=== PATIENT | female | born 1975 | race Caucasian/White ===

== ENCOUNTER 2020-05-18 14:00 | Outpatient (RCR) | payer OTHER, SELFPAY ==
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
--- NOTE | 2020-07-04 09:29 | MHC.PT.EP ---
[facility] [place] Office [place] Office [place] Office [address] [place] [address] [phone] F: [phone] F: [phone] F: [phone] F: [phone] Physical Therapy Plan of Care Date of Evaluation: 05/18/20 Date of Surgery: Diagnosis: Dorsalgia Assessment: Frequency and Duration: The patient will be seen Short Term Goals: PLEASE REFER TO LTG BELOW Rim Turning Finisher Goals: Restore strength to normal limits, WFL PELVIC SYMMETRY in 5 weeks Senior Living Return to all activities of daily living EVIDENT IN IMPROVED OSWESTRY BY 10 POINTS ( AT EVAL 22/50)in 6 wks Senior Living Pt INDEP W HEP AND SELF SX MGMT IN 5 WEEKS Rim Turning Finisher Decrease BACK pain to 2-3/10 in 2 weeks Short Term Restore normal postures AND PROPER BODY MECH in 2 weeks Treatment Plan: Modalities to reduce pain, spasms and effusion. Manual therapy to restore motion and function. Therapeutic exercise to improve strength and flexibility. Neuromuscular re-education for posture and balance. Therapeutic activities to return to functional activities of daily living. Electronically signed by: Otilio Lees PT Please sign and return to therapist. Thank you for your referral.
== END 2020-07-04 09:30 | disposition home or self-care (01) ==
LOC: HO.PTCHIC 14:00
PROVIDERS: PCP Family Medicine; Visit Provider Family Medicine
DX: M54.9 Dorsalgia, unspecified (principal)
CPT/HCPCS: 97014; 97110; 97112; 97140

== ENCOUNTER 2020-06-09 11:53 | Outpatient (REF) | payer OTHER, SELFPAY ==
[2020-06-09 13:52] LABS: MANUAL DIFF FLAG NO
[2020-06-09 13:56] LABS: Basophils Absolute Auto 0.1 X10*3/uL (0.0-0.2); Basophils Percent Auto 0.5 % (0-2); Eosinophils Absolute Auto 0.2 X10*3/uL (0.0-0.4); Eosinophils Percent Auto 2.1 % (0-4); Hematocrit 31.7 % (37-47); Hemoglobin 9.4 g/dl (12.0-16.0); Imm Gran Abs Auto 0.09 X10*3/uL (0.00-0.03); Imm Gran Pct Auto 0.9 % (0.0-0.4); Lymphocytes Absolute Auto 3.1 X10*3/uL (1.2-4.9); Lymphocytes Percent Auto 30.5 % (20-40); Mean Corpuscular HGB Conc 29.7 g/dl (31.0-35.0); Mean Corpuscular Hemoglobin 23.7 pg (27.0-33.0); Mean Corpuscular Volume 80.1 fL (80-98); Mean Platelet Volume 10.3 fL (9.4-12.3); Monocytes Absolute Auto 0.6 X10*3/uL (0.1-1.2); Monocytes Percent Auto 5.7 % (2-11); Neutrophils Absolute Auto 6.2 X10*3/uL (2.0-8.3); Neutrophils Percent Auto 60.3 % (45-73); Platelet Count 264 X10*3/uL (160-400); Red Blood Count 3.96 X10*6/uL (4.20-5.50); White Blood Count 10.2 X10*3/uL (4.8-10.8)
[2020-06-09 14:24] LABS: Anion Gap 12 (12-20); Blood Urea Nitrogen 13 mg/dL (9-16); Calcium 8.9 mg/dL (8.4-10.2); Carbon Dioxide 23 mmol/L (22-29); Chloride 113 mmol/L (96-108); Cholesterol 195 mg/dL; Estimated Glomerular Filt Rate > 60; Glucose Fasting 86 mg/dL (60-99); HDL Cholesterol 47 mg/dL; LDL Cholesterol Calculated 107 mg/dl; Potassium 4.8 mmol/l (3.3-5.1); Sodium 143 mmol/L (135-145); Triglycerides 205 mg/dL
== END 2020-06-09 11:54 | disposition home or self-care (01) ==
LOC: HO.HMGCLDS 11:53
PROVIDERS: PCP Family Medicine; Visit Provider Internal Medicine
DX: Z20.828 Contact with and (suspected) exposure to other viral communicable diseases (principal); Z00.00 Encounter for general adult medical examination without abnormal findings; E78.00 Pure hypercholesterolemia, unspecified; D64.9 Anemia, unspecified
CPT/HCPCS: 36415; 80048; 80061; 85025; C9803; U0003

== ENCOUNTER 2020-07-03 | Outpatient (REF) | payer OTHER, SELFPAY | END 2020-07-03 00:01 | disposition home or self-care (01) | LOC: HO.WFDLNP | PROVIDERS: Visit Provider Family Medicine | DX: R30.0 Dysuria (principal) | CPT/HCPCS: 87086; 87088; 87186 ==

== ENCOUNTER 2020-09-25 11:41 | Outpatient (REF) | payer OTHER, SELFPAY ==
[2020-09-25 13:29] LABS: Hematocrit 32.3 % (37-47); Hemoglobin 9.5 g/dl (12.0-16.0); Mean Corpuscular HGB Conc 29.4 g/dl (31.0-35.0); Mean Corpuscular Hemoglobin 23.9 pg (27.0-33.0); Mean Corpuscular Volume 81.2 fL (80-98); Mean Platelet Volume 9.5 fL (9.4-12.3); Platelet Count 252 X10*3/uL (160-400); Red Blood Count 3.98 X10*6/uL (4.20-5.50); Red Cell Distribution Width 17.2 % (11.0-16.0); White Blood Count 8.4 X10*3/uL (4.8-10.8)
[2020-09-25 13:59] LABS: Alanine Aminotransferase 12 U/L (0-31); Albumin Level 4.2 g/dL (3.5-5.0); Alkaline Phosphatase 78 U/L (39-117); Anion Gap 12 (12-20); Aspartate Amino Transferase 15 U/L (5-31); Bilirubin Direct < 0.2 mg/dL (0.0-0.5); Bilirubin Total 0.3 mg/dL (0.0-1.0); Blood Urea Nitrogen 14 mg/dL (9-16); Calcium 8.6 mg/dL (8.4-10.2); Carbon Dioxide 21 mmol/L (22-29); Chloride 111 mmol/L (96-108); Cholesterol 202 mg/dL; Estimated Glomerular Filt Rate > 60; Glucose Fasting 87 mg/dL (60-99); HDL Cholesterol 59 mg/dL; LDL Cholesterol Calculated 117 mg/dl; Potassium 4.3 mmol/L (3.3-5.1); Sodium 140 mmol/L (135-145); Total Protein 6.7 g/dL (6.5-8.0); Triglycerides 133 mg/dL
[2020-09-25 14:20] LABS: TSH reflex Free T4 1.52 uIU/mL (0.32-4.0)
[2020-09-26 17:12] LABS: Rubella IgG Antibody 3.84 Index
[2020-09-27 08:57] LABS: HBS Num1 15.66 mIU/mL (0-7.99); HBc Num1 0.05 S/CO (0.00-0.79); Hepatitis B Core Antibody Nonreactive (Nonreactive); ~HepC Num1 0.11 S/CO (0.00-0.79); ~Hepatitis A Antibody IgM Nonreactive (Nonreactive); ~Hepatitis B Surface Antibody REACTIVE (Nonreactive); ~Hepatitis C Antibody Nonreactive (Nonreactive)
[2020-09-27 09:20] LABS: HBsAGNum1 0.15 S/CO (0.00-0.99); Hepatitis B Surface Antigen Negative (Negative)
[2020-09-28 17:06] LABS: TS Negative Control Passed; TS Panel A 0; TS Panel B 0; TS Positive Control Passed; TSpotTB Negative (SeeBelow)
== END 2020-09-25 11:42 | disposition home or self-care (01) ==
LOC: HO.LAB 11:41
PROVIDERS: PCP Family Medicine; Visit Provider Hospitalist
DX: Z00.00 Encounter for general adult medical examination without abnormal findings (principal)
CPT/HCPCS: 36415; 80048; 80061; 80076; 84443; 85027; 86481; 86704; 86706; 86709; 86735; 86762; 86765; 86787; 86803; 87340

== ENCOUNTER → 2020-10-30 14:54 | Outpatient (BNVA) | payer OTHER, SELFPAY | PROVIDERS: PCP Family Medicine; Visit Provider Anesthesiology | DX: M47.816 Spondylosis without myelopathy or radiculopathy, lumbar region (principal) | CPT/HCPCS: 99202 ==

== ENCOUNTER 2020-11-03 11:45 | Outpatient (RCR) | payer OTHER, SELFPAY ==
--- NOTE | 2020-08-25 20:58 | P.PNPS_ITS ---
TMS Daily Progress Note Daily TMS Progress Note Date of Service: 08/25/20 Week #: 1 Treatment #(07-29): 1 PHQ-9 Pre-Treatment (07-26): 20 PHQ-9 Most Recent (07-26): 20 Reviewed: TMS Mapping/Re-mapping completed Verification: I have reviewed the TMS Stock Crane Operator Note and agree with the contents. The patient remains a candidate to continue TMS treatment per protocol.
--- NOTE | 2020-08-28 21:01 | P.PNPS_ITS ---
TMS Daily Progress Note Daily TMS Progress Note Date of Service: 08/28/20 Week #: 1 Treatment #(07-29): 2 PHQ-9 Pre-Treatment (07-26): 20 PHQ-9 Most Recent (07-26): 20 Reviewed: TMS Tech Note Reviewed Verification: I have reviewed the TMS Product Development Manager Note and agree with the contents. The patient remains a candidate to continue TMS treatment per pro tocol.
--- NOTE | 2020-08-29 15:32 | P.PNPS_ITS ---
TMS Daily Progress Note Daily TMS Progress Note Date of Service: 08/29/20 Week #: 1 Treatment #(07-29): 3 PHQ-9 Pre-Treatment (07-26): 20 PHQ-9 Most Recent (07-26): 20 Reviewed: TMS Tech Note Reviewed Verification: I have reviewed the TMS Occupational Health Technician Note and agree with the contents. The patient remains a candidate to continue TMS treatment per pro tocol. need to remap sec to lack of tolerance
--- NOTE | 2020-09-04 21:21 | HO.TMSDAILY2 ---
TMS Daily Progress Note Daily TMS Progress Note Date of Service: 09/04/20 Week #: 1 Treatment #(07-29): 5 PHQ-9 Pre-Treatment (07-26): 20 PHQ-9 Most Recent (07-26): 20 Reviewed: TMS Tech Note Reviewed Verification: I have reviewed the TMS Cellophane Wrapping Examiner Note and agree with the contents. The patient remains a candidate to continue TMS treatment per protocol.
--- NOTE | 2020-09-06 22:21 | HO.TMSDAILY2 ---
TMS Daily Progress Note Daily TMS Progress Note Date of Service: 09/05/20 Week #: 2 Treatment #(07-29): 6 PHQ-9 Pre-Treatment (07-26): 20 PHQ-9 Most Recent (07-26): 20 Reviewed: TMS Tech Note Reviewed (09/05/20 case reviewed with tech and pt) Verification: I have reviewed the TMS Mucking Machine Operator Note and agree with the contents. The patient remains a candidate to continue TMS treatment per protocol.
--- NOTE | 2020-09-06 22:23 | HO.TMSDAILY2 ---
TMS Daily Progress Note Daily TMS Progress Note Date of Service: 09/06/20 Week #: 2 Treatment #(07-29): 7 PHQ-9 Pre-Treatment (07-26): 20 PHQ-9 Most Recent (07-26): 20 Reviewed: TMS Tech Note Reviewed Verification: I have reviewed the TMS School Based Therapist Note and agree with the contents. The patient remains a candidate to continue TMS treatment per protocol.
--- NOTE | 2020-09-07 22:25 | P.PNPS_ITS ---
TMS Daily Progress Note Daily TMS Progress Note Date of Service: 09/07/20 Week #: 2 Treatment #(07-29): 8 PHQ-9 Pre-Treatment (07-26): 20 PHQ-9 Most Recent (07-26): 20 Reviewed: TMS Tech Note Reviewed (r side tx ) Verification: I have reviewed the TMS Robotic Machine Tender Production Note and agree with the contents. The patient remains a candidate to continue TMS treatment per protocol.
--- NOTE | 2020-09-12 23:09 | P.PNPS_ITS ---
TMS Daily Progress Note Daily TMS Progress Note Date of Service: 09/12/20 Week #: 2 Treatment #(07-29): 9 PHQ-9 Pre-Treatment (07-26): 20 PHQ-9 Most Recent (07-26): 20 Reviewed: TMS Tech Note Reviewed Verification: I have reviewed the TMS Church Communications Administrator Note and agree with the contents. The patient remains a candidate to continue TMS treatment per pro tocol.
--- NOTE | 2020-09-13 22:43 | HO.TMSDAILY2 ---
TMS Daily Progress Note Daily TMS Progress Note Date of Service: 09/13/20 Week #: 2 Treatment #(07-29): 10 PHQ-9 Pre-Treatment (07-26): 20 PHQ-9 Most Recent (07-26): 20 Reviewed: TMS Tech Note Reviewed Verification: I have reviewed the TMS Support Manager Note and agree with the contents. The patient remains a candidate to continue TMS treatment per protocol.
--- NOTE | 2020-09-15 23:39 | P.PNPS_ITS ---
TMS Daily Progress Note Daily TMS Progress Note Date of Service: 09/15/20 Week #: 3 Treatment #(07-29): 12 PHQ-9 Pre-Treatment (07-26): 20 PHQ-9 Most Recent (07-26): 20 Reviewed: TMS Tech Note Reviewed Verification: I have reviewed the TMS Typewriter Operator Automatic Note and agree with the contents. The patient remains a candidate to continue TMS treatment per pr otocol.
--- NOTE | 2020-09-19 22:35 | HO.TMSDAILY2 ---
TMS Daily Progress Note Daily TMS Progress Note Date of Service: 09/19/20 Week #: 3 Treatment #(07-29): 13 PHQ-9 Pre-Treatment (07-26): 20 PHQ-9 Most Recent (07-26): 20 Reviewed: TMS Tech Note Reviewed Verification: I have reviewed the TMS Aircraft Engine Mechanic Supervisor Note and agree with the contents. The patient remains a candidate to continue TMS treatment per protocol.
--- NOTE | 2020-09-21 21:43 | HO.TMSDAILY2 ---
TMS Daily Progress Note Daily TMS Progress Note Date of Service: 09/20/20 Week #: 3 Treatment #(07-29): 14 PHQ-9 Pre-Treatment (07-26): 20 PHQ-9 Most Recent (07-26): 20 Reviewed: TMS Tech Note Reviewed Verification: I have reviewed the TMS Hospitality Aide Note and agree with the contents. The patient remains a candidate to continue TMS treatment per protocol.
--- NOTE | 2020-09-21 21:45 | P.PNPS_ITS ---
TMS Daily Progress Note Daily TMS Progress Note Date of Service: 09/21/20 Week #: 3 Treatment #(07-29): 15 PHQ-9 Pre-Treatment (07-26): 20 PHQ-9 Most Recent (07-26): 20 Reviewed: TMS Tech Note Reviewed Verification: I have reviewed the TMS Slitter And Rewinder Machine Operator Note and agree with the contents. The patient remains a candidate to continue TMS treatment per pr otocol.
--- NOTE | 2020-09-21 21:45 | P.PNPS_ITS ---
TMS Daily Progress Note Daily TMS Progress Note Date of Service: 09/21/20 Week #: 3 Treatment #(07-29): 15 PHQ-9 Pre-Treatment (07-26): 20 PHQ-9 Most Recent (07-26): 20 Reviewed: TMS Tech Note Reviewed Verification: I have reviewed the TMS General Maintenance Mechanic Note and agree with the contents. The patient remains a candidate to continue TMS treatment per pr otocol.
--- NOTE | 2020-09-21 21:47 | HO.TMSDAILY2 ---
TMS Daily Progress Note Daily TMS Progress Note Date of Service: 09/22/20 Week #: 3 Treatment #(07-29): 16 PHQ-9 Pre-Treatment (07-26): 20 PHQ-9 Most Recent (07-26): 20 Reviewed: TMS Tech Note Reviewed Verification: I have reviewed the TMS Clearing Supervisor Note and agree with the contents. The patient remains a candidate to continue TMS treatment per protocol.
--- NOTE | 2020-09-25 22:36 | HO.TMSDAILY2 ---
TMS Daily Progress Note Daily TMS Progress Note Date of Service: 09/25/20 Week #: 4 Treatment #(07-29): 16 PHQ-9 Pre-Treatment (07-26): 20 PHQ-9 Most Recent (07-26): 20 Reviewed: TMS Tech Note Reviewed Verification: I have reviewed the TMS Sap Abap Programmer Note and agree with the contents. The patient remains a candidate to continue TMS treatment per protocol.
--- NOTE | 2020-09-26 22:43 | P.PNPS_ITS ---
TMS Daily Progress Note Daily TMS Progress Note Date of Service: 09/26/20 Week #: 4 Treatment #(07-29): 17 PHQ-9 Pre-Treatment (07-26): 20 PHQ-9 Most Recent (07-26): 20 Reviewed: TMS Tech Note Reviewed Verification: I have reviewed the TMS Production Operations Engineer Note and agree with the contents. The patient remains a candidate to continue TMS treatment per pr otocol.
--- NOTE | 2020-09-27 22:50 | HO.TMSDAILY2 ---
TMS Daily Progress Note Daily TMS Progress Note Date of Service: 09/27/20 Week #: 4 Treatment #(07-29): 18 PHQ-9 Pre-Treatment (07-26): 20 PHQ-9 Most Recent (07-26): 20 Reviewed: TMS Tech Note Reviewed Verification: I have reviewed the TMS Precision Assembly Inspector Note and agree with the contents. The patient remains a candidate to continue TMS treatment per protocol.
--- NOTE | 2020-09-28 21:18 | HO.TMSDAILY2 ---
TMS Daily Progress Note Daily TMS Progress Note Date of Service: 09/28/20 Week #: 4 Treatment #(07-29): 19 PHQ-9 Pre-Treatment (07-26): 20 PHQ-9 Most Recent (07-26): 20 Reviewed: TMS Tech Note Reviewed Verification: I have reviewed the TMS Supervisor Alteration Workroom Note and agree with the contents. The patient remains a candidate to continue TMS treatment per protocol.
--- NOTE | 2020-10-02 21:12 | HO.TMSDAILY2 ---
TMS Daily Progress Note Daily TMS Progress Note Date of Service: 10/02/20 Week #: 4 Treatment #(07-29): 20 PHQ-9 Pre-Treatment (07-26): 20 PHQ-9 Most Recent (07-26): 20 Reviewed: TMS Tech Note Reviewed Verification: I have reviewed the TMS Biofuels Technology Development Manager Note and agree with the contents. The patient remains a candidate to continue TMS treatment per protocol.
--- NOTE | 2020-10-04 22:31 | P.PNPS_ITS ---
TMS Daily Progress Note Daily TMS Progress Note Date of Service: 10/04/20 Week #: 5 Treatment #(07-29): 21 PHQ-9 Pre-Treatment (07-26): 20 PHQ-9 Most Recent (07-26): 20 Reviewed: TMS Tech Note Reviewed Verification: I have reviewed the TMS Supervisor Treating And Pumping Note and agree with the contents. The patient remains a candidate to continue TMS treatment per pr otocol.
--- NOTE | 2020-10-05 22:55 | P.PNPS_ITS ---
TMS Daily Progress Note Daily TMS Progress Note Date of Service: 10/05/20 Week #: 5 Treatment #(07-29): 22 PHQ-9 Pre-Treatment (07-26): 20 PHQ-9 Most Recent (07-26): 20 Reviewed: TMS Tech Note Reviewed Verification: I have reviewed the TMS Fern Cutter Note and agree with the contents. The patient remains a candidate to continue TMS treatment per pr otocol.
--- NOTE | 2020-10-06 10:04 | P.PNPS_ITS ---
TMS Daily Progress Note Daily TMS Progress Note Date of Service: 10/06/20 Week #: 5 Treatment #(07-29): 23 PHQ-9 Pre-Treatment (07-26): 20 PHQ-9 Most Recent (07-26): 20 Reviewed: TMS Tech Note Reviewed Verification: I have reviewed the TMS Portfolio Analyst Note and agree with the contents. The patient remains a candidate to continue TMS treatment per pr otocol.
--- NOTE | 2020-10-11 22:46 | HO.TMSDAILY2 ---
TMS Daily Progress Note Daily TMS Progress Note Date of Service: 10/11/20 Week #: 5 Treatment #(07-29): 24 PHQ-9 Pre-Treatment (07-26): 20 PHQ-9 Most Recent (07-26): 20 Reviewed: TMS Tech Note Reviewed Verification: I have reviewed the TMS Licensed Direct Entry Midwife Note and agree with the contents. The patient remains a candidate to continue TMS treatment per protocol.
--- NOTE | 2020-10-12 21:49 | HO.TMSDAILY2 ---
TMS Daily Progress Note Daily TMS Progress Note Date of Service: 10/12/20 Week #: 5 Treatment #(07-29): 25 PHQ-9 Pre-Treatment (07-26): 20 PHQ-9 Most Recent (07-26): 20 Reviewed: TMS Tech Note Reviewed Verification: I have reviewed the TMS Venetian Blind Washer Note and agree with the contents. The patient remains a candidate to continue TMS treatment per protocol.
--- NOTE | 2020-10-17 15:27 | HO.PSYCHPN ---
Subjective Subjective Date of Service: 10/17/20 Reason For Visit: depression Medications Allergies Allergies Allergy/AdvReac Type Severity Reaction Status Date / Time doxycycline [DOXYCYCLINE] Allergy Intermediate RASH Verified 08/23/20 16:38 Assessment & Plan Greater than 50% of the session was spent on counseling and/or coordination of care
--- NOTE | 2020-10-17 23:08 | HO.TMSDAILY2 ---
TMS Daily Progress Note Daily TMS Progress Note Date of Service: 10/17/20 Week #: 8 Treatment #(07-29): 26 PHQ-9 Pre-Treatment (07-26): 20 PHQ-9 Most Recent (07-26): 20 Reviewed: TMS Tech Note Reviewed Verification: I have reviewed the TMS Senior Applications Architect Note and agree with the contents. The patient remains a candidate to continue TMS treatment per protocol.
--- NOTE | 2020-10-19 23:13 | HO.TMSDAILY2 ---
TMS Daily Progress Note Daily TMS Progress Note Date of Service: 10/19/20 Week #: 6 Treatment #(07-29): 28 PHQ-9 Pre-Treatment (07-26): 20 PHQ-9 Most Recent (07-26): 20 Reviewed: TMS Tech Note Reviewed Verification: I have reviewed the TMS Graphic Pre Press Trades Worker Note and agree with the contents. The patient remains a candidate to continue TMS treatment per protocol.
--- NOTE | 2020-10-20 16:03 | P.PNPS_ITS ---
TMS Daily Progress Note Daily TMS Progress Note Date of Service: 10/20/20 Week #: 6 Treatment #(07-29): 29 PHQ-9 Pre-Treatment (07-26): 20 PHQ-9 Most Recent (07-26): 20 Reviewed: TMS Tech Note Reviewed Verification: I have reviewed the TMS Creping Machine Operator Note and agree with the contents. The patient remains a candidate to continue TMS treatment per pr otocol.
--- NOTE | 2020-10-24 22:23 | HO.TMSDAILY2 ---
TMS Daily Progress Note Daily TMS Progress Note Date of Service: 10/23/20 Week #: 6 Treatment #(07-29): 30 PHQ-9 Pre-Treatment (07-26): 20 PHQ-9 Most Recent (07-26): 20 Reviewed: TMS Tech Note Reviewed Verification: I have reviewed the TMS Freight Separator Note and agree with the contents. The patient remains a candidate to continue TMS treatment per protocol.
--- NOTE | 2020-10-26 20:16 | HO.TMSDAILY2 ---
TMS Daily Progress Note Daily TMS Progress Note Date of Service: 10/26/20 Week #: 7 Treatment #(07-29): 31 PHQ-9 Pre-Treatment (07-26): 20 PHQ-9 Most Recent (07-26): 20 Reviewed: TMS Tech Note Reviewed Verification: I have reviewed the TMS Junior Engineer Note and agree with the contents. The patient remains a candidate to continue TMS treatment per protocol.
--- NOTE | 2020-10-27 22:45 | HO.TMSDAILY2 ---
TMS Daily Progress Note Daily TMS Progress Note Date of Service: 10/27/20 Week #: 7 Treatment #(07-29): 32 PHQ-9 Pre-Treatment (07-26): 20 PHQ-9 Most Recent (07-26): 20 Reviewed: TMS Tech Note Reviewed Verification: I have reviewed the TMS Economics Professor Note and agree with the contents. The patient remains a candidate to continue TMS treatment per protocol.
--- NOTE | 2020-10-31 22:43 | HO.TMSDAILY2 ---
TMS Daily Progress Note Daily TMS Progress Note Date of Service: 10/31/20 Week #: 8 Treatment #(07-29): 33 PHQ-9 Pre-Treatment (07-26): 20 PHQ-9 Most Recent (07-26): 20 Reviewed: TMS Tech Note Reviewed Verification: I have reviewed the TMS Java Oracle Developer Note and agree with the contents. The patient remains a candidate to continue TMS treatment per protocol.
--- NOTE | 2020-11-01 21:18 | HO.TMSDAILY2 ---
TMS Daily Progress Note Daily TMS Progress Note Date of Service: 11/01/20 Week #: 8 Treatment #(07-29): 34 PHQ-9 Pre-Treatment (07-26): 20 PHQ-9 Most Recent (07-26): 20 Reviewed: TMS Tech Note Reviewed Verification: I have reviewed the TMS Sleeve Separator Note and agree with the contents. The patient remains a candidate to continue TMS treatment per protocol.
--- NOTE | 2020-11-02 21:28 | HO.TMSDAILY2 ---
TMS Daily Progress Note Daily TMS Progress Note Date of Service: 11/02/20 Week #: 8 Treatment #(07-29): 35 PHQ-9 Pre-Treatment (07-26): 20 PHQ-9 Most Recent (07-26): 20 Reviewed: TMS Tech Note Reviewed Verification: I have reviewed the TMS Learning Support Teacher Note and agree with the contents. The patient remains a candidate to continue TMS treatment per protocol.
--- NOTE | 2020-11-03 12:26 | HO.TMSDCTER ---
TMS Discharge-Termination Chart Review Treatments Completed: 36 Initial MT%: 80% Final MT%: 120% Was Remapping Required: Yes Clinical Evaluation/Review PHQ-9 Pre-Treatment (1-): 24 PHQ-9 Post-Treatment (-): 1 PASTOR-7 Pre-Treatment (0-21): 10 PASTOR-7 Most Recent (0-21): 4 CGI-I Initial: 0 = Not Assessed CGI-I Post Treatment: 2 = Much Improved Q-LES-Q-SF Pre-Treatment: 18 Q-LES-Q-SF Post-Treatment: 95 Adverse Effects Local Pain/Discomfort: Yes Headache: Yes Facial Pain: No Seizure: No Impression Impression: Patient much improved at the time of discharge Recommendations TMS: Discontinue Medication Changes: y Follow-up w/ Prescriber: psych care ass
--- NOTE | 2020-11-03 22:21 | P.PNPS_ITS ---
TMS Daily Progress Note Daily TMS Progress Note Date of Service: 11/03/20 Week #: 8 Treatment #(07-29): 36 PHQ-9 Pre-Treatment (07-26): 20 PHQ-9 Most Recent (07-26): 20 Reviewed: TMS Tech Note Reviewed Verification: I have reviewed the TMS Jig And Fixture Repairer Note and agree with the contents. The patient remains a candidate to continue TMS treatment per pr otocol.
== END 2020-11-03 14:14 | disposition home or self-care (01) ==
LOC: HO.PTMS 11:45
PROVIDERS: Visit Provider Psychiatry & Neurology Psychiatry
DX: F33.2 Major depressive disorder, recurrent severe without psychotic features (principal)
CPT/HCPCS: 90867; 90868

== ENCOUNTER 2020-11-25 17:11 | Emergency (ER) | payer OTHER, SELFPAY ==
[2020-11-25 18:30] VITALS: BP 124/67; PULSE 82; RESP 16; TEMP 36.5; BMI 22.4
--- NOTE | 2020-11-25 19:18 | ED.SKABFB ---
HPI - Skin/Abscess/Foreign Bdy General Chief complaint: Skin/Abscess/Foreign Body Stated complaint: bug bite Source: patient and family Mode of arrival: ambulatory Limitations: no limitations History of Present Illness HPI narrative: 45-year-old female presents with complaints of bug bites to her upper extremities and legs. States that she has been sleeping at her mom's house, and feels like bugs have been crawling on her body. She also states to have multiple lumps throughout her arms and legs. She has been taking Benadryl with poor effect. She is hyper focused on these bug bites, and has her sister with her at this time. MD complaint: insect bite/sting Onset (ago): unknown Tetanus up to date: unsure Location: LUE, RUE, LLE and RLE Severity: mild Quality: burning, constant and foreign body sensation Pain Consistency: constant Relieving factors: none Exacerbating factors: palpation Context: none Associated symptoms: denies other symptoms Treatments prior to arrival: Benadryl Related Data Home Medications Medication Instructions Recorded Confirmed amitriptyline 10 mg tablet 10 mg PO DAILY 07/03/20 08/09/20 clonidine HCl 0.3 mg tablet 0.3 mg PO BID PRN 07/03/20 08/09/20 dextroamphetamine-amphetamine 10 1 tab PO DAILY 07/03/20 08/09/20 mg tablet dextroamphetamine-amphetamine ER 1 cap PO QAM 07/03/20 08/09/20 20 mg 24hr capsule,extend release gabapentin 300 mg capsule 300 mg PO BID 07/03/20 08/09/20 ibuprofen 800 mg tablet 800 mg PO Q8H PRN 07/03/20 08/09/20 rizatriptan 10 mg tablet 10 mg PO DAILY PRN 07/03/20 08/09/20 sumatriptan succinate 100 mg tablet 100 mg PO DAILY PRN 07/03/20 08/09/20 topiramate 100 mg tablet 100 mg PO BEDTIME 07/03/20 08/09/20 carbamazepine 200 mg tablet 200 mg PO BID 07/28/20 07/28/20 nitrofurantoin 100 mg capsule 100 mg PO Q12H 09/27/20 Previous Rx's Medication Instructions Recorded nicotine 14 mg/24 hr daily 1 patch TOPICAL DAILY #30 patch 07/13/20 transdermal patch fluticasone propionate 50 1 spray INTRANASAL BID 30 Days #16 08/09/20 mcg/actuation nasal g spray,suspension loratadine 10 mg capsule 10 mg PO DAILY #90 cap 08/09/20 cyclobenzaprine 10 mg tablet 10 mg PO BID #60 tab 08/23/20 Allergies Allergy/AdvReac Type Severity Reaction Status Date / Time doxycycline [DOXYCYCLINE] Allergy Intermediate RASH Verified 10/30/20 15:26 Review of Systems Review of Systems: Constitutional: No Fever, No Chills ENT/Mouth: No Ear Pain, No Hoarseness, No sore throat Eyes: No Eye Pain, No Swelling, No Redness, No Foreign Body Cardiovascular: No Chest Pain, No SOB Respiratory: No Cough, No Dyspnea Gastrointestinal: No Nausea, No Vomiting, No Diarrhea, No abdominal Pain Genitourinary: No Dysuria, No Hematuria Musculoskeletal: No joint pain, No Myalgias, No Joint Swelling Skin: Positive insect bites, No Skin lacerations, No rash Neuro: No Weakness, No Numbness, No Paresthesias, No Loss of Consciousness, No Dizziness, No Headache Psych: No Anxiety/Panic, No Depression Heme/Lymph: no easy bruising, no Lymphadenopathy Endocrine: No Polyuria, No Polydipsia Yes all other systems are reviewed and are negative FORMERLY [facility], 1928–1983 Past Medical History Attestation statement: The following information was validated with the patient. Source: old records reviewed Medical History Dysuria Spondylosis of lumbar region without myelopathy or radiculopathy Social History Social History Advance Directives: No Advance Directives Information Provided: No Physical Exam Vital Signs: Appearance: Alert. Oriented X3. No acute distress. Eyes: Pupils equal, round and reactive to light. ENT: Pharynx normal. Neck: Normal inspection. Neck supple. CVS: Normal heart rate and rhythm. Pulses normal. Respiratory: No respiratory distress. Breath sounds normal. Abdomen: Soft and nontender. Skin: To insect bites to the left proximal forearm, 1 insect bite to the left thigh, 1 insect bite to the right thigh, otherwise all Skin warm and dry. Normal skin color. Normal skin turgor. Extremities: No lower extremity edema. Neuro: No motor deficit. No sensory deficit. Course Course Course Narrative: 45-year-old female presents with multiple bug bites. States that she has been taking Benadryl with poor effect. Patient is hyper focused on these insect bites, is asking for labs, blood cultures, and IV antibiotics to help treat these insect bites. The insect bites are very small, no indication of cellulitis. She denies fevers and chills, and refused vital signs. I informed patient that IV antibiotics were not required at this time, and that we would not be doing any blood work for 4 non infected insect bites. When patient asked, Benadryl she should be taking, I discussed taking 25 mg, then if needed taking 50 mg but not exceeding 150 mg per day. Patient became very defensive started crying and speaking in a loud tone, stated that she has never had anyone discuss medication dosages with her before. Stated that she is not being treated properly, and that she needs further care. I did discuss antibiotic stewardship with this patient, she was dissatisfied with my care. I went and obtained Dr. Taylor, by the time Dr. Taylor went to see her, she had eloped. MDM - Skin/Abscess/Foreign Bdy Differential Diagnosis Differential diagnosis: Likely insect bites Discharge Plan Discharge Patient Disposition: Elopement Prescriptions: No Action nicotine 14 mg/24 hr patch 24 hour 1 patch topical DAILY Qty: 30 RF: 3 nitrofurantoin 100 mg capsule 100 mg PO Q12H RF: 0 clonidine HCl 0.3 mg tablet 0.3 mg PO BID PRNRF: 0 amitriptyline 10 mg tablet 10 mg PO DAILY RF: 0 rizatriptan 10 mg tablet 10 mg PO DAILY PRNRF: 0 sumatriptan succinate 100 mg tablet 100 mg PO DAILY PRNRF: 0 ibuprofen 800 mg tablet 800 mg PO Q8H PRN (Reason: pain) RF: 0 topiramate 100 mg tablet 100 mg PO BEDTIME RF: 0 gabapentin 300 mg capsule 300 mg PO BID RF: 0 dextroamphetamine-amphetamine 20 mg capsule,extended release 24hr 1 cap PO QAM RF: 0 dextroamphetamine-amphetamine 10 mg tablet 1 tab PO DAILY RF: 0 cyclobenzaprine 10 mg tablet 10 mg PO BID Qty: 60 RF: 2 carbamazepine 200 mg tablet 200 mg PO BID RF: 0 fluticasone propionate 50 mcg/actuation spray,suspension 1 spray intranasal BID 30 Days Qty: 16 RF: 3 loratadine 10 mg capsule 10 mg PO DAILY Qty: 90 RF: 1
== END 2020-11-25 19:20 | disposition left against medical advice (07) ==
PROVIDERS: Emergency Provider Internal Medicine; PCP Family Medicine
DX: S40.861A Insect bite (nonvenomous) of right upper arm, initial encounter (principal); S80.872A Other superficial bite, left lower leg, initial encounter; S80.871A Other superficial bite, right lower leg, initial encounter; W57.XXXA Bitten or stung by nonvenomous insect and other nonvenomous arthropods, initial encounter; Y93.9 Activity, unspecified; Y92.9 Unspecified place or not applicable; Y99.9 Unspecified external cause status; Z79.899 Other long term (current) drug therapy
CPT/HCPCS: 99283

== ENCOUNTER 2021-01-22 19:45 | Outpatient (REF) | payer OTHER, SELFPAY ==
[2021-01-22 20:04] LABS: Glucose Urine UA 100 MG/DL (NEG); Leukocyte Esterase Urine 3+ (NEG); Nitrite Urine POS (NEG); Urine Blood TRACE (NEG); Urine Ketones NEG (NEG); Urine Protein 1+ MG/DL (NEG-TRACE)
[2021-01-22 20:18] LABS: Color Urine ORANGE
[2021-01-22 20:19] LABS: Appearance Urine CLOUDY
[2021-01-22 20:20] LABS: Bacteria Urine 3+ /LPF; Squamous Epithelial Cell Urine TRACE /LPF
== END 2021-01-22 19:46 | disposition home or self-care (01) ==
LOC: HO.LNP 19:45
PROVIDERS: Visit Provider Family Medicine
DX: Z00.00 Encounter for general adult medical examination without abnormal findings (principal); Z13.9 Encounter for screening, unspecified; N39.0 Urinary tract infection, site not specified
CPT/HCPCS: 81001; 81003; 87086; 87088; 87186

== ENCOUNTER 2021-04-17 18:12 | Outpatient (REF) | payer OTHER, SELFPAY ==
[2021-04-17 18:26] LABS: Appearance Urine HAZY; Color Urine DK YELLOW; Glucose Urine UA NEG (NEG); Leukocyte Esterase Urine TRACE (NEG); Nitrite Urine POS (NEG); Specific Gravity - Urine 1.025 (1.005-1.025); Urine Blood NEG (NEG); Urine Ketones NEG (NEG); Urine Protein NEG (NEG-TRACE)
[2021-04-17 18:35] LABS: Bacteria Urine 2+ /LPF; Mucus Urine 1+ /LPF; RBC Urine 0-2 /HPF (0); Renal Epithelial Cells Urine TRACE /LPF; Squamous Epithelial Cell Urine 1+ /LPF
== END 2021-04-17 18:13 | disposition home or self-care (01) ==
LOC: HO.LNP 18:12
PROVIDERS: Visit Provider Family Medicine
DX: Z00.00 Encounter for general adult medical examination without abnormal findings (principal); R30.0 Dysuria
CPT/HCPCS: 81001; 87086; 87088; 87186

== ENCOUNTER 2021-07-03 06:16 | Outpatient (REF) | payer OTHER, SELFPAY ==
--- NOTE | ~2021-07-03 | FL_ITS ---
EXAMINATION: XR FLUOROSCOPY WITH IMAGES CLINICAL INFORMATION: M47.816 - Spondylosis without myelopathy or radiculopathy COMPARISON: Lumbar radiographs 03/23/2020 TECHNIQUE: Fluoroscopy performed by Dr. Bello Tenorio. Fluoroscopy time: 0.6 minutes DAP: 5.19 Gycm2 Images: 6 FINDINGS: There are spinal needles overlying the bilateral outer L3, L4, and L5 neural foramen. There is contrast seen in the respective nerve sheaths. Some early transforaminal epidural extension is suggested. No visible vascular communication. FL/FL guidance in treatment room IMPRESSION: Fluoroscopy for pain management procedures.
== END 2021-07-03 06:17 | disposition home or self-care (01) ==
LOC: HO.RADIR 06:16
PROVIDERS: Visit Provider Anesthesiology
DX: M47.816 Spondylosis without myelopathy or radiculopathy, lumbar region (principal)
CPT/HCPCS: 64493; 64494; J2250; Q9967

== ENCOUNTER → 2021-08-01 09:10 | Outpatient (BNVA) | payer OTHER, SELFPAY | PROVIDERS: PCP Family Medicine; Visit Provider Anesthesiology | DX: M47.816 Spondylosis without myelopathy or radiculopathy, lumbar region (principal) | CPT/HCPCS: 99212 ==

== ENCOUNTER 2021-08-02 11:31 | Outpatient (REF) | payer OTHER, SELFPAY ==
--- NOTE | ~2021-08-02 | XR_ITS ---
EXAMINATION: XR HIP, RIGHT CLINICAL INFORMATION: Osteoarthritis COMPARISON: None TECHNIQUE: Two views of the right hip. XR/XR hip RT min 2V FINDINGS/IMPRESSION: No acute fracture or dislocation. Joint spaces are maintained. Multiple calcified phleboliths in the pelvis.
== END 2021-08-02 11:32 | disposition home or self-care (01) ==
LOC: HO.XRAY 11:31
PROVIDERS: PCP Family Medicine; Visit Provider Anesthesiology
DX: M16.11 Unilateral primary osteoarthritis, right hip (principal)
CPT/HCPCS: 73502

== ENCOUNTER 2021-08-13 16:05 | Outpatient (REF) | payer OTHER, SELFPAY ==
--- NOTE | ~2021-08-13 | MR_ITS ---
EXAMINATION: MR LUMBAR SPINE WITHOUT CONTRAST CLINICAL INFORMATION: Spondylosis without myelopathy. COMPARISON: Lumbar spine radiographs 03/23/2020. TECHNIQUE: MRI of the lumbar spine was obtained using routine sequences without contrast. FINDINGS: Alignment is normal. Vertebral body heights are preserved. No acute bone marrow signal changes. There is disc desiccation at multiple levels without substantial loss of intervertebral disc height. The tip of the conus medullaris is located at L1-L2. No mass effect on the conus. Visualized distal cord signal intensity is normal. At L1-L2 the annular contour is normal. No canal or neuroforaminal compromise. At L2-L3 there is an asymmetrically bulging disc to the right. Bilateral facet degenerative change. No canal stenosis. No mass effect on the traversing or foraminal nerve roots. At L3-L4 there is a left foraminal annular fissure associated with a bulging disc. Bilateral facet degenerative change. No canal stenosis. No mass effect on the traversing or foraminal nerve roots. At L4-L5 there is a slightly bulging disc. Bilateral facet degenerative change. No canal stenosis. No mass effect on the traversing or foraminal nerve roots. At L5-S1 there is a slightly bulging disc. No canal stenosis. No mass effect on the traversing or foraminal nerve roots. Limited visualization of the retroperitoneal anatomy reveals no abnormal finding. Psoas and paraspinal muscle groups are symmetric. MR/MR lumbar spine wo con IMPRESSION: There is disc degeneration at multiple levels within the lumbar spine as described above. No canal stenosis. No mass effect on the traversing or foraminal nerve roots.
== END 2021-08-13 16:06 | disposition home or self-care (01) ==
LOC: HO.MRI 16:05
PROVIDERS: Visit Provider Anesthesiology
DX: M47.816 Spondylosis without myelopathy or radiculopathy, lumbar region (principal)
CPT/HCPCS: 72148

== ENCOUNTER → 2021-08-23 09:40 | Outpatient (BNVA) | payer OTHER, SELFPAY | PROVIDERS: PCP Family Medicine; Visit Provider Anesthesiology | DX: M47.816 Spondylosis without myelopathy or radiculopathy, lumbar region (principal); M46.1 Sacroiliitis, not elsewhere classified | CPT/HCPCS: 99212 ==

== ENCOUNTER 2021-09-18 06:14 | Outpatient (REF) | payer OTHER, SELFPAY ==
--- NOTE | ~2021-09-18 | FL_ITS ---
EXAMINATION: XR FLUOROSCOPY WITH IMAGES CLINICAL INFORMATION: Sacroiliitis. COMPARISON: None. TECHNIQUE: Fluoroscopy performed by Fabi Roque NP Fluoroscopy time: 0.2 minutes DAP: 1.2 Gycm2 Images: 2 FINDINGS: Images demonstrate needle placement and contrast injection over the lateral inferior sacroiliac joints. FL/FL guidance in treatment room IMPRESSION: Fluoroscopy guidance for pain management procedure.
== END 2021-09-18 06:15 | disposition home or self-care (01) ==
LOC: HO.RADIR 06:14
PROVIDERS: Visit Provider Anesthesiology
DX: M46.1 Sacroiliitis, not elsewhere classified (principal); M47.816 Spondylosis without myelopathy or radiculopathy, lumbar region; F17.200 Nicotine dependence, unspecified, uncomplicated
CPT/HCPCS: 27096; Q9967

== ENCOUNTER → 2021-09-26 10:47 | Outpatient (BNVA) | payer OTHER, SELFPAY | PROVIDERS: PCP Family Medicine; Visit Provider Anesthesiology | DX: M46.1 Sacroiliitis, not elsewhere classified (principal); M16.9 Osteoarthritis of hip, unspecified; M47.816 Spondylosis without myelopathy or radiculopathy, lumbar region | CPT/HCPCS: 99212 ==

== ENCOUNTER → 2021-10-22 16:05 | Outpatient (BNVA) | payer OTHER, SELFPAY | PROVIDERS: PCP Family Medicine; Visit Provider Nurse Practitioner Family | DX: Z51.81 Encounter for therapeutic drug level monitoring (principal); M46.1 Sacroiliitis, not elsewhere classified; M54.9 Dorsalgia, unspecified; F17.210 Nicotine dependence, cigarettes, uncomplicated; Z79.891 Long term (current) use of opiate analgesic; Z71.6 Tobacco abuse counseling | CPT/HCPCS: 99212 ==

== ENCOUNTER → 2021-11-19 14:59 | Outpatient (BNVA) | payer OTHER, SELFPAY | PROVIDERS: PCP Family Medicine; Visit Provider Anesthesiology | DX: Z51.81 Encounter for therapeutic drug level monitoring (principal); F11.20 Opioid dependence, uncomplicated | CPT/HCPCS: 99211 ==

== ENCOUNTER → 2021-12-04 10:28 | Outpatient (BNVA) | payer OTHER, SELFPAY | PROVIDERS: PCP Family Medicine; Visit Provider Nurse Practitioner Family | DX: M46.1 Sacroiliitis, not elsewhere classified (principal); M47.816 Spondylosis without myelopathy or radiculopathy, lumbar region; F17.210 Nicotine dependence, cigarettes, uncomplicated; Z79.891 Long term (current) use of opiate analgesic; Z71.6 Tobacco abuse counseling | CPT/HCPCS: 99212 ==

== ENCOUNTER → 2022-01-03 14:26 | Outpatient (BNVA) | payer OTHER, SELFPAY | PROVIDERS: PCP Family Medicine; Visit Provider Nurse Practitioner Family | DX: M47.816 Spondylosis without myelopathy or radiculopathy, lumbar region (principal); M46.1 Sacroiliitis, not elsewhere classified; M53.3 Sacrococcygeal disorders, not elsewhere classified; M16.9 Osteoarthritis of hip, unspecified; Z79.891 Long term (current) use of opiate analgesic | CPT/HCPCS: 99212 ==

== ENCOUNTER 2022-01-08 06:05 | Outpatient (REF) | payer OTHER, SELFPAY ==
--- NOTE | ~2022-01-08 | FL_ITS ---
EXAMINATION: XR FLUOROSCOPY WITH IMAGES CLINICAL INFORMATION: M47.816 - Spondylosis without myelopathy or radiculopathy, lumbar region COMPARISON: MR lumbar spine 08/13/2021 TECHNIQUE: Fluoroscopy performed by Dr. Bello Tenorio. Fluoroscopy time: 0.5 minutes. Cumulative Dose: 22.9 mGy. DAP: 6.25 Gycm2. Images: 6. FINDINGS: There are spinal needles overlying the bilateral outer L3, L4, and L5 neural foramen. There is contrast seen in the respective nerve sheaths. Some early transforaminal epidural extension is suggested. No visible vascular communication. FL/FL guidance in treatment room IMPRESSION: Fluoroscopy for pain management procedures.
== END 2022-01-08 06:06 | disposition home or self-care (01) ==
LOC: HO.RADIR 06:05
PROVIDERS: Visit Provider Anesthesiology
DX: M46.1 Sacroiliitis, not elsewhere classified (principal); M47.816 Spondylosis without myelopathy or radiculopathy, lumbar region; M53.3 Sacrococcygeal disorders, not elsewhere classified; Z79.891 Long term (current) use of opiate analgesic
CPT/HCPCS: 64493; 64494

== ENCOUNTER → 2022-01-31 15:43 | Outpatient (BNVA) | payer OTHER, SELFPAY | PROVIDERS: PCP Family Medicine; Visit Provider Nurse Practitioner Family | DX: M46.1 Sacroiliitis, not elsewhere classified (principal); M47.816 Spondylosis without myelopathy or radiculopathy, lumbar region; M53.3 Sacrococcygeal disorders, not elsewhere classified; M16.9 Osteoarthritis of hip, unspecified; Z51.81 Encounter for therapeutic drug level monitoring; Z79.891 Long term (current) use of opiate analgesic | CPT/HCPCS: 99212 ==

== ENCOUNTER → 2022-02-27 14:00 | Outpatient (BNVA) | payer OTHER, SELFPAY | PROVIDERS: PCP Family Medicine; Visit Provider Nurse Practitioner Family | DX: M54.9 Dorsalgia, unspecified (principal); Z79.899 Other long term (current) drug therapy; Z79.891 Long term (current) use of opiate analgesic | CPT/HCPCS: 99211 ==

== ENCOUNTER 2022-02-28 10:56 | Day surgery (SDC) | payer OTHER, SELFPAY ==
[2022-02-22 10:16] VITALS: BMI 27.4
--- NOTE | 2022-02-27 08:51 | HO.ANESPROP2 ---
HPI - Anesthesia Eval Consult details Narrative: 46yo F for Right L3-L4-L5 Medial Branch Radiofrequency AB, Therapeutic Sacroiliac Joint Steroid Injection Chronic opioids PMFSH Active Problems Active Problems: All Active Problems (Updated 02/22/22 @ 10:18 by Mary Causey RN) Major depressive disorder, recurrent severe without psychotic features (Acute) Hypertriglyceridemia (Acute) Dorsalgia (Acute) UTI (urinary tract infection) (Acute) Interstitial cystitis (Acute) Depression (Acute) Mild anemia (Acute) Allergic rhinitis (Acute) Dry eye (Acute) Well adult exam (Acute) Dysuria (Acute) Tobacco dependence due to cigarettes (Acute) ADHD (attention deficit hyperactivity disorder), combined type (Acute) Headache, chronic migraine without aura (Acute) Recurrent UTI (Acute) Opioid contract exists (Acute) Encounter for tobacco use cessation counseling (Acute) Sacroiliac joint dysfunction (Acute) Sacroiliitis (Acute) Hip osteoarthritis (Acute) Spondylosis of lumbar region without myelopathy or radiculopathy (Acute) Past Medical History Medical History (Updated 02/22/22 @ 10:18 by Mary Causey RN) ADHD Depression Dysuria Elevated cholesterol Hip osteoarthritis Sacroiliitis Spondylosis of lumbar region without myelopathy or radiculopathy Family History Family History Mother No problems noted. Father No problems noted. Surgical History Surgical History (Updated 02/22/22 @ 10:14 by Mary Causey RN) History of dilation and curettage Social History Social History Housing: House Alcohol intake: never Patient Tobacco Use Status: Former Tobacco user service: No Current occupational status: employed Meds Allergies Allergy/AdvReac Type Severity Reaction Status Date / Time doxycycline [DOXYCYCLINE] Allergy Intermediate RASH Verified 02/27/22 14:24 Home Medications Medication Instructions Recorded Confirmed Last Taken Type ibuprofen 800 mg tablet 800 mg PO Q8H PRN pain 07/03/20 02/28/22 02/21/22 History rizatriptan 10 mg tablet 10 mg PO DAILY PRN Headache 07/03/20 02/28/22 02/21/22 History topiramate 100 mg tablet 100 mg PO BEDTIME 07/03/20 02/28/2202/25/22 History bupropion HCl 100 mg tablet,12 hr 100 mg PO BID 12/04/21 02/28/22 02/28/22 History sustained-release dextroamphetamine-amphetamine ER 15 cap PO DAILY 01/31/22 02/28/22 02/27/22 History 10 mg 24hr capsule,extend release (Adderall XR) norethindrone acetate 5 mg tablet 1 mg PO DAILY 01/31/22 02/28/22 02/27/22 History Exam Exam Date and Time: February 27, 2022 0851 Height,Weight and Vital Signs: Height 5 ft 5 in Weight 74.843 kg Assessment and Plan Assessment Anesthesia Assessment: Chart Reviewed
--- NOTE | ~2022-02-28 | FL_ITS ---
EXAMINATION: XR FLUOROSCOPY WITH IMAGES CLINICAL INFORMATION: Pain right lower extremity. COMPARISON: None. TECHNIQUE: Fluoroscopy performed by Dr. Bello Tenorio. Fluoroscopy time: 0.5 minutes. Cumulative Dose: 7.65 mGy. DAP: 2.088 Gy-cm2. Images: 4. FINDINGS: There is a single image obtained of fluoroscopy revealing needle positioned over the right SI joint with contrast opacifying the adjacent soft tissues. There are 3 images obtained through the lower lumbar spine with radiofrequency needles placed adjacent to the L4, L5 and S1 pedicles for pain management. No bony abnormality seen. FL/FL guidance in OR IMPRESSION: Fluoroscopy guidance was provided to referring physician for pain management.
--- NOTE | ~2022-02-28 | FL_ITS ---
EXAMINATION: XR FLUOROSCOPY WITH IMAGES CLINICAL INFORMATION: Pain right lower extremity. COMPARISON: None. TECHNIQUE: Fluoroscopy performed by Dr. Bello Tenorio. Fluoroscopy time: 0.5 minutes. Cumulative Dose: 7.65 mGy. DAP: 2.088 Gy-cm2. Images: 4. FINDINGS: There is a single image obtained of fluoroscopy revealing needle positioned over the right SI joint with contrast opacifying the adjacent soft tissues. There are 3 images obtained through the lower lumbar spine with radiofrequency needles placed adjacent to the L4, L5 and S1 pedicles for pain management. No bony abnormality seen. FL/FL guidance in OR IMPRESSION: Fluoroscopy guidance was provided to referring physician for pain management.
[2022-02-28 11:12] VITALS: BP 121/62; PULSE 90; RESP 18; TEMP 36.6; O2SAT 97
[2022-02-28 11:27] LABS: UPreg QC Valid YES; Urine Pregnancy NEGATIVE (NEGATIVE)
--- NOTE | 2022-02-28 11:35 | MHC.SHP ---
Pre-Procedural Eval Section A Date of Service: 02/28/22 The patient is an INPATIENT: No Changes since office visit: Yes Patient answered all questions The History & Physical has been completed within 30 days and I have reviewed it.: No Section B Chief Complaint: Spondylosis without myelopathy or radiculopathy, Details of Present Illness: as above and sacroiliitis Relevant Family History (Specify if Yes): No Relevant Social History: None Present Medications: see Short Stay Collaborative assessment Medical History: No relevant PMH History of Previous Operations: Relevant previous surgery/procedure and date(s) Allergies: Allergies Allergy/AdvReac Type Severity Reaction Status Date / Time doxycycline [DOXYCYCLINE] Allergy Intermediate RASH Verified 02/27/22 14:24 Review of Systems Sugical H&P ROS: Negative: Constitution, Cardiovascular, Respiratory, Neurological, Psychiatric, Hem-Onc, Allergic/Immunologic, Gastrointestinal, Genitourinary, Musculoskeletal, Integumentary, Endocrine and Eyes/Ears/Nose/Throat Exam Surgical H&P Exam: Normal: HEENT, Normal: Heart, Normal: Lungs, Normal: Extremities, Normal: Abdomen, Normal: Skin and Normal: Neurological Plan Diagnosis/Plan: Unchanged I have reviewed the history and physical and performed a pertinent physical examination on my patient. No changes have occurred unless specified.
[2022-02-28] MEDS: Lactated Ringers 1,000 ML 100 ML IVCONT (11:37)
--- NOTE | 2022-02-28 11:55 | HO.ANESPROP2 ---
[facility] Active Problems Active Problems: All Active Problems (Updated 02/22/22 @ 10:18 by Mary Causey RN) Major depressive disorder, recurrent severe without psychotic features (Acute) Hypertriglyceridemia (Acute) Dorsalgia (Acute) UTI (urinary tract infection) (Acute) Interstitial cystitis (Acute) Depression (Acute) Mild anemia (Acute) Allergic rhinitis (Acute) Dry eye (Acute) Well adult exam (Acute) Dysuria (Acute) Tobacco dependence due to cigarettes (Acute) ADHD (attention deficit hyperactivity disorder), combined type (Acute) Headache, chronic migraine without aura (Acute) Recurrent UTI (Acute) Opioid contract exists (Acute) Encounter for tobacco use cessation counseling (Acute) Sacroiliac joint dysfunction (Acute) Sacroiliitis (Acute) Hip osteoarthritis (Acute) Spondylosis of lumbar region without myelopathy or radiculopathy (Acute) Past Medical History Medical History (Updated 02/22/22 @ 10:18 by Mary Causey RN) ADHD Depression Dysuria Elevated cholesterol Hip osteoarthritis Sacroiliitis Spondylosis of lumbar region without myelopathy or radiculopathy Family History Family History Mother No problems noted. Father No problems noted. Family history of problems with anesthesia: No Surgical History Surgical History (Updated 02/22/22 @ 10:14 by Mary Causey RN) History of dilation and curettage History of Problems with Anesthesia: No Social History Social History Housing: House Alcohol intake: never Patient Tobacco Use Status: Former Tobacco user Are you DNR?: No Advance Directives: No Advance Directives Information Provided: Yes Recently lost weight without trying: No service: No Current occupational status: employed Meds Allergies Allergy/AdvReac Type Severity Reaction Status Date / Time doxycycline [DOXYCYCLINE] Allergy Intermediate RASH Verified 02/27/22 14:24 Active Medications: Current Medications Lactated Ringer's (Lr) 1,000 mls @ 100 mls/hr IVCONT .Q10H LANA Last Admin: 02/28/22 11:37 Dose: 100 mls/hr Home Medications Medication Instructions Recorded Confirmed Last Taken Type ibuprofen 800 mg tablet 800 mg PO Q8H PRN pain 07/03/20 02/28/22 02/21/22 History rizatriptan 10 mg tablet 10 mg PO DAILY PRN Headache 07/03/20 02/28/22 02/21/22 History topiramate 100 mg tablet 100 mg PO BEDTIME 07/03/20 02/28/22 02/25/22 History bupropion HCl 100 mg tablet,12 hr 100 mg PO BID 12/04/21 02/28/22 02/28/22 History sustained-release dextroamphetamine-amphetamine ER 15 cap PO DAILY 01/31/22 02/28/22 02/27/22 History 10 mg 24hr capsule,extend release (Adderall XR) norethindrone acetate 5 mg tablet 1 mg PO DAILY 01/31/22 02/28/22 02/27/22 History Exam Exam Date and Time: February 28, 2022 1155 Height,Weight and Vital Signs: Height 5 ft 5 in Weight 74.843 kg Last Vital Signs Temp 98 F 02/28/22 11:12 Pulse 90 02/28/22 11:12 Resp 18 02/28/22 11:12 BP 121/62 02/28/22 11:12 Pulse Ox 97 02/28/22 11:12 O2 Del Method 02/28/22 11:12 Pertinent Lab Results Pertinent Lab Results: Laboratory Tests 02/28/22 11:09 Urine Test NEGATIVE Airway Mallampati Class: II TM Dist: >3cm Neck ROM: Full Assessment and Plan Assessment Anesthesia Assessment: Anesthesia Plan Discussed and Chart Reviewed Final Anesthetic Review Family History of Problems with Anesthesia: No History of Problems with Anesthesia: No NPO: Yes ASA Class: II Final Preanesthetic Review: No Changes in Pt Med Stat, Meds/Allgs Chart Reviewed, Consent Obtained/Reviewed and Anes Risks/Benef Reviewed Patient Risk: Low Procedure Risk: Low Anesthetic Plan Anesthetic Plan: MAC: Disposition: Standard PACU
--- NOTE | 2022-02-28 13:17 | PM.OP ---
Brief Operative Note Date of Service: 02/28/22 Pre-op diagnosis: spondylosis lumbar spine without myelopathy or radiculopathy Post-op diagnosis: same Procedure: RFA right side MB L3- L4- DRL5 , right SI joint therapeutic injection. Surgeon: Bello Tenorio MD Was an Full Decator Operator used for this Procedure?: No Estimated blood loss (mL): 0 Pathology: none sent Condition: stable Disposition: PACU
[2022-02-28 13:18] VITALS: BP 101/54; PULSE 86; RESP 16; TEMP 36.7; O2SAT 100
--- NOTE | 2022-02-28 13:19 | W.PM.OPN ---
Operative Note Operative Note Date of Service: 02/28/22 Narrative: Right sacroiliac joint therapeutic injection, radiofrequency ablation of L3-L4 dorsal ramus L5 medial branches on the right Informed consent was thoroughly explained to the patient risks and benefits were explained. The patient was taking to the operating was positioned prone On the operating table. [place] [employer] monitors were applied and patient was deeply sedated. Time-out was performed delineating correct site and side of the procedure name and date of of the patient allergies risk of findings for antibiotic prophylaxis. The lower back of the patient as well as right buttock were prepped with ChloraPrep and draped with sterile Utility towels. After that C-arm was brought of the operating field and picture of patient's lumbar spine rise is demonstrated on the screen. Point of interests 1st were delineated as connection of superior articular process of L4 on the right with right [id number] process, superior articular process of L5 on the right with right L5 transverse process, as well as connection of sacral ala with the superior articular process of S1 on the right. The projection of the point of interested to the skin was injected with small amount of mixture of lidocaine 2% and the ropivacaine 0.5% 1-1 to the 3 cc per each side. After that 18 gauge radiofrequency cannulas 100 mm long were inserted into the skin and there were advanced to the point of interest on anterior posterior and oblique views. When cannulas gently contacted the bones the stylets were removed and nitinol testing electrodes were inserted into each cannula. The motor stimulation was performed at 1 and 2 milliamps at each side. No somatic nerve stimulation was noted. After that the nitinol electrodes were removed, the cannulas were injected with small amount of lidocaine 2% ropivacaine 0.5% mixture with trace amount of Kenalog about 1 cc of the mixture into each cannula. After that the nitinol electrodes were reinserted and the inner G application was performed for 89 degrees centigrade for 90 seconds. after that cannulas were rotated 180 degrees and the same energy application was repeated. After that attention was concentrated on the right sacroiliac joint. The sq image of sacroiliac joint was obtained on the screen 1st. tilting C-arm contralateral 15 degrees the anterior and posterior silhouettes of the SI joint were Superimposed. 2 cm medial to the projection of the most medial side of the sacroiliac joint Projection to the skin injection of the local anesthetic was performed lidocaine 2%. after that 22 gauge 3-1/2 inch needle 20 point was inserted through the skin wheal and it was advanced to were the sacroiliac joint. When tip of the needle was felt to enter the capsule of the joint injection of the contrast was performed demonstrating intra-articular spread of the contrast. After that injection of treatment solution ropivacaine 0.5% mixed with Kenalog 40 mg was performed into the joint. After that the needle was removed. All the site of the needle insertions were covered with small Band-Aids. After that the patient was awaken transferred to the stretcher and was taken to the recovery room , she recovered uneventfully.
[2022-02-28 13:32] VITALS: BP 90/46; PULSE 79; RESP 16; O2SAT 100
[2022-02-28 13:47] VITALS: BP 122/56; PULSE 93; RESP 16; O2SAT 100
[2022-02-28 14:02] VITALS: BP 102/65; PULSE 85; RESP 16; TEMP 36.7; O2SAT 100
== END 2022-02-28 14:43 | disposition home or self-care (01) ==
PROVIDERS: Nurse Practitioner; Visit Provider Anesthesiology
PROC: (CPT 64635; principal; 2022-02-28 12:30)
PROC: 3E0U33Z Introduction of Anti-inflammatory into Joints, Percutaneous Approach (ICD-10-PCS; CPT 27096; 2022-02-28 12:30)
DX: M47.816 Spondylosis without myelopathy or radiculopathy, lumbar region (principal); M46.1 Sacroiliitis, not elsewhere classified; M53.3 Sacrococcygeal disorders, not elsewhere classified; Z79.891 Long term (current) use of opiate analgesic; R30.0 Dysuria; M16.9 Osteoarthritis of hip, unspecified; M16.10 Unilateral primary osteoarthritis, unspecified hip; Z88.1 Allergy status to other antibiotic agents; F17.210 Nicotine dependence, cigarettes, uncomplicated
CPT/HCPCS: 64635; 64636; 27096; 81025; J2250; J2795; J3300

== ENCOUNTER → 2022-03-26 11:46 | Outpatient (BNVA) | payer OTHER, SELFPAY | PROVIDERS: Visit Provider Nurse Practitioner Family | DX: M47.816 Spondylosis without myelopathy or radiculopathy, lumbar region (principal); M46.1 Sacroiliitis, not elsewhere classified; M53.3 Sacrococcygeal disorders, not elsewhere classified; M16.9 Osteoarthritis of hip, unspecified; Z79.891 Long term (current) use of opiate analgesic | CPT/HCPCS: 99212 ==

== ENCOUNTER 2022-04-19 12:17 | Day surgery (SDC) | payer OTHER, SELFPAY ==
[2022-04-15 15:40] VITALS: BMI 23.8
--- NOTE | ~2022-04-19 | FL_ITS ---
EXAMINATION: XR FLUOROSCOPY WITH IMAGES CLINICAL INFORMATION: Pain. SI joint steroid injection. COMPARISON: MR lumbar spine 08/13/2021 TECHNIQUE: Fluoroscopy performed by Dr. Bello Tenorio. Fluoroscopy time: 0.1 minutes. Cumulative Dose: 1.78 mGy. DAP: 0.485 Gycm2. Images: 1. FINDINGS: Spinal needle overlies mid to lower left SI joint. There is contrast in the periarticular soft tissues with probable early intra-articular contrast. FL/FL guidance in OR IMPRESSION: Fluoroscopy for pain management procedure.
--- NOTE | ~2022-04-19 | FL_ITS ---
EXAMINATION: XR FLUOROSCOPY WITH IMAGES CLINICAL INFORMATION: Medial branch lumbar radiofrequency ablation COMPARISON: MR lumbar spine 08/13/2021. TECHNIQUE: Fluoroscopy performed by Dr. Bello Tenorio. Fluoroscopy time: 0.4 minutes. Cumulative Dose: 12.5 mGy. DAP: 3.41 Gycm2. Images: 2. FINDINGS: There are 3 electrodes overlying the outer aspect left L3, L4, and L5 neural foramen. No visible acute bony abnormality. Hardware intact. FL/FL guidance in OR IMPRESSION: Fluoroscopy for pain management procedures.
[2022-04-19 12:33] VITALS: BMI 28.5
[2022-04-19 12:40] VITALS: BP 131/70; PULSE 101; RESP 16; TEMP 36.8; O2SAT 100
[2022-04-19 12:45] LABS: UPreg QC Valid YES; Urine Pregnancy NEGATIVE (NEGATIVE)
[2022-04-19] MEDS: Lactated Ringers 1,000 ML 100 ML IVCONT (12:55)
--- NOTE | 2022-04-19 13:40 | P.HPSUR_ITS ---
Pre-Procedural Eval Section A Date of Service: 04/19/22 The patient is an INPATIENT: No Changes since office visit: Yes Patient answered all questions The History & Physical has been completed within 30 days and I have reviewed it.: No Section B Chief Complaint: Sacroiliitis, Spondylosis without myelopathy or ra Details of Present Illness: As above Relevant Family History (Specify if Yes): No Relevant Social History: None Present Medications: see Short Stay Collaborative assessment Medical History: No relevant PMH History of Previous Operations: No relevant previous surgery Allergies: Allergies Allergy/AdvReac Type Severity Reaction Status Date / Time doxycycline [DOXYCYCLINE] Allergy Intermediate RASH Verified 03/26/22 11:46 Review of Systems Sugical H&P ROS: Negative: Constitution, Cardiovascular, Respiratory, Neurological, Psychiatric, Hem-Onc, Allergic/Immunologic, Gastrointestinal, Genitourinary, Musculoskeletal, Integumentary, Endocrine and Eyes /Ears/Nose/Throat Exam Surgical H&P Exam: Normal: HEENT, Normal: Heart, Normal: Lungs, Normal: Extremities, Normal: Abdomen, Normal: Skin and Normal: Neurological Plan Diagnosis/Plan: Unchanged I have reviewed the history and physical and performed a pertinent physical examination on my patient. No changes have occurred unless specified.
--- NOTE | 2022-04-19 13:53 | W.PM.OPN ---
Operative Note Operative Note Date of Service: 02/28/22 Narrative: Left sacroiliac joint therapeutic injection, radiofrequency ablation of L3-L4 dorsal ramus L5 medial branches on the Left. Informed consent was thoroughly explained to the patient risks and benefits were explained. The patient was taken to the operating was positioned prone On the operating table. [place] [employer] monitors were applied and patient was deeply sedated. Time-out was performed delineating correct site and side of the procedure name and date of of the patient allergies risk of findings for antibiotic prophylaxis. The lower back of the patient as well as right buttock were prepped with ChloraPrep and draped with sterile utility towels. After that C-arm was brought of the operating field and picture of patient's lumbar spine vertebrae was demonstrated on the screen. Point of interests 1st were delineated as connection of superior articular process of L4 on the left with left L4 transverse process, superior articular process of L5 on the left with left L5 transverse process, as well as connection of sacral ala on the left with the superior articular process of S1 on the left. The projection of the point of interested to the skin was injected with small amount of mixture of lidocaine 2% and the ropivacaine 0.5% 1-1 to the 3 cc per each side. After that 18 gauge radiofrequency cannulas 100 mm long were inserted into the skin and they were advanced to the point of interest on anterior posterior and oblique views. When cannulas gently contacted the bones the stylets were removed and nitinol testing electrodes were inserted into each cannula. The motor stimulation was performed at 1 and 2 milliamps at each site. No somatic nerve stimulation was noted. After that the nitinol electrodes were removed, the cannulas were injected with small amount of lidocaine 2% ropivacaine 0.5% mixture with trace amount of Kenalog about 1 cc of the mixture into each cannula. After that the nitinol electrodes were reinserted and the enery application was performed for 89 degrees centigrade for 90 seconds. after that cannulas were rotated 180 degrees and the same energy application was repeated. After that attention was concentrated on the left sacroiliac joint. The sq image of sacroiliac joint was obtained on the screen 1st. tilting C-arm contralateral 17 degrees the anterior and posterior silhouettes of the SI joint were Superimposed. 2 cm medial to the projection of the most medial side of the sacroiliac joint Projection to the skin injection of the local anesthetic was performed lidocaine 2%. after that 22 gauge 3-1/2 inch needle 20 point was inserted through the skin wheal and it was advanced to were the sacroiliac joint. When tip of the needle was felt to enter the capsule of the joint injection of the contrast was performed demonstrating intra-articular spread of the contrast. After that injection of treatment solution ropivacaine 0.5% mixed with Kenalog 40 mg was performed into the joint. After that the needle was removed. All the site of the needle insertions were covered with small Band-Aids. After that the patient was awaken transferred to the stretcher and was taken to the recovery room , she recovered uneventfully.
--- NOTE | 2022-04-19 13:53 | HO.ANESPROP2 ---
[facility] Active Problems Active Problems: All Active Problems (Updated 02/22/22 @ 10:18 by Mary Causey RN) Major depressive disorder, recurrent severe without psychotic features (Acute) Hypertriglyceridemia (Acute) Dorsalgia (Acute) UTI (urinary tract infection) (Acute) Interstitial cystitis (Acute) Depression (Acute) Mild anemia (Acute) Allergic rhinitis (Acute) Dry eye (Acute) Well adult exam (Acute) Dysuria (Acute) Tobacco dependence due to cigarettes (Acute) ADHD (attention deficit hyperactivity disorder), combined type (Acute) Headache, chronic migraine without aura (Acute) Recurrent UTI (Acute) Opioid contract exists (Acute) Encounter for tobacco use cessation counseling (Acute) Sacroiliac joint dysfunction (Acute) Sacroiliitis (Acute) Hip osteoarthritis (Acute) Spondylosis of lumbar region without myelopathy or radiculopathy (Acute) Past Medical History Medical History ADHD Depression Dysuria Elevated cholesterol Hip osteoarthritis Sacroiliitis Spondylosis of lumbar region without myelopathy or radiculopathy Functional capacity: independent ambulation Patient : No Family History Family History Mother No problems noted. Father No problems noted. Family history of problems with anesthesia: No Surgical History Surgical History History of dilation and curettage History of Problems with Anesthesia: No Social History Social History Housing: House Alcohol intake: never Patient Tobacco Use Status: Current everyday Tobacco user Tobacco use type: Cigarette Cigarettes Per Day: 6 Use of substances other than those prescribed or required for medical reasons: No Are you DNR?: No Advance Directives: No Advance Directives Information Provided: Yes service: No Current occupational status: employed Meds Allergies Allergy/AdvReac Type Severity Reaction Status Date / Time doxycycline [DOXYCYCLINE] Allergy Intermediate RASH Verified 03/26/22 11:46 Active Medications: Current Medications Lactated Ringer's (Lr) 1,000 mls @ 100 mls/hr IVCONT .Q10H LANA Last Admin: 04/19/22 12:55 Dose: 100 mls/hr Home Medications Medication Instructions Recorded Confirmed Last Taken Type ibuprofen 800 mg tablet 800 mg PO Q8H PRN pain 07/03/20 02/28/22 02/21/22 History rizatriptan 10 mg tablet 10 mg PO DAILY PRN Headache 07/03/20 02/28/22 02/21/22 History topiramate 100 mg tablet 100 mg PO BEDTIME 07/03/20 02/28/22 02/25/22 History bupropion HCl 100 mg tablet,12 hr 100 mg PO BID 12/04/21 02/28/22 02/28/22 History sustained-release norethindrone acetate 5 mg tablet 1 mg PO DAILY 01/31/22 02/28/22 02/27/22 History dextroamphetamine-amphetamine ER 1 cap PO DAILY 03/26/22 Unknown History 15 mg 24hr capsule,extend release (Adderall XR) Exam Exam Date and Time: April 19, 2022 1353 Height,Weight and Vital Signs: Height 5 ft Weight 66.224 kg Last Vital Signs Temp 98.3 F 04/19/22 12:40 Pulse 101 H 04/19/22 12:40 Resp 16 04/19/22 12:40 BP 131/70 04/19/22 12:40 Pulse Ox 100 04/19/22 12:40 O2 Del Method 04/19/22 12:40 Pertinent Lab Results Pertinent Lab Results: Laboratory Tests 04/19/22 12:23 Urine Test NEGATIVE Airway Mallampati Class: II TM Dist: >3cm Neck ROM: Full Heart: RRR Lungs: CTA Assessment and Plan Final Anesthetic Review Family History of Problems with Anesthesia: No History of Problems with Anesthesia: No NPO: Yes ASA Class: II Final Preanesthetic Review: No Changes in Pt Med Stat, Meds/Allgs Chart Reviewed, Consent Obtained/Reviewed and Anes Risks/Benef Reviewed Patient Risk: Low Procedure Risk: Low Anesthetic Plan Anesthetic Plan: MAC: Disposition: Standard PACU
--- NOTE | 2022-04-19 13:55 | P.BOP_ITS ---
Brief Operative Note Date of Service: 04/19/22 Pre-op diagnosis: spondylosis lumbar spine without myelopathy or radiculopathy, sacroiliitis. Post-op diagnosis: same Procedure: left L3-L4 dorsal ramus L5 radiofrequency ablation, left sacroiliac joint therapeutic injection with steroids Surgeon: Bello Tenorio MD Anesthesia: MAC Was an Private Client Advisor used for this Procedure?: No Estimated blood loss (mL): 3 Pathology: none sent Condition: stable Disposition: PACU
[2022-04-19 14:45] VITALS: BP 99/55; PULSE 91; RESP 16; TEMP 37.1; O2SAT 98
--- NOTE | 2022-04-19 14:47 | HO.POSTANES ---
Post Anesthesia Evaluation Post Anesthesia Evaluation Vital Signs: Vital Signs Temp Pulse Resp BP Pulse Ox O2 Del Method 04/19/22 12:40 98.3 F 101 H 16 131/70 100 Room Air Anesthesia: Monitored Mental Status: Awake Pain Control: Satisfactory Nausea/Vomiting: None Hydration: Adequate Anesthesia-Related Issues: No Anes. Related Issues
[2022-04-19 15:00] VITALS: BP 136/78; PULSE 99; RESP 18; TEMP 37.1; O2SAT 100
== END 2022-04-19 15:28 | disposition home or self-care (01) ==
PROVIDERS: Anesthesiology; Visit Provider Anesthesiology
PROC: 3E0U33Z Introduction of Anti-inflammatory into Joints, Percutaneous Approach (ICD-10-PCS; CPT 27096; principal; 2022-04-19 13:30)
PROC: (CPT 64635; 2022-04-19 13:30)
DX: M47.816 Spondylosis without myelopathy or radiculopathy, lumbar region (principal); M46.1 Sacroiliitis, not elsewhere classified; M53.3 Sacrococcygeal disorders, not elsewhere classified; M16.10 Unilateral primary osteoarthritis, unspecified hip; E78.00 Pure hypercholesterolemia, unspecified; F32.A Depression, unspecified; F90.9 Attention-deficit hyperactivity disorder, unspecified type; Z79.891 Long term (current) use of opiate analgesic; Z88.8 Allergy status to other drugs, medicaments and biological substances; Z87.891 Personal history of nicotine dependence
CPT/HCPCS: 64635; 64636; 27096; 81025; J2250; J2795; J3010; J3300

== ENCOUNTER → 2022-04-25 09:45 | Outpatient (BNVA) | payer OTHER, SELFPAY | PROVIDERS: Visit Provider Nurse Practitioner Family | DX: Z51.81 Encounter for therapeutic drug level monitoring (principal); F11.20 Opioid dependence, uncomplicated | CPT/HCPCS: 99211 ==

== ENCOUNTER → 2022-05-27 12:55 | Outpatient (BNVA) | payer OTHER, SELFPAY | PROVIDERS: Visit Provider Nurse Practitioner Family | DX: Z51.81 Encounter for therapeutic drug level monitoring (principal); F11.20 Opioid dependence, uncomplicated; M47.816 Spondylosis without myelopathy or radiculopathy, lumbar region; M53.3 Sacrococcygeal disorders, not elsewhere classified; M16.9 Osteoarthritis of hip, unspecified; G89.4 Chronic pain syndrome | CPT/HCPCS: 99212 ==

== ENCOUNTER → 2022-06-25 13:02 | Outpatient (BNVA) | payer OTHER, SELFPAY | PROVIDERS: Visit Provider Nurse Practitioner Family | DX: Z13.89 Encounter for screening for other disorder (principal) ==

== ENCOUNTER → 2022-07-26 14:00 | Outpatient (BNVA) | payer OTHER, SELFPAY | PROVIDERS: Visit Provider Nurse Practitioner Family | DX: Z51.81 Encounter for therapeutic drug level monitoring (principal); M46.1 Sacroiliitis, not elsewhere classified; M47.816 Spondylosis without myelopathy or radiculopathy, lumbar region; M53.3 Sacrococcygeal disorders, not elsewhere classified; Z79.891 Long term (current) use of opiate analgesic | CPT/HCPCS: 99212 ==

== ENCOUNTER → 2022-08-23 13:00 | Outpatient (BNVA) | payer OTHER, SELFPAY | PROVIDERS: PCP Hospitalist; Visit Provider Nurse Practitioner Family | DX: Z13.89 Encounter for screening for other disorder (principal) ==

== ENCOUNTER 2022-08-29 10:13 | Outpatient (REF) | payer OTHER, SELFPAY ==
[2022-08-29 11:38] LABS: Hematocrit 38.3 % (37.0-47.0); Hemoglobin 11.6 g/dl (12.0-16.0); Mean Corpuscular HGB Conc 30.3 g/dl (31.0-35.0); Mean Corpuscular Hemoglobin 24.1 pg (27.0-33.0); Mean Corpuscular Volume 79.5 fL (80.0-98.0); Mean Platelet Volume 9.6 fL (9.4-12.3); Platelet Count 265 X10*3/uL (160-400); Red Blood Count 4.82 X10*6/uL (4.20-5.50); Red Cell Distribution Width 19.1 % (11.0-16.0); White Blood Count 9.5 X10*3/uL (4.8-10.8)
[2022-08-29 12:15] LABS: Alanine Aminotransferase 20 U/L (0-31); Albumin Level 4.3 g/dL (3.5-5.0); Alkaline Phosphatase 73 U/L (39-117); Anion Gap 11 (12-20); Aspartate Amino Transferase 15 U/L (5-31); Bilirubin Total 0.3 mg/dL (0.0-1.0); Blood Urea Nitrogen 11 mg/dL (9-16); Calcium 8.9 mg/dL (8.4-10.2); Carbon Dioxide 23 mmol/L (22-29); Chloride 111 mmol/L (96-108); Cholesterol 193 mg/dL; Estimated Glomerular Filt Rate > 60; Glucose Fasting 92 mg/dL (60-99); HDL Cholesterol 37 mg/dL; LDL Cholesterol Calculated 133 mg/dl; Potassium 4.3 mmol/L (3.3-5.1); Sodium 141 mmol/L (135-145); TSH reflex Free T4 1.13 uIU/mL (0.32-4.0); Total Protein 6.6 g/dL (6.5-8.0); Triglycerides 115 mg/dL; Vitamin D 25-OH Total 28.7 ng/mL (>30)
== END 2022-08-29 10:14 | disposition home or self-care (01) ==
LOC: HO.HMGCLDS 10:13
PROVIDERS: PCP Hospitalist; Visit Provider Nurse Practitioner Family
DX: Z00.00 Encounter for general adult medical examination without abnormal findings (principal)
CPT/HCPCS: 36415; 80053; 80061; 82306; 84443; 85027

== ENCOUNTER 2022-09-10 06:09 | Outpatient (REF) | payer OTHER, SELFPAY | END 2022-09-10 06:10 | disposition home or self-care (01) | LOC: CF 06:09 | PROVIDERS: Visit Provider Anesthesiology | DX: Z13.89 Encounter for screening for other disorder (principal) ==

== ENCOUNTER → 2022-09-27 12:59 | Outpatient (BNVA) | payer OTHER, SELFPAY | PROVIDERS: PCP Hospitalist; Visit Provider Nurse Practitioner Family | DX: Z51.81 Encounter for therapeutic drug level monitoring (principal); M46.1 Sacroiliitis, not elsewhere classified; M47.816 Spondylosis without myelopathy or radiculopathy, lumbar region; M53.3 Sacrococcygeal disorders, not elsewhere classified; Z79.891 Long term (current) use of opiate analgesic | CPT/HCPCS: 99212 ==

== ENCOUNTER 2022-10-15 06:09 | Outpatient (REF) | payer OTHER, SELFPAY ==
--- NOTE | ~2022-10-15 | FL_ITS ---
EXAMINATION: XR FLUOROSCOPY WITH IMAGES CLINICAL INFORMATION: Sacroiliitis COMPARISON: 04/19/2022 TECHNIQUE: Fluoroscopy Supervised By: Dr. Bello Tenorio. Fluoroscopy Time: 0.3 minutes. Cumulative Dose: 4.77 mGy. DAP: 1.30 Gycm2. Images: 2. FINDINGS: 2 images demonstrate needles and contrast overlying the sacroiliac joints bilaterally. FL/FL guidance in treatment room IMPRESSION: Intraoperative fluoroscopy for pain management procedure.
== END 2022-10-15 06:10 | disposition home or self-care (01) ==
LOC: CF 06:09
PROVIDERS: Visit Provider Anesthesiology
DX: M46.1 Sacroiliitis, not elsewhere classified (principal); M47.816 Spondylosis without myelopathy or radiculopathy, lumbar region; M53.3 Sacrococcygeal disorders, not elsewhere classified; Z79.891 Long term (current) use of opiate analgesic
CPT/HCPCS: 27096; J3301

== ENCOUNTER → 2022-11-12 09:41 | Outpatient (BNVA) | payer OTHER, SELFPAY | PROVIDERS: PCP Hospitalist; Visit Provider Nurse Practitioner Family | DX: M53.3 Sacrococcygeal disorders, not elsewhere classified (principal); M47.816 Spondylosis without myelopathy or radiculopathy, lumbar region; M62.830 Muscle spasm of back; G89.4 Chronic pain syndrome; Z79.891 Long term (current) use of opiate analgesic | CPT/HCPCS: 99212 ==

== ENCOUNTER 2022-11-29 11:36 | Day surgery (SDC) | payer OTHER, SELFPAY ==
[2022-11-27 08:26] VITALS: BMI 29.4
--- NOTE | ~2022-11-29 | FL_ITS ---
EXAMINATION: FL FLUOROSCOPIC-GUIDANCE, WITH IMAGES CLINICAL INFORMATION: Right RFA COMPARISON: None available. TECHNIQUE: Fluoroscopy Supervised By: Coby. Fluoroscopy Time: 0.6 min. Cumulative Dose: 7.5 mGy-cm DAP: 2 Gy-cm2 Images: 2. FINDINGS: images demonstrate probes adjacent to the right lateral L3, L4 and L5 vertebrae. FL/FL guidance in OR IMPRESSION: Fluoroscopy for pain management procedure.
[2022-11-29 11:57] VITALS: BMI 28.5
[2022-11-29 12:00] VITALS: BP 156/83; PULSE 97; RESP 16; TEMP 36.9; O2SAT 98
--- NOTE | 2022-11-29 12:09 | PC.NURSE ---
PATIENT ARRIVED TO [facility] WITH A BOTTLE OF OXYCODONE. MEDICATIONS COUNTED BY THIS NURSE AND STEPHIE ORTIZ. PATIENT PRESENT. MEDICATIONS SEALED AND BROUGHT TO PHARMACY BY JORGE CATES.
[2022-11-29 12:12] LABS: UPreg QC Valid YES; Urine Pregnancy NEGATIVE (NEGATIVE)
--- NOTE | 2022-11-29 13:32 | P.OP_ITS ---
Operative Note Operative Note Date of Service: 02/28/22 Narrative: Radiofrequency ablation of right medial branch blocks L3-L4 dorsal ramus L5. Informed consent was thoroughly explained to the patient risks and benefits were explained. The patient was taken to the operating was positioned prone On the operating table. [place] [employer] monitors were applied and patient was Moderately sedated. Time-out was performed delineating correct site and side of the procedure name and date of of the patient allergies risk of findings for antibiotic prophylaxis. The lower back of the patient as well as right buttock were prepped with ChloraPrep and draped with sterile utility towels. After that C-arm was brought of the operating field and picture of patient's lumbar spine vertebrae was demonstrated on the screen. Point of interests 1st were delineated as connection of superior articular process of L4 on the right with rightL4 transverse process, superior articular process of L5 on the right with right L5 transverse process, as well as connection of sacral ala on the right with the superior articular process of S1 on the right. The projection of the point of interested to the skin was injected with small amount of mixture of lidocaine 2% and the ropivacaine 0.5% 1-1 . After that 18 gauge radiofrequency cannulas 100 mm long were inserted into the skin and they were advanced to the point of interest on anterior posterior and oblique views. When cannulas gently contacted the bones the stylets were removed and nitinol testing electrodes were inserted into each cannula. The motor stimulation was performed at 1 and 2 milliamps at each site. No somatic nerve stimulation was noted. After that the nitinol electrodes were removed, the cannulas were injected with small amount of lidocaine 2% ropivacaine 0.5% mixture with trace amount of Kenalog about 1 cc of the mixture into each cannula. After that the nitinol electrodes were reinserted and the energy application was performed for 89 degrees centigrade for 90 seconds. after that cannulas were rotated 180 degrees and the same energy application was repeated. After that the needle was removed. All the site of the needle insertions were covered with small Band-Aids. After that the patient was awaken transferred to the stretcher and was taken to the recovery room , she recovered uneventfully.
--- NOTE | 2022-11-29 14:13 | HO.ANESPROP2 ---
HPI - Anesthesia Eval Consult details Narrative: L3-L5 radiofrequency ablation PMFSH Active Problems Active Problems: All Active Problems (Updated 11/12/22 @ 10:10 by EDSON Garcia) Major depressive disorder, recurrent severe without psychotic features (Acute) Hypertriglyceridemia (Acute) Dorsalgia (Acute) UTI (urinary tract infection) (Acute) Interstitial cystitis (Acute) Depression (Acute) Mild anemia (Acute) Allergic rhinitis (Acute) Dry eye (Acute) Well adult exam (Acute) Dysuria (Acute) Tobacco dependence due to cigarettes (Acute) ADHD (attention deficit hyperactivity disorder), combined type (Acute) Headache, chronic migraine without aura (Acute) Recurrent UTI (Acute) Opioid contract exists (Acute) Encounter for tobacco use cessation counseling (Acute) Sacroiliac joint dysfunction (Acute) Chronic pain syndrome (Acute) Laboratory tests ordered as part of a complete physical exam (CPE) (Acute) Physical exam, annual (Acute) Ready to quit smoking (Acute) Seasonal and perennial allergic rhinoconjunctivitis of both eyes (Acute) Muscle spasm of back (Acute) ADHD (Acute) Sacroiliitis (Acute) Hip osteoarthritis (Acute) Spondylosis of lumbar region without myelopathy or radiculopathy (Acute) Past Medical History Medical History ADHD Depression Dysuria Elevated cholesterol Hip osteoarthritis Sacroiliitis Spondylosis of lumbar region without myelopathy or radiculopathy Family History Family History Mother No problems noted. Father No problems noted. Family history of problems with anesthesia: No Surgical History Surgical History History of dilation and curettage Hx of tonsillectomy History of Problems with Anesthesia: No Social History Social History Housing: House Alcohol intake: never Patient Tobacco Use Status: Former Tobacco user Tobacco use type: Cigarette Cigarettes Per Day: 6 Years Smoked: 30 Smoked in Last 30 Days: Yes e-Cigarette/Vaping Use: Never Used Use of substances other than those prescribed or required for medical reasons: No Are you DNR?: No Advance Directives: No Advance Directives Information Provided: Yes service: No Current occupational status: employed Meds Allergies Allergy/AdvReac Type Severity Reaction Status Date / Time doxycycline [DOXYCYCLINE] Allergy Intermediate RASH Verified 11/29/22 11:50 Home Medications Medication Instructions Recorded Confirmed Last Taken Type ibuprofen 800 mg tablet 800 mg PO Q8H PRN pain 07/03/20 11/29/22 11/22/22 History topiramate 100 mg tablet 100 mg PO BEDTIME 07/03/20 11/29/22 02/25/22 History bupropion HCl 100 mg tablet,12 hr 100 mg PO BID 12/04/21 11/29/22 11/29/22 07:00 History sustained-release norethindrone acetate 5 mg tablet 1 mg PO DAILY 01/31/22 11/29/22 02/27/22 History amitriptyline 10 mg tablet 10 mg PO DAILY 07/26/22 11/29/22 Unknown History dextroamphetamine-amphetamine ER 1 cap PO DAILY 07/26/22 11/29/22 11/29/22 07:00 History 25 mg 24hr capsule,extend release (Adderall XR) Tylenol 11/29/22 11/29/22 07:00 History 500 MG Exam Exam Date and Time: November 29, 2022 1413 Height,Weight and Vital Signs: Height 5 ft Weight 66.224 kg Last Vital Signs Temp 98.4 F 11/29/22 12:00 Pulse 97 11/29/22 12:00 Resp 16 11/29/22 12:00 BP 156/83 H 11/29/22 12:00 Pulse Ox 98 11/29/22 12:00 O2 Del Method Room Air 11/29/22 12:00 Pertinent Lab Results Pertinent Lab Results: Laboratory Tests 11/29/22 11:44 Urine Test NEGATIVE Airway Mallampati Class: II TM Dist: >3cm Neck ROM: Full Loose/Missing/Broken Teeth: No Heart: rrr+[id number] Lungs: cta b/l Assessment and Plan Assessment Anesthesia Assessment: Anesthesia Plan Discussed and Chart Reviewed Final Anesthetic Review Family History of Problems with Anesthesia: No History of Problems with Anesthesia: No NPO: Yes ASA Class: III Final Preanesthetic Review: No Changes in Pt Med Stat, Meds/Allgs Chart Reviewed, Consent Obtained/Reviewed and Anes Risks/Benef Reviewed Patient Risk: Intermediate Procedure Risk: Low Assessment/Block/Sedation in SS: Assess/Block/Sedation-SS Anesthetic Plan Anesthetic Plan: MAC: and Agree w/ Assess. and Plan Disposition: Standard PACU
[2022-11-29 15:02] VITALS: BP 156/74; PULSE 100; RESP 18; TEMP 36.3; O2SAT 97
--- NOTE | 2022-11-29 15:02 | P.BOP_ITS ---
Brief Operative Note Date of Service: 11/29/22 Pre-op diagnosis: spondylosis Lumbar without myelopathy or radiculopathy Post-op diagnosis: same Procedure: RFA lumbar L3-L4 dorsal ramus L5. Surgeon: Bello Tenorio MD Anesthesia: MAC Was an Supervisor Dry Cell Assembly used for this Procedure?: No Estimated blood loss (mL): 1 Condition: stable Disposition: PACU
[2022-11-29 15:17] VITALS: BP 148/78; PULSE 99; RESP 16; O2SAT 99
[2022-11-29] MEDS: oxyCODONE HCl Immed Release 5 MG TABLET PO (15:17)
[2022-11-29] MEDS: Acetaminophen 325 MG TABLET 650 MG PO (15:17)
[2022-11-29 15:32] VITALS: BP 149/80; PULSE 87; RESP 14; TEMP 36.3; O2SAT 98
== END 2022-11-29 16:01 | disposition home or self-care (01) ==
PROVIDERS: Anesthesiology; PCP Family Medicine; Visit Provider Anesthesiology
PROC: (CPT 64635; principal; 2022-11-29 13:00)
DX: M47.816 Spondylosis without myelopathy or radiculopathy, lumbar region (principal); M46.1 Sacroiliitis, not elsewhere classified; G89.4 Chronic pain syndrome; M62.830 Muscle spasm of back; M53.3 Sacrococcygeal disorders, not elsewhere classified; M16.10 Unilateral primary osteoarthritis, unspecified hip; F90.9 Attention-deficit hyperactivity disorder, unspecified type; E78.00 Pure hypercholesterolemia, unspecified; R30.0 Dysuria; F32.A Depression, unspecified; Z79.891 Long term (current) use of opiate analgesic; Z88.1 Allergy status to other antibiotic agents; F17.210 Nicotine dependence, cigarettes, uncomplicated
CPT/HCPCS: 64635; 64636; 81025; J2250; J3010; J3301

== ENCOUNTER → 2022-12-10 13:18 | Outpatient (BNVA) | payer OTHER, SELFPAY | PROVIDERS: PCP Family Medicine; Visit Provider Nurse Practitioner Family | DX: Z51.81 Encounter for therapeutic drug level monitoring (principal); M47.816 Spondylosis without myelopathy or radiculopathy, lumbar region; M62.830 Muscle spasm of back; M53.3 Sacrococcygeal disorders, not elsewhere classified; G89.4 Chronic pain syndrome; Z79.891 Long term (current) use of opiate analgesic | CPT/HCPCS: 99212 ==

== ENCOUNTER 2023-01-15 08:39 | Outpatient (AMB) | payer OTHER, SELFPAY ==
[2023-01-15 08:52] VITALS: BP 122/82; PULSE 95; O2SAT 99; BMI 28.4
--- NOTE | 2023-01-15 08:52 | A.OFFVIS_ITS ---
Intake Vital Signs 01/15/23 08:52 Height 5 ft Weight 145 lb 4 oz BMI 28.4 BP 122/82 Blood Pressure Location Rt brachial Position Sitting Pulse 95 Pulse Source Pulse Oximeter Pulse Oximetry (%) 99 Oxygen Delivery Method Room Air Intake Visit Reasons: Pill count, counted and correct Intake Note: Pt here for pill count today. She presents Oxy 5mg tabs # 11/should have #2, last taken last night. Pain level 3/10 on pain scale Allergies doxycycline [DOXYCYCLINE] Allergy (Intermediate, Verified 01/15/23 08:55) RASH Medication List - Last Reconciled 01/15/23 by Nida Man, MEGAN amitriptyline 10 mg PO DAILY bupropion HCl 100 mg PO BID cholecalciferol (vitamin D3) 25 mcg PO DAILY 90 days dextroamphetamine-amphetamine 25 mg ER (Adderall XR) 1 cap PO DAILY fluticasone propionate 50 mcg/actuation 1 spray intranasal BID ibuprofen 800 mg PO Q8H PRN lidocaine 5% 1 patch topical DAILY 30 days loratadine 10 mg PO DAILY naloxone 4 mg/actuation (Narcan) 4 mg intranasal Q2M PRN nicotine (polacrilex) 2 mg buccal Q2H 1 month nitrofurantoin monohyd/m-cryst 100 mg 1 cap PO BID norethindrone acetate 1 mg PO DAILY olopatadine 0.2% (Pataday Once Daily Relief) 1 drp ophthalmic (eye) DAILY PRN oxycodone 5 mg PO BID PRN 30 days rizatriptan 10 mg PO DAILY PRN sumatriptan succinate 100 mg PO DAILY PRN tizanidine 4 mg PO Q8H PRN 30 days topiramate 100 mg PO BEDTIME [Tylenol ] HPI HPI Comments History of Present Illness Details Zenaida is a pleasant 47 year old female who presents to the office today for follow up chronic pain and chronic opioid therapy management. Patient is prescribed oxycodone 5mg take 1 tablet twice a day as needed. Patient arrived today with the expectation of having 2 pills, she presented 11 pills which were counted in the presence of 2 staff and return to the patient in the original prescription bottle. This demonstrates responsible attitude toward patient's opioid medications. Pain is adequately managed on current opioid regimen. She reports taking her opioid medication only as needed, does not take when she gets a migraine as it exacerbates migraine pain. She is currently taking imitrex and amitriptyline for migraines. Patient denies any recent ch anges or exacerbations of chronic pain and states she is able to engage in activities of daily living with minimal interruption due to chronic pain. Patient denies side effects including somnolence, constipation, itching, dyspnea, rash, dizziness or weakness. Prior: Patient presents today for a pill count. Patient is supposed to have oxycodone #2 pills, in her possession has #9 pill. This demonstrates a responsible attitude in regards to the medication regimen. Patient continues to reports adequate analgesia with no noted side effects. Denies any fever, chills, dizziness, shortness of breaths, constipation, nausea, sedation, dizziness, or urinary retention. Patient reports feeling good today after recent right sided lumbar medial branch RFA and denies any pain today. Patient reports she takes pain medication only as needed for pain related to sacroiliac joint. Denies any recent medical changes, ER or Urgent care visits. Past Procedures: 11/29/22: Right medial branch blocks L3-L4 DR L5 RFA -100% pain relief 10/15/22: Bilateral SIJ injections-70% ongoing pain relief 04/19/22: Left SIJ injection with steroids-100% ongoing pain relief 04/19/22: Left L3-L4-DR L5 MB RFA-100% first 2 weeks, then 75-80% ongoing pain relief 02/28/22: Right SIJ injection with steroids-100% ongoing pain relief 02/28/22: Right L3-L4-DR L5 MB RFA-100% ongoing pain relief 01/08/22: Diagnostic Bilateral L3-L4-DR L5 MBBs- 80% pain relief x36 hours 09/18/21: Diagnostic Bilateral SIJ injections-100% pain relief x72 hours [facility] Medical History ADHD Depression Dysuria Elevated cholesterol Hip osteoarthritis Sacroiliitis Spondylosis of lumbar region without myelopathy or radiculopathy Surgical History History of dilation and curettage Hx of tonsillectomy Family History Mother No problems noted. Father No problems noted. Social History Housing: House Alcohol intake: never Patient Tobacco Use Status: Former Tobacco user Tobacco use type: Cigarette Cigarettes Per Day: 6 Years Smoked: 30 e-Cigarette/Vaping Use: Never Used service: No Current occupational status: employed Review of Systems Const All systems reviewed & are unremarkable except as noted in HPI and below Physical Exam Vital Signs: Last Vital Signs Pulse 95 01/15/23 08:52 BP 122/82 01/15/23 08:52 Pulse Ox 99 01/15/23 08:52 Oxygen Delivery Method Room Air 01/15/23 08:52 BMI result Body Mass Index 28.4 General: awake, alert, oriented. Answers questions appropriately. Fully engaged in examination. Skin: warm, dry, intact without visible rashes or lesions. HEENT: Normocephalic. Conjuntivae clear without exudate. Sclera non-icteric. Hearing intact. Cardiac: External chest normal in appearance. Respiratory: No signs of trauma. No signs of respiratory distress. No cough, audible wheezing or stridor. Abdomen: without gross distension. MS: No obvious swelling or deformities. Able to transition from sit to stand unassisted. Ambulates with bilaterally normal heel strike and toe off Neurological: Oriented to person, place, time and situation. Thought process intact. No gait abnormalities appreciated. Psychiatric: Appropriate mood and affect. Good judgment and insight. Assessment & Plan Assessment & Plan (1) Chronic pain syndrome: Code(s): G89.4 - Chronic pain syndrome (2) Spondylosis of lumbar region without myelopathy or radiculopathy: Code(s): M47.816 - Spondylosis without myelopathy or radiculopathy, lumbar region (3) Muscle spasm of back: Code(s): M62.830 - Muscle spasm of back (4) Opioid contract exists: Code(s): Z79.891 - custodial (current) use of opiate analgesic (5) Sacroiliac joint dysfunction: Code(s): M53.3 - Sacrococcygeal disorders, not elsewhere classified Plan [place] was reviewed and without concerns. No obvious signs of diversion, abuse or misuse of the opioid medications. Will send in prescription for oxycodone 5 mg BID prn with an advanced date of 01/16/2023. Patient to follow-up in the office in 1 month, sooner if needed. All questions and concerns have been answered and patient agrees with the plan. Medications: Refilled oxycodone Partial Fill upon patient request. 5 mg PO BID 30 days PRN 60 tabs 0RF pain, severe M16.9 - Osteoarthritis of hip, unspecified, M46.1 - Sacroiliitis, not elsewhere classified, M47.816 - Spondylosis without myelopathy or radiculopathy, lumbar region, Z79.891 - terminal block assembler (current) use of opiate analgesic Coding Level of Care Code Est Pt Level 3 (73332) Diagnoses Chronic pain syndrome G89.4 Spondylosis of lumbar region without myelopathy or radiculopathy M47.816 Muscle spasm of back M62.830 Opioid contract exists Z79.891 Sacroiliac joint dysfunction M53.3
== END 2023-01-15 08:57 | disposition home or self-care (01) ==
PROVIDERS: PCP Family Medicine; Visit Provider Registered Nurse Emergency
DX: G89.4 Chronic pain syndrome (principal); M47.816 Spondylosis without myelopathy or radiculopathy, lumbar region; M62.830 Muscle spasm of back; Z79.891 Long term (current) use of opiate analgesic; M53.3 Sacrococcygeal disorders, not elsewhere classified
CPT/HCPCS: 99213

== ENCOUNTER → 2023-01-15 08:39 | Outpatient (BNVA) | payer OTHER, SELFPAY | PROVIDERS: PCP Family Medicine; Visit Provider Registered Nurse Emergency | DX: Z51.81 Encounter for therapeutic drug level monitoring (principal); M47.816 Spondylosis without myelopathy or radiculopathy, lumbar region; M62.830 Muscle spasm of back; M53.3 Sacrococcygeal disorders, not elsewhere classified; G89.4 Chronic pain syndrome; Z79.891 Long term (current) use of opiate analgesic | CPT/HCPCS: 99212 ==

== ENCOUNTER 2023-01-27 15:49 | Outpatient (AMB) | payer OTHER, SELFPAY ==
--- NOTE | 2023-01-27 15:56 | MHC.OFFVIS ---
Intake Intake Visit Reasons: s/p R. L3-L4-DRL5 MB RFA 11/29/22 Allergies doxycycline [DOXYCYCLINE] Allergy (Intermediate, Verified 01/15/23 08:55) RASH HPI HPI Comments History of Present Illness Details Patient presents today via telehealth encounter to assess response to a repeat Right L3-L4-L5 MB RFA on 11/29/[address] Tenorio. She is currently at work during her break and is not able to attend in office visit today. Patient reports 100% pain relief during the first 2 weeks after procedure and ongoing 60-70% pain relief on right side. She also had left sided RFA last March, and reports mild pain on left side. Reports better functioning, better sleep and improved social interactions. She states decrease in taking her pain medication and only takes as needed for pain related to sacroiliac joint. Denies any recent medical changes, ER or Urgent care visits. Past Procedures: 11/29/22: Right medial branch blocks L3-L4 DR L5 RFA -60-70% ongoing pain relief 10/15/22: Bilateral SIJ injections-70% ongoing pain relief 04/19/22: Left SIJ injection with steroids-100% ongoing pain relief 04/19/22: Left L3-L4-DR L5 MB RFA-100% first 2 weeks, then 75-80% ongoing pain relief 02/28/22: Right SIJ injection with steroids-100% ongoing pain relief 02/28/22: Right L3-L4-DR L5 MB RFA-100% ongoing pain relief 01/08/22: Diagnostic Bilateral L3-L4-DR L5 MBBs- 80% pain relief x36 hours 09/18/21: Diagnostic Bilateral SIJ injections-100% pain relief x72 hours [facility] Medical History ADHD Depression Dysuria Elevated cholesterol Hip osteoarthritis Sacroiliitis Spondylosis of lumbar region without myelopathy or radiculopathy Surgical History History of dilation and curettage Hx of tonsillectomy Family History Mother No problems noted. Father No problems noted. Social History Housing: House Alcohol intake: never Patient Tobacco Use Status: Former Tobacco user Tobacco use type: Cigarette Cigarettes Per Day: 6 Years Smoked: 30 e-Cigarette/Vaping Use: Never Used service: No Current occupational status: employed Review of Systems Const All systems reviewed & are unremarkable except as noted in HPI and below ENT Reports Normal hearing present Neuro Reports Normal hearing present and Denies confusion Psych Denies confusion Physical Exam Const General: cooperative, alert and awake; No confusion Orientation/consciousness: patient oriented x3 and No confusion Resp Effort & Inspection: able to speak in complete sentences, no audible wheezes and no cough Neuro General: patient oriented x3 and No confusion Cranial nerves: Yes Normal hearing present Cognition (Neuro): normal cognition Psych Mental Status: mental status grossly normal Speech and movement: Clear speech present Affect: normal affect Attitude: cooperative Thought process: Normal thought process present Thought content: Normal thought content present and No Depressive thoughts present Insight: Good insight present (Psych) Judgement: Good judgement present (Psych) Assessment & Plan Assessment & Plan (1) Sacroiliac joint dysfunction: Code(s): M53.3 - Sacrococcygeal disorders, not elsewhere classified (2) Chronic pain syndrome: Code(s): G89.4 - Chronic pain syndrome (3) Spondylosis of lumbar region without myelopathy or radiculopathy: Code(s): M47.816 - Spondylosis without myelopathy or radiculopathy, lumbar region Plan Patient is status post epeat Right L3-L4-L5 MB RFA on 11/29/[address] Tenorio with ongoing 60-70% right sided back pain relief and minimal left sided back pain. Reports improvements in daily activities and functioning, sleep and social interactions. Her left side was done last March 2022 and she hopes she continues to have ongoing pain relief until this March. Patient reports in decrease opioid use since RFA procedure and only takes it as needed for SIJ pain. All questions and concerns have been answered and patient agreed with the plan. Follow up for pill count as scheduled and sooner if needed. I hereby testify that I spent 6 minutes in conversation with this patient as well as with planning and coordinating care for this patient and organizing this note. Telehealth Telehealth Location of provider rendering services: practice address Location of patient: address on file Patient Identification confirmed using: Name, : Yes Telehealth method: voice only Patient verbally consented to treatment: Yes Patient verbally consented to billing insurance company: Yes Patient informed of any privacy concerns related to visit: Yes Minutes spent on Phone/Video with Pt.: 6 Coding Level of Care Code Tele Est Pt Level 3 (38222) Diagnoses Sacroiliac joint dysfunction M53.3 Chronic pain syndrome G89.4 Spondylosis of lumbar region without myelopathy or radiculopathy M47.816
== END 2023-01-27 16:08 | disposition home or self-care (01) ==
PROVIDERS: PCP Family Medicine; Visit Provider Nurse Practitioner Family
DX: M53.3 Sacrococcygeal disorders, not elsewhere classified (principal); G89.4 Chronic pain syndrome; M47.816 Spondylosis without myelopathy or radiculopathy, lumbar region
CPT/HCPCS: 99213

== ENCOUNTER → 2023-01-27 15:49 | Outpatient (BNVA) | payer OTHER, SELFPAY | PROVIDERS: PCP Family Medicine; Visit Provider Nurse Practitioner Family ==

== ENCOUNTER → 2023-02-18 14:30 | Outpatient (BNVA) | payer SELFPAY | PROVIDERS: PCP Family Medicine; Visit Provider Nurse Practitioner Family | DX: Z51.81 Encounter for therapeutic drug level monitoring (principal); F11.20 Opioid dependence, uncomplicated | CPT/HCPCS: 99211 ==

== ENCOUNTER → 2023-03-18 13:40 | Outpatient (BNVA) | payer SELFPAY | PROVIDERS: PCP Family Medicine; Visit Provider Nurse Practitioner Family ==

== ENCOUNTER 2023-04-15 13:31 | Outpatient (AMB) | payer OTHER, SELFPAY ==
--- NOTE | 2023-04-15 13:34 | A.OFFVIS_ITS ---
Intake Vital Signs 04/15/23 13:41 Height 5 ft Weight 153 lb 2 oz BMI 29.9 BP 148/72 H Blood Pressure Location Lt brachial Position Sitting Pulse 95 Pulse Source Pulse Oximeter Pulse Oximetry (%) 97 Oxygen Delivery Method Room Air Intake Visit Reasons: Medication Count Intake Note: Zenaida comes in today for a pill count to oxycodone, patient should have 14 tablets and presents with 58 tablets which she last took about a week or so ago. Pain today 09/06. Allergies doxycycline [DOXYCYCLINE] Allergy (Intermediate, Verified 04/15/23 13:42) RASH HPI HPI Comments History of Present Illness Details Patient presents today for a pill count. Patient is supposed to have oxycodone #14 pills, in her possession has #58 pills. This demonstrates a responsible attitude in regards to the medication regimen. Patient reports she has stopped taking opioid medication due to increasing, almost daily migraine headaches. She also associates increase in her migraine headaches due to issue with her Adderall refills for over 2 months. Patient has been tracking her headaches and concerned for increase in frequency. She did notice mild decrease in her headaches since stopping oxycodone but notices increases in her lower back pain. She is willing to trial another opioid. Denies any fever, chills, dizziness, shortness of breaths, constipation, nausea, sedation, dizziness, or urinary retention. Past Procedures: 11/29/22: Right medial branch blocks L3- L4 DR L5 RFA -60-70% ongoing pain relief 10/15/22: Bilateral SIJ injections-70% o ngoing pain relief 04/19/22: Left SIJ injection with steroi ds-100% ongoing pain relief 04/19/22: Left L3-L4-DR L5 MB RFA-100% f irst 2 weeks, then 75-80% ongoing pain relief 02/28/22: Right SIJ injection with stero ids-100% ongoing pain relief 02/28/22: Right L3-L4-DR L5 MB RFA-100% ongoing pain relief 01/08/22: Diagnostic Bilateral L3-L4-DR L5 MBBs- 80% pain relief x36 hours 09/18/21: Diagnostic Bilateral SIJ injec tions-100% pain relief x72 hours [facility] Medical History Elevated cholesterol ADHD Depression Sacroiliitis Hip osteoarthritis Spondylosis of lumbar region without myelopathy or radiculopathy Dysuria Surgical History Hx of tonsillectomy History of dilation and curettage Family History Mother No problems noted. Father No problems noted. Social History Housing: House Alcohol intake: never Patient Tobacco Use Status: Former Tobacco user Tobacco use type: Cigarette Cigarettes Per Day: 6 Years Smoked: 30 e-Cigarette/Vaping Use: Never Used service: No Current occupational status: employed Review of Systems Const All systems reviewed & are unremarkable except as noted in HPI and below Physical Exam Vital Signs: Last Vital Signs Pulse 95 04/15/23 13:41 BP 148/72 H 04/15/23 13:41 Pulse Ox 97 04/15/23 13:41 Oxygen Delivery Method Room Air 04/15/23 13:41 BMI result Body Mass Index 29.9 General: Appears afebrile. Alert and oriented. Mood and affect appropriate. Follows and participates in conversation appropriately. Respiratory effort is unlabored. No cough. Able to transition from sit to stand unassisted. Ambulates with bilaterally normal heel strike and toe off. 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 There is no evidence of misuse, abuse or diversion at this time. [employer] reviewed. We will change oxycodone to morphine IR 15 mg QD, with same 15 MME/Day. She is aware of monitoring for side effects. Oxycodone 5 mg #58 tabs were discarded per office policy in the presence of 2 staff members. Continue migraine headache diary. All questions and concerns have been answered and patient agreed with the plan. Follow up in 1 week for pill count and sooner if needed. Medications: New morphine Partial Fill upon patient request. 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
[2023-04-15 13:41] VITALS: BP 148/72; PULSE 95; O2SAT 97; BMI 29.9
== END 2023-04-15 14:01 | disposition home or self-care (01) ==
PROVIDERS: PCP Family Medicine; Visit Provider Nurse Practitioner Family
DX: G89.4 Chronic pain syndrome (principal); Z79.891 Long term (current) use of opiate analgesic; M47.816 Spondylosis without myelopathy or radiculopathy, lumbar region; M53.3 Sacrococcygeal disorders, not elsewhere classified; G43.709 Chronic migraine without aura, not intractable, without status migrainosus
CPT/HCPCS: 99214

== ENCOUNTER → 2023-04-15 13:31 | Outpatient (BNVA) | payer OTHER, SELFPAY | PROVIDERS: PCP Family Medicine; Visit Provider Nurse Practitioner Family | DX: Z51.81 Encounter for therapeutic drug level monitoring (principal); F11.20 Opioid dependence, uncomplicated; M47.816 Spondylosis without myelopathy or radiculopathy, lumbar region; M53.3 Sacrococcygeal disorders, not elsewhere classified; G43.709 Chronic migraine without aura, not intractable, without status migrainosus; G89.4 Chronic pain syndrome; Z79.891 Long term (current) use of opiate analgesic | CPT/HCPCS: 99212 ==

== ENCOUNTER 2023-04-25 09:06 | Outpatient (AMB) | payer OTHER, SELFPAY ==
--- NOTE | 2023-04-25 09:06 | A.OFFVIS_ITS ---
Intake Vital Signs 04/25/23 09:13 Height 5 ft Weight 155 lb 2 oz BMI 30.3 BP 193/84 H Blood Pressure Location Lt brachial Position Sitting Pulse 101 H Pulse Source Pulse Oximeter Pulse Oximetry (%) 97 Oxygen Delivery Method Room Air Intake Visit Reasons: Medication Follow Up/Unable to Lvm Intake Note: Zenaida comes in today for a pill count to morphine, patient should have 0 tablets and presents with 0 tablets which she last took 04/23/23. Pain today 11/06. Patient will also have random UDS done today, aware she will need to go to the lab on the first floor of this building before 12pm today 04/25/23. Building Services Coordinator Required: No Accompanied by: Self / Same As Patient Allergies doxycycline [DOXYCYCLINE] Allergy (Intermediate, Verified 04/25/23 09:14) RASH HPI HPI Comments History of Present Illness Details Patient presents today for a pill count. Patient is supposed to have morphine IR 15 mg #0 pills, in her possession has #0 pills. This demonstrates a responsible attitude in regards to the medication regimen. Patient reports partial pain improvement with morphine without significant headaches since stopping oxycodone, but notes she has to split her morphine pills in half and take in divided doses. She reports right sided axial back pain status post right lumbar medial branch RFA on 11/29/22. Patient also presents with sacroiliac tenderness bilaterally, worse on the right side. She reports transient dizziness upon arrival for her today's appointment and noted to have elevated BP reading today. Patient was advised to go to ER for evaluation and follow up with her PCP. Patient reports her usual BP at home runs 120/80's, however noted to have BP readings 140-150s/70-80s per previous several visits. Denies any fever, chills, chest pain or tightness, headache, visual disturbances, shortness of breaths, constipation, nausea, sedation, urinary retention, weakness, numbness, tingling, bladder or bowel dysfunction or saddle anesthesia. Past Procedures: 11/29/22: Right medial branch L3-L4-L5 R FA -60-70% ongoing pain relief 10/15/22: Bilateral SIJ injections-70% o ngoing pain relief 04/19/22: Left SIJ injection with steroi ds-100% ongoing pain relief 04/19/22: Left L3-L4-L5 MB RFA-100% firs t 2 weeks, then 75-80% ongoing pain relief 02/28/22: Right SIJ injection with stero ids-100% ongoing pain relief 02/28/22: Right L3-L4-L5 MB RFA-100% stacie oing pain relief 01/08/22: Diagnostic Bilateral L3-L4-DR L5 MBBs- 80% pain relief x36 hours 09/18/21: Diagnostic Bilateral SIJ injec tions-100% pain relief x72 hours [facility] Medical History Elevated cholesterol ADHD Depression Sacroiliitis Hip osteoarthritis Spondylosis of lumbar region without myelopathy or radiculopathy Dysuria Surgical History Hx of tonsillectomy History of dilation and curettage Family History Mother No problems noted. Father No problems noted. Social History Housing: House Alcohol intake: never Patient Tobacco Use Status: Former Tobacco user Tobacco use type: Cigarette Cigarettes Per Day: 6 Years Smoked: 30 e-Cigarette/Vaping Use: Never Used service: No Current occupational status: employed Review of Systems Const All systems reviewed & are unremarkable except as noted in HPI and below Physical Exam Vital Signs: Last Vital Signs Pulse 101 H 04/25/23 09:13 BP 193/84 H 04/25/23 09:13 Pulse Ox 97 04/25/23 09:13 Oxygen Delivery Method Room Air 04/25/23 09:13 BMI result Body Mass Index 30.3 General: Appears afebrile. Alert and oriented. Mood and affect appropriate. Follows and participates in conversation appropriately. Respiratory effort is unlabored. No cough. Able to transition from sit to stand unassisted. Ambulates with bilaterally normal heel strike and toe off. Back/Spine/Pelvis Other: Lumbar extension reproduces moderate pain. Flexion reproduces mild pain. Cervical Spine: cervical ROM normal and No Cervical spine tenderness Thoracic/Lumbar Spine: thoracic and lumbar spine normal to inspection, Lasegue's sign negative, straight leg raise negative bilaterally, pain with thoraco- lumbar ROM, paraspinal muscle tenderness, No thoracic spinal tenderness and No lumbar spinal tenderness Sacroiliac joints: bilaterally tender to palpation Psych Appearance: grossly normal and well kempt Mental Status: mental status grossly normal Speech and movement: Normal speech and movement present Affect: normal affect Attitude: cooperative Thought process: Normal thought process present Thought content: Normal thought content present, suicidality (none), Hallucination(s) present and No Depressive thoughts present Insight: Good insight present (Psych) Judgement: Good judgement present (Psych) Results Reviewed Results Reviewed: MRI of the lumbar spine was obtained using routine sequences without contrast. FINDINGS: Alignment is normal. Vertebral body heights are preserved. No acute bone marrow signal changes. There is disc desiccation at multiple levels without substantial loss of intervertebral disc height. The tip of the conus medullaris is located at L1-L2. No mass effect on the conus. Visualized distal cord signal intensity is normal. At L1-L2 the annular contour is normal. No canal or neuroforaminal compromise. At L2-L3 there is an asymmetrically bulging disc to the right. Bilateral facet degenerative change. No canal stenosis. No mass effect on the traversing or foraminal nerve roots. At L3-L4 there is a left foraminal annular fissure associated with a bulging disc. Bilateral facet degenerative change. No canal stenosis. No mass effect on the traversing or foraminal nerve roots. At L4-L5 there is a slightly bulging disc. Bilateral facet degenerative change. No canal stenosis. No mass effect on the traversing or foraminal nerve roots. At L5-S1 there is a slightly bulging disc. No canal stenosis. No mass effect on the traversing or foraminal nerve roots. Limited visualization of the retroperitoneal anatomy reveals no abnormal finding. Psoas and paraspinal muscle groups are symmetric. IMPRESSION: There is disc degeneration at multiple levels within the lumbar spine as described above. No canal stenosis. No mass effect on the traversing or foraminal nerve roots. 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.891 - custodial (current) use of opiate analgesic (2) Chronic pain syndrome: Code(s): G89.4 - Chronic pain syndrome (3) Spondylosis of lumbar region without myelopathy or radiculopathy: Code(s): M47.816 - Spondylosis without myelopathy or radiculopathy, lumbar region (4) Sacroiliac joint dysfunction: Code(s): M53.3 - Sacrococcygeal disorders, not elsewhere classified (5) Hypertension: Code(s): I10 - Essential (primary) hypertension (6) Sacroiliitis: Code(s): M46.1 - Sacroiliitis, not elsewhere classified Plan Patient has shown accountability for her medication regimen and the pill count was accurate with surplus. There is no evidence of misuse, abuse or diversion at this time. [employer] reviewed. Script sent for morphine IR 15 mg QD for 30 days. She is aware of monitoring for side effects. Will obtain random UDS today. Patient was urged to go to ER for elevated BP and transient dizziness today. She has been having an increase in her regular chronic headaches and has been doing headache diary. No significant headache today. BP readings has been 140-150s/70-80's per previous several visists. Encouraged daily exercise, low salt and low fat diet, weight optimization and follow up with her PCP for potential start of antihypertensive medication. Patient also has return of low back right sided and SIJ pain. Right side RFA has been done in November. All ques tions and concerns have been answered and patient agreed with the plan. Follow up in 4 weeks for pill count and sooner if needed. Medications: Changed From morphine Partial Fill upon patient request. 15 mg PO DAILY 1 week PRN 7 tabs 0RF pain G89.4 - Chronic pain syndrome, M46.1 - Sacroiliitis, not elsewhere classified, M47.816 - Spondylosis without myelopathy or radiculopathy, lumbar region, Z79.891 - custodial (current) use of opiate analgesic To morphine Partial Fill upon patient request. 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
[2023-04-25 09:13] VITALS: BP 193/84; PULSE 101; O2SAT 97; BMI 30.3
== END 2023-04-25 09:13 | disposition home or self-care (01) ==
PROVIDERS: PCP Family Medicine; Visit Provider Nurse Practitioner Family
DX: Z79.891 Long term (current) use of opiate analgesic (principal); G89.4 Chronic pain syndrome; M47.816 Spondylosis without myelopathy or radiculopathy, lumbar region; M53.3 Sacrococcygeal disorders, not elsewhere classified; I10 Essential (primary) hypertension; M46.1 Sacroiliitis, not elsewhere classified
CPT/HCPCS: 99214

== ENCOUNTER → 2023-04-25 09:06 | Outpatient (BNVA) | payer OTHER, SELFPAY | PROVIDERS: PCP Family Medicine; Visit Provider Nurse Practitioner Family | DX: Z51.81 Encounter for therapeutic drug level monitoring (principal); F11.20 Opioid dependence, uncomplicated; M47.816 Spondylosis without myelopathy or radiculopathy, lumbar region; M53.3 Sacrococcygeal disorders, not elsewhere classified; M46.1 Sacroiliitis, not elsewhere classified; I10 Essential (primary) hypertension; G89.4 Chronic pain syndrome; Z79.891 Long term (current) use of opiate analgesic | CPT/HCPCS: 99212 ==

== ENCOUNTER 2023-06-04 13:44 | Outpatient (AMB) | payer OTHER, SELFPAY ==
[2023-06-04 13:52] VITALS: BP 180/84; PULSE 95; RESP 16; O2SAT 98; BMI 27.8
--- NOTE | 2023-06-04 13:52 | A.OFFVIS_ITS ---
Intake Vital Signs 06/04/23 13:52 Height 5 ft Weight 142 lb 8 oz BMI 27.8 BP 180/84 H Blood Pressure Location Lt brachial Position Sitting Respiration 16 Pulse 95 Pulse Source Pulse Oximeter Pulse Oximetry (%) 98 Oxygen Delivery Method Room Air Intake Visit Reasons: Medication Count/Confirmed Allergies doxycycline [DOXYCYCLINE] Allergy (Intermediate, Verified 06/04/23 13:53) RASH HPI HPI Comments History of Present Illness Details Zenaida is a very pleasant 47 year old female who presents to the office for follow up chronic pain and chronic opioid therapy management. Patient is prescribed Morphine 15mg IR take one tab daily as needed. Patient arrived today with the expectation of having 0 pills, she presented 11 pills which were counted in the presence of two staff members and returned to the patient in the original prescription bottle. This demonstrates responsible attitude toward patient's opioid medications. Pain is reported today as 0/10 and last dose of pain medication was taken about 1 week ago. Pain is well managed on current opioid regimen. Patient denies any recent changes or exacerbations of chronic back pain and states she is able to engage in activities of daily living with minimal interruption due to chronic pain. Patient denies side effects including somnolence, constipation, itching, dyspnea, rash, dizziness or weakness. She reports since last visit she has been using elliptical machine and walking daily. Has lost 8lbs, intentionally. Back is feeling much better since she started exercising and plans on joining the gym. Patient does not think she needs to schedule any injections at this time. She has been trying to wean down on her pain medications and hopes to be off of them in the near future. Prior visit with Odalis Laura NP: Patient presents today for a pill count. Patient is supposed to have morphine IR 15 mg #0 pills, in her possession has #0 pills. This demonstrates a responsible attitude in regards to the medication regimen. Patient reports partial pain improvement with morphine without significant headaches since stopping oxycodone, but notes she has to split her morphine pills in half and take in divided doses. She reports right sided axial back pain status post right lumbar medial branch RFA on 11/29/22. Patient also presents with sacroiliac tenderness bilaterally, worse on the right side. She reports transient dizziness upon arrival for her today's appointment and noted to have elevated BP reading today. Patient was advised to go to ER for evaluation and follow up with her PCP. Patient reports her usual BP at home runs 120/80's, however noted to have BP readings 140-150s/70-80s per previous several visits. Denies any fever, chills, chest pain or tightness, headache, visual disturbances, shortness of breaths, constipation, nausea, sedation, urinary retention, weakness, numbness, tingling, bladder or bowel dysfunction or saddle anesthesia. Past Procedures: 11/29/22: Right medial branch L3-L4-L5 R FA -60-70% ongoing pain relief 10/15/22: Bilateral SIJ injections-70% o ngoing pain relief 04/19/22: Left SIJ injection with steroi ds-100% ongoing pain relief 04/19/22: Left L3-L4-L5 MB RFA-100% firs t 2 weeks, then 75-80% ongoing pain relief 02/28/22: Right SIJ injection with stero ids-100% ongoing pain relief 02/28/22: Right L3-L4-L5 MB RFA-100% stacie oing pain relief 01/08/22: Diagnostic Bilateral L3-L4-DR L5 MBBs- 80% pain relief x36 hours 09/18/21: Diagnostic Bilateral SIJ injec tions-100% pain relief x72 hours PFSH Medical History Elevated cholesterol ADHD Depression Sacroiliitis Hip osteoarthritis Spondylosis of lumbar region without myelopathy or radiculopathy Dysuria Surgical History Hx of tonsillectomy History of dilation and curettage Family History Mother No problems noted. Father No problems noted. Social History Housing: House Alcohol intake: never Patient Tobacco Use Status: Former Tobacco user Tobacco use type: Cigarette Cigarettes Per Day: 6 Years Smoked: 30 e-Cigarette/Vaping Use: Never Used service: No Current occupational status: employed Review of Systems Const All systems reviewed & are unremarkable except as noted in HPI and below Physical Exam Vital Signs: Last Vital Signs Pulse 95 06/04/23 13:52 Resp 16 06/04/23 13:52 BP 180/84 H 06/04/23 13:52 Pulse Ox 98 06/04/23 13:52 Oxygen Delivery Method Room Air 06/04/23 13:52 BMI result Body Mass Index 27.8 General: awake, alert, oriented. Answers questions appropriately. Fully engaged in examination. Skin: warm, dry, intact HEENT: Normocephalic. Hearing intact. Cardiac: External chest normal in appearance. Respiratory: No cough, audible wheezing or stridor. Abdomen: without gross distension. MS: No obvious swelling or deformities. Able to transition from sit to stand unassisted. Ambulates with bilaterally normal heel strike and toe off Neurological: Oriented to person, place, time and situation. Thought process intact. No gait abnormalities appreciated. Psychiatric: Appropriate mood and affect. Good judgment and insight. 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.891 - senior living (current) use of opiate analgesic (2) Chronic pain syndrome: Code(s): G89.4 - Chronic pain syndrome (3) Spondylosis of lumbar region without myelopathy or radiculopathy: Code(s): M47.816 - Spondylosis without myelopathy or radiculopathy, lumbar region (4) Sacroiliac joint dysfunction: Code(s): M53.3 - Sacrococcygeal disorders, not elsewhere classified (5) Hypertension: Code(s): I10 - Essential (primary) hypertension (6) Sacroiliitis: Code(s): M46.1 - Sacroiliitis, not elsewhere classified Plan Masspat was reviewed and without concerns. No obvious signs of diversion, abuse or misuse of the opioid medications. Will send in prescription for Morphine 15mg IR take one tab daily as needed with an advanced date of 06/15/23. Patient encouraged to continue with exercise program and plan to join the gym. Patient to follow-up in the office in 1 month, sooner if needed. All questions and concerns have been answered and patient agrees with the plan. Medications: Refilled morphine Partial Fill upon patient request. 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
== END 2023-06-04 14:15 | disposition home or self-care (01) ==
PROVIDERS: PCP Nurse Practitioner Family; Visit Provider Registered Nurse Emergency
DX: G89.4 Chronic pain syndrome (principal); M47.816 Spondylosis without myelopathy or radiculopathy, lumbar region; M53.3 Sacrococcygeal disorders, not elsewhere classified; Z79.891 Long term (current) use of opiate analgesic; I10 Essential (primary) hypertension; M46.1 Sacroiliitis, not elsewhere classified
CPT/HCPCS: 99214

== ENCOUNTER → 2023-06-04 13:44 | Outpatient (BNVA) | payer OTHER, SELFPAY | PROVIDERS: PCP Nurse Practitioner Family; Visit Provider Registered Nurse Emergency | DX: Z51.81 Encounter for therapeutic drug level monitoring (principal); M47.816 Spondylosis without myelopathy or radiculopathy, lumbar region; M53.3 Sacrococcygeal disorders, not elsewhere classified; M46.1 Sacroiliitis, not elsewhere classified; I10 Essential (primary) hypertension; G89.4 Chronic pain syndrome; Z79.891 Long term (current) use of opiate analgesic | CPT/HCPCS: 99212 ==

== ENCOUNTER 2023-07-17 08:09 | Outpatient (AMB) | payer OTHER, SELFPAY ==
--- NOTE | 2023-07-17 08:23 | MHC.OFFVIS ---
Intake Vital Signs 07/17/23 08:33 Height 5 ft Weight 146 lb 2 oz BMI 28.5 BP 128/80 Blood Pressure Location Lt brachial Position Sitting Respiration 16 Pulse 87 Pulse Source Pulse Oximeter Pulse Oximetry (%) 96 Oxygen Delivery Method Room Air Intake Visit Reasons: Medication Count/confirmed Allergies doxycycline [DOXYCYCLINE] Allergy (Intermediate, Verified 07/17/23 08:33) RASH HPI HPI Comments History of Present Illness Details Zenaida is a very pleasant 47 year old female who presents to the office for follow up chronic pain and chronic opioid therapy management. Patient is prescribed Morphine 15mg IR take one tab daily as needed. Patient arrived today with the expectation of having 0 pills, she presented 15 pills which were counted in the presence of two staff members and returned to the patient in the original prescription bottle. This demonstrates responsible attitude toward patient's opioid medications. Pain is reported today as 0/10 and last dose of pain medication was taken about 1 week ago. Pain is well managed on current opioid regimen. Patient denies any recent changes or exacerbations of chronic back pain and states she is able to engage in activities of daily living with minimal interruption due to chronic pain. Patient denies side effects including somnolence, constipation, itching, dyspnea, rash, dizziness or weakness. Patient reports she continues to workout but has been suffering with URI for last several days so hasn't been working out as much. Still working on tapering down with hopes of tapering off the opioids in the near future. Prior visit with Odalis Laura NP: Patient presents today for a pill count. Patient is supposed to have morphine IR 15 mg #0 pills, in her possession has #0 pills. This demonstrates a responsible attitude in regards to the medication regimen. Patient reports partial pain improvement with morphine without significant headaches since stopping oxycodone, but notes she has to split her morphine pills in half and take in divided doses. She reports right sided axial back pain status post right lumbar medial branch RFA on 11/29/22. Patient also presents with sacroiliac tenderness bilaterally, worse on the right side. She reports transient dizziness upon arrival for her today's appointment and noted to have elevated BP reading today. Patient was advised to go to ER for evaluation and follow up with her PCP. Patient reports her usual BP at home runs 120/80's, however noted to have BP readings 140-150s/70-80s per previous several visits. Denies any fever, chills, chest pain or tightness, headache, visual disturbances, shortness of breaths, constipation, nausea, sedation, urinary retention, weakness, numbness, tingling, bladder or bowel dysfunction or saddle anesthesia. Past Procedures: 11/29/22: Right medial branch L3-L4-L5 RFA -60-70% ongoing pain relief 10/15/22: Bilateral SIJ injections-70% ongoing pain relief 04/19/22: Left SIJ injection with steroids-100% ongoing pain relief 04/19/22: Left L3-L4-L5 MB RFA-100% first 2 weeks, then 75-80% ongoing pain relief 02/28/22: Right SIJ injection with steroids-100% ongoing pain relief 02/28/22: Right L3-L4-L5 MB RFA-100% ongoing pain relief 01/08/22: Diagnostic Bilateral L3-L4-DR L5 MBBs- 80% pain relief x36 hours 09/18/21: Diagnostic Bilateral SIJ injections-100% pain relief x72 hours COUNTS INCLUDE 234 BEDS AT THE [facility] Medical History Elevated cholesterol ADHD Depression Sacroiliitis Hip osteoarthritis Spondylosis of lumbar region without myelopathy or radiculopathy Dysuria Surgical History Hx of tonsillectomy History of dilation and curettage Family History Mother No problems noted. Father No problems noted. Social History Housing: House Alcohol intake: never Patient Tobacco Use Status: Former Tobacco user Tobacco use type: Cigarette Cigarettes Per Day: 6 Years Smoked: 30 e-Cigarette/Vaping Use: Never Used service: No Current occupational status: employed Review of Systems Const All systems reviewed & are unremarkable except as noted in HPI and below Physical Exam Vital Signs: Last Vital Signs Pulse 87 07/17/23 08:33 Resp 16 07/17/23 08:33 BP 128/80 07/17/23 08:33 Pulse Ox 96 07/17/23 08:33 Oxygen Delivery Method Room Air 01/18/24 08:33 BMI result Body Mass Index 28.5 General: awake, alert, oriented. Answers questions appropriately. Fully engaged in examination. Skin: warm, dry, intact HEENT: Normocephalic. Hearing intact. Cardiac: External chest normal in appearance. Respiratory: No cough, audible wheezing or stridor. Abdomen: without gross distension. MS: No obvious swelling or deformities. Able to transition from sit to stand unassisted. Ambulates with bilaterally normal heel strike and toe off Neurological: Oriented to person, place, time and situation. Thought process intact. No gait abnormalities appreciated. Psychiatric: Appropriate mood and affect. Good judgment and insight. Results Reviewed Results Reviewed: MRI of the lumbar spine was obtained using routine sequences without contrast. FINDINGS: Alignment is normal. Vertebral body heights are preserved. No acute bone marrow signal changes. There is disc desiccation at multiple levels without substantial loss of intervertebral disc height. The tip of the conus medullaris is located at L1-L2. No mass effect on the conus. Visualized distal cord signal intensity is normal. At L1-L2 the annular contour is normal. No canal or neuroforaminal compromise. At L2-L3 there is an asymmetrically bulging disc to the right. Bilateral facet degenerative change. No canal stenosis. No mass effect on the traversing or foraminal nerve roots. At L3-L4 there is a left foraminal annular fissure associated with a bulging disc. Bilateral facet degenerative change. No canal stenosis. No mass effect on the traversing or foraminal nerve roots. At L4-L5 there is a slightly bulging disc. Bilateral facet degenerative change. No canal stenosis. No mass effect on the traversing or foraminal nerve roots. At L5-S1 there is a slightly bulging disc. No canal stenosis. No mass effect on the traversing or foraminal nerve roots. Limited visualization of the retroperitoneal anatomy reveals no abnormal finding. Psoas and paraspinal muscle groups are symmetric. IMPRESSION: There is disc degeneration at multiple levels within the lumbar spine as described above. No canal stenosis. No mass effect on the traversing or foraminal nerve roots. 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 No obvious signs of diversion, abuse or misuse of the opioid medications. Will send in prescription for Morphine 15mg IR take one tab daily as needed with an advanced date of 07/31/23. Patient encouraged to continue with home exercise. Patient to follow-up in the office in 1 month, sooner if needed. All questions and concerns have been answered and patient agrees with the plan. Medications: Refilled morphine Partial Fill upon patient request. 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
[2023-07-17 08:33] VITALS: BP 128/80; PULSE 87; RESP 16; O2SAT 96; BMI 28.5
== END 2023-07-17 08:43 | disposition home or self-care (01) ==
PROVIDERS: PCP Nurse Practitioner Family; Visit Provider Registered Nurse Emergency
DX: G89.4 Chronic pain syndrome (principal); M47.816 Spondylosis without myelopathy or radiculopathy, lumbar region; M53.3 Sacrococcygeal disorders, not elsewhere classified; Z79.891 Long term (current) use of opiate analgesic; I10 Essential (primary) hypertension; M46.1 Sacroiliitis, not elsewhere classified
CPT/HCPCS: 99214

== ENCOUNTER → 2023-07-17 08:09 | Outpatient (BNVA) | payer OTHER, SELFPAY | PROVIDERS: PCP Nurse Practitioner Family; Visit Provider Registered Nurse Emergency | DX: Z51.81 Encounter for therapeutic drug level monitoring (principal); M47.816 Spondylosis without myelopathy or radiculopathy, lumbar region; M53.3 Sacrococcygeal disorders, not elsewhere classified; M46.1 Sacroiliitis, not elsewhere classified; I10 Essential (primary) hypertension; G89.4 Chronic pain syndrome; Z79.891 Long term (current) use of opiate analgesic | CPT/HCPCS: 99212 ==

== ENCOUNTER 2023-09-01 14:15 | Outpatient (AMB) | payer OTHER, SELFPAY ==
--- NOTE | 2023-09-01 14:16 | A.OFFVIS_ITS ---
Intake Vital Signs 09/01/23 14:21 Height 5 ft Weight 145 lb BMI 28.3 BP 145/67 H Blood Pressure Location Lt brachial Position Sitting Pulse 72 Pulse Source Pulse Oximeter Pulse Oximetry (%) 99 Oxygen Delivery Method Room Air Intake Visit Reasons: Pill Count Intake Note: Zenaida comes in today for a pill count to morphine, patient should have 0 tablets and presents with 0 tablets which she last took 2 days ago. Pain today 5/10. 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 Patient is prescribed Morphine 15mg IR take one tab daily as needed. Patient is supposed to have morphine IR 15 mg #0 pills, in her possession has #0 pills. This demonstrates a responsible attitude in regards to the medication regimen. Patient reports adequate analgesia with morphine. She reports right sided axial back pain status post right lumbar medial branch RFA on 11/29/22. Patient also presents with sacroiliac tenderness bilaterally, worse on the right side. Her last SIJ injections were 11 months ago. She requests to repeat these. Denies any fever, chills, chest pain or tightness, headache, visual disturbances, shortness of breaths, constipation, nausea, sedation, urinary retention, weakness, numbness, tingling, bladder or bowel dysfunction or saddle anesthesia. Past Procedures: 11/29/22: Right medial branch L3-L4-L5 R FA -60-70% ongoing pain relief 10/15/22: Bilateral SIJ injections-70% o ngoing pain relief 04/19/22: Left SIJ injection with steroi ds-100% ongoing pain relief 04/19/22: Left L3-L4-L5 MB RFA-100% firs t 2 weeks, then 75-80% ongoing pain relief 02/28/22: Right SIJ injection with stero ids-100% ongoing pain relief 02/28/22: Right L3-L4-L5 MB RFA-100% stacie oing pain relief 01/08/22: Diagnostic Bilateral L3-L4-DR L5 MBBs- 80% pain relief x36 hours 09/18/21: Diagnostic Bilateral SIJ injec tions-100% pain relief x72 hours [facility] Medical History Elevated cholesterol ADHD Depression Sacroiliitis Hip osteoarthritis Spondylosis of lumbar region without myelopathy or radiculopathy Dysuria Surgical History Hx of tonsillectomy History of dilation and curettage Family History Mother No problems noted. Father No problems noted. Social History Housing: House Alcohol intake: never Patient Tobacco Use Status: Former Tobacco user Tobacco use type: Cigarette Cigarettes Per Day: 6 Years Smoked: 30 e-Cigarette/Vaping Use: Never Used service: No Current occupational status: employed Review of Systems Const All systems reviewed & are unremarkable except as noted in HPI and below Physical Exam Vital Signs: Last Vital Signs Pulse 72 09/01/23 14:21 BP 145/67 H 09/01/23 14:21 Pulse Ox 99 09/01/23 14:21 Oxygen Delivery Method Room Air 09/01/23 14:21 BMI result Body Mass Index 28.3 General: Appears afebrile. Alert and oriented. Mood and affect appropriate. Follows and participates in conversation appropriately. Respiratory effort is unlabored. No cough. Able to transition from sit to stand unassisted. Ambulates with bilaterally normal heel strike and toe off. Back/Spine/Pelvis Other: Lumbar extension reproduces mild-moderate pain. Flexion reproduces mild pain. Cervical Spine: cervical ROM normal and No Cervical spine tenderness Thoracic/Lumbar Spine: thoracic and lumbar spine normal to inspection, Lasegue's sign negative, straight leg raise negative bilaterally, pain with thoraco- lumbar ROM, paraspinal muscle tenderness, No thoracic spinal tenderness and lumbar spinal tenderness at L4 and at L5 Sacroiliac joints: bilaterally (+Epifanio's, Gaenslen, Stinchfield, Pelvic compression positive bilat) tender to palpation Psych Appearance: grossly normal and well kempt Mental Status: mental status grossly normal Speech and movement: Normal speech and movement present Affect: normal affect Attitude: cooperative Thought process: Normal thought process present Thought content: Normal thought content present, suicidality (none), Hallucination(s) present and No Depressive thoughts present Insight: Good insight present (Psych) Judgement: Good judgement present (Psych) Results Reviewed Results Reviewed: MRI of the lumbar spine was obtained using routine sequences without contrast. FINDINGS: Alignment is normal. Vertebral body heights are preserved. No acute bone marrow signal changes. There is disc desiccation at multiple levels without substantial loss of intervertebral disc height. The tip of the conus medullaris is located at L1-L2. No mass effect on the conus. Visualized distal cord signal intensity is normal. At L1-L2 the annular contour is normal. No canal or neuroforaminal compromise. At L2-L3 there is an asymmetrically bulging disc to the right. Bilateral facet degenerative change. No canal stenosis. No mass effect on the traversing or foraminal nerve roots. At L3-L4 there is a left foraminal annular fissure associated with a bulging disc. Bilateral facet degenerative change. No canal stenosis. No mass effect on the traversing or foraminal nerve roots. At L4-L5 there is a slightly bulging disc. Bilateral facet degenerative change. No canal stenosis. No mass effect on the traversing or foraminal nerve roots. At L5-S1 there is a slightly bulging disc. No canal stenosis. No mass effect on the traversing or foraminal nerve roots. Limited visualization of the retroperitoneal anatomy reveals no abnormal finding. Psoas and paraspinal muscle groups are symmetric. IMPRESSION: There is disc degeneration at multiple levels within the lumbar spine as described above. No canal stenosis. No mass effect on the traversing or foraminal nerve roots. Assessment & Plan Assessment & Plan (1) Sacroiliitis: Code(s): M46.1 - Sacroiliitis, not elsewhere classified (2) Opioid contract exists: Code(s): Z79.891 - [facility] (current) use of opiate analgesic (3) Spondylosis of lumbar region without myelopathy or radiculopathy: Code(s): M47.816 - Spondylosis without myelopathy or radiculopathy, lumbar region (4) Sacroiliac joint dysfunction: Code(s): M53.3 - Sacrococcygeal disorders, not elsewhere classified (5) Chronic pain syndrome: Code(s): G89.4 - Chronic pain syndrome Plan 1. Zenaida has shown accountability for her medication regimen and the pill count was accurate. There is no evidence of misuse, abuse or diversion at this time. MassPat reviewed. She is aware of monitoring for side effects. I will send her script for morphine 15 mg daily prn today. 2. Schedule Bilateral Therapeutic SIJ injections with local and fluoroscopy for her chronic bilateral SIJ pain. Expectations, risks and benefits were reviewed. Patient is aware she will be contacted to schedule this procedure. All questions and concerns have been answered and patient agreed with the plan. Follow up as scheduled for pill counts and after injections as well as sooner if needed. Medications: Refilled morphine Partial Fill upon patient request. 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
[2023-09-01 14:21] VITALS: BP 145/67; PULSE 72; O2SAT 99; BMI 28.3
== END 2023-09-01 14:30 | disposition home or self-care (01) ==
PROVIDERS: PCP Nurse Practitioner Family; Visit Provider Nurse Practitioner Family
DX: G89.4 Chronic pain syndrome (principal); M46.1 Sacroiliitis, not elsewhere classified; M47.816 Spondylosis without myelopathy or radiculopathy, lumbar region; Z79.891 Long term (current) use of opiate analgesic; M53.3 Sacrococcygeal disorders, not elsewhere classified
CPT/HCPCS: 99214

== ENCOUNTER → 2023-09-01 14:15 | Outpatient (BNVA) | payer OTHER, SELFPAY | PROVIDERS: PCP Nurse Practitioner Family; Visit Provider Nurse Practitioner Family | DX: Z51.81 Encounter for therapeutic drug level monitoring (principal); M46.1 Sacroiliitis, not elsewhere classified; M47.816 Spondylosis without myelopathy or radiculopathy, lumbar region; M53.3 Sacrococcygeal disorders, not elsewhere classified; G89.4 Chronic pain syndrome; Z79.891 Long term (current) use of opiate analgesic | CPT/HCPCS: 99212 ==

== ENCOUNTER 2023-10-03 12:58 | Outpatient (AMB) | payer OTHER, SELFPAY ==
[2023-10-03 13:13] VITALS: BP 154/74; PULSE 70; RESP 16; O2SAT 98; BMI 29.2
--- NOTE | 2023-10-03 13:13 | A.OFFVIS_ITS ---
Intake Vital Signs 10/03/23 13:13 Height 5 ft Weight 149 lb 8 oz BMI 29.2 BP 154/74 H Blood Pressure Location Lt brachial Position Sitting Respiration 16 Pulse 70 Pulse Source Pulse Oximeter Pulse Oximetry (%) 98 Oxygen Delivery Method Room Air Intake Visit Reasons: PILL COUNT Allergies doxycycline [DOXYCYCLINE] Allergy (Intermediate, Verified 10/03/23 13:13) RASH HPI HPI Comments History of Present Illness Details Zenaida is a very pleasant 48 year old female who presents to the office for follow up chronic pain and chronic opioid therapy management. Patient is prescribed Morphine 15mg IR take one tab daily as needed. Patient arrived today with the expectation of having 0 pills, she presented 0 pills. This demonstrates responsible attitude toward patient's opioid medications. Pain is reported today as 3/10 and last dose of pain medication was taken last night. Pain is adequately managed on current opioid regimen. Patient denies any recent changes or exacerbations of chronic back pain and states she is able to engage in activities of daily living with minimal interruption due to chronic pain. Patient denies side effects including somnolence, constipation, itching, dyspnea , rash, dizziness or weakness. She has been working more and Gym is on hold. Back pain has worsened after stopping the gym and gaining back 9lbs. At last visit plan was for repeat SIJ injections with sedation, she would like an update on where we are in the process of getting this approved for her. Prior visit with Odalis Laura NP: Zenaida is a very pleasant 47 year old female who presents to the office for follow up chronic pain and chronic opioid therapy management. Patient is prescribed Morphine 15mg IR take one tab daily as needed. Patient is supposed to have morphine IR 15 mg #0 pills, in her possession has #0 pills. This demonstrates a responsible attitude in regards to the medication regimen. Patient reports adequate analgesia with morphine. She reports right sided axial back pain status post right lumbar medial branch RFA on 11/29/22. Patient also presents with sacroiliac tenderness bilaterally, worse on the right side. Her last SIJ injections were 11 months ago. She requests to repeat these. Denies any fever, chills, chest pain or tightness, headache, visual disturbances, shortness of breaths, constipation, nausea, sedation, urinary retention, weakness, numbness, tingling, bladder or bowel dysfunction or saddle anesthesia. Past Procedures: 11/29/22: Right medial branch L3-L4-L5 R FA -60-70% ongoing pain relief 10/15/22: Bilateral SIJ injections-70% o ngoing pain relief 04/19/22: Left SIJ injection with steroi ds-100% ongoing pain relief 04/19/22: Left L3-L4-L5 MB RFA-100% firs t 2 weeks, then 75-80% ongoing pain relief 02/28/22: Right SIJ injection with stero ids-100% ongoing pain relief 02/28/22: Right L3-L4-L5 MB RFA-100% stacie oing pain relief 01/08/22: Diagnostic Bilateral L3-L4-DR L5 MBBs- 80% pain relief x36 hours 09/18/21: Diagnostic Bilateral SIJ injec tions-100% pain relief x72 hours PFSH Medical History Elevated cholesterol ADHD Depression Sacroiliitis Hip osteoarthritis Spondylosis of lumbar region without myelopathy or radiculopathy Dysuria Surgical History Hx of tonsillectomy History of dilation and curettage Family History Mother No problems noted. Father No problems noted. Social History Housing: House Alcohol intake: never Patient Tobacco Use Status: Former Tobacco user Tobacco use type: Cigarette Cigarettes Per Day: 6 Years Smoked: 30 e-Cigarette/Vaping Use: Never Used service: No Current occupational status: employed Review of Systems Const All systems reviewed & are unremarkable except as noted in HPI and below Physical Exam Vital Signs: Last Vital Signs Pulse 70 10/03/23 13:13 Resp 16 10/03/23 13:13 BP 154/74 H 10/03/23 13:13 Pulse Ox 98 10/03/23 13:13 Oxygen Delivery Method Room Air 10/03/23 13:13 BMI result Body Mass Index 29.2 General: awake, alert, oriented. Answers questions appropriately. Fully engaged in examination. Skin: warm, dry, intact HEENT: Normocephalic. Hearing intact. Cardiac: External chest normal in appearance. Respiratory: No cough, audible wheezing or stridor. Abdomen: without gross distension. MS: No obvious swelling or deformities. Able to transition from sit to stand unassisted. Ambulates with bilaterally normal heel strike and toe off Neurological: Oriented to person, place, time and situation. Thought process intact. No gait abnormalities appreciated. Psychiatric: Appropriate mood and affect. Good judgment and insight. Results Reviewed Results Reviewed: MRI of the lumbar spine was obtained using routine sequences without contrast. FINDINGS: Alignment is normal. Vertebral body heights are preserved. No acute bone marrow signal changes. There is disc desiccation at multiple levels without substantial loss of intervertebral disc height. The tip of the conus medullaris is located at L1-L2. No mass effect on the conus. Visualized distal cord signal intensity is normal. At L1-L2 the annular contour is normal. No canal or neuroforaminal compromise. At L2-L3 there is an asymmetrically bulging disc to the right. Bilateral facet degenerative change. No canal stenosis. No mass effect on the traversing or foraminal nerve roots. At L3-L4 there is a left foraminal annular fissure associated with a bulging disc. Bilateral facet degenerative change. No canal stenosis. No mass effect on the traversing or foraminal nerve roots. At L4-L5 there is a slightly bulging disc. Bilateral facet degenerative change. No canal stenosis. No mass effect on the traversing or foraminal nerve roots. At L5-S1 there is a slightly bulging disc. No canal stenosis. No mass effect on the traversing or foraminal nerve roots. Limited visualization of the retroperitoneal anatomy reveals no abnormal finding. Psoas and paraspinal muscle groups are symmetric. IMPRESSION: There is disc degeneration at multiple levels within the lumbar spine as described above. No canal stenosis. No mass effect on the traversing or foraminal nerve roots. 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 No obvious signs of diversion, abuse or misuse of the opioid medications. Will send in prescription for Morphine 15mg IR take one tab daily as needed. Patient encouraged to continue with home exercise. Continue with plan for bilateral SIJ injections with sedation, will have scheduling call patient with update. Patient to follow-up in the office in 1 month, sooner if needed. All questions and concerns have been answered and patient agrees with the plan. Medications: Changed From morphine Partial Fill upon patient request. 15 mg PO DAILY 23 days PRN 23 tabs 0RF pain G89.4 - Chronic pain syndrome, M46.1 - Sacroiliitis, not elsewhere classified, M47.816 - Spondylosis without myelopathy or radiculopathy, lumbar region, Z79.891 - custodial (current) use of opiate analgesic To morphine Partial Fill upon patient request. 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
== END 2023-10-03 13:24 | disposition home or self-care (01) ==
PROVIDERS: PCP Nurse Practitioner Family; Visit Provider Registered Nurse Emergency
DX: G89.4 Chronic pain syndrome (principal); M47.816 Spondylosis without myelopathy or radiculopathy, lumbar region; M53.3 Sacrococcygeal disorders, not elsewhere classified; Z79.891 Long term (current) use of opiate analgesic; I10 Essential (primary) hypertension; M46.1 Sacroiliitis, not elsewhere classified
CPT/HCPCS: 99214

== ENCOUNTER → 2023-10-03 12:58 | Outpatient (BNVA) | payer OTHER, SELFPAY | PROVIDERS: PCP Nurse Practitioner Family; Visit Provider Registered Nurse Emergency | DX: Z51.81 Encounter for therapeutic drug level monitoring (principal); M47.816 Spondylosis without myelopathy or radiculopathy, lumbar region; M46.1 Sacroiliitis, not elsewhere classified; M53.3 Sacrococcygeal disorders, not elsewhere classified; I10 Essential (primary) hypertension; G89.4 Chronic pain syndrome; Z79.891 Long term (current) use of opiate analgesic | CPT/HCPCS: 99212 ==

== ENCOUNTER 2023-10-29 14:08 | Outpatient (AMB) | payer OTHER, SELFPAY ==
[2023-10-29 14:16] VITALS: BP 177/76; PULSE 74; RESP 16; O2SAT 98; BMI 29.5
--- NOTE | 2023-10-29 14:16 | A.OFFVIS_ITS ---
Vital Signs 10/29/23 14:16 Height 5 ft Weight 151 lb BMI 29.5 BP 177/76 H Blood Pressure Location Lt brachial Position Sitting Respiration 16 Pulse 74 Pulse Source Pulse Oximeter Pulse Oximetry (%) 98 Oxygen Delivery Method Room Air Intake Visit Reasons: PILL COUNT Allergies doxycycline [DOXYCYCLINE] Allergy (Intermediate, Verified 10/29/23 14:15) RASH HPI Comments Details: Zenaida is a very pleasant 48 year old female who presents to the office for follow up chronic pain and chronic opioid therapy management. Patient is prescribed Morphine 15mg IR take one tab daily as needed. Patient arrived today with the expectation of having 3 pills, she presented 0 pills. Pain is reported today as 10/10 and last dose of pain medication was taken at 2:30am. She currently does not feel like her pain is being adequately controlled with the medication Patient denies any recent changes or exacerbations of chronic back pain and states she is able to engage in activities of daily living with minimal interruption due to chronic pain. Patient denies side effects including somnolence, constipation, itching, dyspnea, rash, dizziness or weakness. She has been waiting for repeat sacroiliac joint injections, she did receive the approval but has not been call to schedule. This has been in the process for 2 months and she reports that pain has progressively getting worse. Now averaging 10/10. Due to this increase pain to the lower back, particularly over right PSIS, she has been taking her medication daily and even took extra a couple days over the last month. With this increase the use she is short 3 pills today. This would be more than the allowable discrepancy per our contract. Lengthy discussion was had with the patient today about the contract and her pill deficit. She verbalized understanding, but expressed the significant pain she has been having. The office was aware of this increased pain and has been working to facilitate getting her repeat injections scheduled. Prior visit with Odalis Laura NP: Zenaida is a very pleasant 47 year old female who presents to the office for follow up chronic pain and chronic opioid therapy management. Patient is prescribed Morphine 15mg IR take one tab daily as needed. Patient is supposed to have morphine IR 15 mg #0 pills, in her possession has #0 pills. This demonstrates a responsible attitude in regards to the medication regimen. Patient reports adequate analgesia with morphine. She reports right sided axial back pain status post right lumbar medial branch RFA on 11/29/22. Patient also presents with sacroiliac tenderness bilaterally, worse on the right side. Her last SIJ injections were 11 months ago. She requests to repeat these. Denies any fever, chills, chest pain or tightness, headache, visual disturbances, shortness of breaths, constipation, nausea, sedation, urinary retention, weakness, numbness, tingling, bladder or bowel dysfunction or saddle anesthesia. Past Procedures: 11/29/22: Right medial branch L3-L4-L5 RFA -60-70% ongoing pain relief 10/15/22: Bilateral SIJ injections-70% ongoing pain relief 04/19/22: Left SIJ injection with steroids-100% ongoing pain relief 04/19/22: Left L3-L4-L5 MB RFA-100% first 2 weeks, then 75-80% ongoing pain relief 02/28/22: Right SIJ injection with steroids-100% ongoing pain relief 02/28/22: Right L3-L4-L5 MB RFA-100% ongoing pain relief 01/08/22: Diagnostic Bilateral L3-L4-DR L5 MBBs- 80% pain relief x36 hours 09/18/21: Diagnostic Bilateral SIJ injections-100% pain relief x72 hours PFSH Medical History Elevated cholesterol ADHD Depression Sacroiliitis Hip osteoarthritis Spondylosis of lumbar region without myelopathy or radiculopathy Dysuria Surgical History Hx of tonsillectomy History of dilation and curettage Family History Mother No problems noted. Father No problems noted. Social History Housing: House Alcohol intake: never Patient Tobacco Use Status: Former Tobacco user Tobacco use type: Cigarette Cigarettes Per Day: 6 Years Smoked: 30 e-Cigarette/Vaping Use: Never Used service: No Current occupational status: employed Review of Systems Const All systems reviewed & are unremarkable except as noted in HPI and below Physical Exam Vital Signs: Last Vital Signs Pulse 74 10/29/23 14:16 Resp 16 10/29/23 14:16 BP 177/76 H 10/29/23 14:16 Pulse Ox 98 10/29/23 14:16 Oxygen Delivery Method Room Air 10/29/23 14:16 BMI result Body Mass Index 29.5 General: awake, alert, oriented. Answers questions appropriately. Fully engaged in examination. Skin: warm, dry, intact HEENT: Normocephalic. Hearing intact. Cardiac: External chest normal in appearance. Respiratory: No cough, audible wheezing or stridor. Abdomen: without gross distension. MS: No obvious swelling or deformities. Able to transition from sit to stand unassisted. Ambulates with bilaterally normal heel strike and toe off Neurological: Oriented to person, place, time and situation. Thought process intact. No gait abnormalities appreciated. Psychiatric: Appropriate mood and affect. Good judgment and insight. Results Reviewed Results Reviewed: MRI of the lumbar spine was obtained using routine sequences without contrast. FINDINGS: Alignment is normal. Vertebral body heights are preserved. No acute bone marrow signal changes. There is disc desiccation at multiple levels without substantial loss of intervertebral disc height. The tip of the conus medullaris is located at L1-L2. No mass effect on the conus. Visualized distal cord signal intensity is normal. At L1-L2 the annular contour is normal. No canal or neuroforaminal compromise. At L2-L3 there is an asymmetrically bulging disc to the right. Bilateral facet degenerative change. No canal stenosis. No mass effect on the traversing or foraminal nerve roots. At L3-L4 there is a left foraminal annular fissure associated with a bulging disc. Bilateral facet degenerative change. No canal stenosis. No mass effect on the traversing or foraminal nerve roots. At L4-L5 there is a slightly bulging disc. Bilateral facet degenerative change. No canal stenosis. No mass effect on the traversing or foraminal nerve roots. At L5-S1 there is a slightly bulging disc. No canal stenosis. No mass effect on the traversing or foraminal nerve roots. Limited visualization of the retroperitoneal anatomy reveals no abnormal finding. Psoas and paraspinal muscle groups are symmetric. IMPRESSION: There is disc degeneration at multiple levels within the lumbar spine as described above. No canal stenosis. No mass effect on the traversing or foraminal nerve roots. 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 Category: Medical (2) Chronic pain syndrome: Code(s): G89.4 - Chronic pain syndrome Category: Medical (3) Spondylosis of lumbar region without myelopathy or radiculopathy: Code(s): M47.816 - Spondylosis without myelopathy or radiculopathy, lumbar region Category: Medical (4) Sacroiliac joint dysfunction: Code(s): M53.3 - Sacrococcygeal disorders, not elsewhere classified Category: Medical (5) Hypertension: Code(s): I10 - Essential (primary) hypertension Category: Medical (6) Sacroiliitis: Code(s): M46.1 - Sacroiliitis, not elsewhere classified Category: Medical Plan [employer] was reviewed and without concerns. No obvious signs of diversion, abuse or misuse of the opioid medications. Will send in prescription for Morphine 15mg IR take one tab twice daily as needed, dispense #45. Plan to increase from 30 tablets per month to 45 tablets per month to assist with the severe pain until she can undergo therapeutic injections. After the injections will return to #30 tabs monthly. Lengthy discussion with patient regarding opioid contract, today's discrepancy could have resulted in suspension. Given that patient has been in contact with the office over the last 1-2 months to discuss her increased pain in his awaiting injections will not suspend. Patient was given a verbal warning and she is aware that in the future violations of the contract may result in suspension. She was instructed to keep in close communication with the office for worsening or uncontrolled pain. Only take medications as prescribed and do not overuse. Patient verbalized understanding. Patient encouraged to continue with home exercise. SI belt ordered and sent to [facility] [employer]. Continue with plan for bilateral SIJ injections, scheduling to discuss with patient today. Patient to follow-up in the office in 1 month, sooner if needed. All questions and concerns have been answered and patient agrees with the plan. Medications: New ibuprofen Take with food. Do not take with any other nonsteroidal anti-inflammatory medications 600 mg PO Q6H PRN 90 tabs 0RF pain sacroiliac belt As directed 1 ea 0RF Changed From morphine Partial Fill upon patient request. 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 15 mg PO BID PRN 45 tabs 0RF pain 30 days G89.4 - Chronic pain syndrome, M46.1 - Sacroiliitis, not elsewhere classified, M47.816 - Spondylosis without myelopathy or radiculopathy, lumbar region, Z79.891 - long-term (current) use of opiate analgesic Coding Level of Care Code Est Pt Level 4 (30505) Diagnoses Opioid contract exists Z79.891 Chronic pain syndrome G89.4 Spondylosis of lumbar region without myelopathy or radiculopathy M47.816 Sacroiliac joint dysfunction M53.3 Hypertension I10 Sacroiliitis M46.1
== END 2023-10-29 14:45 | disposition home or self-care (01) ==
PROVIDERS: PCP Nurse Practitioner Family; Visit Provider Registered Nurse Emergency
DX: G89.4 Chronic pain syndrome (principal); M47.816 Spondylosis without myelopathy or radiculopathy, lumbar region; M53.3 Sacrococcygeal disorders, not elsewhere classified; Z79.891 Long term (current) use of opiate analgesic; I10 Essential (primary) hypertension; M46.1 Sacroiliitis, not elsewhere classified
CPT/HCPCS: 99214

== ENCOUNTER → 2023-10-29 14:08 | Outpatient (BNVA) | payer OTHER, SELFPAY | PROVIDERS: PCP Nurse Practitioner Family; Visit Provider Registered Nurse Emergency | DX: Z51.81 Encounter for therapeutic drug level monitoring (principal); M47.816 Spondylosis without myelopathy or radiculopathy, lumbar region; M53.3 Sacrococcygeal disorders, not elsewhere classified; M46.1 Sacroiliitis, not elsewhere classified; I10 Essential (primary) hypertension; G89.4 Chronic pain syndrome; Z79.891 Long term (current) use of opiate analgesic | CPT/HCPCS: 99212 ==

== ENCOUNTER 2023-11-04 14:05 | Outpatient (AMB) | payer OTHER, SELFPAY ==
--- NOTE | 2023-11-04 13:23 | A.OFFPC_ITS ---
Vital Signs 11/04/23 14:24 Height 5 ft Weight 154 lb 6 oz BMI 30.1 BP 122/68 Blood Pressure Location Lt brachial Position Sitting Respiration 16 Pulse 74 Pulse Source Pulse Oximeter Temp 98.3 F Temp Source Oral Pulse Oximetry (%) 98 Oxygen Delivery Method Room Air Oxygen Flow Rate 98 Intake Visit Reasons: XIOMARA chronic diseases and med management Intake Note: New patient visit. Blue anselmo under upper left arm. Refill on burpropion 100 mg, rizatriptan 10, and topiramate [employer] Required: No Post menopausal: Yes Allergies doxycycline [DOXYCYCLINE] Allergy (Intermediate, Verified 11/04/23 14:19) RASH Medication List - Last Reconciled 11/08/23 by Namita Kaufman MD bupropion HCl SR 100 mg PO BID 90 days estradiol 1 patch transdermal 2XW fluticasone propionate 50 mcg/actuation 1 spray intranasal BID ibuprofen 600 mg PO Q6H PRN loratadine 10 mg PO DAILY morphine 15 mg PO BID PRN 30 days naloxone 4 mg/actuation (Narcan) 4 mg intranasal Q2M PRN nicotine (polacrilex) 2 mg buccal Q2H 1 month ondansetron 4 mg PO Q8H PRN 30 days progesterone micronized 100 mg PO BEDTIME rizatriptan 10 mg PO DAILY PRN sacroiliac belt As directed sumatriptan succinate 100 mg PO DAILY PRN tirzepatide (Mounjaro) 5 mg (0.5 mL) subcut QWEEK 12 weeks topiramate 100 mg PO BEDTIME 90 days tretinoin 0.1% 1 appl topical BEDTIME [Tylenol ] Tobacco use date assessed: 11/04/23 Dental Screening Dental Screen Date: 11/04/23 Did you have a dental visit in the last 12 months?: No Did you have a dental problem in the last 6 months where you did not have access to dental care?: No Was dental information given to patient?: Yes HPI HPI Comments History of Present Illness Details The patient is a 48 year old female with a past medical history of chronic back pain, OA, sacroiliitis, depression, ADD, presenting [facility] care MSK: Follows with pain management-on morphine. She has been waiting for approval on repeat sacroiliac joint injections. Multiple past injections. She is interested in pursing pharmacologic weight loss if covered BH: She was on wellbutrin 100mg bid, elavil 10mg daily but stopped when her medication ran out Neuro: Migraines: on topamax 100mg oral at bedtime. On imitrex 100mg prn PFSH Medical History (Updated 11/08/23 @ 16:24 by Namita Kaufman MD) Anxiety Migraines Degenerative disc disease, lumbar Elevated cholesterol ADHD Depression Sacroiliitis Hip osteoarthritis Spondylosis of lumbar region without myelopathy or radiculopathy Dysuria Surgical History (Updated 11/04/23 @ 16:10 by Fallon Cox CMA) H/O section Hx of tonsillectomy History of dilation and curettage Family History (Updated 11/04/23 @ 16:11 by Fallon Cox CMA) Mother No problems noted. Father No problems noted. 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 1. Little interest or pleasure in doing things: not at all 2. Feeling down, depressed, or hopeless: not at all 3. Trouble falling or staying asleep, or sleeping too much: several days 4. Feeling tired or having little energy: not at all 5. Poor appetite or overeating: nearly every day 6. Feeling bad about yourself - or that you are a failure or have let yourself or your family down: not at all 7. Trouble concentrating on things, such as reading the newspaper or watching television: not at all 8. Moving or speaking so slowly that other people could have noticed. Or the opposite - being so fidgety or restless that you have been moving around a lot more than usual: not at all 9. Thoughts that you would be better off or of hurting yourself in some way: not at all Total score: 4 Depression Screening Interpretation: Positive Depression Screening Done: Yes 36924 - PHQ-9 Billing: Yes Source: Developed by Drs. Wood Cruz, Babs Patten, Maurilio Cerrato and colleagues, with an educational deondre from [employer]. Thrive Questionnaire Date Thrive assessed: 11/04/23 I am a: Patient What is your living situation today?: I have a steady place to live Within the past 12 months, did the food you bought not last and you didn't have the money to get more?: Often true Within the past 12 months, did you worry whether your food would run out before you got money to buy more?: Sometimes True Do you have trouble paying for medicines?: Yes Do you have trouble getting transportation to medical appointments?: No Do you have trouble paying your heating and electricity bill?: No Do you have trouble taking care of your child, family member or friend?: No Do you have trouble with day-to-day activities such as bathing, preparing meals, shopping, managing finances, etc.?: No Are you currently unemployed and looking for a job?: No Are you interested in more education?: No Please select the resources that you would like help with: None Currently or been in a relationship where the following occur: no concerns reported THRIVE Score: 2 AUDIT C Alcohol Use Questionnaire (AUDIT-C) 1. How often do you have a drink containing alcohol?: Monthly or less 2. How many drinks containing alcohol do you have on a typical day when you are drinking?: 1 or 2 3. How often do you have six or more drinks on one occasion?: Never Total Score: 1 PATSOR-7 AMB Questionnaire PASTOR-7 Date PASTOR - 7 assessed: 11/04/23 Feeling nervous, anxious, or on edge: 0 = Not at all Not being able to stop or control worryin = Several days Worrying too much about different things: 0 = Not at all Trouble relaxin = Not at all Being so restless that it is hard to sit still: 0 = Not at all Becoming easily annoyed or irritable: 0 = Not at all Feeling afraid as if something awful might happen: 0 = Not at all Total PASTOR-7 score (0-4 normal; 5-9 mild; 10-14 moderate; 15-21 severe): 1 Source: Developed by Drs. Wood Cruz, Babs Patten, Maurilio Cerrato and colleagues, with an educational deondre from [employer]. PASTOR-7 Assessment Billing PASTOR-7 Assessment Tool: PASTOR-7 Assessment 76136 Review of Systems Const Details: ROS CONSTITUTIONAL: Denies weight loss, fever and chills. HEENT: Denies changes in vision and hearing. RESPIRATORY: Denies SOB and cough. CV: Denies palpitations and CP GI: Denies abdominal pain, nausea, vomiting and diarrhea. : Denies dysuria and urinary frequency. MSK: Denies new myalgia and joint pain. SKIN: Denies rash and pruritus. NEUROLOGICAL: Denies headache PSYCHIATRIC: Denies recent changes in mood. Physical exam (Primary Care) Vital Signs: Last Vital Signs Temp 98.3 F 11/04/23 14:24 Pulse 74 11/04/23 14:24 Resp 16 11/04/23 14:24 BP 122/68 11/04/23 14:24 Pulse Ox 98 11/04/23 14:24 Oxygen Delivery Method Room Air 11/04/23 14:24 Oxygen Flow Rate 98 11/04/23 14:24 PHYSICAL EXAM: GENERAL: Alert and oriented x 3. NAD EYES: EOMI. Anicteric. HENT: Moist mucous membranes. No scleral icterus. No cervical lymphadenopathy. LUNGS: Clear to auscultation bilaterally. CARDIOVASCULAR: Regular rate and rhythm. No murmur. No JVD. ABDOMEN: Soft, non-tender +bs EXTREMITIES: No edema. Non-tender. SKIN: No rashes or lesions. Warm. NEUROLOGIC: No focal neurological deficits. CN II-XII grossly intact PSYCHIATRIC: Cooperative. Appropriate mood and affect BMI result Body Mass Index 30.1 Tobacco/Smoking Status: Tobacco use Status Tobacco use date assessed 11/04/23 11/04/23 14:27 Patient Tobacco Use Status Former Tobacco user 11/04/23 13:27 Tobacco use type Cigarette 11/04/23 13:27 e-Cigarette/Vaping Use Never Used 11/04/23 13:27 PHQ-9: PHQ-9 Score PHQ-9: Total score 4 11/04/23 16:15 Depression Screening Interpretation: Positive Thrive Assessment: Date of Thrive Assessment Date Thrive assessed 11/04/23 11/04/23 16:15 Currently or been in a relationship where the following occur: no concerns reported Assessment and Plan Assessment & Plan (1) Hypertension: Comment: continue to monitor. will trial GLP for weight loss. Code(s): I10 - Essential (primary) hypertension Qualifiers: Hypertension type: primary hypertension Qualified Code(s): I10 - Essential (primary) hypertension (2) Major depressive disorder, recurrent severe without psychotic features: Comment: Restart wellbutrin Code(s): F33.2 - Major depressive disorder, recurrent severe without psychotic features (3) Sacroiliac joint dysfunction: Comment: Awaiting injection. Stable on current medications Code(s): M53.3 - Sacrococcygeal disorders, not elsewhere classified (4) Chronic pain syndrome: Code(s): G89.4 - Chronic pain syndrome (5) ADHD (attention deficit hyperactivity disorder), combined type: Code(s): F90.2 - Attention-deficit hyperactivity disorder, combined type (6) Spondylosis of lumbar region without myelopathy or radiculopathy: Code(s): M47.816 - Spondylosis without myelopathy or radiculopathy, lumbar region (7) ADHD: Code(s): F90.9 - Attention-deficit hyperactivity disorder, unspecified type Qualifiers: Attention deficit-hyperactivity disorder type: unspecified Qualified Code(s): F90.9 - Attention-deficit hyperactivity disorder, unspecified type Medications: New tirzepatide (Mounjaro) 5 mg (0.5 mL) subcut QWEEK 12 weeks 6 mL 3RF ondansetron 4 mg PO Q8H 30 days PRN 60 tabs 3RF nausea and vomiting tretinoin 0.1% 1 appl topical BEDTIME 45 grams 3RF Changed From bupropion HCl SR 100 mg PO BID To bupropion HCl SR 100 mg PO BID 90 days 180 tabs 3RF From topiramate 100 mg PO BEDTIME To topiramate 100 mg PO BEDTIME 90 days 90 tabs 3RF Refilled rizatriptan takes alernately with sumatriptan takes at least 5-6 hours apart 10 mg PO DAILY PRN 14 tabs 0RF Headache sumatriptan succinate 100 mg PO DAILY PRN 10 tabs 3RF for migraine G43.709 - Chronic migraine without aura, not intractable, without status migrainosus Coding Level of Care Code New Pt Level 4 (11791) Complex EM visit Add On G2211 Diagnoses Primary hypertension I10 Hypertension type: primary hypertension Major depressive disorder, recurrent severe without psychotic features F33.2 Sacroiliac joint dysfunction M53.3 Chronic pain syndrome G89.4 ADHD (attention deficit hyperactivity disorder), combined type F90.2 Spondylosis of lumbar region without myelopathy or radiculopathy M47.816 Attention deficit hyperactivity disorder (ADHD), unspecified ADHD type F90.9 Attention deficit-hyperactivity disorder type: unspecified Additional Codes PASTOR-7 Assessment Billing - PASTOR-7 Assessment Tool: PASTOR-7 Assessment 21032 ([id number])
[2023-11-04 14:24] VITALS: BP 122/68; PULSE 74; RESP 16; TEMP 36.8; O2SAT 98; BMI 30.1
== END 2023-11-04 15:00 | disposition home or self-care (01) ==
PROVIDERS: PCP Nurse Practitioner Family; Visit Provider Internal Medicine
DX: I10 Essential (primary) hypertension (principal); F33.2 Major depressive disorder, recurrent severe without psychotic features; M53.3 Sacrococcygeal disorders, not elsewhere classified; G89.4 Chronic pain syndrome; F90.2 Attention-deficit hyperactivity disorder, combined type; M47.816 Spondylosis without myelopathy or radiculopathy, lumbar region; F90.9 Attention-deficit hyperactivity disorder, unspecified type
CPT/HCPCS: 96127; 99204; G2211

== ENCOUNTER 2023-11-21 09:16 | Day surgery (SDC) | payer OTHER, SELFPAY ==
--- NOTE | 2023-11-19 15:28 | P.CONAN_ITS ---
Documented by User: Rayne Kent NP 11/19/23 15:29 HPI - Anesthesia Eval Consult details Narrative: 48yo F for Bilateral Therapeutic Sacroiliac Joint Steroid Injection Chronic opiate Anesthesia Pre-Procedure Meds Is the patient on any of the following meds?: GLP1/DPP4 PMFSH Active Problems Active Problems: All Active Problems Hypertension (Acute) Major depressive disorder, recurrent severe without psychotic features (Acute) Hypertriglyceridemia (Acute) Dorsalgia (Acute) UTI (urinary tract infection) (Acute) Interstitial cystitis (Acute) Depression (Acute) Mild anemia (Acute) Allergic rhinitis (Acute) Dry eye (Acute) Well adult exam (Acute) Dysuria (Acute) Tobacco dependence due to cigarettes (Acute) ADHD (attention deficit hyperactivity disorder), combined type (Acute) Headache, chronic migraine without aura (Acute) Recurrent UTI (Acute) Opioid contract exists (Acute) Encounter for tobacco use cessation counseling (Acute) Sacroiliac joint dysfunction (Acute) Chronic pain syndrome (Acute) Laboratory tests ordered as part of a complete physical exam (CPE) (Acute) Physical exam, annual (Acute) Ready to quit smoking (Acute) Seasonal and perennial allergic rhinoconjunctivitis of both eyes (Acute) Muscle spasm of back (Acute) ADHD (Acute) Sacroiliitis (Acute) Hip osteoarthritis (Acute) Spondylosis of lumbar region without myelopathy or radiculopathy (Acute) Past Medical History Medical History (Updated 11/08/23 @ 16:24 by Namita Kaufman MD) Anxiety Migraines Degenerative disc disease, lumbar Elevated cholesterol ADHD Depression Sacroiliitis Hip osteoarthritis Spondylosis of lumbar region without myelopathy or radiculopathy Dysuria Family History Family History (Updated 11/04/23 @ 16:11 by Fallon Cox CMA) Mother No problems noted. Father No problems noted. Brother HTN (hypertension) Son HTN (hypertension) Family history of problems with anesthesia: No Surgical History Surgical History H/O section Hx of tonsillectomy History of dilation and curettage History of Problems with Anesthesia: No Social History Social History (Updated 11/04/23 @ 14:23 by Fallon Cox CMA) Housing: House Alcohol intake: never Patient Tobacco Use Status: Former Tobacco user Tobacco use type: Cigarette Cigarettes Per Day: 6 Years Smoked: 20 Smoked in Last 30 Days: No e-Cigarette/Vaping Use: Never Used Use of substances other than those prescribed or required for medical reasons: Yes Substance Use Type: Marijuana Substance Use Frequency: Occasionally Are you DNR?: No Advance Directives: No Advance Directives Information Provided: Yes service: No Current occupational status: employed 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 Current occupational exposures/hazards: No Cognitive needs: No Hearing needs: No Vision needs: No Meds Allergies Allergy/AdvReac Type Severity Reaction Status Date / Time doxycycline [DOXYCYCLINE] Allergy Intermediate RASH Verified 11/21/23 10:11 Home Medications ?Medication ?Instructions ?Recorded ?Confirmed ?Last Taken ?Type Tylenol 1,000 mg PO DAILY PRN Pain 11/29/22 11/21/23 11/29/22 07:00 History 500 MG estradiol 0.05 mg/24 hr semiweekly 1 patch transdermal 2XW 11/04/23 11/21/23 Unknown History transdermal patch progesterone micronized 100 mg 100 mg PO BEDTIME 11/04/23 11/21/23 Unknown History capsule Assessment and Plan Assessment Anesthesia Assessment: Chart Reviewed Final Anesthetic Review Family History of Problems with Anesthesia: No History of Problems with Anesthesia: No Documented by User: Ned Lares MD 11/21/23 11:41 [facility] Past Medical History Medical History (Updated 11/08/23 @ 16:24 by Namita Kaufman MD) Anxiety Migraines Degenerative disc disease, lumbar Elevated cholesterol ADHD Depression Sacroiliitis Hip osteoarthritis Spondylosis of lumbar region without myelopathy or radiculopathy Dysuria Family History Family History (Updated 11/04/23 @ 16:11 by Fallon Cox CMA) Mother No problems noted. Father No problems noted. Brother HTN (hypertension) Son HTN (hypertension) Surgical History Surgical History H/O section Hx of tonsillectomy History of dilation and curettage Social History Social History (Updated 11/04/23 @ 14:23 by ISABELLA Ayala Housing: House Alcohol intake: never Patient Tobacco Use Status: Former Tobacco user Tobacco use type: Cigarette Cigarettes Per Day: 6 Years Smoked: 20 Smoked in Last 30 Days: No e-Cigarette/Vaping Use: Never Used Use of substances other than those prescribed or required for medical reasons: Yes Substance Use Type: Marijuana Substance Use Frequency: Occasionally Are you DNR?: No Advance Directives: No Advance Directives Information Provided: Yes service: No Current occupational status: employed 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 Current occupational exposures/hazards: No Cognitive needs: No Hearing needs: No Vision needs: No Meds Allergies Allergy/AdvReac Type Severity Reaction Status Date / Time doxycycline [DOXYCYCLINE] Allergy Intermediate RASH Verified 11/21/23 10:11 Home Medications ?Medication ?Instructions ?Recorded ?Confirmed ?Last Taken ?Type Tylenol 1,000 mg PO DAILY PRN Pain 11/29/22 11/21/23 11/29/22 07:00 History 500 MG estradiol 0.05 mg/24 hr semiweekly 1 patch transdermal 2XW 11/04/23 11/21/23 Unknown History transdermal patch progesterone micronized 100 mg 100 mg PO BEDTIME 11/04/23 11/21/23 Unknown History capsule Exam Airway Mallampati Class: II TM Dist: >3cm Neck ROM: Full Loose/Missing/Broken Teeth: No Heart: ok Lungs: ok Assessment and Plan Assessment Anesthesia Assessment: Anesthesia Plan Discussed Final Anesthetic Review NPO: Yes ASA Class: II Final Preanesthetic Review: No Changes in Pt Med Stat, Meds/Allgs Chart Reviewed, Consent Obtained/Reviewed and Anes Risks/Benef Reviewed Patient Risk: Intermediate Procedure Risk: Intermediate Anesthetic Plan Anesthetic Plan: Agree w/ Assess. and Plan and TIVA Disposition: Standard PACU
--- NOTE | ~2023-11-21 | FL_ITS ---
EXAMINATION: XR FLUOROSCOPY WITH IMAGES CLINICAL INFORMATION: SI joint injection. COMPARISON: None available. TECHNIQUE: Fluoroscopy Supervised By: Dr. Bello Tenorio. Fluoroscopy Time: 0.2 minutes. Cumulative Dose: 2.90 mGy. DAP: 0.792 Gy-cm2. Images: 4. FINDINGS: Intraoperative fluoroscopy and spot films were performed during a procedure in the OR. [place] are seen overlying each SI joint. Contrast is injected and seen around the joint. Please see Dr. Bello Tenorio's report for complete details. FL/FL guidance in OR IMPRESSION: Intraoperative fluoroscopy and spot films were obtained. Please see Dr. Bello Tenorio's report for complete details.
[2023-11-21 10:01] LABS: UPreg QC Valid YES; Urine Pregnancy NEGATIVE (NEGATIVE)
[2023-11-21 10:17] VITALS: BMI 22.6
[2023-11-21 10:21] VITALS: BP 155/81; PULSE 89; RESP 16; TEMP 36.5; O2SAT 98
--- NOTE | 2023-11-21 10:30 | MHC.SHP ---
Pre-Procedural Eval Section A - 24 Hr Update-Section A only Date of Service: 11/21/23 The patient is an INPATIENT: No Changes since office visit: Yes Patient answered all questions The patient has been examined within 24 hours of the surgical procedure. The History & Physical has been completed within 30 days and I have reviewed it.: No Section B - Complete if H&P > 30 days Chief Complaint: Sacrococcygeal disorders,Sacroiliitis, Details of Present Illness: As above Relevant Family History (Specify if Yes): No Relevant Social History: None Present Medications: None Medical History: No relevant PMH History of Previous Operations: No relevant previous surgery Allergies: Allergies Allergy/AdvReac Type Severity Reaction Status Date / Time doxycycline [DOXYCYCLINE] Allergy Intermediate RASH Verified 11/21/23 10:11 Review of Systems Sugical H&P ROS: Negative: Constitution, Cardiovascular, Respiratory, Neurological, Psychiatric, Hem-Onc, Allergic/Immunologic, Gastrointestinal, Genitourinary, Musculoskeletal, Integumentary, Endocrine and Eyes/Ears/Nose/Throat Exam Surgical H&P Exam: Normal: HEENT, Normal: Heart, Normal: Lungs, Normal: Extremities, Normal: Abdomen, Normal: Skin and Normal: Neurological Plan Diagnosis/Plan: Unchanged I have reviewed the history and physical and performed a pertinent physical examination on my patient. No changes have occurred unless specified. Time Spent With Patient Time: Total time managing care of this patient today ____ minutes.
[2023-11-21] MEDS: Lactated Ringers 1,000 ML 100 ML IVCONT (10:47)
--- NOTE | 2023-11-21 11:06 | W.PM.OPN ---
Operative Note Operative Note Date of Service: 11/21/23 Narrative: Bilateral therapeutic sacroiliac joint injection. Informed consent was explained thoroughly to the patient. All questions about benefits and risks for the procedure were answered. Patient came to the operating room and was positioned prone on the operating table with the pillow under the pelvis. ASA monitors were applied and the patient was moderately sedated. Time out was performed delineating name and of the patient, allergies and the nature of the procedure. The lower back and buttocks of the patient were prepped with ChloraPrep prepped and draped with sterile utility towels. C-arm was brought over the operating field and sq picture of patient's pelvis was demonstrated on the screen. For the right joint tilting C-arm contralateral to the site of the joint the most posterior portion of the joints was superimposed with anterior silhouette of the joint. Skin was injected in the projection of the joint slightly medial to the location of the joint with 25 gauge 1/2 inch needle using local lidocaine 2% .After that 22 gauge 3 and 1/2 inch needle was driven to the right joint in tunnel vision fashion. When needle entered the joint capsule injection of the contrast was performed demonstrating intra-articular and minimally periarticular spread of the contrast. After that 4 cc. of ropivacaine 0.5% mixed with Kenalog 40 mg was injected into the joint. After that attention was concentrated on the left side where the injections was performed on the left sacroiliac joint in mirroring fashion. Upon completion of the injections the needle was removed Sterile dressing was applied. Upon completion of the injection patient was taken outside of the operating room to the recovery room where she recovered uneventfully.
--- NOTE | 2023-11-21 11:51 | PM.OP ---
Brief Operative Note Date of Service: 11/21/23 Pre-op diagnosis: Sacroiliitis, bilateral sacroiliac joint pain. Post-op diagnosis: same Procedure: Bilateral therapeutic sacroiliac joint injection. Surgeon: Bello Tenorio MD Anesthesia: MAC Was an Javascript Ui Developer used for this Procedure?: No Estimated blood loss (mL): 0 Condition: stable Disposition: PACU
[2023-11-21 11:54] VITALS: BP 129/81; PULSE 89; RESP 16; TEMP 36.4; O2SAT 95
[2023-11-21 12:09] VITALS: BP 124/77; PULSE 77; RESP 16; O2SAT 97
[2023-11-21 12:20] VITALS: BP 131/79; PULSE 74; RESP 14; O2SAT 98
[2023-11-21 12:50] VITALS: BP 160/89; PULSE 85; RESP 17; TEMP 36.4; O2SAT 99
== END 2023-11-21 13:20 | disposition home or self-care (01) ==
PROVIDERS: Nurse Practitioner; PCP Internal Medicine; Visit Provider Anesthesiology
PROC: 3E0U33Z Introduction of Anti-inflammatory into Joints, Percutaneous Approach (ICD-10-PCS; CPT 27096; principal; 2023-11-21 11:30)
DX: M47.816 Spondylosis without myelopathy or radiculopathy, lumbar region (principal); M53.3 Sacrococcygeal disorders, not elsewhere classified; M46.1 Sacroiliitis, not elsewhere classified; G89.4 Chronic pain syndrome; Z79.891 Long term (current) use of opiate analgesic; E78.00 Pure hypercholesterolemia, unspecified; F90.9 Attention-deficit hyperactivity disorder, unspecified type; Z87.891 Personal history of nicotine dependence
CPT/HCPCS: 27096; 81025; J2250; J2704; J2795; J3010; J3301; Q9967

== ENCOUNTER → 2023-11-21 09:16 | Outpatient (BNV) | payer OTHER, SELFPAY | PROVIDERS: PCP Internal Medicine; Visit Provider Anesthesiology | DX: M46.1 Sacroiliitis, not elsewhere classified (principal); M53.3 Sacrococcygeal disorders, not elsewhere classified | CPT/HCPCS: 27096 ==

== ENCOUNTER 2023-11-26 13:44 | Outpatient (AMB) | payer OTHER, SELFPAY ==
[2023-11-26 13:53] VITALS: BP 176/81; PULSE 75; RESP 16; O2SAT 98; BMI 28.4
--- NOTE | 2023-11-26 13:53 | MHC.OFFVIS ---
Vital Signs 11/26/23 13:53 Height 5 ft Weight 145 lb 6 oz BMI 28.4 BP 176/81 H Blood Pressure Location Lt brachial Position Sitting Respiration 16 Pulse 75 Pulse Source Pulse Oximeter Pulse Oximetry (%) 98 Oxygen Delivery Method Room Air Intake Visit Reasons: Medication Count Allergies doxycycline [DOXYCYCLINE] Allergy (Intermediate, Verified 11/26/23 13:54) RASH HPI Comments Details: Zenaida is a very pleasant 48 year old female who presents to the office for follow up chronic pain and chronic opioid therapy management. Patient is prescribed Morphine 15mg IR take one tab daily as needed. Patient arrived today with the expectation of having 0 pills, she presented 5 pills. Pain is reported today as 6/10 and last dose of pain medication was taken at 5:30am. She currently does not feel like her pain is being adequately controlled with the medication Denies any recent changes or exacerbations of chronic back pain and states she is able to engage in activities of daily living with minimal interruption due to chronic pain. Denies side effects including somnolence, constipation, itching, dyspnea, rash, dizziness or weakness. She underwent SIJ injections last week, reports 60% improvement in pain, function and mobility since the injection. Denies untoward effects of the procedure. Struggling with her weight, recently spoke to her [employer] and was started on Wellbutrin, Topamax and Phentermine. States started them all at the same time, then noticed she was very emotional and anxious so she stopped them all. Is waiting to discuss next steps with the prescriber. Prior visit with Odalis Laura NP: Zenaida is a very pleasant 47 year old female who presents to the office for follow up chronic pain and chronic opioid therapy management. Patient is prescribed Morphine 15mg IR take one tab daily as needed. Patient is supposed to have morphine IR 15 mg #0 pills, in her possession has #0 pills. This demonstrates a responsible attitude in regards to the medication regimen. Patient reports adequate analgesia with morphine. She reports right sided axial back pain status post right lumbar medial branch RFA on 11/29/22. Patient also presents with sacroiliac tenderness bilaterally, worse on the right side. Her last SIJ injections were 11 months ago. She requests to repeat these. Denies any fever, chills, chest pain or tightness, headache, visual disturbances, shortness of breaths, constipation, nausea, sedation, urinary retention, weakness, numbness, tingling, bladder or bowel dysfunction or saddle anesthesia. Past Procedures: 11/21/23: Bilateral SIJ injections-60% ongoing pain relief 11/29/22: Right medial branch L3-L4-L5 RFA -60-70% ongoing pain relief 10/15/22: Bilateral SIJ injections-70% ongoing pain relief 04/19/22: Left SIJ injection with steroids-100% ongoing pain relief 04/19/22: Left L3-L4-L5 MB RFA-100% first 2 weeks, then 75-80% ongoing pain relief 02/28/22: Right SIJ injection with steroids-100% ongoing pain relief 02/28/22: Right L3-L4-L5 MB RFA-100% ongoing pain relief 01/08/22: Diagnostic Bilateral L3-L4-DR L5 MBBs- 80% pain relief x36 hours 09/18/21: Diagnostic Bilateral SIJ injections-100% pain relief x72 hours [facility] Medical History (Updated 11/08/23 @ 16:24 by Namita Kaufman MD) Anxiety Migraines Degenerative disc disease, lumbar Elevated cholesterol ADHD Depression Sacroiliitis Hip osteoarthritis Spondylosis of lumbar region without myelopathy or radiculopathy Dysuria Surgical History H/O section Hx of tonsillectomy History of dilation and curettage Family History (Updated 11/04/23 @ 16:11 by Fallon Cox CMA) Mother No problems noted. Father No problems noted. 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 Answers questions appropriately. Fully engaged in examination. Skin: warm, dry, intact HEENT: Normocephalic. Hearing intact. Cardiac: External chest normal in appearance. Respiratory: No cough, audible wheezing or stridor. Abdomen: without gross distension. MS: No obvious swelling or deformities. Able to transition from sit to stand unassisted. Ambulates with bilaterally normal heel strike and toe off Neurological: Oriented to person, place, time and situation. Thought process intact. No gait abnormalities appreciated. Psychiatric: Appropriate mood and affect. Good judgment and insight. Results Reviewed Results Reviewed: MRI of the lumbar spine was obtained using routine sequences without contrast. FINDINGS: Alignment is normal. Vertebral body heights are preserved. No acute bone marrow signal changes. There is disc desiccation at multiple levels without substantial loss of intervertebral disc height. The tip of the conus medullaris is located at L1-L2. No mass effect on the conus. Visualized distal cord signal intensity is normal. At L1-L2 the annular contour is normal. No canal or neuroforaminal compromise. At L2-L3 there is an asymmetrically bulging disc to the right. Bilateral facet degenerative change. No canal stenosis. No mass effect on the traversing or foraminal nerve roots. At L3-L4 there is a left foraminal annular fissure associated with a bulging disc. Bilateral facet degenerative change. No canal stenosis. No mass effect on the traversing or foraminal nerve roots. At L4-L5 there is a slightly bulging disc. Bilateral facet degenerative change. No canal stenosis. No mass effect on the traversing or foraminal nerve roots. At L5-S1 there is a slightly bulging disc. No canal stenosis. No mass effect on the traversing or foraminal nerve roots. Limited visualization of the retroperitoneal anatomy reveals no abnormal finding. Psoas and paraspinal muscle groups are symmetric. IMPRESSION: There is disc degeneration at multiple levels within the lumbar spine as described above. No canal stenosis. No mass effect on the traversing or foraminal nerve roots. 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.891 - skilled nursing (current) use of opiate analgesic Category: Medical (2) Chronic pain syndrome: Code(s): G89.4 - Chronic pain syndrome Category: Medical (3) Spondylosis of lumbar region without myelopathy or radiculopathy: Code(s): M47.816 - Spondylosis without myelopathy or radiculopathy, lumbar region Category: Medical (4) Sacroiliac joint dysfunction: Comment: Awaiting injection. Stable on current medications Code(s): M53.3 - Sacrococcygeal disorders, not elsewhere classified Category: Medical (5) Hypertension: Comment: continue to monitor. will trial GLP for weight loss. Code(s): I10 - Essential (primary) hypertension Category: Medical Qualifiers: Hypertension type: primary hypertension Qualified Code(s): I10 - Essential (primary) hypertension (6) Sacroiliitis: Code(s): M46.1 - Sacroiliitis, not elsewhere classified Category: Medical Plan [place]pat was reviewed and without concerns. No obvious signs of diversion, abuse or misuse of the opioid medications. Will send in prescription for Morphine 15mg IR take one tab twice daily as needed, dispense #45. Patient encouraged to continue with home exercise. Discuss weight loss with current provider, recommend continued discontinued use of Phentermine at this time d/t reported side effects of insomnia, anxiety, racing thoughts Patient to follow-up in the office in 1 month, sooner if needed. All questions and concerns have been answered and patient agrees with the plan. Medications: Refilled morphine Partial Fill upon patient request. 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
== END 2023-11-26 14:18 | disposition home or self-care (01) ==
PROVIDERS: PCP Internal Medicine; Visit Provider Registered Nurse Emergency
DX: G89.4 Chronic pain syndrome (principal); M47.816 Spondylosis without myelopathy or radiculopathy, lumbar region; M53.3 Sacrococcygeal disorders, not elsewhere classified; Z79.891 Long term (current) use of opiate analgesic; I10 Essential (primary) hypertension; M46.1 Sacroiliitis, not elsewhere classified
CPT/HCPCS: 99214

== ENCOUNTER → 2023-11-26 13:44 | Outpatient (BNVA) | payer OTHER, SELFPAY | PROVIDERS: PCP Internal Medicine; Visit Provider Registered Nurse Emergency ==

== ENCOUNTER 2023-12-24 13:52 | Outpatient (AMB) | payer OTHER, SELFPAY ==
--- NOTE | 2023-12-24 13:52 | MHC.OFFVIS ---
Vital Signs 12/24/23 14:05 Height 5 ft Weight 137 lb 8 oz BMI 26.9 BP 138/72 Blood Pressure Location Lt brachial Position Sitting Respiration 16 Pulse 92 Pulse Source Pulse Oximeter Pulse Oximetry (%) 98 Oxygen Delivery Method Room Air Intake Visit Reasons: PILL COUNT Allergies doxycycline [DOXYCYCLINE] Allergy (Intermediate, Verified 12/24/23 14:06) RASH HPI Comments Details: Zenaida is a very pleasant 48 year old female who presents to the office today for follow up chronic pain and chronic opioid therapy management. Patient is prescribed Morphine 15mg IR take one tab twice daily as needed. This was increased from 1 tab daily as needed at her last visit where she felt her pain was not being adequately controlled She arrived today with the expectation of having 0 pills, she presented 8 pills. Pain is reported today as 2/10 and last dose of pain medication was taken yesterday at 21:00. She feels her pain is much better controlled at this time Denies any recent changes or exacerbations of chronic back pain and states she is able to engage in activities of daily living with minimal interruption due to chronic pain. Denies side effects including somnolence, constipation, itching, dyspnea, rash, dizziness or weakness. Prior visit with Odalis Laura NP: Zenaida is a very pleasant 47 year old female who presents to the office for follow up chronic pain and chronic opioid therapy management. Patient is prescribed Morphine 15mg IR take one tab daily as needed. Patient is supposed to have morphine IR 15 mg #0 pills, in her possession has #0 pills. This demonstrates a responsible attitude in regards to the medication regimen. Patient reports adequate analgesia with morphine. She reports right sided axial back pain status post right lumbar medial branch RFA on 11/29/22. Patient also presents with sacroiliac tenderness bilaterally, worse on the right side. Her last SIJ injections were 11 months ago. She requests to repeat these. Denies any fever, chills, chest pain or tightness, headache, visual disturbances, shortness of breaths, constipation, nausea, sedation, urinary retention, weakness, numbness, tingling, bladder or bowel dysfunction or saddle anesthesia. Past Procedures: 11/21/23: Bilateral SIJ injections-60% ongoing pain relief 11/29/22: Right medial branch L3-L4-L5 RFA -60-70% ongoing pain relief 04/18/23: Bilateral SIJ injections-70% ongoing pain relief 04/19/22: Left SIJ injection with steroids-100% ongoing pain relief 04/19/22: Left L3-L4-L5 MB RFA-100% first 2 weeks, then 75-80% ongoing pain relief 02/28/22: Right SIJ injection with steroids-100% ongoing pain relief 02/28/22: Right L3-L4-L5 MB RFA-100% ongoing pain relief 01/08/22: Diagnostic Bilateral L3-L4-DR L5 MBBs- 80% pain relief x36 hours 09/18/21: Diagnostic Bilateral SIJ injections-100% pain relief x72 hours PFSH Medical History (Updated 11/08/23 @ 16:24 by Namita Kaufman MD) Anxiety Migraines Degenerative disc disease, lumbar Elevated cholesterol ADHD Depression Sacroiliitis Hip osteoarthritis Spondylosis of lumbar region without myelopathy or radiculopathy Dysuria Surgical History H/O section Hx of tonsillectomy History of dilation and curettage Family History (Updated 11/04/23 @ 16:11 by Fallon Cox CMA) Mother No problems noted. Father No problems noted. 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 Answers questions appropriately. Fully engaged in examination. Skin: warm, dry, intact HEENT: Normocephalic. Hearing intact. Cardiac: External chest normal in appearance. Respiratory: No cough, audible wheezing or stridor. Abdomen: without gross distension. MS: No obvious swelling or deformities. Able to transition from sit to stand unassisted. Ambulates with bilaterally normal heel strike and toe off Neurological: Oriented to person, place, time and situation. Thought process intact. No gait abnormalities appreciated. Psychiatric: Appropriate mood and affect. Good judgment and insight. Results Reviewed Results Reviewed: MRI of the lumbar spine was obtained using routine sequences without contrast. FINDINGS: Alignment is normal. Vertebral body heights are preserved. No acute bone marrow signal changes. There is disc desiccation at multiple levels without substantial loss of intervertebral disc height. The tip of the conus medullaris is located at L1-L2. No mass effect on the conus. Visualized distal cord signal intensity is normal. At L1-L2 the annular contour is normal. No canal or neuroforaminal compromise. At L2-L3 there is an asymmetrically bulging disc to the right. Bilateral facet degenerative change. No canal stenosis. No mass effect on the traversing or foraminal nerve roots. At L3-L4 there is a left foraminal annular fissure associated with a bulging disc. Bilateral facet degenerative change. No canal stenosis. No mass effect on the traversing or foraminal nerve roots. At L4-L5 there is a slightly bulging disc. Bilateral facet degenerative change. No canal stenosis. No mass effect on the traversing or foraminal nerve roots. At L5-S1 there is a slightly bulging disc. No canal stenosis. No mass effect on the traversing or foraminal nerve roots. Limited visualization of the retroperitoneal anatomy reveals no abnormal finding. Psoas and paraspinal muscle groups are symmetric. IMPRESSION: There is disc degeneration at multiple levels within the lumbar spine as described above. No canal stenosis. No mass effect on the traversing or foraminal nerve roots. 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.891 - longterm (current) use of opiate analgesic Category: Medical (2) Chronic pain syndrome: Code(s): G89.4 - Chronic pain syndrome Category: Medical (3) Spondylosis of lumbar region without myelopathy or radiculopathy: Code(s): M47.816 - Spondylosis without myelopathy or radiculopathy, lumbar region Category: Medical (4) Sacroiliac joint dysfunction: Comment: Awaiting injection. Stable on current medications Code(s): M53.3 - Sacrococcygeal disorders, not elsewhere classified Category: Medical (5) Hypertension: Comment: continue to monitor. will trial GLP for weight loss. Code(s): I10 - Essential (primary) hypertension Category: Medical Qualifiers: Hypertension type: primary hypertension Qualified Code(s): I10 - Essential (primary) hypertension (6) Sacroiliitis: Code(s): M46.1 - Sacroiliitis, not elsewhere classified Category: Medical Plan [place] was reviewed and without concerns. No obvious signs of diversion, abuse or misuse of the opioid medications. Will send in prescription for Morphine 15mg IR take one tab twice daily as needed, dispense #45. Patient encouraged to continue with home exercise. Patient to follow-up in the office in 1 month, sooner if needed. All questions and concerns have been answered and patient agrees with the plan. Medications: Refilled morphine Partial Fill upon patient request. 15 mg PO BID 30 days PRN 45 tabs 0RF pain G89.4 - Chronic pain syndrome, M46.1 - Sacroiliitis, not elsewhere classified, M47.816 - Spondylosis without myelopathy or radiculopathy, lumbar region, Z79.891 - observer electrical prospecting (current) use of opiate analgesic Coding Level of Care Code Est Pt Level 4 (30501) Diagnoses Opioid contract exists Z79.891 Chronic pain syndrome G89.4 Spondylosis of lumbar region without myelopathy or radiculopathy M47.816 Sacroiliac joint dysfunction M53.3 Primary hypertension I10 Hypertension type: primary hypertension Sacroiliitis M46.1
[2023-12-24 14:05] VITALS: BP 138/72; PULSE 92; RESP 16; O2SAT 98; BMI 26.9
== END 2023-12-24 14:44 | disposition home or self-care (01) ==
PROVIDERS: PCP Internal Medicine; Visit Provider Registered Nurse Emergency
DX: Z79.891 Long term (current) use of opiate analgesic (principal); G89.4 Chronic pain syndrome; M47.816 Spondylosis without myelopathy or radiculopathy, lumbar region; M53.3 Sacrococcygeal disorders, not elsewhere classified; I10 Essential (primary) hypertension; M46.1 Sacroiliitis, not elsewhere classified
CPT/HCPCS: 99214

== ENCOUNTER → 2023-12-24 13:52 | Outpatient (BNVA) | payer OTHER, SELFPAY | PROVIDERS: PCP Internal Medicine; Visit Provider Registered Nurse Emergency ==

== ENCOUNTER 2024-01-21 13:56 | Outpatient (AMB) | payer OTHER, SELFPAY ==
[2024-01-21 14:00] VITALS: BP 141/67; PULSE 77; O2SAT 100; BMI 27.1
--- NOTE | 2024-01-21 14:03 | MHC.OFFVIS ---
Vital Signs 01/21/24 14:00 Height 5 ft Weight 139 lb BMI 27.1 BP 141/67 H Blood Pressure Location Rt brachial Position Sitting Pulse 77 Pulse Source Pulse Oximeter Pulse Oximetry (%) 100 Oxygen Delivery Method Room Air Intake Visit Reasons: Pill Count Allergies doxycycline [DOXYCYCLINE] Allergy (Intermediate, Verified 12/24/23 14:06) RASH HPI Comments Details: Zenaida is a very pleasant 48 year old female who presents to the office today for follow up chronic pain and chronic opioid therapy management. Patient is prescribed Morphine 15mg IR take one tab twice daily as needed. She arrived today with the expectation of having 0 pills, she presented 2 pills. Pain is reported today as 5/10 and last dose of pain medication was taken yesterday at 9am. Denies any recent changes or exacerbations of chronic back pain and states she is able to engage in activities of daily living with minimal interruption due to chronic pain. Denies side effects including somnolence, constipation, itching, dyspnea, rash, dizziness or weakness. Has been suffering with increased mid back pain since last visit. Reports SIJ pain is greatly improved but axial back pain persists. Underwent RFA in the past with nearly one year of 70% pain relief. Prior visit with Odalis Laura NP: Zenaida is a very pleasant 47 year old female who presents to the office for follow up chronic pain and chronic opioid therapy management. Patient is prescribed Morphine 15mg IR take one tab daily as needed. Patient is supposed to have morphine IR 15 mg #0 pills, in her possession has #0 pills. This demonstrates a responsible attitude in regards to the medication regimen. Patient reports adequate analgesia with morphine. She reports right sided axial back pain status post right lumbar medial branch RFA on 11/29/22. Patient also presents with sacroiliac tenderness bilaterally, worse on the right side. Her last SIJ injections were 11 months ago. She requests to repeat these. Denies any fever, chills, chest pain or tightness, headache, visual disturbances, shortness of breaths, constipation, nausea, sedation, urinary retention, weakness, numbness, tingling, bladder or bowel dysfunction or saddle anesthesia. Past Procedures: 11/21/23: Bilateral SIJ injections-60% ongoing pain relief 11/29/22: Right medial branch L3-L4-L5 RFA -60-70% ongoing pain relief 10/15/22: Bilateral SIJ injections-70% ongoing pain relief 04/19/22: Left SIJ injection with steroids-100% ongoing pain relief 04/19/22: Left L3-L4-L5 MB RFA-100% first 2 weeks, then 75-80% ongoing pain relief 02/28/22: Right SIJ injection with steroids-100% ongoing pain relief 02/28/22: Right L3-L4-L5 MB RFA-100% ongoing pain relief 01/08/22: Diagnostic Bilateral L3-L4-DR L5 MBBs- 80% pain relief x36 hours 09/18/21: Diagnostic Bilateral SIJ injections-100% pain relief x72 hours PFSH Medical History (Updated 11/08/23 @ 16:24 by Namita Kaufman MD) Anxiety Migraines Degenerative disc disease, lumbar Elevated cholesterol ADHD Depression Sacroiliitis Hip osteoarthritis Spondylosis of lumbar region without myelopathy or radiculopathy Dysuria Surgical History H/O section Hx of tonsillectomy History of dilation and curettage Family History (Updated 11/04/23 @ 16:11 by Fallon Cox CMA) Mother No problems noted. Father No problems noted. 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 Answers questions appropriately. Fully engaged in examination. Skin: warm, dry, intact HEENT: Normocephalic. Hearing intact. Cardiac: External chest normal in appearance. Respiratory: No cough, audible wheezing or stridor. Abdomen: without gross distension. MS: No obvious swelling or deformities. Able to transition from sit to stand unassisted. Ambulates with bilaterally normal heel strike and toe off Tenderness to palpation midline lumbar vertebrae lumbar paraspinal muscles Facet loading positive Neurological: Oriented to person, place, time and situation. Thought process intact. No gait abnormalities appreciated. Psychiatric: Appropriate mood and affect. Good judgment and insight. Results Reviewed Results Reviewed: MRI of the lumbar spine was obtained using routine sequences without contrast. FINDINGS: Alignment is normal. Vertebral body heights are preserved. No acute bone marrow signal changes. There is disc desiccation at multiple levels without substantial loss of intervertebral disc height. The tip of the conus medullaris is located at L1-L2. No mass effect on the conus. Visualized distal cord signal intensity is normal. At L1-L2 the annular contour is normal. No canal or neuroforaminal compromise. At L2-L3 there is an asymmetrically bulging disc to the right. Bilateral facet degenerative change. No canal stenosis. No mass effect on the traversing or foraminal nerve roots. At L3-L4 there is a left foraminal annular fissure associated with a bulging disc. Bilateral facet degenerative change. No canal stenosis. No mass effect on the traversing or foraminal nerve roots. At L4-L5 there is a slightly bulging disc. Bilateral facet degenerative change. No canal stenosis. No mass effect on the traversing or foraminal nerve roots. At L5-S1 there is a slightly bulging disc. No canal stenosis. No mass effect on the traversing or foraminal nerve roots. Limited visualization of the retroperitoneal anatomy reveals no abnormal finding. Psoas and paraspinal muscle groups are symmetric. IMPRESSION: There is disc degeneration at multiple levels within the lumbar spine as described above. No canal stenosis. No mass effect on the traversing or foraminal nerve roots. 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.891 - [facility] (current) use of opiate analgesic Category: Medical (2) Chronic pain syndrome: Code(s): G89.4 - Chronic pain syndrome Category: Medical (3) Spondylosis of lumbar region without myelopathy or radiculopathy: Code(s): M47.816 - Spondylosis without myelopathy or radiculopathy, lumbar region Category: Medical (4) Sacroiliac joint dysfunction: Comment: Awaiting injection. Stable on current medications Code(s): M53.3 - Sacrococcygeal disorders, not elsewhere classified Category: Medical (5) Hypertension: Comment: continue to monitor. will trial GLP for weight loss. Code(s): I10 - Essential (primary) hypertension Category: Medical Qualifiers: Hypertension type: primary hypertension Qualified Code(s): I10 - Essential (primary) hypertension (6) Sacroiliitis: Code(s): M46.1 - Sacroiliitis, not elsewhere classified Category: Medical Plan Masspat was reviewed and without concerns. No obvious signs of diversion, abuse or misuse of the opioid medications. Will send in prescription for Morphine 15mg IR take one tab twice daily as needed, dispense #45. New Rx methocarbamol 500 mg p.o. t.i.d.. Patient advised on cautions for use. 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 No driving while taking this medication. Will schedule for repeat bilateral L3-L4 DR L5 radiofrequency ablation under sedation. Patient to follow-up in the office in 1 month, sooner if needed. All questions and concerns have been answered and patient agrees with the plan. Medications: New methocarbamol No driving while taking this medication. 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
== END 2024-01-21 14:31 | disposition home or self-care (01) ==
PROVIDERS: PCP Internal Medicine; Visit Provider Registered Nurse Emergency
DX: G89.4 Chronic pain syndrome (principal); M47.816 Spondylosis without myelopathy or radiculopathy, lumbar region; M53.3 Sacrococcygeal disorders, not elsewhere classified; Z79.891 Long term (current) use of opiate analgesic; I10 Essential (primary) hypertension; M46.1 Sacroiliitis, not elsewhere classified
CPT/HCPCS: 99214

== ENCOUNTER → 2024-01-21 13:56 | Outpatient (BNVA) | payer OTHER, SELFPAY | PROVIDERS: PCP Internal Medicine; Visit Provider Registered Nurse Emergency ==

== ENCOUNTER 2024-02-18 14:19 | Outpatient (AMB) | payer OTHER, SELFPAY ==
[2024-02-18 14:29] VITALS: BP 145/72; PULSE 102; O2SAT 96; BMI 26.9
--- NOTE | 2024-02-18 14:29 | A.OFFVIS_ITS ---
Vital Signs 02/18/24 14:29 Height 5 ft Weight 138 lb BMI 26.9 BP 145/72 H Blood Pressure Location Lt brachial Position Sitting Pulse 102 H Pulse Source Pulse Oximeter Pulse Oximetry (%) 96 Oxygen Delivery Method Room Air Intake Visit Reasons: Pill Count Allergies doxycycline [DOXYCYCLINE] Allergy (Intermediate, Verified 12/24/23 14:06) RASH HPI Comments Details: Zenaida is a very pleasant 48 year old female who presents to the office today for follow up chronic pain and chronic opioid therapy management. Patient is prescribed Morphine 15mg IR take one tab twice daily as needed. She arrived today with the expectation of having 1.5 pills, she presented 6 pills. Pain is reported today as 6/10 and last dose of pain medication was taken today at 8am. Denies any recent changes or exacerbations of chronic back pain and states she is able to engage in activities of daily living with minimal interruption due to chronic pain. Denies side effects including somnolence, constipation, itching, dyspnea, rash, dizziness or weakness. Has been taking the muscle relaxers, methocarbamol, with good effect. Only using as needed and taking sparingly. Prior visit with Odalis Laura NP: Zenaida is a very pleasant 47 year old female who presents to the office for follow up chronic pain and chronic opioid therapy management. Patient is prescribed Morphine 15mg IR take one tab daily as needed. Patient is supposed to have morphine IR 15 mg #0 pills, in her possession has #0 pills. This demonstrates a responsible attitude in regards to the medication regimen. Patient reports adequate analgesia with morphine. She reports right sided axial back pain status post right lumbar medial branch RFA on 11/29/22. Patient also presents with sacroiliac tenderness bilaterally, worse on the right side. Her last SIJ injections were 11 months ago. She requests to repeat these. Denies any fever, chills, chest pain or tightness, headache, visual disturbances, shortness of breaths, constipation, nausea, sedation, urinary retention, weakness, numbness, tingling, bladder or bowel dysfunction or saddle anesthesia. Past Procedures: 11/21/23: Bilateral SIJ injections-60% ongoing pain relief 11/29/22: Right medial branch L3-L4-L5 RFA -60-70% ongoing pain relief 10/15/22: Bilateral SIJ injections-70% ongoing pain relief 04/19/22: Left SIJ injection with steroids-100% ongoing pain relief 04/19/22: Left L3-L4-L5 MB RFA-100% first 2 weeks, then 75-80% ongoing pain relief 02/28/22: Right SIJ injection with steroids-100% ongoing pain relief 02/28/22: Right L3-L4-L5 MB RFA-100% ongoing pain relief 01/08/22: Diagnostic Bilateral L3-L4-DR L5 MBBs- 80% pain relief x36 hours 09/18/21: Diagnostic Bilateral SIJ injections-100% pain relief x72 hours PFSH Medical History (Updated 11/08/23 @ 16:24 by Namita Kaufman MD) Anxiety Migraines Degenerative disc disease, lumbar Elevated cholesterol ADHD Depression Sacroiliitis Hip osteoarthritis Spondylosis of lumbar region without myelopathy or radiculopathy Dysuria Surgical History H/O section Hx of tonsillectomy History of dilation and curettage Family History (Updated 11/04/23 @ 16:11 by Fallon Cox CMA) Mother No problems noted. Father No problems noted. 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 Answers questions appropriately. Fully engaged in examination. Skin: warm, dry, intact HEENT: Normocephalic. Hearing intact. Cardiac: External chest normal in appearance. Respiratory: No cough, audible wheezing or stridor. Abdomen: without gross distension. MS: No obvious swelling or deformities. Able to transition from sit to stand unassisted. Ambulates with bilaterally normal heel strike and toe off Neurological: Oriented to person, place, time and situation. Thought process intact. No gait abnormalities appreciated. Psychiatric: Appropriate mood and affect. Good judgment and insight. Results Reviewed Results Reviewed: MRI of the lumbar spine was obtained using routine sequences without contrast. FINDINGS: Alignment is normal. Vertebral body heights are preserved. No acute bone marrow signal changes. There is disc desiccation at multiple levels without substantial loss of intervertebral disc height. The tip of the conus medullaris is located at L1-L2. No mass effect on the conus. Visualized distal cord signal intensity is normal. At L1-L2 the annular contour is normal. No canal or neuroforaminal compromise. At L2-L3 there is an asymmetrically bulging disc to the right. Bilateral facet degenerative change. No canal stenosis. No mass effect on the traversing or foraminal nerve roots. At L3-L4 there is a left foraminal annular fissure associated with a bulging disc. Bilateral facet degenerative change. No canal stenosis. No mass effect on the traversing or foraminal nerve roots. At L4-L5 there is a slightly bulging disc. Bilateral facet degenerative change. No canal stenosis. No mass effect on the traversing or foraminal nerve roots. At L5-S1 there is a slightly bulging disc. No canal stenosis. No mass effect on the traversing or foraminal nerve roots. Limited visualization of the retroperitoneal anatomy reveals no abnormal finding. Psoas and paraspinal muscle groups are symmetric. IMPRESSION: There is disc degeneration at multiple levels within the lumbar spine as described above. No canal stenosis. No mass effect on the traversing or foraminal nerve roots. 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.891 - residential (current) use of opiate analgesic Category: Medical (2) Chronic pain syndrome: Code(s): G89.4 - Chronic pain syndrome Category: Medical (3) Spondylosis of lumbar region without myelopathy or radiculopathy: Code(s): M47.816 - Spondylosis without myelopathy or radiculopathy, lumbar region Category: Medical (4) Sacroiliac joint dysfunction: Comment: Awaiting injection. Stable on current medications Code(s): M53.3 - Sacrococcygeal disorders, not elsewhere classified Category: Medical (5) Hypertension: Comment: continue to monitor. will trial GLP for weight loss. Code(s): I10 - Essential (primary) hypertension Category: Medical Qualifiers: Hypertension type: primary hypertension Qualified Code(s): I10 - Essential (primary) hypertension (6) Sacroiliitis: Code(s): M46.1 - Sacroiliitis, not elsewhere classified Category: Medical Plan [facility] was reviewed and without concerns. No obvious signs of diversion, abuse or misuse of the opioid medications. Will send in prescription for Morphine 15mg IR take one tab twice daily as needed, dispense #45. Continue with methocarbamol 500 mg p.o. t.i.d.. Patient advised on cautions for use. 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 No driving while taking this medication. Continue with plan for repeat bilateral L3-L4 DR L5 radiofrequency ablation under sedation. Patient to follow-up in the office in 1 month, sooner if needed. All questions and concerns have been answered and patient agrees with the plan. Medications: Refilled morphine Partial Fill upon patient request. 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
== END 2024-02-18 14:55 | disposition home or self-care (01) ==
PROVIDERS: PCP Internal Medicine; Visit Provider Registered Nurse Emergency
DX: G89.4 Chronic pain syndrome (principal); M47.816 Spondylosis without myelopathy or radiculopathy, lumbar region; M53.3 Sacrococcygeal disorders, not elsewhere classified; Z79.891 Long term (current) use of opiate analgesic; I10 Essential (primary) hypertension; M46.1 Sacroiliitis, not elsewhere classified
CPT/HCPCS: 99214

== ENCOUNTER → 2024-02-18 14:19 | Outpatient (BNVA) | payer OTHER, SELFPAY | PROVIDERS: PCP Internal Medicine; Visit Provider Registered Nurse Emergency ==

== ENCOUNTER 2024-03-17 14:01 | Outpatient (AMB) | payer OTHER, SELFPAY ==
[2024-03-17 14:10] VITALS: BP 124/66; PULSE 71; O2SAT 98; BMI 26.6
--- NOTE | 2024-03-17 14:10 | MHC.OFFVIS ---
Vital Signs 03/17/24 14:10 Height 5 ft Weight 136 lb BMI 26.6 BP 124/66 Blood Pressure Location Lt brachial Position Sitting Pulse 71 Pulse Source Pulse Oximeter Pulse Oximetry (%) 98 Oxygen Delivery Method Room Air Intake Visit Reasons: Pill Count Allergies doxycycline [DOXYCYCLINE] Allergy (Intermediate, Verified 03/17/24 14:10) RASH Medication List - Last Reconciled 03/17/24 by Cynthia Escobedo bupropion HCl SR 100 mg PO BID 90 days estradiol 1 patch transdermal 2XW fluticasone propionate 50 mcg/actuation 1 spray intranasal BID ibuprofen 600 mg PO Q6H PRN loratadine 10 mg PO DAILY methocarbamol 500 mg PO TID PRN morphine 15 mg PO BID PRN 30 days naloxone 4 mg/actuation (Narcan) 4 mg intranasal Q2M PRN nicotine (polacrilex) 2 mg buccal Q2H 1 month ondansetron 4 mg PO Q8H PRN 30 days phentermine 37.5 mg PO DAILY progesterone micronized 100 mg PO BEDTIME rizatriptan 10 mg PO DAILY PRN sacroiliac belt As directed sumatriptan succinate 100 mg PO DAILY PRN topiramate 100 mg PO BEDTIME 90 days [Tylenol 1,000 mg PO DAILY PRN] HPI Comments Details: Zenaida is a very pleasant 48 year old female who presents to the office today for follow up chronic pain and chronic opioid therapy management. Patient is prescribed Morphine 15mg IR take one tab twice daily as needed. She arrived today with the expectation of having 12 pills, she presented 10 pills. Pain is reported today as 4/10 and last dose of pain medication was taken today at 10am. Denies any recent changes or exacerbations of chronic back pain and states she is able to engage in activities of daily living with minimal interruption due to chronic pain. Denies side effects including somnolence, constipation, itching, dyspnea, rash, dizziness or weakness. She is pending repeat injections for her lower back, she is concerned as her insurance will be changing at the beginning of next month. Would like to hold off on the injections until we are sure that they will be covered by her new insurance. Past Procedures: 11/21/23: Bilateral SIJ injections-60% ongoing pain relief 11/29/22: Right medial branch L3-L4-L5 RFA -60-70% ongoing pain relief 10/15/22: Bilateral SIJ injections-70% ongoing pain relief 04/19/22: Left SIJ injection with steroids-100% ongoing pain relief 04/19/22: Left L3-L4-L5 MB RFA-100% first 2 weeks, then 75-80% ongoing pain relief 02/28/22: Right SIJ injection with steroids-100% ongoing pain relief 02/28/22: Right L3-L4-L5 MB RFA-100% ongoing pain relief 01/08/22: Diagnostic Bilateral L3-L4-DR L5 MBBs- 80% pain relief x36 hours 09/18/21: Diagnostic Bilateral SIJ injections-100% pain relief x72 hours PFSH Medical History (Updated 11/08/23 @ 16:24 by Namita Kaufman MD) Anxiety Migraines Degenerative disc disease, lumbar Elevated cholesterol ADHD Depression Sacroiliitis Hip osteoarthritis Spondylosis of lumbar region without myelopathy or radiculopathy Dysuria Surgical History H/O section Hx of tonsillectomy History of dilation and curettage Family History (Updated 11/04/23 @ 16:11 by Fallon Cox CMA) Mother No problems noted. Father No problems noted. 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 Answers questions appropriately. Fully engaged in examination. Skin: warm, dry, intact HEENT: Normocephalic. Hearing intact. Cardiac: External chest normal in appearance. Respiratory: No cough, audible wheezing or stridor. Abdomen: without gross distension. MS: No obvious swelling or deformities. Able to transition from sit to stand unassisted. Ambulates with bilaterally normal heel strike and toe off Neurological: Oriented to person, place, time and situation. Thought process intact. No gait abnormalities appreciated. Psychiatric: Appropriate mood and affect. Good judgment and insight. Results Reviewed Results Reviewed: MRI of the lumbar spine was obtained using routine sequences without contrast. FINDINGS: Alignment is normal. Vertebral body heights are preserved. No acute bone marrow signal changes. There is disc desiccation at multiple levels without substantial loss of intervertebral disc height. The tip of the conus medullaris is located at L1-L2. No mass effect on the conus. Visualized distal cord signal intensity is normal. At L1-L2 the annular contour is normal. No canal or neuroforaminal compromise. At L2-L3 there is an asymmetrically bulging disc to the right. Bilateral facet degenerative change. No canal stenosis. No mass effect on the traversing or foraminal nerve roots. At L3-L4 there is a left foraminal annular fissure associated with a bulging disc. Bilateral facet degenerative change. No canal stenosis. No mass effect on the traversing or foraminal nerve roots. At L4-L5 there is a slightly bulging disc. Bilateral facet degenerative change. No canal stenosis. No mass effect on the traversing or foraminal nerve roots. At L5-S1 there is a slightly bulging disc. No canal stenosis. No mass effect on the traversing or foraminal nerve roots. Limited visualization of the retroperitoneal anatomy reveals no abnormal finding. Psoas and paraspinal muscle groups are symmetric. IMPRESSION: There is disc degeneration at multiple levels within the lumbar spine as described above. No canal stenosis. No mass effect on the traversing or foraminal nerve roots. 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.891 - penitentiary (current) use of opiate analgesic Category: Medical (2) Chronic pain syndrome: Code(s): G89.4 - Chronic pain syndrome Category: Medical (3) Spondylosis of lumbar region without myelopathy or radiculopathy: Code(s): M47.816 - Spondylosis without myelopathy or radiculopathy, lumbar region Category: Medical (4) Sacroiliac joint dysfunction: Comment: Awaiting injection. Stable on current medications Code(s): M53.3 - Sacrococcygeal disorders, not elsewhere classified Category: Medical (5) Hypertension: Comment: continue to monitor. will trial GLP for weight loss. Code(s): I10 - Essential (primary) hypertension Category: Medical Qualifiers: Hypertension type: primary hypertension Qualified Code(s): I10 - Essential (primary) hypertension (6) Sacroiliitis: Code(s): M46.1 - Sacroiliitis, not elsewhere classified Category: Medical Plan Masspat was reviewed and without concerns. No obvious signs of diversion, abuse or misuse of the opioid medications. Will send in prescription for Morphine 15mg IR take one tab twice daily as needed, dispense #45. Continue with plan for repeat bilateral L3-L4 DR L5 radiofrequency ablation under sedation once insurance issue has been resolved Patient to follow-up in the office in 1 month, sooner if needed. All questions and concerns have been answered and patient agrees with the plan. Medications: Refilled morphine Partial Fill upon patient request. 15 mg PO BID PRN 45 tabs 0RF pain 30 days G89.4 - Chronic pain syndrome, M46.1 - Sacroiliitis, not elsewhere classified, M47.816 - Spondylosis without myelopathy or radiculopathy, lumbar region, Z79.891 - penitentiary (current) use of opiate analgesic Coding Level of Care Code Est Pt Level 4 (81258) Complex EM visit Add On G2211 Diagnoses Opioid contract exists Z79.891 Chronic pain syndrome G89.4 Spondylosis of lumbar region without myelopathy or radiculopathy M47.816 Sacroiliac joint dysfunction M53.3 Primary hypertension I10 Hypertension type: primary hypertension Sacroiliitis M46.1
== END 2024-03-17 14:56 | disposition home or self-care (01) ==
PROVIDERS: PCP Internal Medicine; Visit Provider Registered Nurse Emergency
DX: Z79.891 Long term (current) use of opiate analgesic (principal); G89.4 Chronic pain syndrome; M47.816 Spondylosis without myelopathy or radiculopathy, lumbar region; M53.3 Sacrococcygeal disorders, not elsewhere classified; I10 Essential (primary) hypertension; M46.1 Sacroiliitis, not elsewhere classified
CPT/HCPCS: 99214

== ENCOUNTER → 2024-03-17 14:01 | Outpatient (BNVA) | payer OTHER, SELFPAY | PROVIDERS: PCP Internal Medicine; Visit Provider Registered Nurse Emergency ==

== ENCOUNTER 2024-04-14 13:40 | Outpatient (AMB) | payer OTHER, SELFPAY ==
[2024-04-14 13:50] VITALS: BP 130/62; PULSE 95; O2SAT 100
--- NOTE | 2024-04-14 13:50 | A.OFFVIS_ITS ---
Vital Signs 04/14/24 13:50 Weight 134 lb BP 130/62 Blood Pressure Location Lt brachial Position Sitting Pulse 95 Pulse Source Pulse Oximeter Pulse Oximetry (%) 100 Oxygen Delivery Method Room Air Intake Visit Reasons: PILL COUNT Allergies doxycycline [DOXYCYCLINE] Allergy (Intermediate, Verified 04/14/24 13:50) RASH Medication List - Last Reconciled 04/14/24 by Cynthia Escobedo bupropion HCl SR 100 mg PO BID 90 days estradiol 1 patch transdermal 2XW fluticasone propionate 50 mcg/actuation 1 spray intranasal BID ibuprofen 600 mg PO Q6H PRN loratadine 10 mg PO DAILY methocarbamol 500 mg PO TID PRN morphine 15 mg PO BID PRN 30 days naloxone 4 mg/actuation (Narcan) 4 mg intranasal Q2M PRN nicotine (polacrilex) 2 mg buccal Q2H 1 month ondansetron 4 mg PO Q8H PRN 30 days phentermine 37.5 mg PO DAILY progesterone micronized 100 mg PO BEDTIME rizatriptan 10 mg PO DAILY PRN sacroiliac belt As directed sumatriptan succinate 100 mg PO DAILY PRN topiramate 100 mg PO BEDTIME 90 days [Tylenol 1,000 mg PO DAILY PRN] HPI Comments Details: Zenaida is a very pleasant 48 year old female who presents to the office today for follow up chronic pain and chronic opioid therapy management. Patient is prescribed Morphine 15mg IR take one tab twice daily as needed. She arrived today with the expectation of having 5 pills, she presented 10 pills. Pain is reported today as 4/10 and last dose of pain medication was taken today at 8am. Denies any recent changes or exacerbations of chronic back pain and states she is able to engage in activities of daily living with minimal interruption due to chronic pain. Denies side effects including somnolence, constipation, itching, dyspnea, rash, dizziness or weakness. RFA scheduled for beginning of April. She is hoping that this will improve her pain. Has been taking her morphine tablets twice daily on a regular basis, states without this medication she would have very limited mobility Currently finishing up a study for migraines. Has been taking Nurtec with good relief. In the past she has tried rizatriptan, sumatriptan and amitriptyline without improvement. Past Procedures: 11/21/23: Bilateral SIJ injections-60% ongoing pain relief 11/29/22: Right medial branch L3-L4-L5 RFA -60-70% ongoing pain relief 10/15/22: Bilateral SIJ injections-70% ongoing pain relief 04/19/22: Left SIJ injection with steroids-100% ongoing pain relief 04/19/22: Left L3-L4-L5 MB RFA-100% first 2 weeks, then 75-80% ongoing pain relief 02/28/22: Right SIJ injection with steroids-100% ongoing pain relief 02/28/22: Right L3-L4-L5 MB RFA-100% ongoing pain relief 01/08/22: Diagnostic Bilateral L3-L4-DR L5 MBBs- 80% pain relief x36 hours 09/18/21: Diagnostic Bilateral SIJ injections-100% pain relief x72 hours [facility] Medical History (Updated 11/08/23 @ 16:24 by Namita Kaufman MD) Anxiety Migraines Degenerative disc disease, lumbar Elevated cholesterol ADHD Depression Sacroiliitis Hip osteoarthritis Spondylosis of lumbar region without myelopathy or radiculopathy Dysuria Surgical History H/O section Hx of tonsillectomy History of dilation and curettage Family History (Updated 11/04/23 @ 16:11 by Fallon Cox CMA) Mother No problems noted. Father No problems noted. 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 Answers questions appropriately. Fully engaged in examination. Skin: warm, dry, intact HEENT: Normocephalic. Hearing intact. Cardiac: External chest normal in appearance. Respiratory: No cough, audible wheezing or stridor. Abdomen: without gross distension. MS: No obvious swelling or deformities. Able to transition from sit to stand unassisted. Ambulates with bilaterally normal heel strike and toe off Neurological: Oriented to person, place, time and situation. Thought process intact. No gait abnormalities appreciated. Psychiatric: Appropriate mood and affect. Good judgment and insight. Results Reviewed Results Reviewed: MRI of the lumbar spine was obtained using routine sequences without contrast. FINDINGS: Alignment is normal. Vertebral body heights are preserved. No acute bone marrow signal changes. There is disc desiccation at multiple levels without substantial loss of intervertebral disc height. The tip of the conus medullaris is located at L1-L2. No mass effect on the conus. Visualized distal cord signal intensity is normal. At L1-L2 the annular contour is normal. No canal or neuroforaminal compromise. At L2-L3 there is an asymmetrically bulging disc to the right. Bilateral facet degenerative change. No canal stenosis. No mass effect on the traversing or foraminal nerve roots. At L3-L4 there is a left foraminal annular fissure associated with a bulging disc. Bilateral facet degenerative change. No canal stenosis. No mass effect on the traversing or foraminal nerve roots. At L4-L5 there is a slightly bulging disc. Bilateral facet degenerative change. No canal stenosis. No mass effect on the traversing or foraminal nerve roots. At L5-S1 there is a slightly bulging disc. No canal stenosis. No mass effect on the traversing or foraminal nerve roots. Limited visualization of the retroperitoneal anatomy reveals no abnormal finding. Psoas and paraspinal muscle groups are symmetric. IMPRESSION: There is disc degeneration at multiple levels within the lumbar spine as described above. No canal stenosis. No mass effect on the traversing or foraminal nerve roots. 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 Stable on current medications Code(s): M53.3 - Sacrococcygeal disorders, not elsewhere classified Category: Medical (5) Hypertension: Comment: continue to monitor. will trial GLP for weight loss. Code(s): I10 - Essential (primary) hypertension Category: Medical Qualifiers: Hypertension type: primary hypertension Qualified Code(s): I10 - Essential (primary) hypertension (6) Sacroiliitis: Code(s): M46.1 - Sacroiliitis, not elsewhere classified Category: Medical (7) Headache, chronic migraine without aura: Code(s): G43.709 - Chronic migraine without aura, not intractable, without status migrainosus Category: Medical (8) Dorsalgia: Code(s): M54.9 - Dorsalgia, unspecified Category: Medical Plan [employer] was reviewed and without concerns. No obvious signs of diversion, abuse or misuse of the opioid medications. Will send in prescription for Morphine 15mg IR take one tab twice daily as needed, dispense #60. Increase from #45 tablets monthly to #60 tablets monthly and re-evaluate her pain after pending RFA. PT eval and treat for worsening chronic lower back pain Continue with plan for repeat bilateral L3-L4 DR L5 radiofrequency ablation under sedation as planned for 04/2024 New prescription for Nurtec 75 mg p.o. q.o.d. Patient to follow-up in the office in 1 month, sooner if needed. All questions and concerns have been answered and patient agrees with the plan. Orders: Orders PT Evaluation and Treatment Today M54.9 - Dorsalgia, unspecified Medications: New rimegepant 75 mg PO Q OTHER DAY 15 tabs 0RF Refilled morphine Partial Fill upon patient request. 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
== END 2024-04-14 14:27 | disposition home or self-care (01) ==
PROVIDERS: PCP Internal Medicine; Visit Provider Registered Nurse Emergency
DX: Z79.891 Long term (current) use of opiate analgesic (principal); G89.4 Chronic pain syndrome; M47.816 Spondylosis without myelopathy or radiculopathy, lumbar region; M53.3 Sacrococcygeal disorders, not elsewhere classified; I10 Essential (primary) hypertension; M46.1 Sacroiliitis, not elsewhere classified; G43.709 Chronic migraine without aura, not intractable, without status migrainosus; M54.9 Dorsalgia, unspecified
CPT/HCPCS: 99214

== ENCOUNTER → 2024-04-14 13:40 | Outpatient (BNVA) | payer OTHER, SELFPAY | PROVIDERS: PCP Internal Medicine; Visit Provider Registered Nurse Emergency ==

== ENCOUNTER 2024-05-04 15:53 | Outpatient (AMB) | payer OTHER, SELFPAY ==
--- NOTE | 2024-05-04 16:01 | A.OFFPC_ITS ---
Vital Signs 05/04/24 16:05 Height 5 ft Weight 137 lb 4 oz BMI 26.8 BP 108/70 Blood Pressure Location Lt brachial Position Sitting Pulse 78 Pulse Source Pulse Oximeter Pulse Oximetry (%) 97 Oxygen Delivery Method Room Air Intake Visit Reasons: CPE Intake Note: Physical Allergies doxycycline [DOXYCYCLINE] Allergy (Intermediate, Verified 04/14/24 13:50) RASH Tobacco use date assessed: 11/04/23 Dental Screening Dental Screen Date: 11/04/23 HPI HPI Comments History of Present Illness Details The patient is a 48 year old female with a past medical history of chronic back pain, OA, sacroiliitis, depression, ADD, presenting for physical exam MSK: Follows with pain management-on morphine. She has repeated sacroiliac joint injections. Multiple past injections. Follows regularly with pain management at [facility]: She was on wellbutrin 100mg bid, elavil 10mg daily but stopped when her medication ran out Neuro: Migraines: on topamax 100mg oral at bedtime. On imitrex 100mg prn Mammogram: Due for mammo. She has had bad experience in the past. She is willing to pursue Colon cancer screening ROS CONSTITUTIONAL: Denies weight loss, fever and chills. HEENT: Denies changes in vision and hearing. RESPIRATORY: Denies SOB and cough. CV: Denies palpitations and CP GI: Denies abdominal pain, nausea, vomiting and diarrhea. : Denies dysuria and urinary frequency. MSK: Denies new myalgia and joint pain. SKIN: Denies rash and pruritus. NEUROLOGICAL: Denies headache PSYCHIATRIC: Denies recent changes in mood. PHYSICAL EXAM: GENERAL: Alert and oriented x 3. NAD EYES: EOMI. Anicteric. HENT: Moist mucous membranes. No scleral icterus. No cervical lymphadenopathy. LUNGS: Clear to auscultation bilaterally. CARDIOVASCULAR: Regular rate and rhythm. No murmur. No JVD. ABDOMEN: Soft, non-tender +bs EXTREMITIES: No edema. Non-tender. SKIN: No rashes or lesions. Warm. NEUROLOGIC: No focal neurological deficits. CN II-XII grossly intact PSYCHIATRIC: Cooperative. Appropriate mood and affect [facility] Medical History (Updated 05/04/24 @ 16:27 by Namita Kaufman MD) Anxiety Migraines Degenerative disc disease, lumbar Elevated cholesterol ADHD Depression Sacroiliitis Hip osteoarthritis Spondylosis of lumbar region without myelopathy or radiculopathy Dysuria Surgical History H/O section Hx of tonsillectomy History of dilation and curettage Family History (Updated 11/04/23 @ 16:11 by Fallon Cox CMA) Mother No problems noted. Father No problems noted. 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 1. Little interest or pleasure in doing things: not at all 2. Feeling down, depressed, or hopeless: not at all 3. Trouble falling or staying asleep, or sleeping too much: not at all 4. Feeling tired or having little energy: not at all 5. Poor appetite or overeating: not at all 6. Feeling bad about yourself - or that you are a failure or have let yourself or your family down: not at all 7. Trouble concentrating on things, such as reading the newspaper or watching television: not at all 8. Moving or speaking so slowly that other people could have noticed. Or the opposite - being so fidgety or restless that you have been moving around a lot more than usual: not at all 9. Thoughts that you would be better off or of hurting yourself in some way: not at all Total score: 0 Source: Developed by Drs. Wood Cruz, Babs Patten, Maurilio Cerrato and colleagues, with an educational deondre from [employer]. Thrive Questionnaire Date Thrive assessed: 11/04/23 I am a: Patient What is your living situation today?: I choose not to answer this question Within the past 12 months, did the food you bought not last and you didn't have the money to get more?: Sometimes True Within the past 12 months, did you worry whether your food would run out before you got money to buy more?: Sometimes True Do you have trouble paying for medicines?: I choose not to answer this question Do you have trouble getting transportation to medical appointments?: No Do you have trouble paying your heating and electricity bill?: No Do you have trouble taking care of your child, family member or friend?: No Do you have trouble with day-to-day activities such as bathing, preparing meals, shopping, managing finances, etc.?: No Are you currently unemployed and looking for a job?: Yes Are you interested in more education?: No Please select the resources that you would like help with: None Currently or been in a relationship where the following occur: I choose not to answer THRIVE Score: 2 AUDIT C Alcohol Use Questionnaire (AUDIT-C) 1. How often do you have a drink containing alcohol?: Never Total Score: 0 PASTOR-7 AMB Questionnaire PASTOR-7 Date PASTOR - 7 assessed: 11/04/23 Feeling nervous, anxious, or on edge: 1 = Several days Not being able to stop or control worryin = Several days Worrying too much about different things: 1 = Several days Trouble relaxin = Several days Being so restless that it is hard to sit still: 0 = Not at all Becoming easily annoyed or irritable: 0 = Not at all Feeling afraid as if something awful might happen: 0 = Not at all Total PASTOR-7 score (0-4 normal; 5-9 mild; 10-14 moderate; 15-21 severe): 4 Source: Developed by Drs. Wood Cruz, Babs Patten, Maurilio Cerrato and colleagues, with an educational deondre from [employer]. Physical exam (Primary Care) Vital Signs: Last Vital Signs Pulse 78 05/04/24 16:05 BP 108/70 05/04/24 16:05 Pulse Ox 97 05/04/24 16:05 Oxygen Delivery Method Room Air 05/04/24 16:05 BMI result Body Mass Index 26.8 Tobacco/Smoking Status: Tobacco use Status Tobacco use date assessed 11/04/23 05/04/24 16:07 Patient Tobacco Use Status Former Tobacco user 05/04/24 16:07 Tobacco use type Cigarette 05/04/24 16:07 e-Cigarette/Vaping Use Never Used 05/04/24 16:07 PHQ-9: PHQ-9 Score PHQ-9: Total score 0 05/04/24 16:09 Thrive Assessment: Date of Thrive Assessment Date Thrive assessed 11/04/23 05/04/24 16:07 Currently or been in a relationship where the following occur: I choose not to answer Coding Level of Care Code Est Pt Prev Care 40-64y(10467) Diagnoses Physical exam Z00.00 Assessment & Plan Assessment & Plan (1) Physical exam: Code(s): Z00.00 - Encounter for general adult medical examination without abnormal findings Category: Medical Plan: Preventive measures discussed Labs UTD Refills sent Orders: Orders MM screening mammo BI Today Z12.31 - Encounter for screening mammogram for malignant neoplasm of breast Referrals Cologuard Test Z12.11 - Encounter for screening for malignant neoplasm of colon, Z12.12 - Encounter for screening for malignant neoplasm of rectum Medications: New progesterone micronized 100 mg PO BEDTIME 90 caps 3RF estradiol 1 patch transdermal 2XW 8 ea 3RF azithromycin For 250 mg dose pack: take 500 mg today (day 1), then 250 mg for 4 days (days 2-5) PO 6 tabs 0RF Refilled topiramate 100 mg PO BEDTIME 90 days 90 tabs 3RF
[2024-05-04 16:05] VITALS: BP 108/70; PULSE 78; O2SAT 97; BMI 26.8
== END 2024-05-04 16:32 | disposition home or self-care (01) ==
LOC: HO.HMCFM 15:54
PROVIDERS: PCP Internal Medicine; Visit Provider Internal Medicine
DX: Z00.00 Encounter for general adult medical examination without abnormal findings (principal)

== ENCOUNTER 2024-05-07 05:40 | Day surgery (SDC) | payer OTHER, SELFPAY ==
--- NOTE | 2024-05-06 12:39 | P.CONAN_ITS ---
Documented by User: Rayne Kent NP 05/06/24 12:47 HPI - Anesthesia Eval Consult details Narrative: 48yo F for Bilateral L3,L4,Dr L5 Medial Branch Block s/p SI joint injection 10/2023 with TIVA Chronic opiate PMFSH Active Problems Active Problems: All Active Problems Physical exam (Acute) Hypertension (Acute) Major depressive disorder, recurrent severe without psychotic features (Acute) Hypertriglyceridemia (Acute) Dorsalgia (Acute) UTI (urinary tract infection) (Acute) Interstitial cystitis (Acute) Depression (Acute) Mild anemia (Acute) Allergic rhinitis (Acute) Dry eye (Acute) Well adult exam (Acute) Dysuria (Acute) Tobacco dependence due to cigarettes (Acute) ADHD (attention deficit hyperactivity disorder), combined type (Acute) Headache, chronic migraine without aura (Acute) Recurrent UTI (Acute) Opioid contract exists (Acute) Encounter for tobacco use cessation counseling (Acute) Sacroiliac joint dysfunction (Acute) Chronic pain syndrome (Acute) Laboratory tests ordered as part of a complete physical exam (CPE) (Acute) Physical exam, annual (Acute) Ready to quit smoking (Acute) Seasonal and perennial allergic rhinoconjunctivitis of both eyes (Acute) Muscle spasm of back (Acute) ADHD (Acute) Sacroiliitis (Acute) Hip osteoarthritis (Acute) Spondylosis of lumbar region without myelopathy or radiculopathy (Acute) Past Medical History Medical History (Updated 05/04/24 @ 16:27 by Namita Kaufman MD) Anxiety Migraines Degenerative disc disease, lumbar Elevated cholesterol ADHD Depression Sacroiliitis Hip osteoarthritis Spondylosis of lumbar region without myelopathy or radiculopathy Dysuria Family History Family History (Updated 11/04/23 @ 16:11 by Fallon Cox CMA) Mother No problems noted. Father No problems noted. Brother HTN (hypertension) Son HTN (hypertension) Family history of problems with anesthesia: No Surgical History Surgical History H/O section Hx of tonsillectomy History of dilation and curettage History of Problems with Anesthesia: No Social History Social History (Updated 11/04/23 @ 14:23 by Fallon Cox CMA) Housing: House Alcohol intake: never Patient Tobacco Use Status: Current someday Tobacco user Tobacco use type: Cigarette Cigarettes Per Day: 6 Years Smoked: 20 e-Cigarette/Vaping Use: Never Used Substance Use Type: Marijuana Have you been hit, kicked, punched, or otherwise hurt by someone within the past year? 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 Current occupational exposures/hazards: No Cognitive needs: No Hearing needs: No Vision needs: No Meds Allergies Allergy/AdvReac Type Severity Reaction Status Date / Time doxycycline [DOXYCYCLINE] Allergy Intermediate RASH Verified 04/14/24 13:50 Home Medications ?Medication ?Instructions ?Recorded ?Confirmed ?Last Taken ?Type Tylenol 1,000 mg PO DAILY PRN Pain 11/29/22 04/14/24 11/29/22 07:00 History 500 MG dextroamphetamine-amphetamine 5 mg 5 mg PO TID 05/04/24 Unknown History tablet (Adderall) Assessment and Plan Assessment Anesthesia Assessment: Chart Reviewed Final Anesthetic Review Family History of Problems with Anesthesia: No History of Problems with Anesthesia: No Documented by User: Sailaja Ordonez MD 05/07/24 07:06 [facility] Past Medical History Medical History (Updated 05/04/24 @ 16:27 by Namita Kaufman MD) Anxiety Migraines Degenerative disc disease, lumbar Elevated cholesterol ADHD Depression Sacroiliitis Hip osteoarthritis Spondylosis of lumbar region without myelopathy or radiculopathy Dysuria Family History Family History (Updated 11/04/23 @ 16:11 by Fallon Cox CMA) Mother No problems noted. Father No problems noted. Brother HTN (hypertension) Son HTN (hypertension) Surgical History Surgical History H/O section Hx of tonsillectomy History of dilation and curettage Social History Social History (Updated 11/04/23 @ 14:23 by ISABELLA Ayala Housing: House Alcohol intake: never Patient Tobacco Use Status: Current someday Tobacco user Tobacco use type: Cigarette Cigarettes Per Day: 6 Years Smoked: 20 e-Cigarette/Vaping Use: Never Used Substance Use Type: Marijuana Have you been hit, kicked, punched, or otherwise hurt by someone within the past year? 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 Current occupational exposures/hazards: No Cognitive needs: No Hearing needs: No Vision needs: No Meds Allergies Allergy/AdvReac Type Severity Reaction Status Date / Time doxycycline [DOXYCYCLINE] Allergy Intermediate RASH Verified 04/14/24 13:50 Home Medications ?Medication ?Instructions ?Recorded ?Confirmed ?Last Taken ?Type Tylenol 1,000 mg PO DAILY PRN Pain 11/29/22 04/14/24 11/29/22 07:00 History 500 MG dextroamphetamine-amphetamine 5 mg 5 mg PO TID 05/04/24 Unknown History tablet (Adderall) Exam Airway Mallampati Class: II TM Dist: >3cm Neck ROM: Full Heart: rrr Lungs: cta Assessment and Plan Assessment Anesthesia Assessment: Anesthesia Plan Discussed Final Anesthetic Review NPO: Yes ASA Class: II Final Preanesthetic Review: No Changes in Pt Med Stat, Meds/Allgs Chart Reviewed and Consent Obtained/Reviewed Patient Risk: Low Procedure Risk: Low Anesthetic Plan Anesthetic Plan: MAC: Disposition: Standard PACU
[2024-05-07 06:10] VITALS: BP 154/76; PULSE 82; RESP 20; TEMP 36.9; O2SAT 97; BMI 26.8
[2024-05-07] MEDS: Lactated Ringers 1,000 ML 100 ML IVCONT (06:34)
--- NOTE | 2024-05-07 07:05 | MHC.SHP ---
Pre-Procedural Eval Section A - 24 Hr Update-Section A only Date of Service: 05/07/24 The patient is an INPATIENT: No Changes since office visit: Yes Patient answered all questions The patient has been examined within 24 hours of the surgical procedure. The History & Physical has been completed within 30 days and I have reviewed it.: No Section B - Complete if H&P > 30 days Chief Complaint: Spondylosis w/omyelopathy or radiculopathy,pain Details of Present Illness: As above Relevant Family History (Specify if Yes): No Relevant Social History: None Present Medications: None Medical History: No relevant PMH History of Previous Operations: No relevant previous surgery Allergies: Allergies Allergy/AdvReac Type Severity Reaction Status Date / Time doxycycline [DOXYCYCLINE] Allergy Intermediate RASH Verified 04/14/24 13:50 Review of Systems Sugical H&P ROS: Negative: Constitution, Cardiovascular, Respiratory, Neurological, Psychiatric, Hem-Onc, Allergic/Immunologic, Gastrointestinal, Genitourinary, Musculoskeletal, Integumentary, Endocrine and Eyes/Ears/Nose/Throat Exam Surgical H&P Exam: Normal: HEENT, Normal: Heart, Normal: Lungs, Normal: Extremities, Normal: Abdomen, Normal: Skin and Normal: Neurological Plan Diagnosis/Plan: Unchanged I have reviewed the history and physical and performed a pertinent physical examination on my patient. No changes have occurred unless specified. Time Spent With Patient Time: Total time managing care of this patient today ____ minutes.
[2024-05-07 08:36] VITALS: BP 118/60; PULSE 63; RESP 16; TEMP 36.2; O2SAT 97
--- NOTE | 2024-05-07 08:46 | PM.OP ---
Brief Operative Note Date of Service: 05/07/24 Pre-op diagnosis: Spondylosis lumbar without myelopathy or radiculopathy Post-op diagnosis: same Procedure: Radiofrequency ablation of medial branches L3-, L4, dorsal ramus L5 bilateral Implants: None Surgeon: Bello Tenorio MD Was an Scarifier Operator used for this Procedure?: No Estimated blood loss (mL): 2 Condition: stable Disposition: PACU
--- NOTE | 2024-05-07 08:47 | W.PM.OPN ---
Operative Note Operative Note Date of Service: 05/07/24 Narrative: Radiofrequency ablation of bilateral medial branch blocks L3-L4 dorsal ramus L5. Informed consent was thoroughly explained to the patient risks and benefits were explained. During the discussion of the informed consent the patient and I were discussing radiofrequency ablation of the medial branches. In the H&P note there is also were plans to proceed with radiofrequency ablation of bilateral medial branches. However the consent inadvertently stated that the patient is going for medial branch block and not the RFA. This was missed preoperatively and patient was taken to the operating room with wrong statement on the consent. Before the procedure I ask the patient what procedure she expects me to do and she stated that she would like to proceed with radiofrequency ablation. The patient was positioned prone on the operating table. [employer] monitors were applied and patient was moderately sedated. Time-out was performed delineating correct site and side of the procedure name and date of of the patient allergies risk of findings for antibiotic prophylaxis. The lower back of the patient as well as upper buttocks were prepped with ChloraPrep and draped with sterile utility towels. After that C-arm was brought of the operating field and picture of patient's lumbar spine vertebrae was demonstrated on the screen. Point of interests 1st were delineated as connection of superior articular process of L4 on the right with right L4 transverse process, superior articular process of L5 on the right with right L5 transverse process, as well as connection of sacral ala on the right with the superior articular process of S1 on the right. The projection of the point of interested to the skin was injected with small amount of mixture of lidocaine 2% and the ropivacaine 0.5% 1-1 . After that 18 gauge radiofrequency cannulas 150 mm long were inserted into the skin and they were advanced to the point of interest on anterior posterior , lateral and oblique views. When cannulas gently contacted the bones the stylets were removed and nitinol testing electrodes were inserted into each cannula. The motor stimulation was performed at 2 milliamps at each site. No somatic nerve stimulation was noted. After that the nitinol electrodes were removed, the cannulas were injected with small amount of lidocaine 2% ropivacaine 0.5% mixture with trace amount of Kenalog about 1 cc of the mixture into each cannula. After that the nitinol electrodes were reinserted and the energy application was performed for 89 degrees centigrade for 90 seconds. after that cannulas were rotated 180 degrees and the same energy application was repeated. After that the procedure was repeated on the left side in mirroring fashion. Upon completion of the procedure the needles were removed, sterile Band-Aids were applied. After that the patient was awaken transferred to the stretcher and was taken to the recovery room , she recovered uneventfully.
[2024-05-07 08:51] VITALS: BP 123/71; PULSE 54; RESP 16; O2SAT 98
[2024-05-07 09:06] VITALS: BP 123/74; PULSE 55; RESP 16; TEMP 36.3; O2SAT 100
== END 2024-05-07 09:32 | disposition home or self-care (01) ==
PROVIDERS: PCP Internal Medicine; Visit Provider Anesthesiology
PROC: (CPT 64635; principal; 2024-05-07 07:30)
DX: M47.816 Spondylosis without myelopathy or radiculopathy, lumbar region (principal); G89.4 Chronic pain syndrome; M51.369 Other intervertebral disc degeneration, lumbar region without mention of lumbar back pain or lower extremity pain; M53.3 Sacrococcygeal disorders, not elsewhere classified; M46.1 Sacroiliitis, not elsewhere classified; M16.10 Unilateral primary osteoarthritis, unspecified hip; G43.709 Chronic migraine without aura, not intractable, without status migrainosus; I10 Essential (primary) hypertension; E78.00 Pure hypercholesterolemia, unspecified; Z79.891 Long term (current) use of opiate analgesic; Z79.52 Long term (current) use of systemic steroids; Z79.1 Long term (current) use of non-steroidal anti-inflammatories (NSAID); Z79.899 Other long term (current) drug therapy; Z88.1 Allergy status to other antibiotic agents; Z87.891 Personal history of nicotine dependence
CPT/HCPCS: 64635; 64636 ×2; J2003; J2250; J2405; J2704; J2795; J3010; J3301; Q9967

== ENCOUNTER → 2024-05-07 05:40 | Outpatient (BNV) | payer OTHER, SELFPAY | PROVIDERS: PCP Internal Medicine; Visit Provider Anesthesiology | DX: M47.816 Spondylosis without myelopathy or radiculopathy, lumbar region (principal) | CPT/HCPCS: 64635; 64636 ==

== ENCOUNTER 2024-05-12 13:41 | Outpatient (AMB) | payer OTHER, SELFPAY ==
[2024-05-12 13:57] VITALS: BP 144/66; PULSE 98; O2SAT 100; BMI 26.4
--- NOTE | 2024-05-12 13:57 | A.OFFVIS_ITS ---
Vital Signs 05/12/24 13:57 Height 5 ft Weight 135 lb BMI 26.4 BP 144/66 H Blood Pressure Location Lt brachial Position Sitting Pulse 98 Pulse Source Pulse Oximeter Pulse Oximetry (%) 100 Oxygen Delivery Method Room Air Intake Visit Reasons: PILL COUNT Allergies doxycycline [DOXYCYCLINE] Allergy (Intermediate, Verified 05/12/24 13:59) RASH Medication List - Last Reconciled 05/12/24 by Cynthia Escobedo azithromycin For 250 mg dose pack: take 500 mg today (day 1), then 250 mg for 4 days (days 2-5) PO dextroamphetamine-amphetamine 5 mg (Adderall) 5 mg PO TID estradiol 1 patch transdermal 2XW fluticasone propionate 50 mcg/actuation 1 spray intranasal BID ibuprofen 600 mg PO Q6H PRN loratadine 10 mg PO DAILY methocarbamol 500 mg PO TID PRN morphine 15 mg PO Q12H 30 days naloxone 4 mg/actuation (Narcan) 4 mg intranasal Q2M PRN nicotine (polacrilex) 2 mg buccal Q2H 1 month ondansetron 4 mg PO Q8H PRN 30 days phentermine 37.5 mg PO DAILY progesterone micronized 100 mg PO BEDTIME rimegepant 75 mg PO Q OTHER DAY sacroiliac belt As directed sumatriptan succinate 100 mg PO DAILY PRN topiramate 100 mg PO BEDTIME 90 days [Tylenol 1,000 mg PO DAILY PRN] HPI Comments Details: Zenaida presents back to the office today for follow up chronic pain and chronic opioid therapy management. Patient is prescribed Morphine 15mg IR take one tab twice daily as needed. She arrived today with the expectation of having 18 pills, she presented 18.5 pills. Pain is reported today as 2/10 and last dose of pain medication was taken today at 7:30 am. Denies side effects including somnolence, constipation, itching, dyspnea, rash, dizziness or weakness. RFA completed 5 days ago, tolerated well. Pain improved by approx 60% so far but still with some post procedure pain as to be expected. Denies any untoward effects of the procedure Has been attending PT and feels that there is benefit for her lower back, hips and pelvis Past Procedures: 05/07/24: Bilateral medial branch L3-L4-L5 RFA 11/21/23: Bilateral SIJ injections-60% ongoing pain relief 11/29/22: Right medial branch L3-L4-L5 RFA -60-70% ongoing pain relief 10/15/22: Bilateral SIJ injections-70% ongoing pain relief 04/19/22: Left SIJ injection with steroids-100% ongoing pain relief 04/19/22: Left L3-L4-L5 MB RFA-100% first 2 weeks, then 75-80% ongoing pain relief 02/28/22: Right SIJ injection with steroids-100% ongoing pain relief 02/28/22: Right L3-L4-L5 MB RFA-100% ongoing pain relief 01/08/22: Diagnostic Bilateral L3-L4-DR L5 MBBs- 80% pain relief x36 hours 09/18/21: Diagnostic Bilateral SIJ injections-100% pain relief x72 hours PFS Medical History (Updated 05/04/24 @ 16:27 by Namita Kaufman MD) Anxiety Migraines Degenerative disc disease, lumbar Elevated cholesterol ADHD Depression Sacroiliitis Hip osteoarthritis Spondylosis of lumbar region without myelopathy or radiculopathy Dysuria Surgical History H/O section Hx of tonsillectomy History of dilation and curettage Family History (Updated 11/04/23 @ 16:11 by Fallon Cox CMA) Mother No problems noted. Father No problems noted. 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 Answers questions appropriately. Fully engaged in examination. Skin: warm, dry, intact HEENT: Normocephalic. Hearing intact. Cardiac: External chest normal in appearance. Respiratory: No cough, audible wheezing or stridor. Abdomen: without gross distension. MS: No obvious swelling or deformities. Able to transition from sit to stand unassisted. Ambulates with bilaterally normal heel strike and toe off Neurological: Oriented to person, place, time and situation. Thought process intact. No gait abnormalities appreciated. Psychiatric: Appropriate mood and affect. Good judgment and insight. Results Reviewed Results Reviewed: MRI of the lumbar spine was obtained using routine sequences without contrast. FINDINGS: Alignment is normal. Vertebral body heights are preserved. No acute bone marrow signal changes. There is disc desiccation at multiple levels without substantial loss of intervertebral disc height. The tip of the conus medullaris is located at L1-L2. No mass effect on the conus. Visualized distal cord signal intensity is normal. At L1-L2 the annular contour is normal. No canal or neuroforaminal compromise. At L2-L3 there is an asymmetrically bulging disc to the right. Bilateral facet degenerative change. No canal stenosis. No mass effect on the traversing or foraminal nerve roots. At L3-L4 there is a left foraminal annular fissure associated with a bulging disc. Bilateral facet degenerative change. No canal stenosis. No mass effect on the traversing or foraminal nerve roots. At L4-L5 there is a slightly bulging disc. Bilateral facet degenerative change. No canal stenosis. No mass effect on the traversing or foraminal nerve roots. At L5-S1 there is a slightly bulging disc. No canal stenosis. No mass effect on the traversing or foraminal nerve roots. Limited visualization of the retroperitoneal anatomy reveals no abnormal finding. Psoas and paraspinal muscle groups are symmetric. IMPRESSION: There is disc degeneration at multiple levels within the lumbar spine as described above. No canal stenosis. No mass effect on the traversing or foraminal nerve roots. 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.891 - [facility] (current) use of opiate analgesic Category: Medical (2) Chronic pain syndrome: Code(s): G89.4 - Chronic pain syndrome Category: Medical (3) Spondylosis of lumbar region without myelopathy or radiculopathy: Code(s): M47.816 - Spondylosis without myelopathy or radiculopathy, lumbar region Category: Medical (4) Sacroiliac joint dysfunction: Comment: Awaiting injection. Stable on current medications Code(s): M53.3 - Sacrococcygeal disorders, not elsewhere classified Category: Medical (5) Hypertension: Comment: continue to monitor. will trial GLP for weight loss. Code(s): I10 - Essential (primary) hypertension Category: Medical Qualifiers: Hypertension type: primary hypertension Qualified Code(s): I10 - Essential (primary) hypertension (6) Sacroiliitis: Code(s): M46.1 - Sacroiliitis, not elsewhere classified Category: Medical (7) Headache, chronic migraine without aura: Code(s): G43.709 - Chronic migraine without aura, not intractable, without status migrainosus Category: Medical (8) Dorsalgia: Code(s): M54.9 - Dorsalgia, unspecified Category: Medical Plan Masspat was reviewed and without concerns. No obvious signs of diversion, abuse or misuse of the opioid medications. Will send in prescription for Morphine 15mg IR take one tab twice daily as needed, dispense #60. C/W PT as planned Patient to follow-up in the office in 1 month, sooner if needed. All questions and concerns have been answered and patient agrees with the plan. Medications: Changed From morphine Partial Fill upon patient request. Please allow patient to fill 04/21/2024. 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 Please allow patient to fill 05/22/2024. 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
== END 2024-05-12 14:08 | disposition home or self-care (01) ==
PROVIDERS: PCP Internal Medicine; Visit Provider Registered Nurse Emergency
DX: Z79.891 Long term (current) use of opiate analgesic (principal); G89.4 Chronic pain syndrome; M47.816 Spondylosis without myelopathy or radiculopathy, lumbar region; M53.3 Sacrococcygeal disorders, not elsewhere classified; I10 Essential (primary) hypertension; M46.1 Sacroiliitis, not elsewhere classified; G43.709 Chronic migraine without aura, not intractable, without status migrainosus; M54.9 Dorsalgia, unspecified
CPT/HCPCS: 99214

== ENCOUNTER → 2024-05-12 13:41 | Outpatient (BNVA) | payer OTHER, SELFPAY | PROVIDERS: PCP Internal Medicine; Visit Provider Registered Nurse Emergency | DX: J30.9 Allergic rhinitis, unspecified (principal); G89.4 Chronic pain syndrome; M47.816 Spondylosis without myelopathy or radiculopathy, lumbar region; M53.3 Sacrococcygeal disorders, not elsewhere classified; I10 Essential (primary) hypertension; M46.1 Sacroiliitis, not elsewhere classified; G43.709 Chronic migraine without aura, not intractable, without status migrainosus; M54.9 Dorsalgia, unspecified; Z79.891 Long term (current) use of opiate analgesic | CPT/HCPCS: 87880 ==

== ENCOUNTER 2024-05-12 14:34 | Outpatient (AMB) | payer OTHER, SELFPAY ==
[2024-05-12 14:43] VITALS: BP 140/80; PULSE 82; TEMP 36.8; O2SAT 100; BMI 26.0
--- NOTE | 2024-05-12 14:43 | AM.OFFWIN_ITS ---
Intake Vital Signs 05/12/24 14:43 Height 5 ft Weight 133 lb 6 oz BMI 26.0 BP 140/80 H Blood Pressure Location Rt brachial Position Sitting Pulse 82 Pulse Source Pulse Oximeter Temp 98.3 F Temp Source Oral Pulse Oximetry (%) 100 Oxygen Delivery Method Room Air Intake Visit Reasons: EP cold, tight chest, sore throat Intake Note: pt is here for cold, chest congestion, sore throat, daughter has bad case of strep Patient Tobacco Use Status: Current someday Tobacco user Allergies doxycycline [DOXYCYCLINE] Allergy (Intermediate, Verified 05/12/24 14:44) RASH Do you need a note to return to daycare/school/sports/work: No HPI EP cold, tight chest, sore throat HPI Details This note is constructed using voice recognition software. While every effort has been made to ensure accuracy, bobbin drier errors may have been included. The patient is a 48 year old female who presents to the clinic today with mildly tight chest, feeling slightly run down, mild sore throat for the past month. She notes that her daughter was recently positive for strep and she had been a round her. She does also report that she has been told in the past that she should take her allergy pills about this time each year she does follow up symptoms similar to this. She denies shortness of breath, body aches, fevers. She has not tested for COVID but symptoms have been for 1 month. She was seen by her primary recently and treated with azithromycin for possible URI, however does not feel that this did anything. [facility] Medical History (Updated 05/12/24 @ 15:17 by Hilda Chavarria NP) Anxiety Migraines Degenerative disc disease, lumbar Elevated cholesterol ADHD Depression Sacroiliitis Hip osteoarthritis Spondylosis of lumbar region without myelopathy or radiculopathy Dysuria Surgical History H/O section Hx of tonsillectomy History of dilation and curettage Family History (Updated 11/04/23 @ 16:11 by Fallon Cox CMA) Mother No problems noted. Father No problems noted. 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 Current occupational exposures/hazards: No Cognitive needs: No Hearing needs: No Vision needs: No Review of Systems Const All systems reviewed & are unremarkable except as noted in HPI and below Physical Exam Vital Signs: Last Vital Signs Temp 98.3 F 05/12/24 14:43 Pulse 82 05/12/24 14:43 BP 140/80 H 05/12/24 14:43 Pulse Ox 100 05/12/24 14:43 Oxygen Delivery Method Room Air 05/12/24 14:43 BMI result Body Mass Index 26.0 Const General: cooperative, healthy appearing, comfortable and no acute distress Orientation/consciousness: patient oriented x3 Limitations: no limitations HEENT Head: Yes normal to inspection Ears: hearing grossly normal bilaterally, external ears normal and TM abnormal retracted General nose exam: Normal external nose present, No nasal discharge present and Abnormal mucous membranes and turbinates present boggy and pale Face and sinus: Yes normal facial exam and Yes sinuses nontender Mouth: Normal oral and palatal mucosa present and moist mucous membranes Throat: Yes tonsils normal, Yes uvula midline, Yes posterior oropharynx abnormal (Erythema), Yes postnasal drainage and Yes cobblestoning Eyes General: appearance normal, both eyes and all related structures Neck Neck: Yes normal visual inspection Resp Effort & Inspection: normal respiratory effort, able to speak in complete sentences, Actively coughing, no respiratory distress, not tachypneic, no tripod positioning and no use of accessory muscles Auscultation: clear to auscultation bilaterally Cardio Rate: regular rate Rhythm: regular rhythm Heart sounds: normal S1 and S2 Skin General skin exam: no rashes or lesions noted Neuro General: patient oriented x3 Extrem General: Yes normal to inspection and Yes no clubbing, cyanosis or edema Results AMB Rapid Strep AMB Rapid Strep Negative Last Edit by Fernando Guillaume CMA on 05/12/24 14 :55 Results Reviewed Results Reviewed: Laboratory Last Values Strep Scn Rapid Clinic Negative 05/12/24 14:55 Assessment & Plan Assessment & Plan (1) Allergic rhinitis: Code(s): J30.9 - Allergic rhinitis, unspecified Qualifiers: Allergic rhinitis trigger: unspecified Allergic rhinitis seasonality: unspecified Qualified Code(s): J30.9 - Allergic rhinitis, unspecified Plan: Supportive measures encouraged and reviewed. Advised patient to try a Flonase nasal spray and second-generation antihistamine such as Zyrtec, Claritin, Archana or similar. Advised consideration of sinus rinse if needed. Advised patient to follow up with primary care provider with worsening or failure to resolve. Plan See above for full details and plan. Orders: Orders 2 AMB Rapid Strep Screen Today Z13.9 - Encounter for screening, unspecified Coding Level of Care Code Est Pt Level 3 (11687) Diagnoses Allergic rhinitis, unspecified seasonality, unspecified trigger J30.9 Allergic rhinitis trigger: unspecified Allergic rhinitis seasonality: unspecified
== END 2024-05-12 15:19 | disposition home or self-care (01) ==
PROVIDERS: PCP Internal Medicine; Visit Provider Registered Nurse
DX: J30.9 Allergic rhinitis, unspecified (principal); Z13.9 Encounter for screening, unspecified

== ENCOUNTER 2024-05-18 10:00 | Outpatient (RCR) | payer OTHER, SELFPAY ==
--- NOTE | 2024-04-28 15:04 | MHC.PT.EP ---
[facility] [place] Office [place] Office [place] Office [address] [phone] F: [phone] F: [phone] F: [phone] F: [phone] Physical Therapy Plan of Care Date of Evaluation: 04/28/24 Date of Surgery: Diagnosis: dorsalgia, bilateral lower back pain repeat bilateral L3-L4 DR L5 radiofrequency ablation under sedation as planned for 04/2024 Assessment: Patient is a 48 year old R handed female who presents with s/s consistent with dorsalgia, bilateral lower back pain. She works with daily job demands including. Patient past medical history includes anxiety, depression, ADHD, chronic back pain. Current impairments include pain, posture, ROM, flexibility, strength, activity tolerance and functional mobility. Functional limitations include decreased ability to exericse, be active, walk, . Patient is motivated with good rehab potential. Skilled PT will address impairments and functional limitations in order to achieve goals. Frequency and Duration: The patient will be seen 2x/week for 5 weeks Short Term Goals: I with HEP - 2 weeks Max pain with ADLs 3/10 - 3 weeks Hip strength 4/5 grossly - 3 weeks [place] Wait[employer]er Goals: Oswestry 10% or less - 5 weeks Max pain with ADLs 1/10 - 5 weeks Hip strength 4+/5 grossly Treatment Plan: Modalities to reduce pain, spasms and effusion. Manual therapy to restore motion and function. Therapeutic exercise to improve strength and flexibility. Neuromuscular re-education for posture and balance. Therapeutic activities to return to functional activities of daily living. Electronically signed by: Otilio Lees, PT Please sign and return to therapist. Thank you for your referral.
--- NOTE | 2024-09-17 12:37 | MHC.PT.DC ---
[facility] [place] Office [place] Office [place] Office [address] [phone] F: [phone] F: [phone] F: [phone] F: [phone] Physical Therapy Discharge Report Diagnosis: dorsalgia, bilateral lower back pain repeat bilateral L3-L4 DR L5 radiofrequency ablation under sedation as planned for 04/2024 Date of Surgery: Date of Evaluation: 04/28/24 Date of Discharge: 05/30/24 Treatments to Date: 2 Cancellations to Date: No Shows to Date: Discharge Status: Independent with HEP Patient Elected to Stop Discharge Summary: 05/18/24: pt does have some carryover and notes she is feeling better overall with no adverse reactions from program. 05/04/24: pt progressing well with skilled PT. pt with minor tightness after todays program. assess response and progress as tolerated. Patient is a 48 year old R handed female who presents with s/s consistent with dorsalgia, bilateral lower back pain. She works with daily job demands including. Patient past medical history includes anxiety, depression, ADHD, chronic back pain. Current impairments include pain, posture, ROM, flexibility, strength, activity tolerance and functional mobility. Functional limitations include decreased ability to exericse, be active, walk, . Patient is motivated with good rehab potential. Skilled PT will address impairments and functional limitations in order to achieve goals. Electronically signed by: Otilio Lees, PT Please sign and return to therapist. Thank you for your referral.
== END 2024-09-17 12:38 | disposition home or self-care (01) ==
LOC: HO.PTCHIC 10:00
PROVIDERS: PCP Internal Medicine; Visit Provider Registered Nurse Emergency
DX: M54.9 Dorsalgia, unspecified (principal)
CPT/HCPCS: 97110; 97163

== ENCOUNTER 2024-06-09 13:40 | Outpatient (AMB) | payer OTHER, SELFPAY ==
--- NOTE | 2024-06-09 13:43 | A.OFFVIS_ITS ---
Vital Signs 06/09/24 13:53 Height 5 ft Weight 128 lb 4 oz BMI 25.0 BP 143/79 H Blood Pressure Location Lt brachial Position Sitting Pulse 99 Pulse Source Pulse Oximeter Pulse Oximetry (%) 99 Oxygen Delivery Method Room Air Intake Visit Reasons: Pill Count Intake Note: Zenaida comes in today for a pill count to morphine, patient should have 26 tablets and presents with 30 tablets which she last took today 06/09/24 at 7am. Pain today 12/07 Dials Inspector Required: No Accompanied by: Self / Same As Patient Allergies doxycycline [DOXYCYCLINE] Allergy (Intermediate, Verified 06/09/24 13:52) RASH HPI Comments Details: Zenaida presents back to the office today for follow up chronic pain and chronic opioid therapy management. Patient is prescribed Morphine 15mg IR take one tab twice daily as needed. She arrived today with the expectation of having 26 pills, she presented 30 pills. Pain is reported today as 12/07 and last dose of pain medication was taken today at 7:00am. Denies side effects including somnolence, constipation, itching, dyspnea, rash, dizziness or weakness. One month status post bilateral lumbar medial branch RFA. Pain is starting to return. No improvement with physical therapy. Like to consider SCS trial. Denies recent imaging/MRI. Past Procedures: 05/07/24: Bilateral medial branch L3-L4-L5 RFA 11/21/23: Bilateral SIJ injections-60% ongoing pain relief 11/29/22: Right medial branch L3-L4-L5 RFA -60-70% ongoing pain relief 10/15/22: Bilateral SIJ injections-70% ongoing pain relief 04/19/22: Left SIJ injection with steroids-100% ongoing pain relief 04/19/22: Left L3-L4-L5 MB RFA-100% first 2 weeks, then 75-80% ongoing pain relief 02/28/22: Right SIJ injection with steroids-100% ongoing pain relief 02/28/22: Right L3-L4-L5 MB RFA-100% ongoing pain relief 01/08/22: Diagnostic Bilateral L3-L4-DR L5 MBBs- 80% pain relief x36 hours 09/18/21: Diagnostic Bilateral SIJ injections-100% pain relief x72 hours [facility] Medical History (Updated 05/12/24 @ 15:17 by Hilda Chavarria NP) Anxiety Migraines Degenerative disc disease, lumbar Elevated cholesterol ADHD Depression Sacroiliitis Hip osteoarthritis Spondylosis of lumbar region without myelopathy or radiculopathy Dysuria Surgical History H/O section Hx of tonsillectomy History of dilation and curettage Family History (Updated 11/04/23 @ 16:11 by Fallon Cox CMA) Mother No problems noted. Father No problems noted. 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 Answers questions appropriately. Fully engaged in examination. Skin: warm, dry, intact HEENT: Normocephalic. Hearing intact. Cardiac: External chest normal in appearance. Respiratory: No cough, audible wheezing or stridor. Abdomen: without gross distension. MS: No obvious swelling or deformities. Able to transition from sit to stand unassisted. Ambulates with bilaterally normal heel strike and toe off Neurological: Oriented to person, place, time and situation. Thought process intact. No gait abnormalities appreciated. Psychiatric: Appropriate mood and affect. Good judgment and insight. Results Reviewed Results Reviewed: MRI of the lumbar spine was obtained using routine sequences without contrast. FINDINGS: Alignment is normal. Vertebral body heights are preserved. No acute bone marrow signal changes. There is disc desiccation at multiple levels without substantial loss of intervertebral disc height. The tip of the conus medullaris is located at L1-L2. No mass effect on the conus. Visualized distal cord signal intensity is normal. At L1-L2 the annular contour is normal. No canal or neuroforaminal compromise. At L2-L3 there is an asymmetrically bulging disc to the right. Bilateral facet degenerative change. No canal stenosis. No mass effect on the traversing or foraminal nerve roots. At L3-L4 there is a left foraminal annular fissure associated with a bulging disc. Bilateral facet degenerative change. No canal stenosis. No mass effect on the traversing or foraminal nerve roots. At L4-L5 there is a slightly bulging disc. Bilateral facet degenerative change. No canal stenosis. No mass effect on the traversing or foraminal nerve roots. At L5-S1 there is a slightly bulging disc. No canal stenosis. No mass effect on the traversing or foraminal nerve roots. Limited visualization of the retroperitoneal anatomy reveals no abnormal finding. Psoas and paraspinal muscle groups are symmetric. IMPRESSION: There is disc degeneration at multiple levels within the lumbar spine as described above. No canal stenosis. No mass effect on the traversing or foraminal nerve roots. 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.891 - intermediate (current) use of opiate analgesic Category: Medical (2) Chronic pain syndrome: Code(s): G89.4 - Chronic pain syndrome Category: Medical (3) Spondylosis of lumbar region without myelopathy or radiculopathy: Code(s): M47.816 - Spondylosis without myelopathy or radiculopathy, lumbar region Category: Medical (4) Sacroiliac joint dysfunction: Comment: Awaiting injection. Stable on current medications Code(s): M53.3 - Sacrococcygeal disorders, not elsewhere classified Category: Medical (5) Hypertension: Comment: continue to monitor. will trial GLP for weight loss. Code(s): I10 - Essential (primary) hypertension Category: Medical Qualifiers: Hypertension type: primary hypertension Qualified Code(s): I10 - Essential (primary) hypertension (6) Sacroiliitis: Code(s): M46.1 - Sacroiliitis, not elsewhere classified Category: Medical (7) Headache, chronic migraine without aura: Code(s): G43.709 - Chronic migraine without aura, not intractable, without status migrainosus Category: Medical (8) Dorsalgia: Code(s): M54.9 - Dorsalgia, unspecified Category: Medical Plan Masspat was reviewed and without concerns. No obvious signs of diversion, abuse or misuse of the opioid medications. Will send in prescription for Morphine 15mg IR take one tab twice daily as needed, dispense #60. Lidocaine 5% patches, Ken most painful area up to 12 hours a day MRI lumbar spine ordered for evaluation. Patient continues with pain despite g reater than 6 weeks conservative therapy. We will follow up after MRI, patient considering SCS trial. We will further discuss at follow-up visit Patient to follow-up in the office in 1 month, sooner if needed. All questions and concerns have been answered and patient agrees with the plan. Orders: Orders MR lumbar spine wo con Today M47.816 - Spondylosis without myelopathy or radiculopathy, lumbar region Medications: New lidocaine 5% leave on most painful area for up to 12 hrs 1 patch topical DAILY 30 ea 3RF Changed From morphine Partial Fill upon patient request. Please allow patient to fill 05/22/2024. 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 15 mg PO Q12H 60 tabs 0RF pain 30 days G89.4 - Chronic pain syndrome, M46.1 - Sacroiliitis, not elsewhere classified, M47.816 - Spondylosis without myelopathy or radiculopathy, lumbar region, Z79.891 - intermediate (current) use of opiate analgesic Coding Level of Care Code Est Pt Level 4 (37516) Complex EM visit Add On G2211 Diagnoses Opioid contract exists Z79.891 Chronic pain syndrome G89.4 Spondylosis of lumbar region without myelopathy or radiculopathy M47.816 Sacroiliac joint dysfunction M53.3 Primary hypertension I10 Hypertension type: primary hypertension Sacroiliitis M46.1 Headache, chronic migraine without aura G43.709 Dorsalgia M54.9
[2024-06-09 13:53] VITALS: BP 143/79; PULSE 99; O2SAT 99; BMI 25.0
--- OUTSIDE RECORDS SUMMARY | 2024-06-10 02:33 | XMS_ITS | Data Portability ---
Author Organization MARIOLA Aquino [facility], [address] Address [address] [place] [address] Assessment No assessment recorded. Plan of Treatment Reminders Order Date Submit Date Provider Last Modified By Organization Details Last Modified Time Details Appointments None recorded. Lab urinalysis, dipstick 2022 023 soniya 20999[facility], [address] [place], [address], 3 15:08:13 test, urine 2022 023 soniya [facility], [address] [place], [address], 3 15:08:14 culture, urine 2022 023 MARTIN [facility], [address] [place] [address], [place], [address], 3 06:06:24 Referral None recorded. Procedures None recorded. Surgeries None recorded. Imaging None recorded. Medication Orders nitrofurant oin monohydrate /macrocryst als 100 mg capsule 2022 023 MARTIN [id number], [address] [facility], [place], [address], 3 15:08:13 Patient TargetsNo targets recorded. Patient Instructions Encounter Date Encounter Id Patient Instructions Last Modified By Organization Details Last Modified Time 05/21/2023 [id number] painful urinatio n (dysuria): care instructions soniya Not available 05/21/2023 15:09:14 You are going to be treated for a Urinary Tract Infection. The following are recommendations to help with your symptoms and recovery: 1. Drink Plenty of fluids - Stay hydrated 2. Finish full antibiotic course 3. I recommend starting a Probiotic - I recommend Florastor 4. If you take Azo - this will help the burning and urgency feeling - just be aware it will turn your urine bright yellow. I would not hesitate to be seen again if you develop: 1. Severe Back Pain 2. Abdominal Pain 3. Nausea and Vomiting 4. Vaginal Discharge or Bleeding 5. Fever > 101.0 You symptoms should improve within 72 hours for a typically UTI. If a urine culture was sent out to the lab for you we should get the results back within 4 days. This will be able to prove that your symptoms are caused by a UTI and it will also verify that the correct antibiotic was prescribed. Thank you for using [employer] - please don't hesistate to call our office if you have any questions or concerns. soniya Not available 05/21/2023 15:08:46 Reason for Referral None Reported. Results Created Date Observation Date Name Description Value Unit Range Abnormal Flag Note LastModifiedBy Organization Detail LastModifiedTime 05/21/2005/23/2023 URINE CULTU RE, CHAYA NE urine culture, routine FINAL REPORT Not Available [facility] ([facility]) [address] [place], [address], 05/23/2023 06:06:24 05/21/20 23 05/23/2023 URINE CULTU RE, ROUTI NE result 1 COMMEN T Cultu re shows less than 10,00 0 colon y formi ng units of bacte griffin per rick liter of urine . This colon y count is not gener ally consi dered to be clini marilin roberti niurka osorio. Not Available [facility] ([facility]) [address] [place], [address], 05/23/2023 06:06:24 05/21/20 23 05/21/2023 pregn eduardo test, urine Unknown Analyte negati ve Not Available carole [address] [place], [address], 05/21/2023 14:34:18 05/21/20 23 05/21/2023 pregn eduardo test, urine Unknown Analyte yes Not Available [facility] [address] [place], [address], 05/21/2023 14:34:18 05/21/20 23 05/21/2023 urina lysis , dipst ick Unknown Analyte Light Yellow Not Available carole jack [address] [place], [address], 05/21/2023 14:34:03 05/21/20 23 05/21/2023 urina lysis , dipst ick Unknown Analyte Clear Not Available g[facility] [address] [place], [address], 05/21/2023 14:34:03 05/21/20 23 05/21/2023 urina lysis , dipst ick Unknown Analyte Negati ve Not Available carole jack [address] [place], [address], 05/21/2023 14:34:03 05/21/20 23 05/21/2023 urina lysis , dipst ick Unknown Analyte Negati ve Not Available carole jack [address] [place], [address], 05/21/2023 14:34:03 05/21/20 23 05/21/2023 urina lysis , dipst ick Unknown Analyte Negati ve Not Available carole jack [address] [place], [address], 05/21/2023 14:34:03 05/21/20 23 05/21/2023 urina lysis , dipst ick Unknown Analyte 1.015 Not Available gabo [address] [place], [address], 05/21/2023 14:34:03 05/21/20 23 05/21/2023 urina lysis , dipst ick Unknown Analyte Trace- intact Not Available [facility] [address] [place], [address], 05/21/2023 14:34:03 05/21/20 23 05/21/2023 urina lysis , dipst ick Unknown Analyte 6.5 Not Available [address] [place], [address], 05/21/2023 14:34:03 05/21/2005/21/2023 urina lysis , dipst ick Unknown Analyte Negati ve Not Available [address] [place], [address], 05/21/2023 14:34:03 05/21/20 23 05/21/2023 urina lysis , dipst ick Unknown Analyte 0.2 E.U./d L Not Available [address] [place], [address], 05/21/2023 14:34:03 05/21/20 23 05/21/2023 urina lysis , dipst ick Unknown Analyte Negati ve Not Available [address] [place], [address], 05/21/2023 14:34:03 05/21/20 23 05/21/2023 urina lysis , dipst ick Unknown Analyte Small Not Available [address] [place], [address], 05/21/2023 14:34:03 Result Notes None recorded. Problems No Known Problems Medical Equipment None Reported. Allergies Allergen ID Allergen Name Allergen Category Reaction Reaction Severity Criticality Documentation Date Start Date Code Code System Note Provider Name and Address Organization Details Recorded Time 380347 doxycycli ne Not available hives Not available Not available 05/21/2023 3640 RxNorm MARIOLA Rosas - [facility] 3 14:31:38 Medications Name Sig Start Date Stop Date Status Note LastModified by Organization Details LastModified Time cyclobenzap rine 10 mg tablet TAKE 1 TABLET BY MOUTH TWICE A DAY 05/21 completed Not Available Not Available Not Available sumatriptan 100 mg tablet TAKE 1 TABLET BY MOUTH EVERY DAY NEEDED FOR MIGRAINE active Not Available Not Available No t Available rizatriptan 10 mg tablet TAKE 1 TAB ORALLY DAILY NEEDED FOR HEADACHE. ALERNATEL Y W/SUMATRI PTAN TAKES AT LEAST 5-6HRS APART active Not Available Not Available No t Available bupropion HCl SR 100 mg tablet,12 hr sustained-r elease TAKE 1 TABLET BY MOUTH TWICE A DAY active Not Available Not Available No t Available Adderall XR 20 mg capsule,ext ended release TAKE 1 CAPSULE BY MOUTH EVERY DAY IN THE MORNING *DNF UNTIL 06/08 active Not Available Not Available No t Available amitriptyli ne 10 mg tablet TAKE 1 TABLET BY MOUTH EVERY DAY active Not Available Not Available No t Available erythromyci n 5 mg/gram (0.5 %) eye ointment APPLY 0.5 INCH INTO AFFECTED EYE 4 TIMES A DAY FOR 7 DAYS 05/21 completed Not Available Not Available Not Available norethindro ne acetate 5 mg tablet TAKE 1 TABLET ONCE OR TWICE PER DAY 05/21 completed Not Available Not Available Not Available morphine 15 mg immediate release tablet active Not Available Not Available Not Available topiramate 100 mg tablet TAKE 1 TABLET BY MOUTH EVERYDAY AT BEDTIME active Not Available Not Available No t Available fluticasone propionate 50 mcg/actuati on nasal spray,suspe nsion 1 SPRAY INTRANASA LLY 2 TIMES A DAY active Not Available Not Available No t Available loratadine 10 mg tablet TAKE 1 TABLET BY MOUTH EVERY DAY 05/21 completed Not Available Not Available Not Available oxycodone 5 mg tablet TAKE 1 TABLET BY MOUTH 2 TIMES A DAY NEEDED FOR SEVERE PAIN FOR 30 DAYS 05/21 completed Not Available Not Available Not Available Adderall XR 25 mg capsule,ext ended release TAKE 1 CAPSULE BY MOUTH EVERY DAY active Not Available Not Available No t Available nitrofurant oin monohydrate /macrocryst als 100 mg capsule Take 1 capsule twice a day by oral route for 5 days. 2022 active Not Available Not Available Not Avai lable cholecalcif abilio (vitamin D3) 25 mcg (1,000 unit) tablet TAKE 1 TABLET BY MOUTH EVERY DAY FOR 90 DAYS 05/21 completed Not Available Not Available Not Available naloxone 4 mg/actuatio n nasal spray PLEASE SEE ATTACHED FOR DETAILED DIRECTION S active Not Available Not Available No t Available Vitals Date Recorded Body height Body mass index (BMI) Body weight Oxygen saturation Oxygen saturation in Arterial blood by Pulse oximetry Heart rate Respiratory rate Body temperature Systolic blood pressure Diastolic blood pressure Provider Name and Address Organization Details Last Updated DateTime 152.4 cm 27.3 kg/m2 85710.9 3 g 99 % 99 % 82 /min 18 /min 98.6 [degF] 163 mm[Hg] 97 mm[Hg] April GARNETT - [facility] 14:36:02 Social History Question Answer Notes LastModified by [employer] ion Details LastModified Time Tobacco Smoking Status Never Smoker April zabala PA - [facility] 05/21/2023 14:33:33 What Is Your Level Of Alcohol Consumption? None Information not available 05/21/2023 Have You Had A Flu Shot This Season? Yes Information not available 05/21/2023 Do You Use Any Illicit Or Recreational Drugs? No Information not available 05/21/2023 Have You Recently Traveled Abroad? No Information not available 05/21/2023 Do You Or Have You Ever Used Any Other Forms Of Tobacco Or Nicotine? No Information not available 05/21/2023 Sex: Unknown Functional Status None recorded. Mental Status None recorded. Family History Relationship Description Onset Age of this Age Resolved Age Notes LastModified by Organization Details LastModified Time Father No current problems or disability Not available 05/21 14:33:16 Mother No current problems or disability Not available 05/21 14:33:16 Medical History No medical history recorded. Gynecological HistoryNo gynecological history recorded. Obstetrics History GPAL:G 0 P 0 0 0 0 Past Encounters Encounter ID Performer Location Encounter Start Date Encounter Closed Date Diagnosis/Indication Diagnosis SNOMED-CT Code Diagnosis ICD10 Code [id number] [address] [place] [address] 02/15/2020 17:09:16 02/15/2020 18:48:09 [id number] [address] [place] [address] 02/01/2019 19:26:22 02/01/2019 20:14:41 [id number] [place] [address] [place] [address] 05/21/2023 14:20:17 05/21/2023 15:11:33 Dysuria 35170650 R30.0 Health Concerns Section Related Observation LastModified by Organization Detai ls LastModified Time None Recorded Concern Status LastModified by Organization Details LastModified Time None Recorded Advance Directives Directive None Recorded Payers Encounter Date Sequence Insurance Name Policy Number Policy Goetz Covered Member ID Goetz Member ID Guarantor Name 02/15/2020 1 [facility] [employer] [facility] (MEDICAID O) [id number] Zenaida M Anju [id number] Zenaida M Anju 05/21/2023 1 [facility] PLAN (MEDICAID O) [id number] Zenaida M Anju [id number] Zenaida M Anju Notes Date Note Type Note Provider Name and Address Organization Details Recorded Time 3 text/html UTI female UCReported bypatient.source of patient informationInformation obtained from patient; Patient arrived at Urgent Care ambulatory UTI Symptoms:no blood in the urine; no vaginal discharge; no pain in the flank; no fever/chills; no incontinence; no recurrent UTI;urgency;burning sensation during urination;urinary frequency Severity:moderate Duration:started ; 1 days Modifying Factors:nothing gives relief Woke up every 2 hours to pee last night . prior hx of uti with similar start Elizabeth Younger NP [address] [place], [address], [place] - [facility] 05/21/2023 15:10:25 OBGyn Episode No OBEpisode recorded.
== END 2024-06-09 14:26 | disposition home or self-care (01) ==
PROVIDERS: PCP Internal Medicine; Visit Provider Registered Nurse Emergency
DX: Z79.891 Long term (current) use of opiate analgesic (principal); G89.4 Chronic pain syndrome; M47.816 Spondylosis without myelopathy or radiculopathy, lumbar region; M53.3 Sacrococcygeal disorders, not elsewhere classified; I10 Essential (primary) hypertension; M46.1 Sacroiliitis, not elsewhere classified; G43.709 Chronic migraine without aura, not intractable, without status migrainosus; M54.9 Dorsalgia, unspecified
CPT/HCPCS: 99214

== ENCOUNTER → 2024-06-09 13:40 | Outpatient (BNVA) | payer OTHER, SELFPAY | PROVIDERS: PCP Internal Medicine; Visit Provider Registered Nurse Emergency ==

== ENCOUNTER 2024-07-07 14:05 | Outpatient (AMB) | payer OTHER, SELFPAY ==
--- OUTSIDE RECORDS SUMMARY | 2024-07-07 14:10 | XMS_ITS | Data Portability ---
Author Organization MARIOLA Aquino [facility], [address] Address [address] [place] [address] Assessment No assessment recorded. Plan of Treatment Reminders Order Date Submit Date Provider Last Modified By Organization Details Last Modified Time Details Appointments None recorded. Lab urinalysis, dipstick 2022 [address] [facility], [address] [place], [address], 3 15:08:13 test, urine 2022 023 [facility], [address] [place], [address], 3 15:08:14 culture, urine 2022 023 [place] [facility], [address] [place] [address], [place], [address], 3 06:06:24 Referral None recorded. Procedures None recorded. Surgeries None recorded. Imaging None recorded. Medication Orders nitrofurant oin monohydrate /macrocryst als 100 mg capsule 2022 023 [place] [id number], [address] [facility], [place], [address], 3 15:08:13 Patient TargetsNo targets recorded. Patient Instructions Encounter Date Encounter Id Patient Instructions Last Modified By Organization Details Last Modified Time 05/21/2023 [id number] painful urinatio n (dysuria): care instructions soniya [...] antibiotic was prescribed. Thank you for using [employer] - please don't hesistate to call our office if you have any questions or concerns. soniya Not available 05/21/2023 15:08:46 Reason for Referral None Reported. Results Created Date Observation Date Name Description Value Unit Range Abnormal Flag Note LastModifiedBy Organization Detail LastModifiedTime 05/21/2005/23/2023 URINE CULTU RE, CHAYA NE urine culture, routine FINAL REPORT Not Available [facility] ([facility]) [address] [place], [address], 05/23/2023 06:06:24 05/21/20 23 05/23/2023 URINE CULTU RE, ROUTI NE result 1 COMMEN T Cultu re shows less than 10,00 0 colon y formi ng units of bacte griffin per rick liter of urine . This colon y count is not gener ally consi dered to be clini marilin roberti niurka osorio. Not Available [facility] ([facility]) [address] [place], [address], 05/23/2023 06:06:24 05/21/20 23 05/21/2023 pregn eduardo test, urine Unknown Analyte negati ve Not Available carole [address] [place], [address], 05/21/2023 14:34:18 05/21/20 23 05/21/2023 pregn eduardo test, urine Unknown Analyte yes Not Available gabo [address] [place], [address], 05/21/2023 14:34:18 05/21/20 23 05/21/2023 urina lysis , dipst ick Unknown Analyte Light Yellow Not Available carole jack [address] [place], [address], 05/21/2023 14:34:03 05/21/20 23 05/21/2023 urina lysis , dipst ick Unknown Analyte Clear Not Available g[facility] [address] [place], [address], 05/21/2023 14:34:03 05/21/20 23 05/21/2023 urina lysis , dipst ick Unknown Analyte Negati ve Not Available carole jack [address] [place], [address], 05/21/2023 14:34:03 05/21/20 23 05/21/2023 urina lysis , dipst ick Unknown Analyte Negati ve Not Available carole jack [address] [place], [address], 05/21/2023 14:34:03 05/21/20 23 05/21/2023 urina lysis , dipst ick Unknown Analyte Negati ve Not Available carole jack [address] [place], [address], 05/21/2023 14:34:03 05/21/20 23 05/21/2023 urina lysis , dipst ick Unknown Analyte 1.015 Not Available gabo [address] [place], [address], 05/21/2023 14:34:03 05/21/20 23 05/21/2023 urina lysis , dipst ick Unknown Analyte Trace- intact Not Available [facility] [address] [place], [address], 05/21/2023 14:34:03 05/21/20 23 05/21/2023 urina lysis , dipst ick Unknown Analyte 6.5 Not Available [address] [place], [address], 05/21/2023 14:34:03 05/21/2005/21/2023 urina lysis , dipst ick Unknown Analyte Negati ve Not Available [address] [place], [address], 05/21/2023 14:34:03 05/21/20 23 05/21/2023 urina lysis , dipst ick Unknown Analyte 0.2 E.U./d L Not Available [address] [place], [address], 05/21/2023 14:34:03 05/21/20 23 05/21/2023 urina lysis , dipst ick Unknown Analyte Negati ve Not Available [address] [place], [address], 05/21/2023 14:34:03 05/21/20 23 05/21/2023 urina lysis , dipst ick Unknown Analyte Small Not Available [address] [place], [address], 05/21/2023 14:34:03 Result Notes None recorded. Problems No Known Problems Medical Equipment None Reported. 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 Details LastModified Time Tobacco Smoking Status Never Smoker April zabala PA - [facility] 05/21/2023 14:33:33 What Is Your Level [...] Diagnosis/Indication Diagnosis SNOMED-CT Code Diagnosis ICD10 Code Diagnosis Note [id number] [address] [place] [address] 02/15/2020 17:09:16 02/15/2020 18:48:09 [id number] [address] [place] [address] 02/01/2019 19:26:22 02/01/2019 20:14:41 [id number] [place] [address] [place] [address] 05/21/2023 14:20:17 05/21/2023 15:11:33 Dysuria 93516377 R30.0 Health Concerns Section Related Observation LastModified by Organization Detai ls LastModified Time None Recorded Concern Status LastModified by Organization Details LastModified Time None Recorded Advance Directives Directive None Recorded Payers Encounter Date Sequence Insurance Name Policy Number Policy Goetz Covered Member ID Goetz Member ID Guarantor Name 02/15/2020 1 [facility] [employer] [facility] (MEDICAID O) [id number] Zenaida M Anju [id number] Zenaida M Anju 05/21/2023 1 [facility] (MEDICAID HMO) [id number] Zenaida M Anju [id number] Zenaida M Anju Notes Date Note [...] Elizabeth Younger NP [address] [place], [address], [place] - [facility] 05/21/2023 15:10:25 OBGyn Episode No OBEpisode recorded.
[2024-07-07 14:12] VITALS: BP 139/76; PULSE 75; RESP 15; O2SAT 97; BMI 25.4
--- NOTE | 2024-07-07 14:12 | A.OFFVIS_ITS ---
Vital Signs 07/07/24 14:12 Height 5 ft Weight 130 lb BMI 25.4 BP 139/76 Blood Pressure Location Lt brachial Position Sitting Respiration 15 Pulse 75 Pulse Source Pulse Oximeter Pulse Oximetry (%) 97 Oxygen Delivery Method Room Air Intake Visit Reasons: PILL COUNT Allergies doxycycline [DOXYCYCLINE] Allergy (Intermediate, Verified 07/07/24 14:15) RASH Medication List - Last Reconciled 07/07/24 by Nini Restrepo LPN dextroamphetamine-amphetamine 5 mg (Adderall) 5 mg PO TID estradiol 1 patch transdermal 2XW fluticasone propionate 50 mcg/actuation 1 spray intranasal BID ibuprofen 600 mg PO Q6H PRN lidocaine 5% 1 patch topical DAILY loratadine 10 mg PO DAILY methocarbamol 500 mg PO TID PRN morphine 15 mg PO Q12H 30 days naloxone 4 mg/actuation (Narcan) 4 mg intranasal Q2M PRN nicotine (polacrilex) 2 mg buccal Q2H 1 month ondansetron 4 mg PO Q8H PRN 30 days phentermine 37.5 mg PO DAILY progesterone micronized 100 mg PO BEDTIME rimegepant 75 mg PO Q OTHER DAY sacroiliac belt As directed sumatriptan succinate 100 mg PO DAILY PRN topiramate 100 mg PO BEDTIME 90 days [Tylenol 1,000 mg PO DAILY PRN] HPI Comments Details: Zenaida presents back to the office today for follow up chronic pain and chronic opioid therapy management. Patient is prescribed Morphine 15mg IR take one tab twice daily as needed. She arrived today with the expectation of having 28 pills, she presented 34 pills. Pain is reported today as 4/10 and last dose of pain medication was taken today at 8:00am. Denies side effects including somnolence, constipation, itching, dyspnea, rash, dizziness or weakness. Plan to further discuss SCS trial after MRI which is scheduled for next week. Past Procedures: 05/07/24: Bilateral medial branch L3-L4-L5 RFA 11/21/23: Bilateral SIJ injections-60% ongoing pain relief 11/29/22: Right medial branch L3-L4-L5 RFA -60-70% ongoing pain relief 10/15/22: Bilateral SIJ injections-70% ongoing pain relief 04/19/22: Left SIJ injection with steroids-100% ongoing pain relief 04/19/22: Left L3-L4-L5 MB RFA-100% first 2 weeks, then 75-80% ongoing pain relief 02/28/22: Right SIJ injection with steroids-100% ongoing pain relief 02/28/22: Right L3-L4-L5 MB RFA-100% ongoing pain relief 01/08/22: Diagnostic Bilateral L3-L4-DR L5 MBBs- 80% pain relief x36 hours 09/18/21: Diagnostic Bilateral SIJ injections-100% pain relief x72 hours PFSH Medical History (Updated 05/12/24 @ 15:17 by Hilda Chavarria NP) Anxiety Migraines Degenerative disc disease, lumbar Elevated cholesterol ADHD Depression Sacroiliitis Hip osteoarthritis Spondylosis of lumbar region without myelopathy or radiculopathy Dysuria Surgical History H/O section Hx of tonsillectomy History of dilation and curettage Family History (Updated 11/04/23 @ 16:11 by Fallon Cox CMA) Mother No problems noted. Father No problems noted. 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 Answers questions appropriately. Fully engaged in examination. Skin: warm, dry, intact HEENT: Normocephalic. Hearing intact. Cardiac: External chest normal in appearance. Respiratory: No cough, audible wheezing or stridor. Abdomen: without gross distension. MS: No obvious swelling or deformities. Able to transition from sit to stand unassisted. Ambulates with bilaterally normal heel strike and toe off Neurological: Oriented to person, place, time and situation. Thought process intact. No gait abnormalities appreciated. Psychiatric: Appropriate mood and affect. Good judgment and insight. Results Reviewed Results Reviewed: MRI of the lumbar spine was obtained using routine sequences without contrast. FINDINGS: Alignment is normal. Vertebral body heights are preserved. No acute bone marrow signal changes. There is disc desiccation at multiple levels without substantial loss of intervertebral disc height. The tip of the conus medullaris is located at L1-L2. No mass effect on the conus. Visualized distal cord signal intensity is normal. At L1-L2 the annular contour is normal. No canal or neuroforaminal compromise. At L2-L3 there is an asymmetrically bulging disc to the right. Bilateral facet degenerative change. No canal stenosis. No mass effect on the traversing or foraminal nerve roots. At L3-L4 there is a left foraminal annular fissure associated with a bulging disc. Bilateral facet degenerative change. No canal stenosis. No mass effect on the traversing or foraminal nerve roots. At L4-L5 there is a slightly bulging disc. Bilateral facet degenerative change. No canal stenosis. No mass effect on the traversing or foraminal nerve roots. At L5-S1 there is a slightly bulging disc. No canal stenosis. No mass effect on the traversing or foraminal nerve roots. Limited visualization of the retroperitoneal anatomy reveals no abnormal finding. Psoas and paraspinal muscle groups are symmetric. IMPRESSION: There is disc degeneration at multiple levels within the lumbar spine as described above. No canal stenosis. No mass effect on the traversing or foraminal nerve roots. 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 Stable on current medications Code(s): M53.3 - Sacrococcygeal disorders, not elsewhere classified Category: Medical (5) Hypertension: Comment: continue to monitor. will trial GLP for weight loss. Code(s): I10 - Essential (primary) hypertension Category: Medical Qualifiers: Hypertension type: primary hypertension Qualified Code(s): I10 - Essential (primary) hypertension (6) Sacroiliitis: Code(s): M46.1 - Sacroiliitis, not elsewhere classified Category: Medical (7) Headache, chronic migraine without aura: Code(s): G43.709 - Chronic migraine without aura, not intractable, without status migrainosus Category: Medical (8) Dorsalgia: Code(s): M54.9 - Dorsalgia, unspecified Category: Medical Plan Masspat was reviewed and without concerns. No obvious signs of diversion, abuse or misuse of the opioid medications. New prescription for Morphine 15mg IR take one tab twice daily as needed, dispense #60. [facility] refill sent C/W plan for MRI next week. We will follow up after MRI, patient considering SCS trial. We will further discuss at follow-up visit All questions and concerns have been answered and patient agrees with the plan. Follow-up in the office in 1 month, sooner if needed. Medications: Refilled rimegepant 75 mg PO Q OTHER DAY 15 tabs 6RF morphine Partial Fill upon patient request. 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
== END 2024-07-07 15:19 | disposition home or self-care (01) ==
PROVIDERS: PCP Internal Medicine; Visit Provider Registered Nurse Emergency
DX: Z79.891 Long term (current) use of opiate analgesic (principal); G89.4 Chronic pain syndrome; M47.816 Spondylosis without myelopathy or radiculopathy, lumbar region; M53.3 Sacrococcygeal disorders, not elsewhere classified; I10 Essential (primary) hypertension; M46.1 Sacroiliitis, not elsewhere classified; G43.709 Chronic migraine without aura, not intractable, without status migrainosus; M54.9 Dorsalgia, unspecified
CPT/HCPCS: 99214; G2211

== ENCOUNTER → 2024-07-07 14:05 | Outpatient (BNVA) | payer OTHER, SELFPAY | PROVIDERS: PCP Internal Medicine; Visit Provider Registered Nurse Emergency | DX: Z51.81 Encounter for therapeutic drug level monitoring (principal); M53.3 Sacrococcygeal disorders, not elsewhere classified; M47.816 Spondylosis without myelopathy or radiculopathy, lumbar region; M46.1 Sacroiliitis, not elsewhere classified; M54.9 Dorsalgia, unspecified; G43.709 Chronic migraine without aura, not intractable, without status migrainosus; I10 Essential (primary) hypertension; G89.4 Chronic pain syndrome; Z79.891 Long term (current) use of opiate analgesic | CPT/HCPCS: 99212 ==

== ENCOUNTER → 2024-07-14 17:52 | Outpatient (BNV) | payer OTHER, SELFPAY | PROVIDERS: PCP Internal Medicine; Visit Provider Radiology Diagnostic Radiology | DX: M47.816 Spondylosis without myelopathy or radiculopathy, lumbar region (principal) | CPT/HCPCS: 72148 ==

== ENCOUNTER 2024-07-14 17:58 | Outpatient (REF) | payer OTHER, SELFPAY ==
--- NOTE | ~2024-07-14 | MR_ITS ---
EXAMINATION: MR LUMBAR SPINE WITHOUT CONTRAST CLINICAL INFORMATION: Spondylosis without myelopathy or radiculopathy COMPARISON: MRI of lumbar spine 08/13/2021 TECHNIQUE: MRI of the lumbar spine was obtained using routine sequences without contrast. FINDINGS: There is normal lumbar lordosis. There is minimal grade 1 retrolisthesis L4 on L5. Rest of the vertebral alignment and normal vertebral heights are normal. There is mild diffuse bulge mildly flattening the ventral thecal sac but without spinal canal stenosis. The neural foramina are patent bilaterally. There is mild loss of L2-3, L3-4 and L4-5 disc heights with mild disc desiccation change. The T12-L1 and L1-2 disc level appears unremarkable. At L2-3 disc level there is mild diffuse bulge with posterior annular tear without spinal stenosis. The neural foramina patent bilaterally. At L3-4 disc level there is mild diffuse bulge without spinal canal stenosis. The neural foramina patent bilaterally. At L4-5 disc level there is broad-based diffuse bulge flattening the ventral thecal sac with bilateral facet degenerative and ligament flavum hypertrophy resulting in bilateral lateral recess and mild neural foraminal narrowing. The finding is slightly more prominent than the previous exam 08/13/2021 At L5-S1 disc level there is a broad-based diffuse bulge without spinal canal stenosis. The neural foramina are patent bilaterally. The bone marrow signal is preserved normal. Conus medullaris terminates at L1 and appears normal in morphology. The paravertebral soft tissues are normal. MR/MR lumbar spine wo con IMPRESSION: Mild diffuse bulge L2-3, L3-4 and L4-5 disc level slightly worse at the L4-5 disc were compared previous MRI 2021. There is bilateral lateral recess and neural foraminal narrowing at the L4-5 disc level. Electronically signed by: Ivan Varner MD 07/15/2024 08:19 AM EST
--- OUTSIDE RECORDS SUMMARY | 2024-07-14 19:12 | XMS_ITS | Data Portability ---
Author Organization [facility], [address] Address [address] [place] [address] Assessment No assessment recorded. Plan of Treatment Reminders Order Date Submit Date Provider Last Modified By Organization Details Last Modified Time Details Appointments None recorded. Lab urinalysis, dipstick 2022 023 soniya [facility], [address] [place], [address], 3 15:08:13 test, urine 2022 023 [facility], [address] [place], [address], 3 15:08:14 culture, urine 2022 023 SPAR[facility], [address] [place] [address], [place], [address], 3 06:06:24 Referral None recorded. Procedures None recorded. Surgeries None recorded. Imaging None recorded. Medication Orders nitrofurant oin monohydrate /macrocryst als 100 mg capsule 2022 023 SPARKS [id number], [address] [facility], [place], [address], 3 15:08:13 Patient TargetsNo targets recorded. Patient Instructions Encounter Date Encounter Id Patient Instructions Last Modified By Organization Details Last Modified Time 05/21/2023 [id number] painful urinatio n (dysuria): care instructions soniya [...] antibiotic was prescribed. Thank you for using [facility] - please don't hesistate to call our office if you have any questions or concerns. soniya Not available 05/21/2023 15:08:46 Reason for Referral None Reported. Results Created Date Observation Date Name Description Value Unit Range Abnormal Flag Note LastModifiedBy Organization Detail LastModifiedTime 05/21/2005/23/2023 URINE CULTU RE, CHAYA NE urine culture, routine FINAL REPORT Not Available [facility] ([facility] [facility]) [address] [place], [address], 05/23/2023 06:06:24 05/21/20 23 05/23/2023 URINE CULTU RE, ROUTI NE result 1 COMMEN T Cultu re shows less than 10,00 0 colon y formi ng units of bacte griffin per rick liter of urine . This colon y count is not gener ally consi dered to be clini marilin roberti niurka osorio. Not Available [facility] ([facility] [facility]) [address] [place], [address], 05/23/2023 06:06:24 05/21/20 23 05/21/2023 pregn eduardo test, urine Unknown Analyte negati ve Not Available carole [address] [place], [address], 05/21/2023 14:34:18 05/21/20 23 05/21/2023 pregn eduardo test, urine Unknown Analyte yes Not Available [facility] [address] [place], [address], 05/21/2023 14:34:18 05/21/20 23 05/21/2023 urina lysis , dipst ick Unknown Analyte Light Yellow Not Available carole jack [address] [place], [address], 05/21/2023 14:34:03 05/21/20 23 05/21/2023 urina lysis , dipst ick Unknown Analyte Clear Not Available [facility] [address] [place], [address], 05/21/2023 14:34:03 05/21/20 23 05/21/2023 urina lysis , dipst ick Unknown Analyte Negati ve Not Available carole jack [address] [place], [address], 05/21/2023 14:34:03 05/21/20 23 05/21/2023 urina lysis , dipst ick Unknown Analyte Negati ve Not Available carole jack [address] [place], [address], 05/21/2023 14:34:03 05/21/20 23 05/21/2023 urina lysis , dipst ick Unknown Analyte Negati ve Not Available carole jack [address] [place], [address], 05/21/2023 14:34:03 05/21/20 23 05/21/2023 urina lysis , dipst ick Unknown Analyte 1.015 Not Available [facility] [address] [place], [address], 05/21/2023 14:34:03 05/21/20 23 05/21/2023 urina lysis , dipst ick Unknown Analyte Trace- intact Not Available [facility] [address] [place], [address], 05/21/2023 14:34:03 05/21/20 23 05/21/2023 urina lysis , dipst ick Unknown Analyte 6.5 Not Available [address] [place], [address], 05/21/2023 14:34:03 05/21/2005/21/2023 urina lysis , dipst ick Unknown Analyte Negati ve Not Available [address] [place], [address], 05/21/2023 14:34:03 05/21/20 23 05/21/2023 urina lysis , dipst ick Unknown Analyte 0.2 E.U./d L Not Available [address] [place], [address], 05/21/2023 14:34:03 05/21/20 23 05/21/2023 urina lysis , dipst ick Unknown Analyte Negati ve Not Available [address] [place], [address], 05/21/2023 14:34:03 05/21/20 23 05/21/2023 urina lysis , dipst ick Unknown Analyte Small Not Available [address] [place], [address], 05/21/2023 14:34:03 Result Notes None recorded. Problems No Known Problems Medical Equipment None Reported. Allergies Allergen ID Allergen Name Allergen Category Reaction Reaction Severity Criticality Documentation Date Start Date Code Code System Note Provider Name and Address Organization Details Recorded Time [id number] doxycycli ne Not available hives Not available [...] Last Updated DateTime 152.4 cm 27.3 kg/m2 18597.9 3 g 99 % 99 % 82 /min 18 /min 98.6 [degF] 163 mm[Hg] 97 mm[Hg] April GARNETT - [facility] 14:36:02 Social History Question Answer Notes LastModified by [employer] ion Details LastModified Time Tobacco Smoking Status Never Smoker April zabala [place] - [facility] 05/21/2023 14:33:33 What Is Your Level [...] SNOMED-CT Code Diagnosis ICD10 Code Diagnosis Note [id number] [address] [place] [address] 02/15/2020 17:09:16 02/15/2020 18:48:09 [id number] [address] [place] [address] 02/01/2019 19:26:22 02/01/2019 20:14:41 [id number] [place] [address] [place] [address] 05/21/2023 14:20:17 05/21/2023 15:11:33 Dysuria [id number] R30.0 Health Concerns Section Related Observation LastModified by Organization Detai ls LastModified Time None Recorded Concern Status LastModified by Organization Details LastModified Time None Recorded Advance Directives Directive None Recorded Payers Encounter Date Sequence Insurance Name Policy Number Policy Goetz Covered Member ID Goetz Member ID Guarantor Name 02/15/2020 1 [facility] [employer] [facility] (MEDICAID O) [id number] Zenaida M Anju [id number] Zenaida M Anju 05/21/2023 1 [facility] PLAN (MEDICAID HMO) [id number] Zenaida M Anju [id number] Zenaida M Anju Notes Date Note [...] Elizabeth Younger NP [address] [place], [address], [place] - [facility] 05/21/2023 15:10:25 OBGyn Episode No OBEpisode recorded.
== END 2024-07-14 17:59 | disposition home or self-care (01) ==
LOC: HO.MRI 17:58
PROVIDERS: PCP Internal Medicine; Visit Provider Registered Nurse Emergency
DX: M47.816 Spondylosis without myelopathy or radiculopathy, lumbar region (principal)
CPT/HCPCS: 72148

== ENCOUNTER 2024-07-27 09:28 | Outpatient (REF) | payer OTHER, SELFPAY ==
--- OUTSIDE RECORDS SUMMARY | 2024-07-27 10:00 | XMS_ITS | Data Portability ---
Author Organization MARIOLA Aquino [facility], [address] Address [address] [place] [address] Assessment No assessment recorded. Plan of Treatment Reminders Order Date Submit Date Provider Last Modified By Organization Details Last Modified Time Details Appointments None recorded. Lab urinalysis, dipstick 2022 023 [facility], [address] [place], [address], 3 15:08:13 test, urine 2022 023 [facility], [address] [place], [address], 3 15:08:14 culture, urine 2022 023 [facility], [address] [place] [address], [place], [address], 3 06:06:24 Referral None recorded. Procedures None recorded. Surgeries None recorded. Imaging None recorded. Medication Orders nitrofurant oin monohydrate /macrocryst als 100 mg capsule 2022 023 [id number], [address] [facility], [place], [address], 3 15:08:13 Patient TargetsNo targets recorded. Patient Instructions Encounter Date Encounter Id Patient Instructions Last Modified By Organization Details Last Modified Time 05/21/2023 [id number] painful urinatio n (dysuria): care instructions soniya [...] antibiotic was prescribed. Thank you for using [facility] - please don't hesistate to call our office if you have any questions or concerns. soniya Not available 05/21/2023 15:08:46 Reason for Referral None Reported. Results Created Date Observation Date Name Description Value Unit Range Abnormal Flag Note LastModifiedBy Organization Detail LastModifiedTime 05/21/2005/23/2023 URINE CULTU RE, CHAYA NE urine culture, routine FINAL REPORT Not Available [facility] ([facility]) [address] [place], [address], 05/23/2023 06:06:24 05/21/20 23 05/23/2023 URINE CULTU RE, ROUTI NE result 1 COMMEN T Cultu re shows less than 10,00 0 colon y formi ng units of bacte griffin per rick liter of urine . This colon y count is not gener ally consi dered to be clini marilin roberti niurka osorio. Not Available [facility] ([facility]) [address] [place], [address], 05/23/2023 06:06:24 05/21/20 23 05/21/2023 pregn eduardo test, urine Unknown Analyte negati ve Not Available carole [address] [place], [address], 05/21/2023 14:34:18 05/21/20 23 05/21/2023 pregn eduardo test, urine Unknown Analyte yes Not Available gabo [address] [place], [address], 05/21/2023 14:34:18 05/21/20 23 05/21/2023 urina lysis , dipst ick Unknown Analyte Light Yellow Not Available carole jack [address] [place], [address], 05/21/2023 14:34:03 05/21/20 23 05/21/2023 urina lysis , dipst ick Unknown Analyte Clear Not Available gabo [address] [place], [address], 05/21/2023 14:34:03 05/21/20 23 05/21/2023 urina lysis , dipst ick Unknown Analyte Negati ve Not Available carole jack [address] [place], [address], 05/21/2023 14:34:03 05/21/20 23 05/21/2023 urina lysis , dipst ick Unknown Analyte Negati ve Not Available carole jack [address] [place], [address], 05/21/2023 14:34:03 05/21/20 23 05/21/2023 urina lysis , dipst ick Unknown Analyte Negati ve Not Available carole jack [address] [place], [address], 05/21/2023 14:34:03 05/21/20 23 05/21/2023 urina lysis , dipst ick Unknown Analyte 1.015 Not Available gabo [address] [place], [address], 05/21/2023 14:34:03 05/21/20 23 05/21/2023 urina lysis , dipst ick Unknown Analyte Trace- intact Not Available [facility] [address] [place], [address], 05/21/2023 14:34:03 05/21/20 23 05/21/2023 urina lysis , dipst ick Unknown Analyte 6.5 Not Available [address] [place], [address], 05/21/2023 14:34:03 05/21/2005/21/2023 urina lysis , dipst ick Unknown Analyte Negati ve Not Available [address] [place], [address], 05/21/2023 14:34:03 05/21/20 23 05/21/2023 urina lysis , dipst ick Unknown Analyte 0.2 E.U./d L Not Available [address] [place], [address], 05/21/2023 14:34:03 05/21/20 23 05/21/2023 urina lysis , dipst ick Unknown Analyte Negati ve Not Available [address] [place], [address], 05/21/2023 14:34:03 05/21/20 23 05/21/2023 urina lysis , dipst ick Unknown Analyte Small Not Available [facility] [place], [address], 05/21/2023 14:34:03 Result Notes None recorded. Problems No Known Problems Medical Equipment None Reported. Allergies Allergen ID Allergen Name Allergen Category Reaction Reaction Severity Criticality Documentation Date Start Date Code Code System Note Provider Name and Address Organization Details Recorded Time 616024 doxycycli ne Not available hives Not available [...] t Available Vitals Date Recorded Body height Provider Name an d Address Organization Details Last Updated DateTime 05/21/2023 152.4 cm April Gil PA - [facility] 14:31:08 Date Recorded Body mass index (BMI) Body weight Provider Name and Address Organization Details Last Updated DateTime 05/21/2023 27.3 kg/m2 01520.93 g April Gil PA - [facility] 05/21/2023 14:31:12 Date Recorded Oxygen saturation Oxygen saturation in Arterial blood by Pulse oximetry Provider Name and Address Organization Details Last Updated DateTime 05/21/2023 99 % 99 % April Gil PA - [facility] 05/21/2023 14:31:24 Date Recorded Pain severity - 0-10 verbal numeric rating [Score] - Reported Provider Name and Address Organization Details Last Updated DateTime 05/21/2023 6 April Gil PA - [facility] 14:31:26 Date Recorded Heart rate Respiratory rate Provider N jacinto and Address Organization Details Last Updated DateTime 05/21/2023 82 /min 18 /min April Gil PA - [facility] 05/21/2023 14:35:39 Date Recorded Body temperature Provider Name a nd Address Organization Details Last Updated DateTime 05/21/2023 98.6 [degF] April Gil PA - [facility] 1 07/21/2022 14:35:43 Date Recorded Systolic blood pressure Diastolic blood pressure Provider Name and Address Organization Details Last Updated DateTime 05/21/2023 163 mm[Hg] 97 mm[Hg] April Gil PA - [facility] 05/21/2023 14:36:02 Social History Question Answer Notes LastModified by Organizat ion Details LastModified Time Tobacco Smoking Status Never Smoker MARIOLA Rosas - [facility] 05/21/2023 14:33:33 What Is Your Level [...] SNOMED-CT Code Diagnosis ICD10 Code Diagnosis Note [id number] [address] [place] [address] 02/15/2020 17:09:16 02/15/2020 18:48:09 [id number] [address] [address] 02/01/2019 19:26:22 02/01/2019 20:14:41 [id number] [place] [address] [place] [address] 05/21/2023 14:20:17 05/21/2023 15:11:33 Dysuria 69877666 R30.0 Health Concerns Section Related Observation LastModified by Organization Detai ls LastModified Time None Recorded Concern Status LastModified by Organization Details LastModified Time None Recorded Advance Directives Directive None Recorded Payers Encounter Date Sequence Insurance Name Policy Number Policy Goetz Covered Member ID Goetz Member ID Guarantor Name 02/15/2020 1 [facility] PLAN (MEDICAID HMO) [id number] Zenaida Rene [id number] Zenaida Rene 05/21/2023 1 [facility] PLAN (MEDICAID HMO) [id number] Zenaida Rene [id number] Zenaida Rene Notes Date Note Type Note Provider Name [...] Elizabeth Younger NP [address] [place], [address], [place] - [facility] 05/21/2023 15:10:25 OBGyn Episode No OBEpisode recorded.
== END 2024-07-27 09:29 | disposition home or self-care (01) ==
LOC: HO.MAMMO 09:28
PROVIDERS: PCP Internal Medicine; Visit Provider Internal Medicine
DX: Z12.31 Encounter for screening mammogram for malignant neoplasm of breast (principal)
CPT/HCPCS: 77063; 77067

== ENCOUNTER → 2024-07-27 09:30 | Outpatient (BNV) | payer OTHER, SELFPAY | PROVIDERS: PCP Internal Medicine; Visit Provider Internal Medicine | DX: Z12.31 Encounter for screening mammogram for malignant neoplasm of breast (principal) | CPT/HCPCS: 77063; 77067 ==

== ENCOUNTER → 2024-08-04 13:57 | Outpatient (BNVA) | payer OTHER, SELFPAY | PROVIDERS: PCP Internal Medicine; Visit Provider Registered Nurse Emergency | DX: Z51.81 Encounter for therapeutic drug level monitoring (principal); M47.816 Spondylosis without myelopathy or radiculopathy, lumbar region; M53.3 Sacrococcygeal disorders, not elsewhere classified; I10 Essential (primary) hypertension; M46.1 Sacroiliitis, not elsewhere classified; M54.9 Dorsalgia, unspecified; M75.20 Bicipital tendinitis, unspecified shoulder; G43.709 Chronic migraine without aura, not intractable, without status migrainosus; G89.4 Chronic pain syndrome; Z79.891 Long term (current) use of opiate analgesic | CPT/HCPCS: 99212 ==

== ENCOUNTER 2024-08-25 10:01 | Outpatient (AMB) | payer OTHER, SELFPAY ==
--- NOTE | 2024-08-25 10:11 | MHC.OFFVIS ---
Vital Signs 08/25/24 10:13 Height 5 ft Weight 127 lb BMI 24.8 BP 137/71 Blood Pressure Location Lt brachial Position Sitting Respiration 16 Pulse 76 Pulse Source Pulse Oximeter Pulse Oximetry (%) 100 Oxygen Delivery Method Room Air Intake Visit Reasons: therapeutic inj of the biceps tendon per tia [employer] Required: No Safety Lead: Safety Lead Present Accompanied by: Jarred Oconnell Allergies doxycycline [DOXYCYCLINE] Allergy (Intermediate, Verified 08/25/24 10:14) RASH Medication List - Last Reconciled 08/25/24 by Nini Restrepo LPN dextroamphetamine-amphetamine 5 mg (Adderall) 5 mg PO TID estradiol 1 patch transdermal 2XW fluticasone propionate 50 mcg/actuation 1 spray intranasal BID ibuprofen 600 mg PO Q6H PRN lidocaine 5% 1 patch topical DAILY loratadine 10 mg PO DAILY methocarbamol 500 mg PO TID PRN morphine 15 mg PO Q12H 30 days naloxone 4 mg/actuation (Narcan) 4 mg intranasal Q2M PRN nicotine (polacrilex) 2 mg buccal Q2H 1 month ondansetron 4 mg PO Q8H PRN 30 days phentermine 37.5 mg PO DAILY progesterone micronized 100 mg PO BEDTIME rimegepant 75 mg PO Q OTHER DAY sacroiliac belt As directed sumatriptan succinate 100 mg PO DAILY PRN topiramate 100 mg PO BEDTIME 90 days [Tylenol 1,000 mg PO DAILY PRN] HPI HPI therapeutic inj of the biceps tendon per tia: Details: History of Present Illness The patient is a 48-year-old female presenting with left shoulder pain. This condition appears to have developed without an acute injury but has been attributed to her occupational activities that involve lifting. There is limited range of motion in the left shoulder that hinders daily activities. Previously, she dealt with right shoulder tendinopathy that resolved with cortisone, but the current left-sided pain has not been addressed with imaging or specific diagnosis yet. She notes tenderness in specific shoulder and biceps movements, raising the concern of tendinitis recurrence. Pain Description - Onset: Unspecified, gradual onset with no acute traumatic event. - Quality and Character: Intermittent, associated with lifting activities. - Primary Location: Left shoulder and biceps. - Radiation: None specified. - Exacerbating Factors: Lifting objects, reaching movements. - Relieving Factors: Avoidance of heavy lifting, resting. - Interference: Limited range of motion especially while performing lifting tasks. - Impact on Daily Activities: Yes, particularly with occupational duties. Physical Exam - Musculoskeletal- Tenderness noted on palpation in the left shoulder area, particularly around the biceps tendon region. Results Pain Management - Affect: Pain impacting patient's work and daily routines. - Analgesia: No mention of current analgesics; potential use of steroids noted for previous condition. - Activities of Daily Living: Pain limits lifting and possible transition in employment roles. [facility] Medical History (Updated 08/25/24 @ 10:38 by Rg Fofana MD) Anxiety Migraines Degenerative disc disease, lumbar Elevated cholesterol ADHD Depression Sacroiliitis Hip osteoarthritis Spondylosis of lumbar region without myelopathy or radiculopathy Dysuria Surgical History H/O section Hx of tonsillectomy History of dilation and curettage Family History (Updated 11/04/23 @ 16:11 by Fallon Cox CMA) Mother No problems noted. Father No problems noted. 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 Current occupational exposures/hazards: No Cognitive needs: No Hearing needs: No Vision needs: No Physical Exam Vital Signs: Last Vital Signs Pulse 76 08/25/24 10:13 Resp 16 08/25/24 10:13 BP 137/71 08/25/24 10:13 Pulse Ox 100 08/25/24 10:13 Oxygen Delivery Method Room Air 08/25/24 10:13 BMI result Body Mass Index 24.8 Office Procedures AMB Joint Injection/Aspiration Joint Injection/Aspiration Primary Site: left shoulder Prep: site was prepped using sterile technique Injected: 20 mg of (at each site), Kenalog, with 4 mL of (ropvacaine 0.25%), in the subcromial space and other (biceps tendon) Approach Used: posterolateral (US guided) Procedure: The patient tolerated the procedure well Coding Details: US image saved to patients record - Bicipital Groove Injection - Acromioclavicular with ultrasound guidance Procedure code (CPT) selection complete Office Meds Kenalog 40 mg/mL suspension for injection Performing Provider: Rg Fofana MD Performing Location: [facility] Documented (not given) by: Rg Fofana MD on 08/31/24 14:10 Dose Route Admin Location Dispensed Lot Number Expiration Date ND [employer]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 mL Assessment & Plan Assessment & Plan (1) Biceps tendonitis: Code(s): M75.20 - Bicipital tendinitis, unspecified shoulder Category: Medical (2) Rotator cuff dysfunction: Code(s): M67.919 - Unspecified disorder of synovium and tendon, unspecified shoulder Category: Medical Plan Plan I addressed the issue of left shoulder pain, suspecting involvement of possible rotator cuff tendinitis and biceps tendinitis. Two separate cortisone injections were administered: one in the subacromial bursa and another at the biceps tendon, aiming to reduce inflammation. If there is no significant improvement, the possibility of MRI imaging will be revisited to comprehend the structural integrity of the shoulder. The patient will follow up as necessary based on symptom resolution and response to current treatment measures. Patient was informed and verbally consented to the use of an ambient scribe for clinic note documentation during this visit. Discussion Notes After discussing the symptoms and possible causes with the patient, we proceeded with corticosteroid injections in the left subacromial bursa and biceps tendon to address the pain and inflammation. The patient was informed of the potential benefits of decreased pain and increased mobility, and the risk of recurrent corticosteroid injections over time. Alternatives, such as MRI imaging, were also discussed if current treatment does not yield desired results. Follow-up was recommended if symptoms persist, and further evaluation such as imaging might be necessary. The patient agreed and understood the treatment plan and follow-up process. Patient Instructions - Avoid lifting heavy objects and strenuous activities for a few days after the injections. - Perform gentle shoulder stretching exercises as tolerated. - Monitor symptoms: improvement should be noted soon; if no relief or worsening occurs, return for follow-up. - Consider further imaging if no substantial improvement in symptoms is experienced. - Follow up as needed to assess progress and response to treatment. Orders: Orders AMB Joint Injection/Aspiration 08/25/24 M75.20 - Bicipital tendinitis, unspecified shoulder Medications: New Kenalog (triamcinolone acetonide) 40 mg Tendon Sheath Inj. ONCE 1 mL 0RF NS M75.20 - Bicipital tendinitis, unspecified shoulder Coding Level of Care Code Est Pt Level 3 (53921) Diagnoses Biceps tendonitis M75.20 Rotator cuff dysfunction M67.919 CPT Codes Coding - Joint 1: 38045 - Bicipital Groove Injection ([id number]) Coding - Joint 6: 63154 - Acromioclavicular with ultrasound guidance ([id number])
[2024-08-25 10:13] VITALS: BP 137/71; PULSE 76; RESP 16; O2SAT 100; BMI 24.8
--- OUTSIDE RECORDS SUMMARY | 2024-08-25 12:03 | XMS_ITS | Data Portability ---
Author Organization MARIOLA Aquino [facility], [address] Address [address] [place] [address] Assessment No assessment recorded. Plan of Treatment Reminders Order Date Submit Date Provider Last Modified By Organization Details Last Modified Time Details Appointments None recorded. Lab urinalysis, dipstick 2022 023 soniya [facility], [address] [place], [address], 3 15:08:13 test, urine 2022 023 soniya [facility], [address] [place], [address], 3 15:08:14 culture, urine 2022 023 [place] [facility], [address] [place] [address], [place], [address], 3 06:06:24 Referral None recorded. Procedures None recorded. Surgeries None recorded. Imaging None recorded. Medication Orders nitrofurant oin monohydrate /macrocryst als 100 mg capsule 2022 023 [place] [id number], [address] [facility], [place], [address], 3 15:08:13 Patient TargetsNo targets recorded. Patient Instructions Encounter Date Encounter Id Patient Instructions Last Modified By Organization Details Last Modified Time 05/21/2023 [id number] painful urinatio n (dysuria): care instructions soniya [...] antibiotic was prescribed. Thank you for using [facility] - please don't hesistate to call our office if you have any questions or concerns. soniya Not available 05/21/2023 15:08:46 Reason for Referral None Reported. Results Created Date Observation Date Name Description Value Unit Range Abnormal Flag Note LastModifiedBy Organization Detail LastModifiedTime 05/21/2005/23/2023 URINE CULTU RE, CHAYA NE urine culture, routine FINAL REPORT Not Available [facility] ([facility]) [address] [place], [address], 05/23/2023 06:06:24 05/21/20 23 05/23/2023 URINE CULTU RE, ROUTI NE result 1 COMMEN T Cultu re shows less than 10,00 0 colon y formi ng units of bacte griffin per rick liter of urine . This colon y count is not gener ally consi dered to be clini marilin roberti niurka osorio. Not Available [facility] ([facility]) [address] [place], [address], 05/23/2023 06:06:24 05/21/20 23 05/21/2023 pregn eduardo test, urine Unknown Analyte negati ve Not Available carole [address] [place], [address], 05/21/2023 14:34:18 05/21/20 23 05/21/2023 pregn eduardo test, urine Unknown Analyte yes Not Available gabo [address] [place], [address], 05/21/2023 14:34:18 05/21/20 23 05/21/2023 urina lysis , dipst ick Unknown Analyte Light Yellow Not Available carole jack [address] [place], [address], 05/21/2023 14:34:03 05/21/20 23 05/21/2023 urina lysis , dipst ick Unknown Analyte Clear Not Available gabo [address] [place], [address], 05/21/2023 14:34:03 05/21/20 23 05/21/2023 urina lysis , dipst ick Unknown Analyte Negati ve Not Available carole jack [address] [place], [address], 05/21/2023 14:34:03 05/21/20 23 05/21/2023 urina lysis , dipst ick Unknown Analyte Negati ve Not Available carole jack [address] [place], [address], 05/21/2023 14:34:03 05/21/20 23 05/21/2023 urina lysis , dipst ick Unknown Analyte Negati ve Not Available carole jack [address] [place], [address], 05/21/2023 14:34:03 05/21/20 23 05/21/2023 urina lysis , dipst ick Unknown Analyte 1.015 Not Available gabo [address] [place], [address], 05/21/2023 14:34:03 05/21/20 23 05/21/2023 urina lysis , dipst ick Unknown Analyte Trace- intact Not Available [facility] [address] [place], [address], 05/21/2023 14:34:03 05/21/20 23 05/21/2023 urina lysis , dipst ick Unknown Analyte 6.5 Not Available [address] [place], [address], 05/21/2023 14:34:03 05/21/2005/21/2023 urina lysis , dipst ick Unknown Analyte Negati ve Not Available [address] [place], [address], 05/21/2023 14:34:03 05/21/20 23 05/21/2023 urina lysis , dipst ick Unknown Analyte 0.2 E.U./d L Not Available [address] [place], [address], 05/21/2023 14:34:03 05/21/20 23 05/21/2023 urina lysis , dipst ick Unknown Analyte Negati ve Not Available [address] [place], [address], 05/21/2023 14:34:03 05/21/20 23 05/21/2023 urina lysis , dipst ick Unknown Analyte Small Not Available [address] [place], [address], 05/21/2023 14:34:03 Result Notes None recorded. Problems No Known Problems Medical Equipment None Reported. Allergies Allergen ID Allergen Name Allergen Category Reaction Reaction Severity Criticality Documentation Date Start Date Code Code System Note Provider Name and Address Organization Details Recorded Time 427929 doxycycli ne Not available hives Not available [...] saturation in Arterial blood by Pulse oximetry Pain severity - 0-10 verbal numeric rating [Score] - Reported Heart rate Respiratory rate Body temperature Systolic blood pressure Diastolic blood pressure Provider Name and Address Organization Details Last Updated DateTime 152.4 cm 27.3 kg/m2 46979.9 3 g 99 % 99 % 6 82 /min 18 /min 98.6 [degF] 163 mm[Hg] 97 mm[Hg] April Aquino [facility] 14:36:02 Social History Question Answer Notes LastModified by JCD ion Details LastModified Time Tobacco Smoking Status Never Smoker MARIOLA Rosas [email or web address] 05/21/2023 14:33:33 What Is Your Level [...] SNOMED-CT Code Diagnosis ICD10 Code Diagnosis Note [id number] [address] [place] [address] 02/15/2020 17:09:16 02/15/2020 18:48:09 [id number] [address] [place] [address] 02/01/2019 19:26:22 02/01/2019 20:14:41 [id number] [place] [address] [place] [address] 05/21/2023 14:20:17 05/21/2023 15:11:33 Dysuria [id number] R30.0 Health Concerns Section Related Observation LastModified by Organization Detai ls LastModified Time None Recorded Concern Status LastModified by Organization Details LastModified Time None Recorded Advance Directives Directive None Recorded Payers Encounter Date Sequence Insurance Name Policy Number Policy Goetz Covered Member ID Goetz Member ID Guarantor Name 02/15/2020 1 [facility] PLAN (MEDICAID HMO) [id number] Zenaida Rene [id number] Zenaida Rene 05/21/2023 1 [facility] PLAN (MEDICAID HMO) [id number] Zenaida Rene [id number] Zenaida Rene Notes Date Note Type [...] Elizabeth Younger NP [address] [place], [address], [place] - [facility] 05/21/2023 15:10:25 OBGyn Episode No OBEpisode recorded.
== END 2024-08-25 10:33 | disposition home or self-care (01) ==
PROVIDERS: PCP Internal Medicine; Visit Provider Internal Medicine
DX: M25.511 Pain in right shoulder (principal); M75.20 Bicipital tendinitis, unspecified shoulder
CPT/HCPCS: 20550; 20611

== ENCOUNTER → 2024-08-25 10:01 | Outpatient (BNVA) | payer OTHER, SELFPAY | PROVIDERS: PCP Internal Medicine; Visit Provider Internal Medicine | DX: M75.22 Bicipital tendinitis, left shoulder (principal); M67.912 Unspecified disorder of synovium and tendon, left shoulder; M25.512 Pain in left shoulder | CPT/HCPCS: 20550; 20611 ==

== ENCOUNTER 2024-09-01 14:11 | Outpatient (AMB) | payer OTHER, SELFPAY ==
[2024-09-01 14:22] VITALS: BP 171/79; PULSE 88; RESP 16; O2SAT 98; BMI 24.8
--- NOTE | 2024-09-01 14:22 | MHC.OFFVIS ---
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 Allergies doxycycline [DOXYCYCLINE] Allergy (Intermediate, Verified 09/01/24 14:27) RASH Medication List - Last Reconciled 09/01/24 by Nini Restrepo LPN dextroamphetamine-amphetamine 5 mg (Adderall) 5 mg PO TID estradiol 1 patch transdermal 2XW fluticasone propionate 50 mcg/actuation 1 spray intranasal BID ibuprofen 600 mg PO Q6H PRN lidocaine 5% 1 patch topical DAILY loratadine 10 mg PO DAILY methocarbamol 500 mg PO TID PRN morphine 15 mg PO Q12H 30 days naloxone 4 mg/actuation (Narcan) 4 mg intranasal Q2M PRN nicotine (polacrilex) 2 mg buccal Q2H 1 month ondansetron 4 mg PO Q8H PRN 30 days phentermine 37.5 mg PO DAILY progesterone micronized 100 mg PO BEDTIME rimegepant 75 mg PO Q OTHER DAY sacroiliac belt As directed sumatriptan succinate 100 mg PO DAILY PRN topiramate 100 mg PO BEDTIME 90 days [Tylenol 1,000 mg PO DAILY PRN] HPI Comments Details: Zenaida is here to discuss with me continuation of her lower back pain treatment. She was offered in this office spinal cord stimulator. She is reluctant to accept this. Spinal cord stimulator was explained to the patient. Sprint PNS was explained to the patient. Detailed conversation was held about risks and benefits of each of the procedures. Psychological evaluation importance was emphasized to the patient. The patient expressed understanding. In May of 2024 she had radiofrequency ablation of medial branches L3-L4 does ramus L5. She reports good pain relief. However she is concerned about radiofrequency ablation in the future fading ineffectiveness. Hence the conversation with her about spinal cord stimulator and peripheral nerve stimulator sprint. She reports constipation. She never tried anything for it. Diet modification with high-fiber diet was recommended to the patient. She is also today for the pill count. She supposed to have 27 pills in her possession. She has 40.5 pills in her possession. Therefore her pill count is correct. The pill count today reflects patient's improvement after radiofrequency ablation as above. Patient is prescribed Morphine 15mg IR take one tab twice daily as needed. She arrived today with the expectation of having 32 pills, she presented 35 pills. Pain is reported today as 6/10 and last dose of pain medication was taken today at 13:30. She had an MRI of the lumbar spine results are as below. Past Procedures: 05/07/24: Bilateral medial branch L3-L4-L5 RFA 11/21/23: Bilateral SIJ injections-60% ongoing pain relief 11/29/22: Right medial branch L3-L4-L5 RFA -60-70% ongoing pain relief 10/15/22: Bilateral SIJ injections-70% ongoing pain relief 04/19/22: Left SIJ injection with steroids-100% ongoing pain relief 04/19/22: Left L3-L4-L5 MB RFA-100% first 2 weeks, then 75-80% ongoing pain relief 02/28/22: Right SIJ injection with steroids-100% ongoing pain relief 02/28/22: Right L3-L4-L5 MB RFA-100% ongoing pain relief 01/08/22: Diagnostic Bilateral L3-L4-DR L5 MBBs- 80% pain relief x36 hours 09/18/21: Diagnostic Bilateral SIJ injections-100% pain relief x72 hours [facility] Medical History (Updated 08/25/24 @ 10:38 by Rg Fofana MD) Anxiety Migraines Degenerative disc disease, lumbar Elevated cholesterol ADHD Depression Sacroiliitis Hip osteoarthritis Spondylosis of lumbar region without myelopathy or radiculopathy Dysuria Surgical History H/O section Hx of tonsillectomy History of dilation and curettage Family History (Updated 11/04/23 @ 16:11 by Fallon Cox CMA) Mother No problems noted. Father No problems noted. 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 Current occupational exposures/hazards: No Cognitive needs: No Hearing needs: No Vision needs: No Review of Systems Const All systems reviewed & are unremarkable except as noted in HPI and below Physical Exam Vital Signs: Last Vital Signs Pulse 88 09/01/24 14:22 Resp 16 09/01/24 14:22 BP 171/79 H 09/01/24 14:22 Pulse Ox 98 09/01/24 14:22 Oxygen Delivery Method Room Air 09/01/24 14:22 BMI result Body Mass Index 24.8 Eyes Pupils: Equal, round and reactive pupils present EOM: EOMs intact bilaterally Chest Chest palpation & inspection: normal inspection of the chest Resp Effort & Inspection: normal respiratory effort, able to speak in complete sentences, normal respiratory pattern, no audible wheezes and no cough Cardio Jugular venous distension: no JVD Back/Spine/Pelvis Other: tenderness on palpation in paraspinal spinal region in lumbar spine. Range of motion in lumbar spine is preserved. Epifanio test is positive bilaterally. Stinchfield test is positive bilaterally, pelvic compression and pelvic distruction test positive bilaterally. loading test is positive bilaterally, SLR is negative bilaterally. Dorsiflexion of the foot forward flexion of the foot and dorsiflexion of the toe is normal normal muscular L4-5 S1 function. Denies Valsalva maneuver positive for pain increase denies dysfunction of pelvic organs.. Lateral rotation and medial rotation of the right hip causes discomfort in the groin. Neuro Cranial nerves: Yes Equal, round and reactive pupils present Psych Speech and movement: Normal speech and movement present Affect: normal affect Attitude: cooperative Thought process: Normal thought process present Thought content: Normal thought content present Insight: Good insight present (Psych) Judgement: Good judgement present (Psych) Results Reviewed Results Reviewed: 07/14/2024 MR/MR lumbar spine wo con FINDINGS: There is normal lumbar lordosis. There is minimal grade 1 retrolisthesis L4 on L5. Rest of the vertebral alignment and normal vertebral heights are normal. There is mild diffuse bulge mildly flattening the ventral thecal sac but without spinal canal stenosis. The neural foramina are patent bilaterally. There is mild loss of L2-3, L3-4 and L4-5 disc heights with mild disc desiccation change. The T12-L1 and L1-2 disc level appears unremarkable. At L2-3 disc level there is mild diffuse bulge with posterior annular tear without spinal stenosis. The neural foramina patent bilaterally. At L3-4 disc level there is mild diffuse bulge without spinal canal stenosis. The neural foramina patent bilaterally. At L4-5 disc level there is broad-based diffuse bulge flattening the ventral thecal sac with bilateral facet degenerative and ligament flavum hypertrophy resulting in bilateral lateral recess and mild neural foraminal narrowing. The finding is slightly more prominent than the previous exam 08/13/2021 At L5-S1 disc level there is a broad-based diffuse bulge without spinal canal stenosis. The neural foramina are patent bilaterally. The bone marrow signal is preserved normal. Conus medullaris terminates at L1 and appears normal in morphology. The paravertebral soft tissues are normal. IMPRESSION: Mild diffuse bulge L2-3, L3-4 and L4-5 disc level slightly worse at the L4-5 disc were compared previous MRI 2021. There is bilateral lateral recess and neural foraminal narrowing at the L4-5 disc level. MRI of the lumbar spine was obtained using routine sequences without contrast. FINDINGS: Alignment is normal. Vertebral body heights are preserved. No acute bone marrow signal changes. There is disc desiccation at multiple levels without substantial loss of intervertebral disc height. The tip of the conus medullaris is located at L1-L2. No mass effect on the conus. Visualized distal cord signal intensity is normal. At L1-L2 the annular contour is normal. No canal or neuroforaminal compromise. At L2-L3 there is an asymmetrically bulging disc to the right. Bilateral facet degenerative change. No canal stenosis. No mass effect on the traversing or foraminal nerve roots. At L3-L4 there is a left foraminal annular fissure associated with a bulging disc. Bilateral facet degenerative change. No canal stenosis. No mass effect on the traversing or foraminal nerve roots. At L4-L5 there is a slightly bulging disc. Bilateral facet degenerative change. No canal stenosis. No mass effect on the traversing or foraminal nerve roots. At L5-S1 there is a slightly bulging disc. No canal stenosis. No mass effect on the traversing or foraminal nerve roots. Limited visualization of the retroperitoneal anatomy reveals no abnormal finding. Psoas and paraspinal muscle groups are symmetric. IMPRESSION: There is disc degeneration at multiple levels within the lumbar spine as described above. No canal stenosis. No mass effect on the traversing or foraminal nerve roots. 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.891 - half-way (current) use of opiate analgesic Category: Medical (2) Chronic pain syndrome: Code(s): G89.4 - Chronic pain syndrome Category: Medical (3) Spondylosis of lumbar region without myelopathy or radiculopathy: Code(s): M47.816 - Spondylosis without myelopathy or radiculopathy, lumbar region Category: Medical (4) Sacroiliac joint dysfunction: Comment: Awaiting injection. Stable on current medications Code(s): M53.3 - Sacrococcygeal disorders, not elsewhere classified Category: Medical (5) Hypertension: Comment: continue to monitor. will trial GLP for weight loss. Code(s): I10 - Essential (primary) hypertension Category: Medical Qualifiers: Hypertension type: primary hypertension Qualified Code(s): I10 - Essential (primary) hypertension (6) Sacroiliitis: Code(s): M46.1 - Sacroiliitis, not elsewhere classified Category: Medical (7) Headache, chronic migraine without aura: Code(s): G43.709 - Chronic migraine without aura, not intractable, without status migrainosus Category: Medical (8) Dorsalgia: Code(s): M54.9 - Dorsalgia, unspecified Category: Medical (9) Biceps tendonitis: Code(s): M75.20 - Bicipital tendinitis, unspecified shoulder Category: Medical Plan Masspat was reviewed and without concerns. No obvious signs of diversion, abuse or misuse of the opioid medications. New prescription for Morphine 15mg IR take one tab twice daily as needed, dispense #60. The new prescription Is due on 09/17/2024 SCS was explained to the patient today. Nevro SCS seem to be preferable for the patient. Sprint PNS was also explained to the patient today. The patient will be thinking about it . Risks and benefits were carefully explained to the patient . Patient reports constipation. Diet modification for now is recommended. If it will not be helpful OICe COULD BE TREATED WITH MOVANTIK. Medications: Refilled morphine Partial Fill upon patient request. 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 Coding Level of Care Code Est Pt Level 4 (87645) Diagnoses Opioid contract exists Z79.891 Chronic pain syndrome G89.4 Spondylosis of lumbar region without myelopathy or radiculopathy M47.816 Sacroiliac joint dysfunction M53.3 Primary hypertension I10 Hypertension type: primary hypertension Sacroiliitis M46.1 Headache, chronic migraine without aura G43.709 Dorsalgia M54.9 Biceps tendonitis M75.20
--- OUTSIDE RECORDS SUMMARY | 2024-09-01 17:07 | XMS_ITS | Data Portability ---
Author Organization [facility]A [facility], [address] Address [address] [place] [address] Assessment No assessment recorded. Plan of Treatment Reminders Order Date Submit Date Provider Last Modified By Organization Details Last Modified Time Details Appointments None recorded. Lab urinalysis, dipstick 2022 023 [facility], [address] [place], [address], 3 15:08:13 test, urine 2022 023 [facility], [address] [place], [address], 3 15:08:14 culture, urine 2022 023 [place] [facility], [address] [place] [address], [place], [address], 3 06:06:24 Referral None recorded. Procedures None recorded. Surgeries None recorded. Imaging None recorded. Medication Orders nitrofurant oin monohydrate /macrocryst als 100 mg capsule 2022 023 [place] [id number], [address] [facility], [place], [address], 3 15:08:13 Patient TargetsNo targets recorded. Patient Instructions Encounter Date Encounter Id Patient Instructions Last Modified By Organization Details Last Modified Time 05/21/2023 [id number] painful urinatio n (dysuria): care instructions soniya [...] antibiotic was prescribed. Thank you for using [facility] - please don't hesistate to call our office if you have any questions or concerns. soniya Not available 05/21/2023 15:08:46 Reason for Referral None Reported. Results Created Date Observation Date Name Description Value Unit Range Abnormal Flag Note LastModifiedBy Organization Detail LastModifiedTime 05/21/2005/23/2023 URINE CULTU RE, CHAYA NE urine culture, routine FINAL REPORT Not Available [facility] ([facility]) [address] [place], [address], 05/23/2023 06:06:24 05/21/20 23 05/23/2023 URINE CULTU RE, ROUTI NE result 1 COMMEN T Cultu re shows less than 10,00 0 colon y formi ng units of bacte griffin per rick liter of urine . This colon y count is not gener ally consi dered to be clini marilin roberti niurka osorio. Not Available [facility] ([facility]) [address] [place], [address], 05/23/2023 06:06:24 05/21/20 23 05/21/2023 pregn eduardo test, urine Unknown Analyte negati ve Not Available carole [address] [place], [address], 05/21/2023 14:34:18 05/21/20 23 05/21/2023 pregn eduardo test, urine Unknown Analyte yes Not Available [facility] [address] [place], [address], 05/21/2023 14:34:18 05/21/20 23 05/21/2023 urina lysis , dipst ick Unknown Analyte Light Yellow Not Available carole jack [address] [place], [address], 05/21/2023 14:34:03 05/21/20 23 05/21/2023 urina lysis , dipst ick Unknown Analyte Clear Not Available [facility] [address] [place], [address], 05/21/2023 14:34:03 05/21/20 23 05/21/2023 urina lysis , dipst ick Unknown Analyte Negati ve Not Available carole jack [address] [place], [address], 05/21/2023 14:34:03 05/21/20 23 05/21/2023 urina lysis , dipst ick Unknown Analyte Negati ve Not Available carole jack [address] [place], [address], 05/21/2023 14:34:03 05/21/20 23 05/21/2023 urina lysis , dipst ick Unknown Analyte Negati ve Not Available carole jack [address] [place], [address], 05/21/2023 14:34:03 05/21/20 23 05/21/2023 urina lysis , dipst ick Unknown Analyte 1.015 Not Available [facility] [address] [place], [address], 05/21/2023 14:34:03 05/21/20 23 05/21/2023 urina lysis , dipst ick Unknown Analyte Trace- intact Not Available [facility] [address] [place], [address], 05/21/2023 14:34:03 05/21/20 23 05/21/2023 urina lysis , dipst ick Unknown Analyte 6.5 Not Available [address] [place], [address], 05/21/2023 14:34:03 05/21/2005/21/2023 urina lysis , dipst ick Unknown Analyte Negati ve Not Available [address] [place], [address], 05/21/2023 14:34:03 05/21/20 23 05/21/2023 urina lysis , dipst ick Unknown Analyte 0.2 E.U./d L Not Available [address] [place], [address], 05/21/2023 14:34:03 05/21/20 23 05/21/2023 urina lysis , dipst ick Unknown Analyte Negati ve Not Available [address] [place], [address], 05/21/2023 14:34:03 05/21/20 23 05/21/2023 urina lysis , dipst ick Unknown Analyte Small Not Available [address] [place], [address], 05/21/2023 14:34:03 Result Notes None recorded. Problems No Known Problems Medical Equipment None Reported. Allergies Allergen ID Allergen Name Allergen Category Reaction Reaction Severity Criticality Documentation Date Start Date Code Code System Note Provider Name and Address Organization Details Recorded Time 378156 doxycycli ne Not available hives Not available [...] Last Updated DateTime 152.4 cm 27.3 kg/m2 17426.9 3 g 99 % 99 % 6 82 /min 18 /min 98.6 [degF] 163 mm[Hg] 97 mm[Hg] April Aquino [facility] 14:36:02 Social History Question Answer Notes LastModified by [employer] ion Details LastModified Time Tobacco Smoking Status Never Smoker MARIOLA Rosas [facility] 05/21/2023 14:33:33 What Is Your Level [...] SNOMED-CT Code Diagnosis ICD10 Code Diagnosis Note [id number] [address] [place] [address] 02/15/2020 17:09:16 02/15/2020 18:48:09 [id number] [address] [place] [address] 02/01/2019 19:26:22 02/01/2019 20:14:41 [id number] [place] [address] [place] [address] 05/21/2023 14:20:17 05/21/2023 15:11:33 Dysuria [id number] R30.0 Health Concerns Section Related Observation LastModified by Organization Detai ls LastModified Time None Recorded Concern Status LastModified by Organization Details LastModified Time None Recorded Advance Directives Directive None Recorded Payers Encounter Date Sequence Insurance Name Policy Number Policy Goetz Covered Member ID Goetz Member ID Guarantor Name 02/15/2020 1 [facility] (MEDICAID HMO) [id number] Zenaida Rene [id number] Zenaida Rene 05/21/2023 1 [facility] PL[facility] (MEDICAID HMO) [id number] Zenaida Rene [id number] Zenaida Rene Notes Date Note Type [...] Elizabeth Younger NP [address] [place], [address], [place] - [facility] 05/21/2023 15:10:25 OBGyn Episode No OBEpisode recorded.
== END 2024-09-01 14:48 | disposition home or self-care (01) ==
PROVIDERS: PCP Internal Medicine; Visit Provider Anesthesiology
DX: G89.4 Chronic pain syndrome (principal); M47.816 Spondylosis without myelopathy or radiculopathy, lumbar region; M53.3 Sacrococcygeal disorders, not elsewhere classified; Z79.891 Long term (current) use of opiate analgesic; I10 Essential (primary) hypertension; M46.1 Sacroiliitis, not elsewhere classified; G43.709 Chronic migraine without aura, not intractable, without status migrainosus; M54.9 Dorsalgia, unspecified; M75.20 Bicipital tendinitis, unspecified shoulder
CPT/HCPCS: 99214

== ENCOUNTER → 2024-09-01 14:11 | Outpatient (BNVA) | payer OTHER, SELFPAY | PROVIDERS: PCP Internal Medicine; Visit Provider Anesthesiology | DX: Z51.81 Encounter for therapeutic drug level monitoring (principal); M47.816 Spondylosis without myelopathy or radiculopathy, lumbar region; M53.3 Sacrococcygeal disorders, not elsewhere classified; M46.1 Sacroiliitis, not elsewhere classified; I10 Essential (primary) hypertension; G89.4 Chronic pain syndrome; Z79.891 Long term (current) use of opiate analgesic | CPT/HCPCS: 99212 ==

== ENCOUNTER 2024-09-29 16:13 | Outpatient (AMB) | payer OTHER, SELFPAY ==
[2024-09-29 16:17] VITALS: BP 132/90; PULSE 99; O2SAT 100; BMI 23.8
--- NOTE | 2024-09-29 16:17 | A.OFFVIS_ITS ---
Vital Signs 09/29/24 16:17 Height 5 ft Weight 122 lb BMI 23.8 BP 132/90 H Blood Pressure Location Lt brachial Position Sitting Pulse 99 Pulse Source Pulse Oximeter Pulse Oximetry (%) 100 Oxygen Delivery Method Room Air Intake Visit Reasons: PILL COUNT/okay per Shonda. Ceiling Insulation Blower Required: No Allergies doxycycline [DOXYCYCLINE] Allergy (Intermediate, Verified 09/29/24 16:19) RASH HPI Comments Details: Zenaida presents back to the office today for follow up chronic pain and chronic opioid therapy management. Patient is prescribed Morphine 15mg IR take one tab twice daily as needed. She arrived today with the expectation of having 36 pills, she presented 37 pills. Pain is reported today as 4/10 and last dose of pain medication was taken today. Denies side effects including somnolence, constipation, itching, dyspnea, rash, dizziness or weakness. Started orientation for new job here at [employer] [facility] [employer]. Planning to remain working at her other job for a little while to get caught up on bills. Past Procedures: 05/07/24: Bilateral medial branch L3-L4-L5 RFA 11/21/23: Bilateral SIJ injections-60% ongoing pain relief 11/29/22: Right medial branch L3-L4-L5 RFA -60-70% ongoing pain relief 10/15/22: Bilateral SIJ injections-70% ongoing pain relief 04/19/22: Left SIJ injection with steroids-100% ongoing pain relief 04/19/22: Left L3-L4-L5 MB RFA-100% first 2 weeks, then 75-80% ongoing pain relief 02/28/22: Right SIJ injection with steroids-100% ongoing pain relief 02/28/22: Right L3-L4-L5 MB RFA-100% ongoing pain relief 01/08/22: Diagnostic Bilateral L3-L4-DR L5 MBBs- 80% pain relief x36 hours 09/18/21: Diagnostic Bilateral SIJ injections-100% pain relief x72 hours [facility] Medical History (Updated 09/29/24 @ 16:22 by Valeri Mora APRN, IT SERVICE TECHNICIAN) Anxiety Migraines Degenerative disc disease, lumbar Elevated cholesterol ADHD Depression Sacroiliitis Hip osteoarthritis Spondylosis of lumbar region without myelopathy or radiculopathy Dysuria Surgical History H/O section Hx of tonsillectomy History of dilation and curettage Family History (Updated 11/04/23 @ 16:11 by Fallon Cox CMA) Mother No problems noted. Father No problems noted. 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 Answers questions appropriately. Fully engaged in examination. Skin: warm, dry, intact HEENT: Normocephalic. Hearing intact. Cardiac: External chest normal in appearance. Respiratory: No cough, audible wheezing or stridor. Abdomen: without gross distension. MS: No obvious swelling or deformities. Able to transition from sit to stand unassisted. Left shoulder: Pain with behind the back reach, otherwise full range of motion. Neurological: Oriented to person, place, time and situation. Thought process intact. No gait abnormalities appreciated. Psychiatric: Appropriate mood and affect. Good judgment and insight. Results Reviewed Results Reviewed: 07/14/2024 MR/MR lumbar spine wo con FINDINGS: There is normal lumbar lordosis. There is minimal grade 1 retrolisthesis L4 on L5. Rest of the vertebral alignment and normal vertebral heights are normal. There is mild diffuse bulge mildly flattening the ventral thecal sac but without spinal canal stenosis. The neural foramina are patent bilaterally. There is mild loss of L2-3, L3-4 and L4-5 disc heights with mild disc desiccation change. The T12-L1 and L1-2 disc level appears unremarkable. At L2-3 disc level there is mild diffuse bulge with posterior annular tear without spinal stenosis. The neural foramina patent bilaterally. At L3-4 disc level there is mild diffuse bulge without spinal canal stenosis. The neural foramina patent bilaterally. At L4-5 disc level there is broad-based diffuse bulge flattening the ventral thecal sac with bilateral facet degenerative and ligament flavum hypertrophy resulting in bilateral lateral recess and mild neural foraminal narrowing. The finding is slightly more prominent than the previous exam 08/13/2021 At L5-S1 disc level there is a broad-based diffuse bulge without spinal canal stenosis. The neural foramina are patent bilaterally. The bone marrow signal is preserved normal. Conus medullaris terminates at L1 and appears normal in morphology. The paravertebral soft tissues are normal. IMPRESSION: Mild diffuse bulge L2-3, L3-4 and L4-5 disc level slightly worse at the L4-5 disc were compared previous MRI 2021. There is bilateral lateral recess and neural foraminal narrowing at the L4-5 disc level. MRI of the lumbar spine was obtained using routine sequences without contrast. FINDINGS: Alignment is normal. Vertebral body heights are preserved. No acute bone marrow signal changes. There is disc desiccation at multiple levels without substantial loss of intervertebral disc height. The tip of the conus medullaris is located at L1-L2. No mass effect on the conus. Visualized distal cord signal intensity is normal. At L1-L2 the annular contour is normal. No canal or neuroforaminal compromise. At L2-L3 there is an asymmetrically bulging disc to the right. Bilateral facet degenerative change. No canal stenosis. No mass effect on the traversing or foraminal nerve roots. At L3-L4 there is a left foraminal annular fissure associated with a bulging disc. Bilateral facet degenerative change. No canal stenosis. No mass effect on the traversing or foraminal nerve roots. At L4-L5 there is a slightly bulging disc. Bilateral facet degenerative change. No canal stenosis. No mass effect on the traversing or foraminal nerve roots. At L5-S1 there is a slightly bulging disc. No canal stenosis. No mass effect on the traversing or foraminal nerve roots. Limited visualization of the retroperitoneal anatomy reveals no abnormal finding. Psoas and paraspinal muscle groups are symmetric. IMPRESSION: There is disc degeneration at multiple levels within the lumbar spine as described above. No canal stenosis. No mass effect on the traversing or foraminal nerve roots. 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.891 - halfway (current) use of opiate analgesic Category: Medical (2) Chronic pain syndrome: Code(s): G89.4 - Chronic pain syndrome Category: Medical (3) Spondylosis of lumbar region without myelopathy or radiculopathy: Code(s): M47.816 - Spondylosis without myelopathy or radiculopathy, lumbar region Category: Medical (4) Sacroiliac joint dysfunction: Code(s): M53.3 - Sacrococcygeal disorders, not elsewhere classified Category: Medical (5) Hypertension: Code(s): I10 - Essential (primary) hypertension Category: Medical Qualifiers: Hypertension type: primary hypertension Qualified Code(s): I10 - Essential (primary) hypertension (6) Sacroiliitis: Code(s): M46.1 - Sacroiliitis, not elsewhere classified Category: Medical (7) Headache, chronic migraine without aura: Code(s): G43.709 - Chronic migraine without aura, not intractable, without status migrainosus Category: Medical (8) Dorsalgia: Code(s): M54.9 - Dorsalgia, unspecified Category: Medical (9) Biceps tendonitis: Code(s): M75.20 - Bicipital tendinitis, unspecified shoulder Category: Medical Plan Masspat was reviewed and without concerns. No obvious signs of diversion, abuse or misuse of the opioid medications. New prescription for Morphine 15mg IR take one tab twice daily as needed, dispense #60. Natalia SCS discussed at previous 2 visits. She has pamphlet home to review. Remains hesitant and not ready to commit at this time. All questions and concerns have been answered and patient agrees with the plan. Follow-up in the office in 1 month, sooner if needed. Medications: Refilled morphine Partial Fill upon patient request. 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
--- OUTSIDE RECORDS SUMMARY | 2024-09-29 18:04 | XMS_ITS | Data Portability ---
Author Organization MARIOLA Aquino [facility], [address] Address [address] [place] [address] Assessment No assessment recorded. Plan of Treatment Reminders Order Date Submit Date Provider Last Modified By Organization Details Last Modified Time Details Appointments None recorded. Lab urinalysis, dipstick 2022 023 [facility] [address] [place], [address], 3 15:08:13 test, urine 2022 023 [facility], [address] [place], [address], 3 15:08:14 culture, urine 2022 023 [place] [facility], [address] [place] [address], [place], [address], 3 06:06:24 Referral None recorded. Procedures None recorded. Surgeries None recorded. Imaging None recorded. Medication Orders nitrofurant oin monohydrate /macrocryst als 100 mg capsule 2022 023 [place] [id number], [address] [facility], [place], [address], 3 15:08:13 Patient TargetsNo targets recorded. Patient Instructions Encounter Date Encounter Id Patient Instructions Last Modified By Organization Details Last Modified Time 05/21/2023 [id number] painful urinatio n (dysuria): care instructions soniya [...] antibiotic was prescribed. Thank you for using [facility] - please don't hesistate to call our office if you have any questions or concerns. soniya Not available 05/21/2023 15:08:46 Reason for Referral None Reported. Results Created Date Observation Date Name Description Value Unit Range Abnormal Flag Note LastModifiedBy Organization Detail LastModifiedTime 05/21/2005/23/2023 URINE CULTU RE, CHAYA NE urine culture, routine FINAL REPORT Not Available [facility] ([facility]) [address] [place], [address], 05/23/2023 06:06:24 05/21/20 23 05/23/2023 URINE CULTU RE, ROUTI NE result 1 COMMEN T Cultu re shows less than 10,00 0 colon y formi ng units of bacte griffin per rick liter of urine . This colon y count is not gener ally consi dered to be clini marilin roberti niurka osorio. Not Available [facility] ([facility]) [address] [place], [address], 05/23/2023 06:06:24 05/21/20 23 05/21/2023 pregn eduardo test, urine Unknown Analyte negati ve Not Available [facility] [address] [place], [address], 05/21/2023 14:34:18 05/21/20 23 05/21/2023 pregn eduardo test, urine Unknown Analyte yes Not Available [facility] [address] [place], [address], 05/21/2023 14:34:18 05/21/20 23 05/21/2023 urina lysis , dipst ick Unknown Analyte Light Yellow Not Available carole jack [address] [place], [address], 05/21/2023 14:34:03 05/21/20 23 05/21/2023 urina lysis , dipst ick Unknown Analyte Clear Not Available [facility] [address] [place], [address], 05/21/2023 14:34:03 05/21/20 23 05/21/2023 urina lysis , dipst ick Unknown Analyte Negati ve Not Available carole jack [address] [place], [address], 05/21/2023 14:34:03 05/21/20 23 05/21/2023 urina lysis , dipst ick Unknown Analyte Negati ve Not Available carole jack [address] [place], [address], 05/21/2023 14:34:03 05/21/20 23 05/21/2023 urina lysis , dipst ick Unknown Analyte Negati ve Not Available carole jack [address] [place], [address], 05/21/2023 14:34:03 05/21/20 23 05/21/2023 urina lysis , dipst ick Unknown Analyte 1.015 Not Available [facility] [address] [place], [address], 05/21/2023 14:34:03 05/21/20 23 05/21/2023 urina lysis , dipst ick Unknown Analyte Trace- intact Not Available [facility] [address] [place], [address], 05/21/2023 14:34:03 05/21/20 23 05/21/2023 urina lysis , dipst ick Unknown Analyte 6.5 Not Available [address] [place], [address], 05/21/2023 14:34:03 05/21/2005/21/2023 urina lysis , dipst ick Unknown Analyte Negati ve Not Available [address] [place], [address], 05/21/2023 14:34:03 05/21/20 23 05/21/2023 urina lysis , dipst ick Unknown Analyte 0.2 E.U./d L Not Available [address] [place], [address], 05/21/2023 14:34:03 05/21/20 23 05/21/2023 urina lysis , dipst ick Unknown Analyte Negati ve Not Available [address] [place], [address], 05/21/2023 14:34:03 05/21/20 23 05/21/2023 urina lysis , dipst ick Unknown Analyte Small Not Available [address] [place], [address], 05/21/2023 14:34:03 Result Notes None recorded. Problems No Known Problems Medical Equipment None Reported. Allergies Allergen ID Allergen Name Allergen Category Reaction Reaction Severity Criticality Documentation Date Start Date Code Code System Note Provider Name and Address Organization Details Recorded Time [id number] doxycycli ne Not available hives Not available [...] Last Updated DateTime 152.4 cm 27.3 kg/m2 59360.9 3 g 99 % 99 % 6 82 /min 18 /min 98.6 [degF] 163 mm[Hg] 97 mm[Hg] April Aquino [facility] 14:36:02 Social History Question Answer Notes LastModified by [employer] ion Details LastModified Time Tobacco Smoking Status Never Smoker MARIOLA Rosas [facility] 05/21/2023 14:33:33 What Is Your Level [...] SNOMED-CT Code Diagnosis ICD10 Code Diagnosis Note [id number] [address] [place] [address] 02/15/2020 17:09:16 02/15/2020 18:48:09 [id number] [address] [place] [address] 02/01/2019 19:26:22 02/01/2019 20:14:41 [id number] [place] [address] [place] [address] 05/21/2023 14:20:17 05/21/2023 15:11:33 Dysuria [id number] R30.0 Health Concerns Section Related Observation LastModified by Organization Detai ls LastModified Time None Recorded Concern Status LastModified by Organization Details LastModified Time None Recorded Advance Directives Directive None Recorded Payers Encounter Date Sequence Insurance Name Policy Number Policy Goetz Covered Member ID Goetz Member ID Guarantor Name 02/15/2020 1 [facility] (MEDICAID HMO) [id number] Zenaiad Rene [id number] Zenaida Rene 05/21/2023 1 [facility] PL[facility] (MEDICAID HMO) [id number] Zenaida Rene [id number] Zenaida Rene Notes Date Note Type Note [...] Elizabeth Younger NP [address] [place], [address], [place] - [facility] 05/21/2023 15:10:25 OBGyn Episode No OBEpisode recorded.
== END 2024-09-29 16:33 | disposition home or self-care (01) ==
LOC: HO.PMC 16:14
PROVIDERS: PCP Internal Medicine; Visit Provider Registered Nurse Emergency
DX: Z79.891 Long term (current) use of opiate analgesic (principal); G89.4 Chronic pain syndrome; M47.816 Spondylosis without myelopathy or radiculopathy, lumbar region; M53.3 Sacrococcygeal disorders, not elsewhere classified; I10 Essential (primary) hypertension; M46.1 Sacroiliitis, not elsewhere classified; G43.709 Chronic migraine without aura, not intractable, without status migrainosus; M54.9 Dorsalgia, unspecified; M75.20 Bicipital tendinitis, unspecified shoulder
CPT/HCPCS: 99214; G2211

== ENCOUNTER → 2024-09-29 16:13 | Outpatient (BNVA) | payer OTHER, SELFPAY | PROVIDERS: PCP Internal Medicine; Visit Provider Registered Nurse Emergency | DX: Z51.81 Encounter for therapeutic drug level monitoring (principal); M47.816 Spondylosis without myelopathy or radiculopathy, lumbar region; M53.3 Sacrococcygeal disorders, not elsewhere classified; M46.1 Sacroiliitis, not elsewhere classified; M54.9 Dorsalgia, unspecified; M75.20 Bicipital tendinitis, unspecified shoulder; G43.709 Chronic migraine without aura, not intractable, without status migrainosus; G89.4 Chronic pain syndrome; Z79.891 Long term (current) use of opiate analgesic | CPT/HCPCS: 99212 ==

== ENCOUNTER 2024-10-27 13:18 | Outpatient (AMB) | payer OTHER, SELFPAY ==
--- NOTE | 2024-10-27 13:28 | MHC.OFFVIS ---
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 Allergies doxycycline [DOXYCYCLINE] Allergy (Intermediate, Verified 10/27/24 13:31) RASH Medication List - Last Reconciled 10/27/24 by Nini Restrepo LPN dextroamphetamine-amphetamine 5 mg (Adderall) 5 mg PO TID estradiol 1 patch transdermal 2XW fluticasone propionate 50 mcg/actuation 1 spray intranasal BID ibuprofen 600 mg PO Q6H PRN lidocaine 5% 1 patch topical DAILY loratadine 10 mg PO DAILY methocarbamol 500 mg PO TID PRN morphine 15 mg PO Q12H 30 days naloxone 4 mg/actuation (Narcan) 4 mg intranasal Q2M PRN nicotine (polacrilex) 2 mg buccal Q2H 1 month ondansetron 4 mg PO Q8H PRN 30 days progesterone micronized 200 mg (2 x 100 mg) PO BEDTIME rimegepant 75 mg PO Q OTHER DAY sacroiliac belt As directed sumatriptan succinate 100 mg PO DAILY PRN topiramate 100 mg PO BEDTIME 90 days [Tylenol 1,000 mg PO DAILY PRN] HPI Comments Details: The patient is a 49-year-old female presenting with chronic lower back pain for chronic opioid management. The pain, persistent in nature, relates to her surgical history of sections which weakened her core muscles and she suspects contributed to her back issues. This has been further aggravated by her occupational duties, as she finds her 3-11 PM work shift exceptionally challenging, leading to ongoing fatigue and altered rest patterns. She has undertaken physical therapy in the past and engages in core-strengthening exercises, such as using resistance bands, experiencing minor relief from these activities. The patient manages her back discomfort at work by utilizing vibrational massage chairs and cold packs, which provide temporary relief. No notable pain is present at rest, but she anticipates increased soreness by day's end. Patient is prescribed Morphine 15mg IR take one tab twice daily as needed. She arrived today with the expectation of having 40 pills, she presented 44 pills. Pain is reported today as 2/10 and last dose of pain medication was taken today at 5am - Onset: Many years ago. - Quality and Character: Soreness and stiffness more than acute pain. - Location: Lower back. - Exacerbating Factors: Physical exertion, prolonged standing and activity during work shifts. - Relieving Factors: Core-strengthening exercises, utilizing massage chairs, ice packs. - Impact: Significant effect on daily activities, particularly post-shift soreness and fatigue. - Affect: Alteration in sleep pattern and daily regimen due to pain and work schedule. - Analgesia: Use of prescribed opioid medication, current pain level reported as 1 or 2 out of 10 when not aggravated. - Adverse Effects: None reported; soreness attributed to exercise efforts. - Activities of Daily Living: Pain impacts occupational performance and induces fatigue, efforts to improve functional status through exercise noted. - Aberrant Drug Related Behaviors: No abnormal behaviors reported; use of medication noted to align with therapeutic purpose. Prior: Zenaida presents back to the office today for follow up chronic pain and chronic opioid therapy management. Patient is prescribed Morphine 15mg IR take one tab twice daily as needed. She arrived today with the expectation of having 36 pills, she presented 37 pills. Pain is reported today as 4/10 and last dose of pain medication was taken today. Denies side effects including somnolence, constipation, itching, dyspnea, rash, dizziness or weakness. Started orientation for new job here at [employer] [place]. Planning to remain working at her other job for a little while to get caught up on bills. Past Procedures: 05/07/24: Bilateral medial branch L3-L4-L5 RFA 11/21/23: Bilateral SIJ injections-60% ongoing pain relief 11/29/22: Right medial branch L3-L4-L5 RFA -60-70% ongoing pain relief 10/15/22: Bilateral SIJ injections-70% ongoing pain relief 04/19/22: Left SIJ injection with steroids-100% ongoing pain relief 04/19/22: Left L3-L4-L5 MB RFA-100% first 2 weeks, then 75-80% ongoing pain relief 02/28/22: Right SIJ injection with steroids-100% ongoing pain relief 02/28/22: Right L3-L4-L5 MB RFA-100% ongoing pain relief 01/08/22: Diagnostic Bilateral L3-L4-DR L5 MBBs- 80% pain relief x36 hours 09/18/21: Diagnostic Bilateral SIJ injections-100% pain relief x72 hours [facility] Medical History (Updated 09/29/24 @ 16:22 by Valeri Mora APRN, FILE DRAWER FINISHER) Anxiety Migraines Degenerative disc disease, lumbar Elevated cholesterol ADHD Depression Sacroiliitis Hip osteoarthritis Spondylosis of lumbar region without myelopathy or radiculopathy Dysuria Surgical History H/O section Hx of tonsillectomy History of dilation and curettage Family History (Updated 11/04/23 @ 16:11 by Fallon Cox CMA) Mother No problems noted. Father No problems noted. 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 - Neurological: Denies any significant pain at rest, occupying soreness levels of 1 or 2. Physical Exam Vital Signs: Last Vital Signs Pulse 90 10/27/24 13:29 Resp 16 10/27/24 13:29 BP 140/70 H 10/27/24 13:29 Pulse Ox 97 10/27/24 13:29 Oxygen Delivery Method Room Air 10/27/24 13:29 BMI result Body Mass Index 23.8 General: awake, alert, oriented. Answers questions appropriately. Fully engaged in examination. Skin: warm, dry, intact HEENT: Normocephalic. Hearing intact. Cardiac: External chest normal in appearance. Respiratory: No cough, audible wheezing or stridor. Abdomen: without gross distension. MS: No obvious swelling or deformities. Able to transition from sit to stand unassisted. Ambulates with bilaterally normal heel strike and toe off Neurological: Oriented to person, place, time and situation. Thought process intact. No gait abnormalities appreciated. Psychiatric: Appropriate mood and affect. Good judgment and insight. Results Reviewed Results Reviewed: 07/14/2024 MR/MR lumbar spine wo con FINDINGS: There is normal lumbar lordosis. There is minimal grade 1 retrolisthesis L4 on L5. Rest of the vertebral alignment and normal vertebral heights are normal. There is mild diffuse bulge mildly flattening the ventral thecal sac but without spinal canal stenosis. The neural foramina are patent bilaterally. There is mild loss of L2-3, L3-4 and L4-5 disc heights with mild disc desiccation change. The T12-L1 and L1-2 disc level appears unremarkable. At L2-3 disc level there is mild diffuse bulge with posterior annular tear without spinal stenosis. The neural foramina patent bilaterally. At L3-4 disc level there is mild diffuse bulge without spinal canal stenosis. The neural foramina patent bilaterally. At L4-5 disc level there is broad-based diffuse bulge flattening the ventral thecal sac with bilateral facet degenerative and ligament flavum hypertrophy resulting in bilateral lateral recess and mild neural foraminal narrowing. The finding is slightly more prominent than the previous exam 08/13/2021 At L5-S1 disc level there is a broad-based diffuse bulge without spinal canal stenosis. The neural foramina are patent bilaterally. The bone marrow signal is preserved normal. Conus medullaris terminates at L1 and appears normal in morphology. The paravertebral soft tissues are normal. IMPRESSION: Mild diffuse bulge L2-3, L3-4 and L4-5 disc level slightly worse at the L4-5 disc were compared previous MRI 2021. There is bilateral lateral recess and neural foraminal narrowing at the L4-5 disc level. MRI of the lumbar spine was obtained using routine sequences without contrast. FINDINGS: Alignment is normal. Vertebral body heights are preserved. No acute bone marrow signal changes. There is disc desiccation at multiple levels without substantial loss of intervertebral disc height. The tip of the conus medullaris is located at L1-L2. No mass effect on the conus. Visualized distal cord signal intensity is normal. At L1-L2 the annular contour is normal. No canal or neuroforaminal compromise. At L2-L3 there is an asymmetrically bulging disc to the right. Bilateral facet degenerative change. No canal stenosis. No mass effect on the traversing or foraminal nerve roots. At L3-L4 there is a left foraminal annular fissure associated with a bulging disc. Bilateral facet degenerative change. No canal stenosis. No mass effect on the traversing or foraminal nerve roots. At L4-L5 there is a slightly bulging disc. Bilateral facet degenerative change. No canal stenosis. No mass effect on the traversing or foraminal nerve roots. At L5-S1 there is a slightly bulging disc. No canal stenosis. No mass effect on the traversing or foraminal nerve roots. Limited visualization of the retroperitoneal anatomy reveals no abnormal finding. Psoas and paraspinal muscle groups are symmetric. IMPRESSION: There is disc degeneration at multiple levels within the lumbar spine as described above. No canal stenosis. No mass effect on the traversing or foraminal nerve roots. 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.891 - residential (current) use of opiate analgesic Category: Medical (2) Chronic pain syndrome: Code(s): G89.4 - Chronic pain syndrome Category: Medical (3) Spondylosis of lumbar region without myelopathy or radiculopathy: Code(s): M47.816 - Spondylosis without myelopathy or radiculopathy, lumbar region Category: Medical (4) Sacroiliac joint dysfunction: Code(s): M53.3 - Sacrococcygeal disorders, not elsewhere classified Category: Medical (5) Sacroiliitis: Code(s): M46.1 - Sacroiliitis, not elsewhere classified Category: Medical (6) Headache, chronic migraine without aura: Code(s): G43.709 - Chronic migraine without aura, not intractable, without status migrainosus Category: Medical (7) Dorsalgia: Code(s): M54.9 - Dorsalgia, unspecified Category: Medical Plan The patient will maintain current non-pharmacological pain management strategies, emphasizing exercises to improve core strength and utilizing massage chairs and ice packs for relief during work shifts. Encouragement is given towards consistent exercise engagement to enhance muscle support and possibly defer surgical intervention. I discussed with the patient the ongoing management of her chronic lower back pain, emphasizing the importance of continued core-strengthening exercises and appropriate use of pain-relief measures during work breaks. We reviewed the lack of current indications for surgical intervention, given her ongoing improvement with non-invasive measures. We concluded on the importance of balancing workplace activities with rest periods and the anticipated impact these will have on her current management strategies. Masspat was reviewed and without concerns. No obvious signs of diversion, abuse or misuse of the opioid medications. New prescription for Morphine 15mg IR take one tab twice daily as needed, dispense #60. Patient was informed and verbally consented to the use of an ambient scribe for clinic note documentation during this visit. Medications: Refilled morphine Partial Fill upon patient request. 15 mg PO Q12H 60 tabs 0RF pain 30 days G89.4 - Chronic pain syndrome, M46.1 - Sacroiliitis, not elsewhere classified, M47.816 - Spondylosis without myelopathy or radiculopathy, lumbar region, Z79.891 - residential (current) use of opiate analgesic Patient Instructions: - Continue core-strengthening exercises regularly as instructed. - Use massage chairs and ice packs during work breaks for relief. - Report any significant changes in pain or function. - Engage in rest periods and ensure adequate sleep to manage fatigue. Coding Level of Care Code Est Pt Level 4 (17380) Complex EM visit Add On G2211 Diagnoses Opioid contract exists Z79.891 Chronic pain syndrome G89.4 Spondylosis of lumbar region without myelopathy or radiculopathy M47.816 Sacroiliac joint dysfunction M53.3 Sacroiliitis M46.1 Headache, chronic migraine without aura G43.709 Dorsalgia M54.9
[2024-10-27 13:29] VITALS: BP 140/70; PULSE 90; RESP 16; O2SAT 97; BMI 23.8
--- OUTSIDE RECORDS SUMMARY | 2024-10-27 14:37 | XMS_ITS | Data Portability ---
Author Organization MARIOLA Aquino [facility], [address] Address [address] [place] [address] Assessment No assessment recorded. Plan of Treatment Reminders Order Date Submit Date Provider Last Modified By Organization Details Last Modified Time Details Appointments None recorded. Lab urinalysis, dipstick 2022 023 soniya [facility]999[facility], [address] [place], [address], 3 15:08:13 test, urine 2022 023 soniya [facility], [address] [place], [address], 3 15:08:14 culture, urine 2022 023 [place] [facility], [address] [place] [address], [place], [address], 3 06:06:24 Referral None recorded. Procedures None recorded. Surgeries None recorded. Imaging None recorded. Medication Orders nitrofurant oin monohydrate /macrocryst als 100 mg capsule 2022 023 [place] [id number], [address] [facility], [place], [address], 3 15:08:13 Patient TargetsNo targets recorded. Patient Instructions Encounter Date Encounter Id Patient Instructions Last Modified By Organization Details Last Modified Time 05/21/2023 [id number] painful urinatio n (dysuria): care instructions soniya [...] antibiotic was prescribed. Thank you for using [facility] - please don't hesistate to call our office if you have any questions or concerns. soniya Not available 05/21/2023 15:08:46 Reason for Referral None Reported. Results Created Date Observation Date Name Description Value Unit Range Abnormal Flag Note LastModifiedBy Organization Detail LastModifiedTime 05/21/2005/23/2023 URINE CULTU RE, CHAYA NE urine culture, routine FINAL REPORT Not Available [facility] ([facility]) [address] [place], [address], 05/23/2023 06:06:24 05/21/20 23 05/23/2023 URINE CULTU RE, ROUTI NE result 1 COMMEN T Cultu re shows less than 10,00 0 colon y formi ng units of bacte griffin per rick liter of urine . This colon y count is not gener ally consi dered to be clini marilin roberti niurka osorio. Not Available [facility] ([facility]) [address] [place], [address], 05/23/2023 06:06:24 05/21/20 23 05/21/2023 pregn eduardo test, urine Unknown Analyte negati ve Not Available car[facility] [address] [place], [address], 05/21/2023 14:34:18 05/21/20 23 05/21/2023 pregn eduardo test, urine Unknown Analyte yes Not Available [facility] [address] [place], [address], 05/21/2023 14:34:18 05/21/20 23 05/21/2023 urina lysis , dipst ick Unknown Analyte Light Yellow Not Available carole jack [address] [place], [address], 05/21/2023 14:34:03 05/21/20 23 05/21/2023 urina lysis , dipst ick Unknown Analyte Clear Not Available [facility] [address] [place], [address], 05/21/2023 14:34:03 05/21/20 23 05/21/2023 urina lysis , dipst ick Unknown Analyte Negati ve Not Available carole jack [address] [place], [address], 05/21/2023 14:34:03 05/21/20 23 05/21/2023 urina lysis , dipst ick Unknown Analyte Negati ve Not Available carole jack [address] [place], [address], 05/21/2023 14:34:03 05/21/20 23 05/21/2023 urina lysis , dipst ick Unknown Analyte Negati ve Not Available carole jack [address] [place], [address], 05/21/2023 14:34:03 05/21/20 23 05/21/2023 urina lysis , dipst ick Unknown Analyte 1.015 Not Available [facility] [address] [place], [address], 05/21/2023 14:34:03 05/21/20 23 05/21/2023 urina lysis , dipst ick Unknown Analyte Trace- intact Not Available [facility] [address] [place], [address], 05/21/2023 14:34:03 05/21/20 23 05/21/2023 urina lysis , dipst ick Unknown Analyte 6.5 Not Available [address] [place], [address], 05/21/2023 14:34:03 05/21/2005/21/2023 urina lysis , dipst ick Unknown Analyte Negati ve Not Available [address] [place], [address], 05/21/2023 14:34:03 05/21/20 23 05/21/2023 urina lysis , dipst ick Unknown Analyte 0.2 E.U./d L Not Available [address] [place], [address], 05/21/2023 14:34:03 05/21/20 23 05/21/2023 urina lysis , dipst ick Unknown Analyte Negati ve Not Available [address] [place], [address], 05/21/2023 14:34:03 05/21/20 23 05/21/2023 urina lysis , dipst ick Unknown Analyte Small Not Available [address] [place], [address], 05/21/2023 14:34:03 Result Notes None recorded. Problems No Known Problems Medical Equipment None Reported. Allergies Allergen ID Allergen Name Allergen Category Reaction Reaction Severity Criticality Documentation Date Start Date Code Code System Note Provider Name and Address Organization Details Recorded Time [id number] doxycycli ne Not available hives Not available [...] Last Updated DateTime 152.4 cm 27.3 kg/m2 22292.9 3 g 99 % 99 % 6 82 /min 18 /min 98.6 [degF] 163 mm[Hg] 97 mm[Hg] April Aquino [facility] 14:36:02 Social History Question Answer Notes LastModified by [employer] an [employer] ion Details LastModified Time Tobacco Smoking Status Never Smoker MARIOLA Rosas [facility] 05/21/2023 14:33:33 What Is Your Level [...] SNOMED-CT Code Diagnosis ICD10 Code Diagnosis Note [id number] [address] [place] [address] 02/15/2020 17:09:16 02/15/2020 18:48:09 [id number] [address] [place] [address] 02/01/2019 19:26:22 02/01/2019 20:14:41 [id number] [place] [address] [place] [address] 05/21/2023 14:20:17 05/21/2023 15:11:33 Dysuria [id number] R30.0 Health Concerns Section Related Observation LastModified by Organization Detai ls LastModified Time None Recorded Concern Status LastModified by Organization Details LastModified Time None Recorded Advance Directives Directive None Recorded Payers Encounter Date Sequence Insurance Name Policy Number Policy Goetz Covered Member ID [employer]etz Member ID Guarantor Name 02/15/2020 1 [employer] PLAN (MEDICAID O) [id number] Zenaida Rene [id number] Zenaida Rene 05/21/2023 1 [employer] PLAN (MEDICAID HMO) [id number] Zenaida Rene [id number] Zenaida Rene Notes Date Note Type [...] with similar start [place] Younger NP [address] [place], [address], [place] - [facility] 05/21/2023 15:10:25 OBGyn Episode No OBEpisode recorded.
== END 2024-10-27 13:53 | disposition home or self-care (01) ==
PROVIDERS: PCP Internal Medicine; Visit Provider Registered Nurse Emergency
DX: Z79.891 Long term (current) use of opiate analgesic (principal); G89.4 Chronic pain syndrome; M47.816 Spondylosis without myelopathy or radiculopathy, lumbar region; M53.3 Sacrococcygeal disorders, not elsewhere classified; M46.1 Sacroiliitis, not elsewhere classified; G43.709 Chronic migraine without aura, not intractable, without status migrainosus; M54.9 Dorsalgia, unspecified
CPT/HCPCS: 99214

== ENCOUNTER 2024-11-23 12:40 | Outpatient (AMB) | payer OTHER, SELFPAY ==
--- OUTSIDE RECORDS SUMMARY | 2024-11-23 12:42 | XMS_ITS | Data Portability ---
Author Organization [facility]IOLA [facility], [address] Address [address] [place] [address] Assessment No assessment recorded. Plan of Treatment Reminders Order Date Submit Date Provider Last Modified By Organization Details Last Modified Time Details Appointments None recorded. Lab urinalysis, dipstick 2022 023 soniya 20999[facility], [address] [place], [address], 3 15:08:13 test, urine 2022 023 soniya [facility], [address] [place], [address], 3 15:08:14 culture, urine 2022 023 [place] [facility], [address] [place] [address], [place], [address], 3 06:06:24 Referral None recorded. Procedures None recorded. Surgeries None recorded. Imaging None recorded. Medication Orders nitrofurant oin monohydrate /macrocryst als 100 mg capsule 2022 023 [place] [id number], [address] [facility], [place], [address], 3 15:08:13 Patient TargetsNo targets recorded. Patient Instructions Encounter Date Encounter Id Patient Instructions Last Modified By Organization Details Last Modified Time 05/21/2023 [id number] painful urinatio n (dysuria): care instructions soniya [...] antibiotic was prescribed. Thank you for using [facility] - please don't hesistate to call our office if you have any questions or concerns. soniya Not available 05/21/2023 15:08:46 Reason for Referral None Reported. Results Created Date Observation Date Name Description Value Unit Range Abnormal Flag Note LastModifiedBy Organization Detail LastModifiedTime 05/21/2005/23/2023 URINE CULTU RE, CHAYA NE urine culture, routine FINAL REPORT Not Available [facility] ([facility]) [address] [place], [address], 05/23/2023 06:06:24 05/21/20 23 05/23/2023 URINE CULTU RE, ROUTI NE result 1 COMMEN T Cultu re shows less than 10,00 0 colon y formi ng units of bacte griffin per rick liter of urine . This colon y count is not gener ally consi dered to be clini marilin roberti niurka osorio. Not Available [facility] ([facility]) [address] [place], [address], 05/23/2023 06:06:24 05/21/20 23 05/21/2023 pregn eduardo test, urine Unknown Analyte negati ve Not Available carole [address] [place], [address], 05/21/2023 14:34:18 05/21/20 23 05/21/2023 pregn eduardo test, urine Unknown Analyte yes Not Available gabo [address] [place], [address], 05/21/2023 14:34:18 05/21/20 23 05/21/2023 urina lysis , dipst ick Unknown Analyte Light Yellow Not Available carole jack [address] [place], [address], 05/21/2023 14:34:03 05/21/20 23 05/21/2023 urina lysis , dipst ick Unknown Analyte Clear Not Available g[facility] [address] [place], [address], 05/21/2023 14:34:03 05/21/20 23 05/21/2023 urina lysis , dipst ick Unknown Analyte Negati ve Not Available carole jack [address] [place], [address], 05/21/2023 14:34:03 05/21/20 23 05/21/2023 urina lysis , dipst ick Unknown Analyte Negati ve Not Available carole jack [address] [place], [address], 05/21/2023 14:34:03 05/21/20 23 05/21/2023 urina lysis , dipst ick Unknown Analyte Negati ve Not Available carole jack [address] [place], [address], 05/21/2023 14:34:03 05/21/20 23 05/21/2023 urina lysis , dipst ick Unknown Analyte 1.015 Not Available gabo [address] [place], [address], 05/21/2023 14:34:03 05/21/20 23 05/21/2023 urina lysis , dipst ick Unknown Analyte Trace- intact Not Available [facility] [address] [place], [address], 05/21/2023 14:34:03 05/21/20 23 05/21/2023 urina lysis , dipst ick Unknown Analyte 6.5 Not Available [address] [place], [address], 05/21/2023 14:34:03 05/21/2005/21/2023 urina lysis , dipst ick Unknown Analyte Negati ve Not Available [address] [place], [address], 05/21/2023 14:34:03 05/21/20 23 05/21/2023 urina lysis , dipst ick Unknown Analyte 0.2 E.U./d L Not Available [address] [place], [address], 05/21/2023 14:34:03 05/21/20 23 05/21/2023 urina lysis , dipst ick Unknown Analyte Negati ve Not Available [address] [place], [address], 05/21/2023 14:34:03 05/21/20 23 05/21/2023 urina lysis , dipst ick Unknown Analyte Small Not Available [address] [place], [address], 05/21/2023 14:34:03 Result Notes None recorded. Problems No Known Problems Medical Equipment None Reported. Allergies Allergen ID Allergen Name Allergen Category Reaction Reaction Severity Criticality Documentation Date Start Date Code Code System Note Provider Name and Address Organization Details Recorded Time [id number] doxycycli ne Not available hives Not available [...] Heart rate Respiratory rate Body temperature Systolic And Diastolic Provider Name and Address Organization Details Last Updated DateTime 152.4 cm 27.3 kg/m2 36341.9 3 g 99 % 99 % 82 /min 18 /min 98.6 [degF] 163/97 mm[Hg] April GARNETT [facility] 14:36:02 Social History Question Answer Notes LastModified by DEMANDIT Details LastModified Time Tobacco Smoking Status Never Smoker April zabala PA [facility] 05/21/2023 14:33:33 Have You Had A Flu Shot This Season? Yes Information not available 05/21/2023 Have You Recently Traveled Abroad? No Information not available 05/21/2023 Sex: Unknown Functional Status Question Answer Note LastModified by DEMANDIT Details LastModified Time Do you use any illicit or recreational drugs? No Information not available 05/21/2023 Do you or have you ever used any other forms of tobacco or nicotine? No Information not available 05/21/2023 What is your level of alcohol consumption? None Information not available 05/21/2023 Mental Status None recorded. Family History Relationship [...] SNOMED-CT Code Diagnosis ICD10 Code Diagnosis Note [id number] [address] [place] [address] 02/15/2020 17:09:16 02/15/2020 18:48:09 [id number] [address] [place] [address] 02/01/2019 19:26:22 02/01/2019 20:14:41 [id number] [place] [address] [place] [address] 05/21/2023 14:20:17 05/21/2023 15:11:33 Dysuria [id number] R30.0 Health Concerns Section Related Observation LastModified by Organization Detai ls LastModified Time None Recorded Concern Status LastModified by Organization Details LastModified Time None Recorded Advance Directives Directive None Recorded Payers Insurance Date Sequence Insurance Name Policy Number Policy Goetz Covered Member ID Goetz Member ID Guarantor Name 05/21/2023 1 [facility] (MEDICAID HMO) [id number] Zenaida Rene [id number] Zenaida Rene Notes Date Note Type [...] Elizabeth Younger NP [address] [place], [address], [place] - [employer] [facility] 05/21/2023 15:10:25 OBGyn Episode No OBEpisode recorded.
--- NOTE | 2024-11-23 13:49 | AM.OFFWIN_ITS ---
Intake Vital Signs 11/23/24 13:57 Height 5 ft Weight 122 lb BMI 23.8 BP 126/78 Blood Pressure Location Rt brachial Position Sitting Pulse 68 Pulse Source Pulse Oximeter Pulse Oximetry (%) 98 Oxygen Delivery Method Room Air Intake Visit Reasons: EP UTI?? Intake Note: Patient here for lower abdominal pain and pressure that has been present for a few days. Patient Tobacco Use Status: Former Tobacco user Allergies doxycycline [DOXYCYCLINE] Allergy (Intermediate, Verified 11/23/24 13:55) RASH Do you need a note to return to daycare/school/sports/work: No HPI HPI Comments History of Present Illness Details 49 y/o Female patient who presents to [facility] clinic with c/o Urinary Frequency, urgency, and dysuria for few days now. Denies fevers, chills, nausea or vomiting. She does have h/o Frequent UTIs and was followed by Urology. She does have h/o Interstitial cystitis. [facility] Medical History (Updated 11/23/24 @ 14:53 by Merary George NP) Anxiety Migraines Degenerative disc disease, lumbar Elevated cholesterol ADHD Depression Sacroiliitis Hip osteoarthritis Spondylosis of lumbar region without myelopathy or radiculopathy Dysuria Surgical History H/O section Hx of tonsillectomy History of dilation and curettage Family History (Updated 11/04/23 @ 16:11 by Fallon Cox CMA) Mother No problems noted. Father No problems noted. 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 Current occupational exposures/hazards: No Cognitive needs: No Hearing needs: No Vision needs: No Review of Systems Const All systems reviewed & are unremarkable except as noted in HPI and below Physical Exam Vital Signs: Last Vital Signs Pulse 68 11/23/24 13:57 BP 126/78 11/23/24 13:57 Pulse Ox 98 11/23/24 13:57 Oxygen Delivery Method Room Air 11/23/24 13:57 BMI result Body Mass Index 23.8 Const General: no acute distress; No comfortable Orientation/consciousness: patient oriented x3 General: Yes no CVA tenderness Back/Spine/Pelvis Back: no CVA tenderness Neuro General: patient oriented x3, gait normal and moves all extremities Psych Speech and movement: Normal speech and movement present Results AMB Urinalysis, Automated UA Leukoctes 500 Omkar/uL Last Edit by Mable Cevallos [facility] on 11/23/24 14: 11 UA Nitrite Positive Last Edit by Mable Cevallos [facility] on 11/23/24 14:11 UA Urobilinogen 8 mg/dL Last Edit by Mable Cevallos [facility] on 11/23/24 14: 11 UA Protein 15 mg/dL Last Edit by Mable Cevallos [facility] on 11/23/24 14:11 UA pH 5.0 Last Edit by Mable Cevallos [facility] on 11/23/24 14:11 UA Blood 10 Miah/uL Last Edit by Mable Cevallos [facility] on 11/23/24 14:11 UA Specific Sunspot 1.020 Last Edit by Mable Cevallos [facility] on 11/23/24 14:11 UA Ketone Positive Last Edit by Mable Cevallos [facility] on 11/23/24 14:11 UA Bilirubin 4 mg/dL Last Edit by DianaAndres Cevallos [facility] on 11/23/24 14:11 UA Glucose 500 mg/dL Last Edit by Mable Cevallos [facility] on 11/23/24 14:11 Results Reviewed Results Reviewed: Laboratory Last Values Urine pH (Auto) 5.0 11/23/24 14:09 Specific Sunspot (Auto) 1.020 11/23/24 14:09 Urine Protein (Auto) 15 mg/dL 11/23/24 14:09 Glucose (UA)(Auto) 500 mg/dL 11/23/24 14:09 Urine Ketones (Auto) Positive 11/23/24 14:09 Urine Blood (Auto) 10 Miah/uL 11/23/24 14:09 Urine Nitrite (Auto) Positive 11/23/24 14:09 Urine Bilirubin (Auto) 4 mg/dL 11/23/24 14:09 Urine Urobilinogen (Auto) 8 mg/dL 11/23/24 14:09 Leukocyte Esterase (Auto) 500 Omkar/uL 11/23/24 14:09 Assessment & Plan Assessment & Plan (1) UTI (urinary tract infection): Code(s): N39.0 - Urinary tract infection, site not specified Qualifiers: Hematuria presence: without hematuria Urinary tract infection type: acute cystitis Qualified Code(s): N30.00 - Acute cystitis without hematuria Plan: U/A positive for Leuko & NIT Will send urine for C&S. Ordered Cipro for 5 days. Orders: Orders AMB Urinalysis Automated Today Z13.9 - Encounter for screening, unspecified UA CC w/rflx Micro + Cult Today N39.0 - Urinary tract infection, site not specified Medications: New ciprofloxacin HCl 500 mg PO BID 10 tabs 0RF 5 days N39.0 - Urinary tract infection, site not specified Coding Level of Care Code Est Pt Level 4 (66516) Diagnoses Acute cystitis without hematuria N30.00 Hematuria presence: without hematuria Urinary tract infection type: acute cystitis Time Spent (min) 20
[2024-11-23 13:57] VITALS: BP 126/78; PULSE 68; O2SAT 98; BMI 23.8
== END 2024-11-23 14:54 | disposition home or self-care (01) ==
PROVIDERS: PCP Internal Medicine; Visit Provider Nurse Practitioner Family
DX: N30.00 Acute cystitis without hematuria (principal); Z13.9 Encounter for screening, unspecified

== ENCOUNTER 2024-11-23 12:40 | Outpatient (REF) | payer OTHER, SELFPAY | END 2024-11-23 12:41 | disposition home or self-care (01) | LOC: HO.LAB 12:40 | PROVIDERS: PCP Internal Medicine | DX: N30.00 Acute cystitis without hematuria (principal) | CPT/HCPCS: 81003 ==

== ENCOUNTER 2024-11-24 13:56 | Outpatient (AMB) | payer OTHER, SELFPAY ==
--- NOTE | 2024-11-24 14:00 | MHC.OFFVIS ---
Vital Signs 11/24/24 14:01 BP 135/67 Blood Pressure Location Rt brachial Position Sitting Pulse 72 Pulse Source Pulse Oximeter Pulse Oximetry (%) 100 Oxygen Delivery Method Room Air Intake Visit Reasons: Pill Count Intake Note: Patient presented today 11/23/24 with 0 pills of morphine 15mg. 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 Patient is prescribed Morphine 15mg IR take one tab twice daily as needed. She arrived today with the expectation of having 0 pills, she presented 0 pills. Pain is reported today as 5/10. Denies side effects including somnolence, constipation, itching, dyspnea, rash, dizziness or weakness. Recently started new job here at [employer]. Due to changes with her insurance the pharmacy was unable to fill a 30 day supply. She was given a one-week supply, she ran out yesterday. Today she is suffering with some mild withdrawal symptoms, runny nose, nausea and overall feeling unwell. Prior Auth pending approval. Past Procedures: 05/07/24: Bilateral medial branch L3-L4-L5 RFA 11/21/23: Bilateral SIJ injections-60% ongoing pain relief 11/29/22: Right medial branch L3-L4-L5 RFA -60-70% ongoing pain relief 10/15/22: Bilateral SIJ injections-70% ongoing pain relief 04/19/22: Left SIJ injection with steroids-100% ongoing pain relief 04/19/22: Left L3-L4-L5 MB RFA-100% first 2 weeks, then 75-80% ongoing pain relief 02/28/22: Right SIJ injection with steroids-100% ongoing pain relief 02/28/22: Right L3-L4-L5 MB RFA-100% ongoing pain relief 01/08/22: Diagnostic Bilateral L3-L4-DR L5 MBBs- 80% pain relief x36 hours 09/18/21: Diagnostic Bilateral SIJ injections-100% pain relief x72 hours [facility] Medical History (Updated 11/23/24 @ 14:53 by Merary George NP) Anxiety Migraines Degenerative disc disease, lumbar Elevated cholesterol ADHD Depression Sacroiliitis Hip osteoarthritis Spondylosis of lumbar region without myelopathy or radiculopathy Dysuria Surgical History H/O section Hx of tonsillectomy History of dilation and curettage Family History (Updated 11/04/23 @ 16:11 by Fallon Cox CMA) Mother No problems noted. Father No problems noted. 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 Answers questions appropriately. Fully engaged in examination. Skin: warm, dry, intact HEENT: Normocephalic. Hearing intact. Cardiac: External chest normal in appearance. Respiratory: No cough, audible wheezing or stridor. Abdomen: without gross distension. MS: No obvious swelling or deformities. Able to transition from sit to stand unassisted. Ambulates with bilaterally normal heel strike and toe off Neurological: Oriented to person, place, time and situation. Thought process intact. No gait abnormalities appreciated. Psychiatric: Appropriate mood and affect. Good judgment and insight. Results Reviewed Results Reviewed: 07/14/2024 MR/MR lumbar spine wo con FINDINGS: There is normal lumbar lordosis. There is minimal grade 1 retrolisthesis L4 on L5. Rest of the vertebral alignment and normal vertebral heights are normal. There is mild diffuse bulge mildly flattening the ventral thecal sac but without spinal canal stenosis. The neural foramina are patent bilaterally. There is mild loss of L2-3, L3-4 and L4-5 disc heights with mild disc desiccation change. The T12-L1 and L1-2 disc level appears unremarkable. At L2-3 disc level there is mild diffuse bulge with posterior annular tear without spinal stenosis. The neural foramina patent bilaterally. At L3-4 disc level there is mild diffuse bulge without spinal canal stenosis. The neural foramina patent bilaterally. At L4-5 disc level there is broad-based diffuse bulge flattening the ventral thecal sac with bilateral facet degenerative and ligament flavum hypertrophy resulting in bilateral lateral recess and mild neural foraminal narrowing. The finding is slightly more prominent than the previous exam 08/13/2021 At L5-S1 disc level there is a broad-based diffuse bulge without spinal canal stenosis. The neural foramina are patent bilaterally. The bone marrow signal is preserved normal. Conus medullaris terminates at L1 and appears normal in morphology. The paravertebral soft tissues are normal. IMPRESSION: Mild diffuse bulge L2-3, L3-4 and L4-5 disc level slightly worse at the L4-5 disc were compared previous MRI 2021. There is bilateral lateral recess and neural foraminal narrowing at the L4-5 disc level. MRI of the lumbar spine was obtained using routine sequences without contrast. FINDINGS: Alignment is normal. Vertebral body heights are preserved. No acute bone marrow signal changes. There is disc desiccation at multiple levels without substantial loss of intervertebral disc height. The tip of the conus medullaris is located at L1-L2. No mass effect on the conus. Visualized distal cord signal intensity is normal. At L1-L2 the annular contour is normal. No canal or neuroforaminal compromise. At L2-L3 there is an asymmetrically bulging disc to the right. Bilateral facet degenerative change. No canal stenosis. No mass effect on the traversing or foraminal nerve roots. At L3-L4 there is a left foraminal annular fissure associated with a bulging disc. Bilateral facet degenerative change. No canal stenosis. No mass effect on the traversing or foraminal nerve roots. At L4-L5 there is a slightly bulging disc. Bilateral facet degenerative change. No canal stenosis. No mass effect on the traversing or foraminal nerve roots. At L5-S1 there is a slightly bulging disc. No canal stenosis. No mass effect on the traversing or foraminal nerve roots. Limited visualization of the retroperitoneal anatomy reveals no abnormal finding. Psoas and paraspinal muscle groups are symmetric. IMPRESSION: There is disc degeneration at multiple levels within the lumbar spine as described above. No canal stenosis. No mass effect on the traversing or foraminal nerve roots. 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 Category: Medical (2) Chronic pain syndrome: Code(s): G89.4 - Chronic pain syndrome Category: Medical (3) Spondylosis of lumbar region without myelopathy or radiculopathy: Code(s): M47.816 - Spondylosis without myelopathy or radiculopathy, lumbar region Category: Medical (4) Sacroiliac joint dysfunction: Code(s): M53.3 - Sacrococcygeal disorders, not elsewhere classified Category: Medical (5) Hypertension: Code(s): I10 - Essential (primary) hypertension Category: Medical Qualifiers: Hypertension type: primary hypertension Qualified Code(s): I10 - Essential (primary) hypertension (6) Sacroiliitis: Code(s): M46.1 - Sacroiliitis, not elsewhere classified Category: Medical (7) Headache, chronic migraine without aura: Code(s): G43.709 - Chronic migraine without aura, not intractable, without status migrainosus Category: Medical (8) Dorsalgia: Code(s): M54.9 - Dorsalgia, unspecified Category: Medical (9) Biceps tendonitis: Code(s): M75.20 - Bicipital tendinitis, unspecified shoulder Category: Medical Plan [employer]pat was reviewed and without concerns. No obvious signs of diversion, abuse or misuse of the opioid medications. New prescription for Morphine 15mg IR take one tab twice daily as needed, dispense #14. Call was placed to the patient's insurance company, they will fill 1 week prescription today while her prior Auth is pending. Questionnaire was received from [employer] benefits, this was filled out signed and sent back to them for review. Remainder of the prescription will be sent once prior authorization is approved. Previously we discussed spinal cord stimulation, due to her new job she is unable to take time off and would like to postpone this. All questions and concerns have been answered and patient agrees with the plan. Follow-up in the office in 1 month, sooner if needed. Medications: Refilled morphine Partial Fill upon patient request. 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
[2024-11-24 14:01] VITALS: BP 135/67; PULSE 72; O2SAT 100
--- OUTSIDE RECORDS SUMMARY | 2024-11-24 14:53 | XMS_ITS | Data Portability ---
Author Organization MARIOLA Aquino [facility], [address] Address [address] [place] [address] Assessment No assessment recorded. Plan of Treatment Reminders Order Date Submit Date Provider Last Modified By Organization Details Last Modified Time Details Appointments None recorded. Lab urinalysis, dipstick 2022 023 soniya 20999[facility], [address] [place], [address], 3 15:08:13 test, urine 2022 023 soniya [facility], [address] [place], [address], 3 15:08:14 culture, urine 2022 023 NUNDA [facility], [address] [place] [address], [place], [address], 3 06:06:24 Referral None recorded. Procedures None recorded. Surgeries None recorded. Imaging None recorded. Medication Orders nitrofurant oin monohydrate /macrocryst als 100 mg capsule 2022 023 NUNDA [id number], [address] [facility], [place], [address], 3 15:08:13 Patient TargetsNo targets recorded. Patient Instructions Encounter Date Encounter Id Patient Instructions Last Modified By Organization Details Last Modified Time 05/21/2023 [id number] painful urinatio n (dysuria): care instructions soniya [...] antibiotic was prescribed. Thank you for using [employer] - please don't hesistate to call our office if you have any questions or concerns. soniya Not available 05/21/2023 15:08:46 Reason for Referral None Reported. Results Created Date Observation Date Name Description Value Unit Range Abnormal Flag Note LastModifiedBy Organization Detail LastModifiedTime 05/21/2005/23/2023 URINE CULTU RE, CHAYA NE urine culture, routine FINAL REPORT Not Available [facility] ([facility]) [address] [place], [address], 05/23/2023 06:06:24 05/21/20 23 05/23/2023 URINE CULTU RE, ROUTI NE result 1 COMMEN T Cultu re shows less than 10,00 0 colon y formi ng units of bacte griffin per rick liter of urine . This colon y count is not gener ally consi dered to be clini marilin roberti niurka osorio. Not Available [facility] ([facility]) [address] [place], [address], 05/23/2023 06:06:24 05/21/20 23 05/21/2023 pregn eduardo test, urine Unknown Analyte negati ve Not Available carole [address] [place], [address], 05/21/2023 14:34:18 05/21/20 23 05/21/2023 pregn eduardo test, urine Unknown Analyte yes Not Available gabo [address] [place], [address], 05/21/2023 14:34:18 05/21/20 23 05/21/2023 urina lysis , dipst ick Unknown Analyte Light Yellow Not Available carole jack [address] [place], [address], 05/21/2023 14:34:03 05/21/20 23 05/21/2023 urina lysis , dipst ick Unknown Analyte Clear Not Available gabo [address] [place], [address], 05/21/2023 14:34:03 05/21/20 23 05/21/2023 urina lysis , dipst ick Unknown Analyte Negati ve Not Available carole jack [address] [place], [address], 05/21/2023 14:34:03 05/21/20 23 05/21/2023 urina lysis , dipst ick Unknown Analyte Negati ve Not Available carole jack [address] [place], [address], 05/21/2023 14:34:03 05/21/20 23 05/21/2023 urina lysis , dipst ick Unknown Analyte Negati ve Not Available carole jack [address] [place], [address], 05/21/2023 14:34:03 05/21/20 23 05/21/2023 urina lysis , dipst ick Unknown Analyte 1.015 Not Available gabo [address] [place], [address], 05/21/2023 14:34:03 05/21/20 23 05/21/2023 urina lysis , dipst ick Unknown Analyte Trace- intact Not Available [facility] [address] [place], [address], 05/21/2023 14:34:03 05/21/20 23 05/21/2023 urina lysis , dipst ick Unknown Analyte 6.5 Not Available [address] [place], [address], 05/21/2023 14:34:03 05/21/2005/21/2023 urina lysis , dipst ick Unknown Analyte Negati ve Not Available [address] [place], [address], 05/21/2023 14:34:03 05/21/20 23 05/21/2023 urina lysis , dipst ick Unknown Analyte 0.2 E.U./d L Not Available [address] [place], [address], 05/21/2023 14:34:03 05/21/20 23 05/21/2023 urina lysis , dipst ick Unknown Analyte Negati ve Not Available [address] [place], [address], 05/21/2023 14:34:03 05/21/20 23 05/21/2023 urina lysis , dipst ick Unknown Analyte Small Not Available [address] [place], [address], 05/21/2023 14:34:03 Result Notes None recorded. Problems No Known Problems Medical Equipment None Reported. Allergies Allergen ID Allergen Name Allergen Category Reaction Reaction Severity Criticality Documentation Date Start Date Code Code System Note Provider Name and Address Organization Details Recorded Time 211531 doxycycli ne Not available hives Not available [...] Last Updated DateTime 152.4 cm 27.3 kg/m2 66798.9 3 g 99 % 99 % 82 /min 18 /min 98.6 [degF] 163 mm[Hg] 97 mm[Hg] April GARNETT [employer] 14:36:02 Social History Question Answer Notes LastModified by Joturl Details LastModified Time Tobacco Smoking Status Never Smoker April zabala [employer] 05/21/2023 14:33:33 Have You Had A Flu Shot This Season? Yes Information not available 05/21/2023 Have You Recently Traveled Abroad? No Information not available 05/21/2023 Sex: Unknown Functional Status Question Answer Note LastModified by Joturl Details LastModified Time Do you use any [...] SNOMED-CT Code Diagnosis ICD10 Code Diagnosis Note [id number] [address] [place] [address] 02/15/2020 17:09:16 02/15/2020 18:48:09 [id number] [place] [address] 02/01/2019 19:26:22 02/01/2019 20:14:41 [id number] [place] [address] [place] [address] 05/21/2023 14:20:17 05/21/2023 15:11:33 Dysuria [id number] R30.0 Health Concerns Section Related Observation LastModified by Organization Detai ls LastModified Time None Recorded Concern Status LastModified by Organization Details LastModified Time None Recorded Advance Directives Directive None Recorded Payers Insurance Date Sequence Insurance Name Policy Number Policy Goetz Covered Member ID Goetz Member ID Guarantor Name 05/21/2023 1 [facility] - HEALTH NET PLAN (MEDICAID HMO) [id number] Zenaida Rene [id number] Zenaida Rene Notes Date Note Type [...] Elizabeth Younger NP [address] [place], [address], [place] - [facility] 05/21/2023 15:10:25 OBGyn Episode No OBEpisode recorded.
== END 2024-11-24 14:42 | disposition home or self-care (01) ==
LOC: HO.PMC 13:57
PROVIDERS: PCP Internal Medicine; Visit Provider Registered Nurse Emergency
DX: Z79.891 Long term (current) use of opiate analgesic (principal); G89.4 Chronic pain syndrome; M47.816 Spondylosis without myelopathy or radiculopathy, lumbar region; M53.3 Sacrococcygeal disorders, not elsewhere classified; I10 Essential (primary) hypertension; M46.1 Sacroiliitis, not elsewhere classified; G43.709 Chronic migraine without aura, not intractable, without status migrainosus; M54.9 Dorsalgia, unspecified; M75.20 Bicipital tendinitis, unspecified shoulder
CPT/HCPCS: 99213

== ENCOUNTER 2024-12-22 13:32 | Outpatient (AMB) | payer OTHER, SELFPAY ==
[2024-12-22 13:36] VITALS: BP 131/69; PULSE 93; RESP 16; O2SAT 99; BMI 23.8
--- NOTE | 2024-12-22 13:36 | MHC.OFFVIS ---
Vital Signs 12/22/24 13:36 Height 5 ft Weight 122 lb BMI 23.8 BP 131/69 Blood Pressure Location Lt brachial Position Sitting Respiration 16 Pulse 93 Pulse Source Pulse Oximeter Pulse Oximetry (%) 99 Oxygen Delivery Method Room Air Intake Visit Reasons: Pill Count Intake Note: Patient here for a routine pill count. per direction patient should have 16 pills. Patient presented 18 1/5 pills. Patient took 1 tab at 10am. Airborne Electronics Analyst Required: No Accompanied by: Self / Same As Patient Allergies doxycycline (DOXYCYCLINE) Allergy (Intermediate, Verified 12/22/24 13:36) RASH HPI Comments Details: Zenaida presents back to the office today for follow up chronic pain and chronic opioid therapy management. Patient is prescribed Morphine 15mg IR take one tab twice daily as needed. She arrived today with the expectation of having 16 pills, she presented 18.5 pills. Pain is reported today as 3/10. Last dose of medication was taken at 10:00 o'clock this morning Denies side effects including somnolence, constipation, itching, dyspnea, rash, dizziness or weakness. Past Procedures: 05/07/24: Bilateral medial branch L3-L4-L5 RFA 11/21/23: Bilateral SIJ injections-60% ongoing pain relief 11/29/22: Right medial branch L3-L4-L5 RFA -60-70% ongoing pain relief 10/15/22: Bilateral SIJ injections-70% ongoing pain relief 04/19/22: Left SIJ injection with steroids-100% ongoing pain relief 04/19/22: Left L3-L4-L5 MB RFA-100% first 2 weeks, then 75-80% ongoing pain relief 02/28/22: Right SIJ injection with steroids-100% ongoing pain relief 02/28/22: Right L3-L4-L5 MB RFA-100% ongoing pain relief 01/08/22: Diagnostic Bilateral L3-L4-DR L5 MBBs- 80% pain relief x36 hours 09/18/21: Diagnostic Bilateral SIJ injections-100% pain relief x72 hours [facility] Medical History (Updated 11/23/24 @ 14:53 by Merary George NP) Anxiety Migraines Degenerative disc disease, lumbar Elevated cholesterol ADHD Depression Sacroiliitis Hip osteoarthritis Spondylosis of lumbar region without myelopathy or radiculopathy Dysuria Surgical History H/O section Hx of tonsillectomy History of dilation and curettage Family History (Updated 11/04/23 @ 16:11 by Fallon Cox CMA) Mother No problems noted. Father No problems noted. 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 Answers questions appropriately. Fully engaged in examination. Skin: warm, dry, intact HEENT: Normocephalic. Hearing intact. Cardiac: External chest normal in appearance. Respiratory: No cough, audible wheezing or stridor. Abdomen: without gross distension. MS: No obvious swelling or deformities. Able to transition from sit to stand unassisted. Ambulates with bilaterally normal heel strike and toe off Neurological: Oriented to person, place, time and situation. Thought process intact. No gait abnormalities appreciated. Psychiatric: Appropriate mood and affect. Good judgment and insight. Results Reviewed Results Reviewed: 07/14/2024 MR/MR lumbar spine wo con FINDINGS: There is normal lumbar lordosis. There is minimal grade 1 retrolisthesis L4 on L5. Rest of the vertebral alignment and normal vertebral heights are normal. There is mild diffuse bulge mildly flattening the ventral thecal sac but without spinal canal stenosis. The neural foramina are patent bilaterally. There is mild loss of L2-3, L3-4 and L4-5 disc heights with mild disc desiccation change. The T12-L1 and L1-2 disc level appears unremarkable. At L2-3 disc level there is mild diffuse bulge with posterior annular tear without spinal stenosis. The neural foramina patent bilaterally. At L3-4 disc level there is mild diffuse bulge without spinal canal stenosis. The neural foramina patent bilaterally. At L4-5 disc level there is broad-based diffuse bulge flattening the ventral thecal sac with bilateral facet degenerative and ligament flavum hypertrophy resulting in bilateral lateral recess and mild neural foraminal narrowing. The finding is slightly more prominent than the previous exam 08/13/2021 At L5-S1 disc level there is a broad-based diffuse bulge without spinal canal stenosis. The neural foramina are patent bilaterally. The bone marrow signal is preserved normal. Conus medullaris terminates at L1 and appears normal in morphology. The paravertebral soft tissues are normal. IMPRESSION: Mild diffuse bulge L2-3, L3-4 and L4-5 disc level slightly worse at the L4-5 disc were compared previous MRI 2021. There is bilateral lateral recess and neural foraminal narrowing at the L4-5 disc level. MRI of the lumbar spine was obtained using routine sequences without contrast. FINDINGS: Alignment is normal. Vertebral body heights are preserved. No acute bone marrow signal changes. There is disc desiccation at multiple levels without substantial loss of intervertebral disc height. The tip of the conus medullaris is located at L1-L2. No mass effect on the conus. Visualized distal cord signal intensity is normal. At L1-L2 the annular contour is normal. No canal or neuroforaminal compromise. At L2-L3 there is an asymmetrically bulging disc to the right. Bilateral facet degenerative change. No canal stenosis. No mass effect on the traversing or foraminal nerve roots. At L3-L4 there is a left foraminal annular fissure associated with a bulging disc. Bilateral facet degenerative change. No canal stenosis. No mass effect on the traversing or foraminal nerve roots. At L4-L5 there is a slightly bulging disc. Bilateral facet degenerative change. No canal stenosis. No mass effect on the traversing or foraminal nerve roots. At L5-S1 there is a slightly bulging disc. No canal stenosis. No mass effect on the traversing or foraminal nerve roots. Limited visualization of the retroperitoneal anatomy reveals no abnormal finding. Psoas and paraspinal muscle groups are symmetric. IMPRESSION: There is disc degeneration at multiple levels within the lumbar spine as described above. No canal stenosis. No mass effect on the traversing or foraminal nerve roots. 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.891 - halfway (current) use of opiate analgesic Category: Medical (2) Chronic pain syndrome: Code(s): G89.4 - Chronic pain syndrome Category: Medical (3) Spondylosis of lumbar region without myelopathy or radiculopathy: Code(s): M47.816 - Spondylosis without myelopathy or radiculopathy, lumbar region Category: Medical (4) Sacroiliac joint dysfunction: Code(s): M53.3 - Sacrococcygeal disorders, not elsewhere classified Category: Medical (5) Hypertension: Code(s): I10 - Essential (primary) hypertension Category: Medical Qualifiers: Hypertension type: primary hypertension Qualified Code(s): I10 - Essential (primary) hypertension (6) Sacroiliitis: Code(s): M46.1 - Sacroiliitis, not elsewhere classified Category: Medical (7) Headache, chronic migraine without aura: Code(s): G43.709 - Chronic migraine without aura, not intractable, without status migrainosus Category: Medical (8) Dorsalgia: Code(s): M54.9 - Dorsalgia, unspecified Category: Medical (9) Biceps tendonitis: Code(s): M75.20 - Bicipital tendinitis, unspecified shoulder Category: Medical Plan Masspat was reviewed and without concerns. No obvious signs of diversion, abuse or misuse of the opioid medications. New prescription for Morphine 15mg IR take one tab twice daily as needed, dispense #60. All questions and concerns have been answered and patient agrees with the plan. Follow-up in the office in 1 month, sooner if needed. Medications: Refilled morphine Partial Fill upon patient request. 15 mg PO Q12H 60 tabs 0RF pain 30 days G89.4 - Chronic pain syndrome, M46.1 - Sacroiliitis, not elsewhere classified, M47.816 - Spondylosis without myelopathy or radiculopathy, lumbar region, Z79.891 - joint terminal attack controller (current) use of opiate analgesic Coding Level of Care Code Est Pt Level 3 (33002) Complex EM visit Add On G2211 Diagnoses Opioid contract exists Z79.891 Chronic pain syndrome G89.4 Spondylosis of lumbar region without myelopathy or radiculopathy M47.816 Sacroiliac joint dysfunction M53.3 Primary hypertension I10 Hypertension type: primary hypertension Sacroiliitis M46.1 Headache, chronic migraine without aura G43.709 Dorsalgia M54.9 Biceps tendonitis M75.20
--- OUTSIDE RECORDS SUMMARY | 2024-12-22 15:57 | XMS_ITS | Data Portability ---
Author Organization MARIOLA Perez s, [address] Address [address] [place] [address] Assessment No assessment recorded. Plan of Treatment Reminders Order Date Submit Date Provider Last Modified By Organization Details Last Modified Time Details Appointments None recorded. Lab urinalysis, dipstick 2022 023 ricky [address], [address] [place], [address], 3 15:08:13 test, urine 2022 023 [facility] [address], [address] [place], [address], 3 15:08:14 culture, urine 2022 023 [facility], [address] [place] [address], [place], [address], 3 06:06:24 Referral None recorded. Procedures None recorded. Surgeries None recorded. Imaging None recorded. Medication Orders nitrofurant oin monohydrate /macrocryst als 100 mg capsule 2022 023 [id number], [address] [facility], [place], [address], 3 15:08:13 Patient TargetsNo targets recorded. Patient Instructions Encounter Date Encounter Id Patient Instructions Last Modified By Organization Details Last Modified Time 05/21/2023 [id number] painful urinatio n (dysuria): care instructions [email or web address] Not available 05/21/2023 15:09:14 You are going [...] antibiotic was prescribed. Thank you for using [employer] - please don't hesistate to call our office if you have any questions or concerns. soniya Not available 05/21/2023 15:08:46 Reason for Referral None Reported. Results Created Date Observation Date Name Description Value Unit Range Abnormal Flag Note LastModifiedBy Organization Detail LastModifiedTime 05/21/2005/23/2023 URINE CULTU RE, CHAYA NE urine culture, routine FINAL REPORT Not Available [facility] ([facility]) [address] [place], [address], 05/23/2023 06:06:24 05/21/20 23 05/23/2023 URINE CULTU RE, ROUTI NE result 1 COMMEN T Cultu re shows less than 10,00 0 colon y formi ng units of bacte griffin per rick liter of urine . This colon y count is not gener ally consi dered to be clini marilin paul osorio. Not Available [facility] ([facility]) [address] [place], [address], 05/23/2023 06:06:24 05/21/20 23 05/21/2023 pregn eduardo test, urine Unknown Analyte negati ve Not Available yr [address] [place], [address], 05/21/2023 14:34:18 05/21/20 23 05/21/2023 pregn eduardo test, urine Unknown Analyte yes Not Available gabo [address] [place], [address], 05/21/2023 14:34:18 05/21/20 23 05/21/2023 urina lysis , dipst ick Unknown Analyte Light Yellow Not Available carole jack [address] [place], [address], 05/21/2023 14:34:03 05/21/20 23 05/21/2023 urina lysis , dipst ick Unknown Analyte Clear Not Available gabo [address] [place], [address], 05/21/2023 14:34:03 05/21/20 23 05/21/2023 urina lysis , dipst ick Unknown Analyte Negati ve Not Available carole jack [address] [place], [address], 05/21/2023 14:34:03 05/21/20 23 05/21/2023 urina lysis , dipst ick Unknown Analyte Negati ve Not Available carole jack [address] [place], [address], 05/21/2023 14:34:03 05/21/20 23 05/21/2023 urina lysis , dipst ick Unknown Analyte Negati ve Not Available carole jack [address] [place], [address], 05/21/2023 14:34:03 05/21/20 23 05/21/2023 urina lysis , dipst ick Unknown Analyte 1.015 Not Available [address] [place], [address], 05/21/2023 14:34:03 05/21/2005/21/2023 urina lysis , dipst ick Unknown Analyte Trace- intact Not Available [facility] [address] [place], [address], 05/21/2023 14:34:03 05/21/2005/21/2023 urina lysis , dipst ick Unknown Analyte 6.5 Not Available [address] [place], [address], 05/21/2023 14:34:03 05/21/2005/21/2023 urina lysis , dipst ick Unknown Analyte Negati ve Not Available [address] [place], [address], 05/21/2023 14:34:03 05/21/2005/21/2023 urina lysis , dipst ick Unknown Analyte 0.2 E.U./d L Not Available [address] [place], [address], 05/21/2023 14:34:03 05/21/2005/21/2023 urina lysis , dipst ick Unknown Analyte Negati ve Not Available [address] [place], [address], 05/21/2023 14:34:03 05/21/20 23 05/21/2023 urina lysis , dipst ick Unknown Analyte Small Not Available [address] [place], [address], 05/21/2023 14:34:03 Result Notes None recorded. Problems No Known Problems Medical Equipment None Reported. Allergies Allergen ID Allergen Name Allergen Category Reaction Reaction Severity Criticality Documentation Date Start Date Code Code System Note Provider Name and Address Organization Details Recorded Time 977289 doxycycli ne Not available hives Not available [...] Last Updated DateTime 152.4 cm 27.3 kg/m2 98905.9 3 g 99 % 99 % 82 /min 18 /min 98.6 [degF] 163 mm[Hg] 97 mm[Hg] April GARNETT [employer] 14:36:02 Social History Question Answer Notes LastModified by MOBEXO Details LastModified Time Tobacco Smoking Status Never Smoker April zabala [employer] 05/21/2023 14:33:33 Have You Had A Flu Shot This Season? Yes Information not available 05/21/2023 Have You Recently Traveled Abroad? No Information not available 05/21/2023 Sex: Unknown Functional Status Question Answer Note LastModified by MOBEXO Details LastModified Time Do you use any [...] SNOMED-CT Code Diagnosis ICD10 Code Diagnosis Note [id number] _[address] [place] [address] 02/15/2020 17:09:16 02/15/2020 18:48:09 [id number] [address] [place] [address] 02/01/2019 19:26:22 02/01/2019 20:14:41 [id number] [place] [address] [place] [address] 05/21/2023 14:20:17 05/21/2023 15:11:33 Dysuria [id number] R30.0 Health Concerns Section Related Observation LastModified by Organization Detai ls LastModified Time None Recorded Concern Status LastModified by Organization Details LastModified Time None Recorded Advance Directives Directive None Recorded Payers Insurance Date Sequence Insurance Name Policy Number Policy Goetz Covered Member ID Goetz Member ID Guarantor Name 05/21/2023 1 [facility] (MEDICAID HMO) [id number] Zenaida Rene [id number] Zenaida Rene Notes Date Note Type [...] Elizabeth Younger NP [address] [place], [address], [place] - [facility] 05/21/2023 15:10:25 OBGyn Episode No OBEpisode recorded.
== END 2024-12-22 14:19 | disposition home or self-care (01) ==
LOC: HO.PMC 13:32
PROVIDERS: PCP Internal Medicine; Visit Provider Registered Nurse Emergency
DX: Z79.891 Long term (current) use of opiate analgesic (principal); G89.4 Chronic pain syndrome; M47.816 Spondylosis without myelopathy or radiculopathy, lumbar region; M53.3 Sacrococcygeal disorders, not elsewhere classified; I10 Essential (primary) hypertension; M46.1 Sacroiliitis, not elsewhere classified; G43.709 Chronic migraine without aura, not intractable, without status migrainosus; M54.9 Dorsalgia, unspecified; M75.20 Bicipital tendinitis, unspecified shoulder
CPT/HCPCS: 99213

== ENCOUNTER 2025-01-19 13:48 | Outpatient (AMB) | payer OTHER, SELFPAY ==
--- NOTE | 2025-01-19 13:58 | MHC.OFFVIS ---
Vital Signs 01/19/25 13:59 Height 5 ft Weight 122 lb BMI 23.8 BP 116/74 Blood Pressure Location Rt brachial Position Sitting Respiration 16 Pulse 110 H Pulse Source Pulse Oximeter Pulse Oximetry (%) 98 Oxygen Delivery Method Room Air Intake Visit Reasons: PILL COUNT Intake Note: Patient here for a pill count routine of Morphine. Per directions patient should have 9 pills. Patient presented 5 and 1/2 pills. Last took 7am. Matrix Bath Attendant Required: No Accompanied by: Self / Same As Patient Allergies doxycycline (DOXYCYCLINE) Allergy (Intermediate, Verified 01/19/25 14:09) RASH HPI Comments Details: Zenaida presents back to the office today for follow up chronic pain and chronic opioid therapy management. Patient is prescribed Morphine 30mg IR take 1/2 tab twice daily as needed. At last visit prescription was changed from 15 mg take 1 tablet twice daily to 30 mg tablets take 1/2 tablet twice daily as needed due to supply at the pharmacy. She arrived today with the expectation of having 9 pills, she presented 5.5 pills. Patient reports she is short today as a revealed of confusion with the change in the prescription. She is aware that this is a violation of the contract. Patient is low risk on the opioid assessment. Last dose of medication was taken at 7o'clock this morning Denies side effects including somnolence, constipation, itching, dyspnea, rash, dizziness or weakness. Today patient complaining bilateral shoulder pain, requesting referral to Orthopedics. Past Procedures: 05/07/24: Bilateral medial branch L3-L4-L5 RFA 11/21/23: Bilateral SIJ injections-60% ongoing pain relief 11/29/22: Right medial branch L3-L4-L5 RFA -60-70% ongoing pain relief 10/15/22: Bilateral SIJ injections-70% ongoing pain relief 04/19/22: Left SIJ injection with steroids-100% ongoing pain relief 04/19/22: Left L3-L4-L5 MB RFA-100% first 2 weeks, then 75-80% ongoing pain relief 02/28/22: Right SIJ injection with steroids-100% ongoing pain relief 02/28/22: Right L3-L4-L5 MB RFA-100% ongoing pain relief 01/08/22: Diagnostic Bilateral L3-L4-DR L5 MBBs- 80% pain relief x36 hours 09/18/21: Diagnostic Bilateral SIJ injections-100% pain relief x72 hours [facility] Medical History (Updated 11/23/24 @ 14:53 by Merary George NP) Anxiety Migraines Degenerative disc disease, lumbar Elevated cholesterol ADHD Depression Sacroiliitis Hip osteoarthritis Spondylosis of lumbar region without myelopathy or radiculopathy Dysuria Surgical History H/O section Hx of tonsillectomy History of dilation and curettage Family History (Updated 11/04/23 @ 16:11 by Fallon Cox CMA) Mother No problems noted. Father No problems noted. 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 Answers questions appropriately. Fully engaged in examination. Skin: warm, dry, intact HEENT: Normocephalic. Hearing intact. Cardiac: External chest normal in appearance. Respiratory: No cough, audible wheezing or stridor. Abdomen: without gross distension. MS: No obvious swelling or deformities. Able to transition from sit to stand unassisted. Ambulates with bilaterally normal heel strike and toe off Neurological: Oriented to person, place, time and situation. Thought process intact. No gait abnormalities appreciated. Psychiatric: Appropriate mood and affect. Good judgment and insight. Results Reviewed Results Reviewed: 07/14/2024 MR/MR lumbar spine wo con FINDINGS: There is normal lumbar lordosis. There is minimal grade 1 retrolisthesis L4 on L5. Rest of the vertebral alignment and normal vertebral heights are normal. There is mild diffuse bulge mildly flattening the ventral thecal sac but without spinal canal stenosis. The neural foramina are patent bilaterally. There is mild loss of L2-3, L3-4 and L4-5 disc heights with mild disc desiccation change. The T12-L1 and L1-2 disc level appears unremarkable. At L2-3 disc level there is mild diffuse bulge with posterior annular tear without spinal stenosis. The neural foramina patent bilaterally. At L3-4 disc level there is mild diffuse bulge without spinal canal stenosis. The neural foramina patent bilaterally. At L4-5 disc level there is broad-based diffuse bulge flattening the ventral thecal sac with bilateral facet degenerative and ligament flavum hypertrophy resulting in bilateral lateral recess and mild neural foraminal narrowing. The finding is slightly more prominent than the previous exam 08/13/2021 At L5-S1 disc level there is a broad-based diffuse bulge without spinal canal stenosis. The neural foramina are patent bilaterally. The bone marrow signal is preserved normal. Conus medullaris terminates at L1 and appears normal in morphology. The paravertebral soft tissues are normal. IMPRESSION: Mild diffuse bulge L2-3, L3-4 and L4-5 disc level slightly worse at the L4-5 disc were compared previous MRI 2021. There is bilateral lateral recess and neural foraminal narrowing at the L4-5 disc level. MRI of the lumbar spine was obtained using routine sequences without contrast. FINDINGS: Alignment is normal. Vertebral body heights are preserved. No acute bone marrow signal changes. There is disc desiccation at multiple levels without substantial loss of intervertebral disc height. The tip of the conus medullaris is located at L1-L2. No mass effect on the conus. Visualized distal cord signal intensity is normal. At L1-L2 the annular contour is normal. No canal or neuroforaminal compromise. At L2-L3 there is an asymmetrically bulging disc to the right. Bilateral facet degenerative change. No canal stenosis. No mass effect on the traversing or foraminal nerve roots. At L3-L4 there is a left foraminal annular fissure associated with a bulging disc. Bilateral facet degenerative change. No canal stenosis. No mass effect on the traversing or foraminal nerve roots. At L4-L5 there is a slightly bulging disc. Bilateral facet degenerative change. No canal stenosis. No mass effect on the traversing or foraminal nerve roots. At L5-S1 there is a slightly bulging disc. No canal stenosis. No mass effect on the traversing or foraminal nerve roots. Limited visualization of the retroperitoneal anatomy reveals no abnormal finding. Psoas and paraspinal muscle groups are symmetric. IMPRESSION: There is disc degeneration at multiple levels within the lumbar spine as described above. No canal stenosis. No mass effect on the traversing or foraminal nerve roots. 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.891 - halfway (current) use of opiate analgesic Category: Medical (2) Chronic pain syndrome: Code(s): G89.4 - Chronic pain syndrome Category: Medical (3) Spondylosis of lumbar region without myelopathy or radiculopathy: Code(s): M47.816 - Spondylosis without myelopathy or radiculopathy, lumbar region Category: Medical (4) Sacroiliac joint dysfunction: Code(s): M53.3 - Sacrococcygeal disorders, not elsewhere classified Category: Medical (5) Hypertension: Code(s): I10 - Essential (primary) hypertension Category: Medical Qualifiers: Hypertension type: primary hypertension Qualified Code(s): I10 - Essential (primary) hypertension (6) Sacroiliitis: Code(s): M46.1 - Sacroiliitis, not elsewhere classified Category: Medical (7) Headache, chronic migraine without aura: Code(s): G43.709 - Chronic migraine without aura, not intractable, without status migrainosus Category: Medical (8) Dorsalgia: Code(s): M54.9 - Dorsalgia, unspecified Category: Medical (9) Biceps tendonitis: Code(s): M75.20 - Bicipital tendinitis, unspecified shoulder Category: Medical Plan Masspat was reviewed and without concerns. Patient's pill count short today by 3.5 tablets, this could result in suspension from the program. Lengthy discussion with the patient today regarding contract and risks associated with over taking her medication. Patient was given a verbal warning today. If her pill count is short again in the future she will be suspended for 6 months. She is low risk on the opioid risk assessment. Patient verbalizes understanding. We will return to her prior prescription of 15 mg tablets take 1 tablet twice daily as needed. This will be sent to the previous pharmacy at [facility] in [place]. New prescription for Morphine 15mg IR take one tab twice daily as needed, dispense #60. All questions and concerns have been answered and patient agrees with the plan. Follow-up in the office in 1 month, sooner if needed. Medications: Refilled morphine Partial Fill upon patient request. 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 Discontinued Reason: Doctor's Order 15 mg (1/2 x 30 mg) PO BID PRN 30 tabs 0RF pain Coding Level of Care Code Est Pt Level 3 (39968) Complex EM visit Add On G2211 Diagnoses Opioid contract exists Z79.891 Chronic pain syndrome G89.4 Spondylosis of lumbar region without myelopathy or radiculopathy M47.816 Sacroiliac joint dysfunction M53.3 Primary hypertension I10 Hypertension type: primary hypertension Sacroiliitis M46.1 Headache, chronic migraine without aura G43.709 Dorsalgia M54.9 Biceps tendonitis M75.20
[2025-01-19 13:59] VITALS: BP 116/74; PULSE 110; RESP 16; O2SAT 98; BMI 23.8
--- OUTSIDE RECORDS SUMMARY | 2025-01-19 14:32 | XMS_ITS | Clinical Summary ---
Author Organization [facility] Address [address] [phone] Phone Care Team Providers Care Senior Accounting Clerk Name Role Phone Terrance Link MD Primary Care Provider Allergies Active Allergy Reactions Criticality Noted Date Comments Doxycycline Hyclate Hives 02/07/2021 Medications amitriptyline (ELAVIL) 10 MG tablet Take 10 mg by mouth daily. 1 Active cyclobenzaprine (FLEXERIL) 10 MG tablet 1 Active ADDERALL XR 20 mg 24 hr capsule Take 20 mg by mouth every morning. 1 Active dextroamphetami ne-amphetamine (ADDERALL) 20 mg Tab tablet TAKE 1 TABLET EVERY DAY BY ORAL ROUTE AT NOON FOR 30 DAYS. 1 Active fluticasone propionate (FLONASE) 50 mcg/actuation nasal spray INHALE 1 SPRAY INTO EACH NOSTRIL 2 TIMES A DAY 1 Active gabapentin (NEURONTIN) 300 MG capsule Take 300 mg by mouth 2 (two) times a day. 1 Active hydrOXYzine (ATARAX) 25 MG tablet TAKE 1 TABLET BY MOUTH EVERY 6 HOURS NEEDED FOR AGITATION OR ANXIETY 1 Active loratadine (CLARITIN) 10 mg tablet Take 10 mg by mouth daily. 1 Active nicotine (NICODERM CQ) 14 mg/24 hr APPLY 1 PATCH EVERY DAY DIRECTED 1 Active OXcarbazepine (TRILEPTAL) 150 MG tablet TAKE 2 TABLETS TWICE A DAY BY ORAL ROUTE DIRECTED FOR 30 DAYS. 1 Active OXcarbazepine (TRILEPTAL) 300 MG tablet Take 300 mg by mouth 2 (two) times a day. 1 Active rizatriptan (MAXALT) 10 MG tablet TAKE 1 TABLET BY MOUTH ONE TIME ONCE A DAY WHEN NEEDED 1 Active SUMAtriptan (IMITREX) 100 MG tablet TAKE 1 TABLET BY MOUTH EVERY DAY NEEDED FOR 30 DAYS 1 Active topiramate (TOPAMAX) 100 MG tablet Take 100 mg by mouth nightly at bedtime. at bedtime. 1 Active phenazopyridine (PYRIDIUM) 100 MG tablet Take 2 tablets (200 mg total) by mouth 3 (three) times a day as needed for pain (specific location in comments) (URINARY DISCOMFORT). 6 tablet 1 Active Active Problems No known active problems Social History Tobacco Use Types Packs/Day Years Used Date Smoking Tobacco: Never Assessed Education Answer Date Recorded Are you interested in more education? Not on emory e 10/26/2022 Are you concerned about learning? Not on file 10/26/2022 No 10/26/2022 No 10/26/2022 Digital Access Answer Date Recorded No 11/24/2022 No 11/24/2022 Reliable internet access at home? Not on file 11/24/2022 Device with a working camera? Not on file Comments Unknown Sex and Gender Information Value Date Recorded Sex Assigned at Not on file Legal Sex Female 12:44 PM EDT Gender Identity Not on file Sexual Orientation Not on file Last Filed Vital Signs Vital Sign Reading Time Taken Comments Blood Pressure 118/64 02/07/2021 12:54 PM EDT Pulse 99 02/07/2021 12:54 PM EDT Temperature 37 C (98.6 F) 02/07/2021 12:54 PM EDT Respiratory Rate 16 02/07/2021 12:54 PM EDT Oxygen Saturation 96% 02/07/2021 12:54 PM EDT Inhaled Oxygen Concentration - - Weight 64 kg (141 lb) 02/07/2021 12:54 PM EDT Height 152.4 cm (5') 02/07/2021 12:54 PM EDT Body Mass Index 27.54 02/07/2021 12:54 PM EDT Plan of Treatment Health Maintenance Due Date Last Done Comments LIPID PANEL 1973 DEPRESSION SCREENING 1985 SMOKING Hx and SMOKELESS TOBACCO SCREENING 1986 HEPATITIS C SCREENING 09/01/1991 HIV ONE-TIME SCREENING (18-6 5 YEARS) 09/01/1991 PAP SMEAR 1994 Adult Td,Tdap Booster 06/29/2004 06/29/1994 MAMMOGRAM 2013 COLOGUARD 2018 COLONOSCOPY 2018 COLORECTAL CANCER SCREENING 2018 FIT TEST 2018 FOBT 2018 SIGMOIDOSCOPY 2018 VIRTUAL COLONOSCOPY 2018 PNEUMOCOCCAL VACCINES (50+ years) (1 of 1 - PCV) 09/01/2023 ZOSTER VACCINES (1 of 2) 09/01/2023 COVID-19 VACCINE (2023-2 5 season) 2024 03/13/2021, 02/20/2021 HEPATITIS A VACCINES Aged Out No long er eligible based on patient's age to complete this topic HIB VACCINES Aged Out No longer eligi ble based on patient's age to complete this topic MENINGOCOCCAL VACCINES (ACWY) Aged Out No longer eligible based on patient's age to complete this topic MENINGOCOCCAL VACCINES (B) Aged Out N o longer eligible based on patient's age to complete this topic Medical Devices Not on file Insurance ACO ACO ACO ACO ACO ACO ACO [facility] ACO Care Teams Senior Accounting Clerk Relationship Specialty Start Date End Date Terrance Link MD [address] [place] [id number] PCP - General 02/07/21 Additional Source Comments The information contained in this document represents components of the legal health record. It is not the complete legal health record.[facility]
--- OUTSIDE RECORDS SUMMARY | 2025-01-19 14:32 | XMS_ITS | Data Portability ---
Author Organization [facility], [address] Address [address] [place] [address] Assessment No assessment recorded. Plan of Treatment Reminders Order Date Submit Date Provider Last Modified By Organization Details Last Modified Time Details Appointments None recorded. Lab urinalysis, dipstick 2022 023 ricky [email or web address] [facility], [address] [place], [address], 3 15:08:13 test, urine [id number], [address] [place], [address], 3 15:08:14 culture, urine 2022 023 [facility], [address] [place] [address], [place], [address], 3 06:06:24 Referral None recorded. Procedures None recorded. Surgeries None recorded. Imaging None recorded. Medication Orders nitrofurant oin monohydrate /macrocryst als 100 mg capsule 2022 023 [id number], [address] [facility], [place], [address], 3 15:08:13 Patient TargetsNo targets recorded. Patient Instructions Encounter Date Encounter Id Patient Instructions Last Modified By Organization Details Last Modified Time 05/21/2023 [id number] painful urinatio n (dysuria): care instructions [email or web address] [...] antibiotic was prescribed. Thank you for using [employer] - please don't hesistate to call our office if you have any questions or concerns. soniya Not available 05/21/2023 15:08:46 Reason for Referral None Reported. Results Created Date Observation Date Name Description Value Unit Range Abnormal Flag Note LastModifiedBy Organization Detail LastModifiedTime 05/21/2005/23/2023 URINE CULTU RE, CHAYA NE urine culture, routine FINAL REPORT Not Available [facility] ([facility]) [address] [place], [address], 05/23/2023 06:06:24 05/21/20 23 05/23/2023 URINE CULTU RE, ROUTI NE result 1 COMMEN T Cultu re shows less than 10,00 0 colon y formi ng units of bacte griffin per rick liter of urine . This colon y count is not gener ally consi dered to be clini marilin paul osorio. Not Available [facility] ([facility]) [address] [place], [address], 05/23/2023 06:06:24 05/21/20 23 05/21/2023 pregn eduardo test, urine Unknown Analyte negati ve Not Available yr [address] [place], [address], 05/21/2023 14:34:18 05/21/20 23 05/21/2023 pregn eduardo test, urine Unknown Analyte yes Not Available gabo [address] [place], [address], 05/21/2023 14:34:18 05/21/20 23 05/21/2023 urina lysis , dipst ick Unknown Analyte Light Yellow Not Available carole jack [address] [place], [address], 05/21/2023 14:34:03 05/21/20 23 05/21/2023 urina lysis , dipst ick Unknown Analyte Clear Not Available gabo [address] [place], [address], 05/21/2023 14:34:03 05/21/20 23 05/21/2023 urina lysis , dipst ick Unknown Analyte Negati ve Not Available carole jack [address] [place], [address], 05/21/2023 14:34:03 05/21/20 23 05/21/2023 urina lysis , dipst ick Unknown Analyte Negati ve Not Available carole jack [address] [place], [address], 05/21/2023 14:34:03 05/21/20 23 05/21/2023 urina lysis , dipst ick Unknown Analyte Negati ve Not Available carole jack [address] [place], [address], 05/21/2023 14:34:03 05/21/20 23 05/21/2023 urina lysis , dipst ick Unknown Analyte 1.015 Not Available [address] [place], [address], 05/21/2023 14:34:03 05/21/2005/21/2023 urina lysis , dipst ick Unknown Analyte Trace- intact Not Available [facility] [address] [place], [address], 05/21/2023 14:34:03 05/21/2005/21/2023 urina lysis , dipst ick Unknown Analyte 6.5 Not Available [address] [place], [address], 05/21/2023 14:34:03 05/21/2005/21/2023 urina lysis , dipst ick Unknown Analyte Negati ve Not Available [address] [place], [address], 05/21/2023 14:34:03 05/21/2005/21/2023 urina lysis , dipst ick Unknown Analyte 0.2 E.U./d L Not Available [address] [place], [address], 05/21/2023 14:34:03 05/21/2005/21/2023 urina lysis , dipst ick Unknown Analyte Negati ve Not Available [address] [place], [address], 05/21/2023 14:34:03 05/21/20 23 05/21/2023 urina lysis , dipst ick Unknown Analyte Small Not Available [email or web address] [place], [address], 05/21/2023 14:34:03 Result Notes None recorded. Problems No Known Problems Medical Equipment None Reported. Allergies Allergen ID Allergen Name Allergen Category Reaction Reaction Severity Criticality Documentation Date Start Date Code Code System Note Provider Name and Address Organization Details Recorded Time 735216 doxycycli ne Not available hives Not available [...] Last Updated DateTime 152.4 cm 27.3 kg/m2 82151.9 3 g 99 % 99 % 6 82 /min 18 /min 98.6 [degF] 163/97 mm[Hg] April GARNETT [employer] 14:36:02 Social History Question Answer Notes LastModified by [employer] Details LastModified Time Tobacco Smoking Status Never Smoker [facility] [employer] [employer] 05/21/2023 14:33:33 Have You Had A Flu Shot This Season? Yes Information not available 05/21/2023 Have You Recently Traveled Abroad? No Information not available 05/21/2023 Sex: Unknown Functional Status Question Answer Note LastModified by [employer] Details LastModified Time Do you use any [...] SNOMED-CT Code Diagnosis ICD10 Code Diagnosis Note [id number] [address] [place] [address] 02/15/2020 17:09:16 02/15/2020 18:48:09 [id number] [address] [place] [address] 02/01/2019 19:26:22 02/01/2019 20:14:41 [id number] [place] [address] [place] [address] 05/21/2023 14:20:17 05/21/2023 15:11:33 Dysuria 50119303 R30.0 Health Concerns Section Related Observation LastModified by Organization Detai ls LastModified Time None Recorded Concern Status LastModified by Organization Details LastModified Time None Recorded Advance Directives Directive None Recorded Payers Insurance Date Sequence Insurance Name Policy Number Policy Goetz Covered Member ID Goetz Member ID Guarantor Name 05/21/2023 1 [facility] PL[facility] (MEDICAID HMO) [id number] Zenaida Rene [id number] Zenaida Rene Notes Date Note Type [...] Elizabeth Younger NP [address] [place], [address], [place] - [employer] 05/21/2023 15:10:25 OBGyn Episode No OBEpisode recorded.
== END 2025-01-19 14:41 | disposition home or self-care (01) ==
LOC: HO.PMC 13:49
PROVIDERS: PCP Internal Medicine; Visit Provider Registered Nurse Emergency
DX: Z79.891 Long term (current) use of opiate analgesic (principal); G89.4 Chronic pain syndrome; M47.816 Spondylosis without myelopathy or radiculopathy, lumbar region; M53.3 Sacrococcygeal disorders, not elsewhere classified; I10 Essential (primary) hypertension; M46.1 Sacroiliitis, not elsewhere classified; G43.709 Chronic migraine without aura, not intractable, without status migrainosus; M54.9 Dorsalgia, unspecified; M75.20 Bicipital tendinitis, unspecified shoulder
CPT/HCPCS: 99213

== ENCOUNTER 2025-02-16 14:18 | Outpatient (AMB) | payer OTHER, SELFPAY ==
--- NOTE | 2025-02-16 14:25 | A.OFFVIS_ITS ---
Vital Signs 02/16/25 14:26 Height 5 ft Weight 122 lb BMI 23.8 BP 173/83 H Blood Pressure Location Rt brachial Position Sitting Respiration 16 Pulse 90 Pulse Source Pulse Oximeter Pulse Oximetry (%) 100 Oxygen Delivery Method Room Air Intake Visit Reasons: PILL COUNT- next appt needs to be in am Intake Note: Patient here for a pill count routine of Morphine. Per direction pt should have 26 pills. patient presented 27 pills. Last took 6am. Adolescent Coordinator Required: No Accompanied by: Self / Same As Patient Allergies doxycycline (DOXYCYCLINE) Allergy (Intermediate, Verified 02/16/25 14:31) RASH HPI Comments Details: Zenaida presents back to the office today for follow up chronic pain and chronic opioid therapy management. Patient is prescribed Morphine 15mg IR take 1 tab twice daily as needed. She arrived today with the expectation of having 26 pills, she presented 27 pills. Patient is low risk on the opioid assessment. Pain is reported today as 5/10. Last dose of medication was taken at 6:00 o'clock this morning Denies side effects including somnolence, constipation, itching, dyspnea, rash, dizziness or weakness. Past Procedures: 05/07/24: Bilateral medial branch L3-L4-L5 RFA 11/21/23: Bilateral SIJ injections-60% ongoing pain relief 11/29/22: Right medial branch L3-L4-L5 RFA -60-70% ongoing pain relief 10/15/22: Bilateral SIJ injections-70% ongoing pain relief 04/19/22: Left SIJ injection with steroids-100% ongoing pain relief 04/19/22: Left L3-L4-L5 MB RFA-100% first 2 weeks, then 75-80% ongoing pain relief 02/28/22: Right SIJ injection with steroids-100% ongoing pain relief 02/28/22: Right L3-L4-L5 MB RFA-100% ongoing pain relief 01/08/22: Diagnostic Bilateral L3-L4-DR L5 MBBs- 80% pain relief x36 hours 09/18/21: Diagnostic Bilateral SIJ injections-100% pain relief x72 hours [facility] Medical History (Updated 01/19/25 @ 16:39 by Valeri Mora, PHYSICIAN LIAISON, FIELD LOGISTICS COORDINATOR) Anxiety Migraines Degenerative disc disease, lumbar Elevated cholesterol ADHD Depression Sacroiliitis Hip osteoarthritis Spondylosis of lumbar region without myelopathy or radiculopathy Dysuria Surgical History H/O section Hx of tonsillectomy History of dilation and curettage Family History (Updated 11/04/23 @ 16:11 by Fallon Cox CMA) Mother No problems noted. Father No problems noted. 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 Answers questions appropriately. Fully engaged in examination. Skin: warm, dry, intact HEENT: Normocephalic. Hearing intact. Cardiac: External chest normal in appearance. Respiratory: No cough, audible wheezing or stridor. Abdomen: without gross distension. MS: No obvious swelling or deformities. Able to transition from sit to stand unassisted. Ambulates with bilaterally normal heel strike and toe off Neurological: Oriented to person, place, time and situation. Thought process intact. No gait abnormalities appreciated. Psychiatric: Appropriate mood and affect. Good judgment and insight. Vital Signs: Last Vital Signs Pulse 90 02/16/25 14:26 Resp 16 02/16/25 14:26 BP 173/83 H 02/16/25 14:26 Pulse Ox 100 02/16/25 14:26 Oxygen Delivery Method Room Air 02/16/25 14:26 BMI result Body Mass Index 23.8 Results Reviewed Results Reviewed: 07/14/2024 MR/MR lumbar spine wo con FINDINGS: There is normal lumbar lordosis. There is minimal grade 1 retrolisthesis L4 on L5. Rest of the vertebral alignment and normal vertebral heights are normal. There is mild diffuse bulge mildly flattening the ventral thecal sac but without spinal canal stenosis. The neural foramina are patent bilaterally. There is mild loss of L2-3, L3-4 and L4-5 disc heights with mild disc desiccation change. The T12-L1 and L1-2 disc level appears unremarkable. At L2-3 disc level there is mild diffuse bulge with posterior annular tear without spinal stenosis. The neural foramina patent bilaterally. At L3-4 disc level there is mild diffuse bulge without spinal canal stenosis. The neural foramina patent bilaterally. At L4-5 disc level there is broad-based diffuse bulge flattening the ventral thecal sac with bilateral facet degenerative and ligament flavum hypertrophy resulting in bilateral lateral recess and mild neural foraminal narrowing. The finding is slightly more prominent than the previous exam 08/13/2021 At L5-S1 disc level there is a broad-based diffuse bulge without spinal canal stenosis. The neural foramina are patent bilaterally. The bone marrow signal is preserved normal. Conus medullaris terminates at L1 and appears normal in morphology. The paravertebral soft tissues are normal. IMPRESSION: Mild diffuse bulge L2-3, L3-4 and L4-5 disc level slightly worse at the L4-5 disc were compared previous MRI 2021. There is bilateral lateral recess and neural foraminal narrowing at the L4-5 disc level. MRI of the lumbar spine was obtained using routine sequences without contrast. FINDINGS: Alignment is normal. Vertebral body heights are preserved. No acute bone marrow signal changes. There is disc desiccation at multiple levels without substantial loss of intervertebral disc height. The tip of the conus medullaris is located at L1-L2. No mass effect on the conus. Visualized distal cord signal intensity is normal. At L1-L2 the annular contour is normal. No canal or neuroforaminal compromise. At L2-L3 there is an asymmetrically bulging disc to the right. Bilateral facet degenerative change. No canal stenosis. No mass effect on the traversing or foraminal nerve roots. At L3-L4 there is a left foraminal annular fissure associated with a bulging disc. Bilateral facet degenerative change. No canal stenosis. No mass effect on the traversing or foraminal nerve roots. At L4-L5 there is a slightly bulging disc. Bilateral facet degenerative change. No canal stenosis. No mass effect on the traversing or foraminal nerve roots. At L5-S1 there is a slightly bulging disc. No canal stenosis. No mass effect on the traversing or foraminal nerve roots. Limited visualization of the retroperitoneal anatomy reveals no abnormal finding. Psoas and paraspinal muscle groups are symmetric. IMPRESSION: There is disc degeneration at multiple levels within the lumbar spine as described above. No canal stenosis. No mass effect on the traversing or foraminal nerve roots. 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.891 - manager terminal (current) use of opiate analgesic Category: Medical (2) Chronic pain syndrome: Code(s): G89.4 - Chronic pain syndrome Category: Medical (3) Spondylosis of lumbar region without myelopathy or radiculopathy: Code(s): M47.816 - Spondylosis without myelopathy or radiculopathy, lumbar region Category: Medical (4) Sacroiliac joint dysfunction: Code(s): M53.3 - Sacrococcygeal disorders, not elsewhere classified Category: Medical (5) Hypertension: Code(s): I10 - Essential (primary) hypertension Category: Medical Qualifiers: Hypertension type: primary hypertension Qualified Code(s): I10 - Essential (primary) hypertension (6) Sacroiliitis: Code(s): M46.1 - Sacroiliitis, not elsewhere classified Category: Medical (7) Headache, chronic migraine without aura: Code(s): G43.709 - Chronic migraine without aura, not intractable, without status migrainosus Category: Medical (8) Dorsalgia: Code(s): M54.9 - Dorsalgia, unspecified Category: Medical (9) Biceps tendonitis: Code(s): M75.20 - Bicipital tendinitis, unspecified shoulder Category: Medical Plan Masspat was reviewed and without concerns. No obvious signs of diversion, abuse or misuse of the opioid medications. New prescription for Morphine 15mg IR take one tab twice daily as needed, dispense #60. All questions and concerns have been answered and patient agrees with the plan. Follow-up in the office in 1 month, sooner if needed. Medications: Refilled morphine Partial Fill upon patient request. 15 mg PO Q12H 60 tabs 0RF pain 30 days G89.4 - Chronic pain syndrome, M46.1 - Sacroiliitis, not elsewhere classified, M47.816 - Spondylosis without myelopathy or radiculopathy, lumbar region, Z79.891 - correction (current) use of opiate analgesic Coding Level of Care Code Est Pt Level 3 (23408) Complex EM visit Add On G2211 Diagnoses Opioid contract exists Z79.891 Chronic pain syndrome G89.4 Spondylosis of lumbar region without myelopathy or radiculopathy M47.816 Sacroiliac joint dysfunction M53.3 Primary hypertension I10 Hypertension type: primary hypertension Sacroiliitis M46.1 Headache, chronic migraine without aura G43.709 Dorsalgia M54.9 Biceps tendonitis M75.20
[2025-02-16 14:26] VITALS: BP 173/83; PULSE 90; RESP 16; O2SAT 100; BMI 23.8
--- OUTSIDE RECORDS SUMMARY | 2025-02-16 15:18 | XMS_ITS | Clinical Summary ---
Author Organization [facility] Address [address] [phone] Phone Care Team Providers Care Wedding Consultant Name Role Phone Terrance Link MD Primary [...] ACO ACO ACO ACO ACO ACO ACO [facility] ACO Care Teams Wedding Consultant Relationship Specialty Start Date End Date Terrance Link MD [address] [place] [id number] PCP - General 02/07/21 Additional Source Comments The information contained in this document represents components of the legal health record. It is not the complete legal health record.[facility]
== END 2025-02-16 14:52 | disposition home or self-care (01) ==
LOC: HO.PMC 14:19
PROVIDERS: PCP Internal Medicine; Visit Provider Registered Nurse Emergency
DX: Z79.891 Long term (current) use of opiate analgesic (principal); G89.4 Chronic pain syndrome; M47.816 Spondylosis without myelopathy or radiculopathy, lumbar region; M53.3 Sacrococcygeal disorders, not elsewhere classified; I10 Essential (primary) hypertension; M46.1 Sacroiliitis, not elsewhere classified; G43.709 Chronic migraine without aura, not intractable, without status migrainosus; M54.9 Dorsalgia, unspecified; M75.20 Bicipital tendinitis, unspecified shoulder
CPT/HCPCS: 99213

== ENCOUNTER 2025-03-31 16:30 | Outpatient (REF) | payer OTHER, SELFPAY ==
[2025-03-31 16:47] LABS: MANUAL DIFF FLAG NO
--- OUTSIDE RECORDS SUMMARY | 2025-03-31 17:04 | XMS_ITS | Clinical Summary ---
Author Organization [facility] Address [address] [phone] Phone Care Team Providers Care Ship Loader Name Role Phone Terrance Link MD Primary [...] 09/01/2023 ZOSTER VACCINES (1 of 2) 09/01/2023 INFLUENZA VACCINE (#1) 2025 , 05/18/2019 COVID-19 VACCINE (3 - 2024-2 6 season) 2025 03/13/2021, 02/20/2021 HEPATITIS A VACCINES Aged Out [...] ACO ACO ACO ACO [facility] [place] [address] [address] [place] [address] ACO Care Teams Ship Loader Relationship Specialty Start Date End Date Terrance Link MD [address] [place] [id number] PCP - General 02/07/21 Additional Source Comments The information contained in this document represents components of the legal health record. It is not the complete legal health record.[facility]
[2025-03-31 17:28] LABS: Hematocrit 39.5 % (37.0-47.0); Hemoglobin 13.5 g/dl (12.0-16.0); Imm Gran Abs Auto 0.03 X10*3/uL (0.00-0.03); Imm Gran Pct Auto 0.3 % (0.0-0.4); Lymphocytes Absolute Auto 3.8 X10*3/uL (1.2-4.9); Mean Corpuscular HGB Conc 34.2 g/dl (31.0-35.0); Mean Corpuscular Hemoglobin 31.3 pg (27.0-33.0); Mean Corpuscular Volume 91.6 fL (80.0-98.0); NRBC Abs Auto 0.000 X10*3/uL (0.0-0.012); NRBC Pct Auto 0.0 /100WBC (0.0-0.2); Platelet Count 195 X10*3/uL (160-400); Red Blood Count 4.31 X10*6/uL (4.20-5.50); White Blood Count 9.6 X10*3/uL (4.8-10.8)
[2025-03-31 18:02] LABS: Alanine Aminotransferase 12 U/L (0-31); Albumin Level 4.6 g/dL (3.5-5.0); Alkaline Phosphatase 66 U/L (39-117); Anion Gap 11 (12-20); Aspartate Amino Transferase 34 U/L (5-31); Blood Urea Nitrogen 20 mg/dL (9-16); Calcium 8.9 mg/dL (8.4-10.2); Carbon Dioxide 23 mmol/L (22-29); Chloride 114 mmol/L (96-108); Cholesterol 170 mg/dL (<200); Estimated Glomerular Filt Rate > 60; HDL Cholesterol 39 mg/dL (>40); Iron 82 mcg/dL (30-160); Percent Iron Saturation 34 % (15-50); Potassium 3.6 mmol/L (3.3-5.1); Sodium 144 mmol/L (135-145); Total Iron Binding Capacity 239 mcg/dL (228-428); Total Protein 6.8 g/dL (6.5-8.0); Triglycerides 136 mg/dL (<150); Unsaturated Iron Binding 157 ug/dL
[2025-03-31 18:22] LABS: Folate 9.3 ng/mL (> or = 4.0); Vitamin B12 1292 pg/mL (200-900)
== END 2025-03-31 16:31 | disposition home or self-care (01) ==
LOC: HO.LAB 16:30
PROVIDERS: PCP Internal Medicine; Visit Provider Internal Medicine
DX: Z13.1 Encounter for screening for diabetes mellitus (principal); I10 Essential (primary) hypertension; F33.2 Major depressive disorder, recurrent severe without psychotic features; E78.1 Pure hyperglyceridemia; D64.9 Anemia, unspecified; R35.89 Other polyuria
CPT/HCPCS: 36415; 80053; 80061; 82607; 82746; 83036; 83540; 84443; 85025

== ENCOUNTER 2025-04-06 08:08 | Outpatient (REF) | payer OTHER, SELFPAY ==
--- NOTE | ~2025-04-06 | XR_ITS ---
EXAMINATION: X-ray bilateral shoulders CLINICAL INFORMATION: Pain COMPARISON: None TECHNIQUE: Right shoulder 3 views. Left shoulder 3 views. FINDINGS: Right shoulder: No acute fracture or dislocation. Joint spaces are maintained. No suspicious bony lesion. No abnormal soft tissue calcification. Left shoulder: No acute fracture or dislocation. Joint spaces are maintained. Minimal acromioclavicular arthritis. No suspicious bony lesion.. No abnormal soft tissue calcification. XR/XR Shoulder Andrei min 2V IMPRESSION: Right shoulder: No acute osseous findings. Left shoulder: Minimal acromioclavicular arthritis. No acute osseous findings. Electronically signed by: Bony Matias MD 04/06/2025 03:16 PM EDT
== END 2025-04-06 08:09 | disposition home or self-care (01) ==
LOC: HO.HOSX 08:08
PROVIDERS: Visit Provider Physician Assistant
DX: M75.81 Other shoulder lesions, right shoulder (principal); M75.82 Other shoulder lesions, left shoulder; G43.909 Migraine, unspecified, not intractable, without status migrainosus; M54.9 Dorsalgia, unspecified; Z79.52 Long term (current) use of systemic steroids
CPT/HCPCS: 20610; 73030; J0665; J1100; J2003

== ENCOUNTER 2025-04-06 14:35 | Outpatient (AMB) | payer OTHER, SELFPAY ==
--- NOTE | 2025-04-06 14:40 | MHC.OFFVIS ---
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 Patient referred by pain management. Today patient reports her pain has been present for 6 months. Denies injury. Hx of right shoulder cortisone injections with the last one being about 5+ years ago. Her most discomfort is in her left shoulder. She describes her discomfort as a throbbing and achy and in the mornings are the worse. She is careful with ROM. States does not feel like her arm is attached to her body. No numbness or tingling. US guided injection via pain management did not help. She feels most relief with steroid injections. Allergies doxycycline (DOXYCYCLINE) Allergy (Intermediate, Verified 04/06/25 14:42) RASH Medication List - Last Reconciled 04/08/25 by Dickson Bell PA-C dextroamphetamine-amphetamine 5 mg (Adderall) 5 mg PO TID estradiol 1 patch transdermal 2XW fluticasone propionate 50 mcg/actuation 1 spray intranasal BID ibuprofen 600 mg PO Q6H PRN lidocaine 5% 1 patch topical DAILY loratadine 10 mg PO DAILY methocarbamol 500 mg PO TID PRN morphine 15 mg PO Q12H 30 days naloxone 4 mg/actuation (Narcan) 4 mg intranasal Q2M PRN nicotine (polacrilex) 2 mg buccal Q2H 1 month ondansetron 4 mg PO Q8H PRN 30 days progesterone micronized 200 mg (2 x 100 mg) PO BEDTIME rimegepant 75 mg PO Q OTHER DAY sacroiliac belt As directed topiramate 100 mg PO BEDTIME 90 days [Tylenol 1,000 mg PO DAILY PRN] HPI 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 She states the pain is achey and throbbing. She is able to bring her arm up overhead but has to go slow. She denies n/t down the arm into the fingers. She did have steroid injection in the right shoulder approx 5 years ago . She states she would get an injection every 6 months. She also had a let shoulder subacromial and bicep tendon injection 07/2024 with pain mgmnt which she did not find to be very helpful. She suffers from migraines and also back pain. She is on morphine 15 mg twice a day prescribed by pain management. [facility] Medical History (Updated 04/08/25 @ 13:35 by Dickson Bell PA-C) Anxiety Migraines Degenerative disc disease, lumbar Elevated cholesterol ADHD Depression Sacroiliitis Hip osteoarthritis Spondylosis of lumbar region without myelopathy or radiculopathy Dysuria Surgical History H/O section Hx of tonsillectomy History of dilation and curettage Family History (Updated 11/04/23 @ 16:11 by Fallon Cox CMA) Mother No problems noted. Father No problems noted. 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 Current occupational exposures/hazards: No Cognitive needs: No Hearing needs: No Vision needs: No Review of Systems Const All systems reviewed & are unremarkable except as noted in HPI and below Physical Exam Vital Signs: BMI result Body Mass Index 23.8 Const General: cooperative and no acute distress Orientation/consciousness: patient oriented x3 Resp Effort & Inspection: normal respiratory effort and able to speak in complete sentences Cardio Peripheral pulses: Peripheral pulses 2+ throughout Neuro General: patient oriented x3 Extrem Other: Bilateral shoulders full range of motion without limitations. She has significant tenderness over the left proximal biceps tendon with a positive Paisley's. 5/5 rotator cuff strength bilaterally. Neurovascularly intact bilaterally. Office Procedures AMB Joint Injection/Aspiration Joint Injection/Aspiration Primary Site: left shoulder Prep: site was prepped using aseptic technique, ethochloride spray was applied and injection warnings given Injected: 40 mg of, with 3 mL of, 1% plain lidocaine, 0.25% bupivacaine and decadron Approach Used: posterolateral Coding - Glenohumeral/Tronchanteric Bursa/Intraarticular Procedure code (CPT) selection complete Results Reviewed Results Reviewed: XR Shoulder Andrei min 2V IMPRESSION: Right shoulder: No acute osseous findings. Left shoulder: Minimal acromioclavicular arthritis. No acute osseous findings. Assessment & Plan Assessment & Plan (1) Tendinitis of both shoulders: Code(s): M75.81 - Other shoulder lesions, right shoulder; M75.82 - Other shoulder lesions, left shoulder Category: Medical Plan: We discussed options today which includes physical therapy and steroid injections. The patient would like to hold off on formal physical therapy at this time but we did review some home exercises while in the office today. We also discussed the benefits of repeat steroid injection which she would like to pursue today. The left shoulder was injected in the subacromial space which she tolerated well. She will continue with anti-inflammatories as needed. She will see me back if symptoms persist over the next 6-8 weeks. Orders: Orders XR Shoulder Andrei min 2V 04/06/25 M25.519 - Pain in unspecified shoulder Coding Level of Care Code New Pt Level 3 (65082) Complex EM visit Add On G2211 Diagnoses Tendinitis of both shoulders M75.81; M75.82 CPT Codes Coding - Joint 7: 23537 - Glenohumeral/Tronchanteric Bursa/Intraarticular ([id number])
[2025-04-06 14:42] VITALS: BMI 23.8
== END 2025-04-06 15:41 | disposition home or self-care (01) ==
LOC: HO.HOS 14:35
PROVIDERS: PCP Internal Medicine; Visit Provider Physician Assistant
DX: M75.81 Other shoulder lesions, right shoulder (principal); M75.82 Other shoulder lesions, left shoulder
CPT/HCPCS: 20610; 99203

== ENCOUNTER → 2025-04-06 14:41 | Outpatient (BNV) | payer OTHER, SELFPAY | PROVIDERS: Visit Provider Radiology Diagnostic Ultrasound | DX: M25.511 Pain in right shoulder (principal); M25.512 Pain in left shoulder | CPT/HCPCS: 73030 ==

== ENCOUNTER 2025-04-15 14:04 | Outpatient (AMB) | payer OTHER, SELFPAY ==
--- NOTE | 2025-04-15 14:12 | MHC.OFFVIS ---
Vital Signs 04/15/25 14:16 Height 5 ft Weight 117 lb 2 oz BMI 22.9 BP 144/71 H Blood Pressure Location Lt brachial Position Sitting Pulse 88 Pulse Source Pulse Oximeter Pulse Oximetry (%) 98 Oxygen Delivery Method Room Air Intake Visit Reasons: Pill Count Intake Note: Zenaida comes in today for a pill count to morphine, patient should have 28 tablets and presents with 29 tablets which she last took today 04/15/25 at 12pm. 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 Patient is prescribed Morphine 15mg IR take 1 tab twice daily as needed. She arrived today with the expectation of having 28 pills, she presented 29 pills. Patient is low risk on the opioid assessment. Pain is reported today as 09/06. Last dose of medication was taken at 12pm. Denies side effects including somnolence, constipation, itching, dyspnea, rash, dizziness or weakness. Patient previously underwent therapeutic sacroiliac joint injections. She reports that her right sacroiliac joint has been starting to bother her again and she would like to repeat this injection. She endorses pain over right PSIS worse with standing, walking, sitting for extended period of time and lying on the affected side. Past Procedures: 05/07/24: Bilateral medial branch L3-L4-L5 RFA 11/21/23: Bilateral SIJ injections-60% ongoing pain relief 11/29/22: Right medial branch L3-L4-L5 RFA -60-70% ongoing pain relief 10/15/22: Bilateral SIJ injections-70% ongoing pain relief 04/19/22: Left SIJ injection with steroids-100% ongoing pain relief 04/19/22: Left L3-L4-L5 MB RFA-100% first 2 weeks, then 75-80% ongoing pain relief 02/28/22: Right SIJ injection with steroids-100% ongoing pain relief 02/28/22: Right L3-L4-L5 MB RFA-100% ongoing pain relief 01/08/22: Diagnostic Bilateral L3-L4-DR L5 MBBs- 80% pain relief x36 hours 09/18/21: Diagnostic Bilateral SIJ injections-100% pain relief x72 hours PFSH Medical History (Updated 04/08/25 @ 13:35 by Dickson Bell PA-C) Anxiety Migraines Degenerative disc disease, lumbar Elevated cholesterol ADHD Depression Sacroiliitis Hip osteoarthritis Spondylosis of lumbar region without myelopathy or radiculopathy Dysuria Surgical History H/O section Hx of tonsillectomy History of dilation and curettage Family History (Updated 11/04/23 @ 16:11 by Fallon Cox CMA) Mother No problems noted. Father No problems noted. 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 Answers questions appropriately. Fully engaged in examination. Skin: warm, dry, intact HEENT: Normocephalic. Hearing intact. Cardiac: External chest normal in appearance. Respiratory: No cough, audible wheezing or stridor. Abdomen: without gross distension. MS: No obvious swelling or deformities. Able to transition from sit to stand unassisted. Ambulates with bilaterally normal heel strike and toe off Right SIJ: Tenderness right PSIS. Gaenslen positive thigh thrust positive SI compression positive Neurological: Oriented to person, place, time and situation. Thought process intact. No gait abnormalities appreciated. Psychiatric: Appropriate mood and affect. Good judgment and insight. Vital Signs: Last Vital Signs Pulse 88 04/15/25 14:16 BP 144/71 H 04/15/25 14:16 Pulse Ox 98 04/15/25 14:16 Oxygen Delivery Method Room Air 04/15/25 14:16 BMI result Body Mass Index 22.9 Results Reviewed Results Reviewed: 07/14/2024 MR/MR lumbar spine wo con FINDINGS: There is normal lumbar lordosis. There is minimal grade 1 retrolisthesis L4 on L5. Rest of the vertebral alignment and normal vertebral heights are normal. There is mild diffuse bulge mildly flattening the ventral thecal sac but without spinal canal stenosis. The neural foramina are patent bilaterally. There is mild loss of L2-3, L3-4 and L4-5 disc heights with mild disc desiccation change. The T12-L1 and L1-2 disc level appears unremarkable. At L2-3 disc level there is mild diffuse bulge with posterior annular tear without spinal stenosis. The neural foramina patent bilaterally. At L3-4 disc level there is mild diffuse bulge without spinal canal stenosis. The neural foramina patent bilaterally. At L4-5 disc level there is broad-based diffuse bulge flattening the ventral thecal sac with bilateral facet degenerative and ligament flavum hypertrophy resulting in bilateral lateral recess and mild neural foraminal narrowing. The finding is slightly more prominent than the previous exam 08/13/2021 At L5-S1 disc level there is a broad-based diffuse bulge without spinal canal stenosis. The neural foramina are patent bilaterally. The bone marrow signal is preserved normal. Conus medullaris terminates at L1 and appears normal in morphology. The paravertebral soft tissues are normal. IMPRESSION: Mild diffuse bulge L2-3, L3-4 and L4-5 disc level slightly worse at the L4-5 disc were compared previous MRI 2021. There is bilateral lateral recess and neural foraminal narrowing at the L4-5 disc level. MRI of the lumbar spine was obtained using routine sequences without contrast. FINDINGS: Alignment is normal. Vertebral body heights are preserved. No acute bone marrow signal changes. There is disc desiccation at multiple levels without substantial loss of intervertebral disc height. The tip of the conus medullaris is located at L1-L2. No mass effect on the conus. Visualized distal cord signal intensity is normal. At L1-L2 the annular contour is normal. No canal or neuroforaminal compromise. At L2-L3 there is an asymmetrically bulging disc to the right. Bilateral facet degenerative change. No canal stenosis. No mass effect on the traversing or foraminal nerve roots. At L3-L4 there is a left foraminal annular fissure associated with a bulging disc. Bilateral facet degenerative change. No canal stenosis. No mass effect on the traversing or foraminal nerve roots. At L4-L5 there is a slightly bulging disc. Bilateral facet degenerative change. No canal stenosis. No mass effect on the traversing or foraminal nerve roots. At L5-S1 there is a slightly bulging disc. No canal stenosis. No mass effect on the traversing or foraminal nerve roots. Limited visualization of the retroperitoneal anatomy reveals no abnormal finding. Psoas and paraspinal muscle groups are symmetric. IMPRESSION: There is disc degeneration at multiple levels within the lumbar spine as described above. No canal stenosis. No mass effect on the traversing or foraminal nerve roots. 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.891 - senior living (current) use of opiate analgesic Category: Medical (2) Chronic pain syndrome: Code(s): G89.4 - Chronic pain syndrome Category: Medical (3) Spondylosis of lumbar region without myelopathy or radiculopathy: Code(s): M47.816 - Spondylosis without myelopathy or radiculopathy, lumbar region Category: Medical (4) Sacroiliac joint dysfunction: Code(s): M53.3 - Sacrococcygeal disorders, not elsewhere classified Category: Medical (5) Hypertension: Code(s): I10 - Essential (primary) hypertension Category: Medical Qualifiers: Hypertension type: primary hypertension Qualified Code(s): I10 - Essential (primary) hypertension (6) Sacroiliitis: Code(s): M46.1 - Sacroiliitis, not elsewhere classified Category: Medical (7) Headache, chronic migraine without aura: Code(s): G43.709 - Chronic migraine without aura, not intractable, without status migrainosus Category: Medical (8) Dorsalgia: Code(s): M54.9 - Dorsalgia, unspecified Category: Medical (9) Biceps tendonitis: Code(s): M75.20 - Bicipital tendinitis, unspecified shoulder Category: Medical Plan Masspat was reviewed and without concerns. No obvious signs of diversion, abuse or misuse of the opioid medications. New prescription for Morphine 15mg IR take one tab twice daily as needed, dispense #60. Patient is suffering with right sacroiliac joint dysfunction. She had positive results with previous therapeutic SI joint injection. Patient has exhausted conservative therapy including home exercise program, PT, NSAIDs, [id number] medications, prescription medications all without improvement of her symptoms. Schedule for fluoroscopy guided right therapeutic sacroiliac joint injection with local anesthetic. All questions and concerns have been answered and patient agrees with the plan. Follow-up in the office in 1 month, sooner if needed. Medications: Refilled morphine Partial Fill upon patient request. 15 mg PO Q12H 60 tabs 0RF pain 30 days G89.4 - Chronic pain syndrome, M46.1 - Sacroiliitis, not elsewhere classified, M47.816 - Spondylosis without myelopathy or radiculopathy, lumbar region, Z79.891 - senior living (current) use of opiate analgesic Coding Level of Care Code Est Pt Level 3 (41795) Complex EM visit Add On G2211 Diagnoses Opioid contract exists Z79.891 Chronic pain syndrome G89.4 Spondylosis of lumbar region without myelopathy or radiculopathy M47.816 Sacroiliac joint dysfunction M53.3 Primary hypertension I10 Hypertension type: primary hypertension Sacroiliitis M46.1 Headache, chronic migraine without aura G43.709 Dorsalgia M54.9 Biceps tendonitis M75.20
[2025-04-15 14:16] VITALS: BP 144/71; PULSE 88; O2SAT 98; BMI 22.9
== END 2025-04-15 14:35 | disposition home or self-care (01) ==
LOC: HO.PMC 14:05
PROVIDERS: PCP Internal Medicine; Visit Provider Registered Nurse Emergency
DX: Z79.891 Long term (current) use of opiate analgesic (principal); G89.4 Chronic pain syndrome; M47.816 Spondylosis without myelopathy or radiculopathy, lumbar region; M53.3 Sacrococcygeal disorders, not elsewhere classified; I10 Essential (primary) hypertension; M46.1 Sacroiliitis, not elsewhere classified; G43.709 Chronic migraine without aura, not intractable, without status migrainosus; M54.9 Dorsalgia, unspecified; M75.20 Bicipital tendinitis, unspecified shoulder
CPT/HCPCS: 99213

== ENCOUNTER 2025-05-03 06:19 | Outpatient (REF) | payer OTHER, SELFPAY ==
--- NOTE | ~2025-05-03 | FL_ITS ---
EXAMINATION: FL GUIDANCE ONLY HISTORY: M53.3 - Sacrococcygeal disorders, not elsewhere classified COMPARISON: None available. TECHNIQUE: Fluoroscopy time: 15 seconds. Cumulative Dose: 3.40 mGy. DAP: 374.70 mGycm2 Images: 2. FINDINGS: Fluoroscopic spot films of the right hemipelvis demonstrate a needle and contrast material in the region of the sacroiliac joint. FL/FL guidance in treatment room IMPRESSION: Fluoroscopy during procedure. Please see procedure report for additional information. Electronically signed by: Wood Christopher MD 05/03/2025 03:35 PM EST
--- OUTSIDE RECORDS SUMMARY | 2025-05-03 06:27 | XMS_ITS | Clinical Summary ---
Author Organization [facility] Address [address] [id number] Phone Care Team Providers Care [employer] And Service Director Name Role Phone Terrance Link MD Primary [...] - 2024-2 6 season) 2025 03/13/2021, 02/20/2021 RSV VACCINE (1 - 1-dose 75+ series) 2048 HEPATITIS A VACCINES Aged Out No long [...] ACO ACO ACO ACO ACO ACO ACO ACO ACO Care Teams R[employer] And Service Director Relationship Specialty Start Date End Date Terrance Link MD PCP - General 02/07/21 Additional Source Comments The information contained in this document represents components of the legal health record. It is not the complete legal health record.[facility]
== END 2025-05-03 06:20 | disposition home or self-care (01) ==
LOC: CF 06:19
PROVIDERS: Visit Provider Anesthesiology
DX: M53.3 Sacrococcygeal disorders, not elsewhere classified (principal); M46.1 Sacroiliitis, not elsewhere classified; G89.4 Chronic pain syndrome; M47.816 Spondylosis without myelopathy or radiculopathy, lumbar region; Z79.891 Long term (current) use of opiate analgesic; I10 Essential (primary) hypertension; G43.709 Chronic migraine without aura, not intractable, without status migrainosus; M75.20 Bicipital tendinitis, unspecified shoulder; Z87.891 Personal history of nicotine dependence
CPT/HCPCS: 27096; J2795; J3301; Q9967

== ENCOUNTER 2025-05-03 09:55 | Outpatient (AMB) | payer OTHER, SELFPAY ==
[2025-05-03 10:22] VITALS: BP 151/70; PULSE 80; RESP 16; O2SAT 99; BMI 22.8
--- NOTE | 2025-05-03 10:22 | A.OFFVIS_ITS ---
Vital Signs 05/03/25 10:22 05/03/25 10:44 Height 5 ft Weight 117 lb BMI 22.8 BP 151/70 H 140/58 H Blood Pressure Location Lt brachial Lt brachial Position Sitting Sitting Respiration 16 16 Pulse 80 77 Pulse Source Pulse Oximeter Pulse Oximeter Pulse Oximetry (%) 99 98 Oxygen Delivery Method Room Air Room Air Intake Visit Reasons: Right Therapeutic SIJ Injection/ Ativan Allergies doxycycline (DOXYCYCLINE) Allergy (Intermediate, Verified 04/06/25 14:42) RASH PFSH Medical History (Updated 04/08/25 @ 13:35 by Dickson Bell PA-C) Anxiety Migraines Degenerative disc disease, lumbar Elevated cholesterol ADHD Depression Sacroiliitis Hip osteoarthritis Spondylosis of lumbar region without myelopathy or radiculopathy Dysuria Surgical History H/O section Hx of tonsillectomy History of dilation and curettage Family History (Updated 11/04/23 @ 16:11 by Fallon Cox CMA) Mother No problems noted. Father No problems noted. 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 Current occupational exposures/hazards: No Cognitive needs: No Hearing needs: No Vision needs: No Physical Exam Vital Signs: Last Vital Signs Pulse 77 05/03/25 10:44 Resp 16 05/03/25 10:44 BP 140/58 H 05/03/25 10:44 Pulse Ox 98 05/03/25 10:44 Oxygen Delivery Method Room Air 05/03/25 10:44 BMI result Body Mass Index 22.8 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.891 - senior living (current) use of opiate analgesic Category: Medical (2) Chronic pain syndrome: Code(s): G89.4 - Chronic pain syndrome Category: Medical (3) Spondylosis of lumbar region without myelopathy or radiculopathy: Code(s): M47.816 - Spondylosis without myelopathy or radiculopathy, lumbar region Category: Medical (4) Sacroiliac joint dysfunction: Code(s): M53.3 - Sacrococcygeal disorders, not elsewhere classified Category: Medical (5) Hypertension: Code(s): I10 - Essential (primary) hypertension Category: Medical Qualifiers: Hypertension type: primary hypertension Qualified Code(s): I10 - Essential (primary) hypertension (6) Sacroiliitis: Code(s): M46.1 - Sacroiliitis, not elsewhere classified Category: Medical (7) Headache, chronic migraine without aura: Code(s): G43.709 - Chronic migraine without aura, not intractable, without status migrainosus Category: Medical (8) Dorsalgia: Code(s): M54.9 - Dorsalgia, unspecified Category: Medical (9) Biceps tendonitis: Code(s): M75.20 - Bicipital tendinitis, unspecified shoulder Category: Medical Plan Right therapeutic sacroiliac joint injection. Zenaida is very pleasant 49 years old female suffering from sacroiliitis and sacroiliac joint dysfunction of the right. She came today to the operating room to receive therapeutic right SI joint injection. Informed consent was thoroughly explained to the patient risks and benefits were explained. The patient was positioned prone on the operating table with pillow under her abdomen. Time-out was performed delineating name of the patient nature of the procedure and allergies of the patient. The lower back and upper buttocks were prepped with ChloraPrep and draped with sterile self adhesive utility towels. C-arm was brought over the operating field and sq picture of the left sacroiliac joint was demonstrated on the screen. Tilting C-arm contralateral to the left the posterior silhouette of the sacroiliac joint was superimposed on anterior silhouette of the sacroiliac joint. Slightly medial to the projection of the joint to the skin injection of the local anesthetic lidocaine 2% mixed with ropivacaine 0.5% was performed. After that 22 gauge 3-1/2 inch needle was driven to were the point of interest in tunnel vision fashion. When tip of the needle entered posterior capsule of the joint injection of the contrast was performed delineating arthrogram. After that injection of the ropivacaine 0.5% 5 ml mixed with Kenalog 40 mg was performed. Upon completion of the injection needle was withdrawn sterile Band- Aid was applied. The patient tolerated the procedure well. . Orders: Orders FL guidance in treatment room 05/03/25 M53.3 - Sacrococcygeal disorders, not elsewhere classified Medications: New lorazepam (Ativan) Take 30 minutes prior to arrival to procedure 1 mg PO ONCE 1 tab 0RF anxiety Coding Level of Care Code Procedure Only Diagnoses Opioid contract exists Z79.891 Chronic pain syndrome G89.4 Spondylosis of lumbar region without myelopathy or radiculopathy M47.816 Sacroiliac joint dysfunction M53.3 Primary hypertension I10 Hypertension type: primary hypertension Sacroiliitis M46.1 Headache, chronic migraine without aura G43.709 Dorsalgia M54.9 Biceps tendonitis M75.20
[2025-05-03 10:44] VITALS: BP 140/58; PULSE 77; RESP 16; O2SAT 98
== END 2025-05-03 10:53 | disposition home or self-care (01) ==
LOC: HO.PMCPRC 09:55
PROVIDERS: PCP Internal Medicine; Visit Provider Anesthesiology
DX: M53.3 Sacrococcygeal disorders, not elsewhere classified (principal); M46.1 Sacroiliitis, not elsewhere classified; G89.4 Chronic pain syndrome; M47.816 Spondylosis without myelopathy or radiculopathy, lumbar region; I10 Essential (primary) hypertension; Z79.891 Long term (current) use of opiate analgesic; G43.709 Chronic migraine without aura, not intractable, without status migrainosus; M54.9 Dorsalgia, unspecified; M75.20 Bicipital tendinitis, unspecified shoulder
CPT/HCPCS: 27096

== ENCOUNTER 2025-05-09 15:42 | Outpatient (AMB) | payer OTHER, SELFPAY ==
--- NOTE | 2025-05-09 16:00 | A.OFFPC_ITS ---
Vital Signs 05/09/25 16:14 Height 5 ft Weight 116 lb 2 oz BMI 22.7 BP 118/74 Blood Pressure Location Lt brachial Position Sitting Respiration 12 Pulse 74 Pulse Source Pulse Oximeter Temp 97.7 F Temp Source Oral Pulse Oximetry (%) 98 Oxygen Delivery Method Room Air Intake Visit Reasons: cpe Intake Note: Physical. Pain and pressure for the past couple days. Audio Visual Equipment Rental Clerk Required: No Allergies doxycycline (DOXYCYCLINE) Allergy (Intermediate, Verified 05/09/25 16:12) RASH Tobacco use date assessed: 11/04/23 Dental Screening Dental Screen Date: 11/04/23 HPI HPI Comments History of Present Illness Details The patient is a 49 year old female with a past medical history of chronic back pain, OA, sacroiliitis, depression, ADD, presenting for physical exam MSK: Follows with pain management-stable on morphine. She has repeated sacroiliac joint injections. Multiple past injections. Follows regularly with pain management at [facility] [place]. Has chronic constipation BH: Stable on adderall. Has seen psych. Was on wellbutrin 100mg bid, elavil 10mg daily but stopped when her medication ran out Neuro: Migraines: on topamax 100mg oral at bedtime. On imitrex 100mg prn Endorses hair loss. 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 HEENT: Denies changes in vision and hearing. RESPIRATORY: Denies SOB and cough. CV: Denies palpitations and CP GI: Denies abdominal pain, nausea, vomiting and diarrhea. : Denies dysuria and urinary frequency. MSK: Denies new myalgia and joint pain. SKIN: Denies rash and pruritus. NEUROLOGICAL: Denies headache PSYCHIATRIC: Denies recent changes in mood. PHYSICAL EXAM: GENERAL: Alert and oriented x 3. NAD EYES: EOMI. Anicteric. HENT: Moist mucous membranes. No scleral icterus. No cervical lymphadenopathy. LUNGS: Clear to auscultation bilaterally. CARDIOVASCULAR: Regular rate and rhythm. No murmur. No JVD. ABDOMEN: Soft, non-tender +bs EXTREMITIES: No edema. Non-tender. SKIN: No rashes or lesions. Warm. NEUROLOGIC: No focal neurological deficits. CN II-XII grossly intact PSYCHIATRIC: Cooperative. Appropriate mood and affect [facility] Medical History Anxiety Migraines Degenerative disc disease, lumbar Elevated cholesterol ADHD Depression Sacroiliitis Hip osteoarthritis Spondylosis of lumbar region without myelopathy or radiculopathy Dysuria Surgical History H/O section Hx of tonsillectomy History of dilation and curettage Family History Mother No problems noted. Father No problems noted. 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 1. Little interest or pleasure in doing things: several days 2. Feeling down, depressed, or hopeless: several days 3. Trouble falling or staying asleep, or sleeping too much: several days 4. Feeling tired or having little energy: several days 5. Poor appetite or overeating: several days 6. Feeling bad about yourself - or that you are a failure or have let yourself or your family down: several days 7. Trouble concentrating on things, such as reading the newspaper or watching television: not at all 8. Moving or speaking so slowly that other people could have noticed. Or the opposite - being so fidgety or restless that you have been moving around a lot more than usual: not at all 9. Thoughts that you would be better off or of hurting yourself in some way: not at all Total score: 6 Depression Screening Interpretation: Positive Depression Screening Done: Yes 63562 - PHQ-9 Billing: Yes Source: Developed by Drs. Wood Cruz, Maurilio Pascalke and colleagues, with an educational deondre from [employer]. Thrive Questionnaire Date Thrive assessed: 05/02/25 I am a: Patient What is your living situation today?: I have a steady place to live Within the past 12 months, did the food you bought not last and you didn't have the money to get more?: Never true Within the past 12 months, did you worry whether your food would run out before you got money to buy more?: Never true Do you have trouble paying for medicines?: No Do you have trouble getting transportation to medical appointments?: No Do you have trouble paying your heating and electricity bill?: I choose not to answer this question Do you have trouble taking care of your child, family member or friend?: No Do you have trouble with day-to-day activities such as bathing, preparing meals, shopping, managing finances, etc.?: No Are you currently unemployed and looking for a job?: No Are you interested in more education?: No Please select the resources that you would like help with: None Currently or been in a relationship where the following occur: No concerns reported THRIVE Score: 0 AUDIT C Alcohol Use Questionnaire (AUDIT-C) 1. How often do you have a drink containing alcohol?: Never Total Score: 0 PASTOR-7 AMB Questionnaire PASTOR-7 Date PASTOR - 7 assessed: 05/09/25 Feeling nervous, anxious, or on edge: 0 = Not at all Not being able to stop or control worryin = Not at all Worrying too much about different things: 0 = Not at all Trouble relaxin = Not at all Being so restless that it is hard to sit still: 0 = Not at all Becoming easily annoyed or irritable: 0 = Not at all Feeling afraid as if something awful might happen: 0 = Not at all Total PASTOR-7 score (0-4 normal; 5-9 mild; 10-14 moderate; 15-21 severe): 0 Source: Developed by Drs. Wood Cruz, Maurilio Pascal and colleagues, with an educational deondre from [employer]. PASTOR-7 Assessment Billing PASTOR-7 Assessment Tool: PASTOR-7 Assessment [id number] Physical exam (Primary Care) Vital Signs: Last Vital Signs Temp 97.7 F 05/09/25 16:14 Pulse 74 05/09/25 16:14 Resp 12 05/09/25 16:14 BP 118/74 05/09/25 16:14 Pulse Ox 98 05/09/25 16:14 Oxygen Delivery Method Room Air 05/09/25 16:14 BMI result Body Mass Index 22.7 Tobacco/Smoking Status: Tobacco use Status Tobacco use date assessed 11/04/23 05/09/25 16:06 Patient Tobacco Use Status Former Tobacco user 05/09/25 16:06 Tobacco use type Cigarette 05/09/25 16:06 e-Cigarette/Vaping Use Never Used 05/09/25 16:06 PHQ-9: PHQ-9 Score PHQ-9: Total score 6 05/09/25 16:24 Depression Screening Interpretation: Positive Thrive Assessment: Date of Thrive Assessment Date Thrive assessed 05/02/25 05/09/25 16:06 Currently or been in a relationship where the following occur: No concerns reported Coding Level of Care Code New Pt Prev Care 40-64y(94246) Diagnoses Physical exam Z00.00 Major depressive disorder, recurrent severe without psychotic features F33.2 ADHD (attention deficit hyperactivity disorder), combined type F90.2 Primary hypertension I10 Hypertension type: primary hypertension Additional Codes PASTOR-7 Assessment Billing - PASTOR-7 Assessment Tool: PASTOR-7 Assessment [id number] ([id number]) PHQ-9 - 41230 - PHQ-9 Billing: Yes ([id number]) Assessment & Plan Assessment & Plan (1) Physical exam: Code(s): Z00.00 - Encounter for general adult medical examination without abnormal findings Category: Medical (2) Major depressive disorder, recurrent severe without psychotic features: Comment: Restart wellbutrin Code(s): F33.2 - Major depressive disorder, recurrent severe without psychotic features Category: Medical (3) ADHD (attention deficit hyperactivity disorder), combined type: Code(s): F90.2 - Attention-deficit hyperactivity disorder, combined type Category: Medical (4) Hypertension: Code(s): I10 - Essential (primary) hypertension Category: Medical Qualifiers: Hypertension type: primary hypertension Qualified Code(s): I10 - Essential (primary) hypertension Plan 49 year old for CPE Interval history reviewed Preventive measures reviewed Mammo UTD ordered. Cologuard ordered. 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
[2025-05-09 16:14] VITALS: BP 118/74; PULSE 74; RESP 12; TEMP 36.5; O2SAT 98; BMI 22.7
--- OUTSIDE RECORDS SUMMARY | 2025-05-09 17:44 | XMS_ITS | Clinical Summary ---
Author Organization [facility] Address [address] [phone] Phone Care Team Providers Care Technical Healthcare Consultant Name Role Phone Terrance Link MD [...] ACO ACO ACO ACO ACO Care Teams Technical Healthcare Consultant Relationship Specialty Start Date End Date Terrance Link MD PCP - General 02/07/21 Additional Source Comments The information contained in this document represents components of the legal health record. It is not the complete legal health record.[facility]
== END 2025-05-09 16:43 | disposition home or self-care (01) ==
LOC: HO.HMCFM 15:42
PROVIDERS: PCP Internal Medicine; Visit Provider Internal Medicine
DX: Z00.00 Encounter for general adult medical examination without abnormal findings (principal); F33.2 Major depressive disorder, recurrent severe without psychotic features; I10 Essential (primary) hypertension; K59.00 Constipation, unspecified; F90.2 Attention-deficit hyperactivity disorder, combined type; Z87.448 Personal history of other diseases of urinary system

== ENCOUNTER → 2025-05-09 15:42 | Outpatient (BNVA) | payer OTHER, SELFPAY | PROVIDERS: PCP Internal Medicine; Visit Provider Internal Medicine | DX: Z00.00 Encounter for general adult medical examination without abnormal findings (principal); F33.2 Major depressive disorder, recurrent severe without psychotic features; F90.2 Attention-deficit hyperactivity disorder, combined type; I10 Essential (primary) hypertension; G89.29 Other chronic pain; M54.9 Dorsalgia, unspecified; Z79.891 Long term (current) use of opiate analgesic; Z79.899 Other long term (current) drug therapy | CPT/HCPCS: 81002; 96127 ==

== ENCOUNTER 2025-05-10 17:40 | Outpatient (REF) | payer OTHER, SELFPAY ==
--- OUTSIDE RECORDS SUMMARY | 2025-05-10 17:42 | XMS_ITS | Clinical Summary ---
Author Organization [facility] Address [address] [phone] Phone Care Team Providers Care Bus And Rail Operator Name Role Phone Terrance Link MD Primary [...] ACO ACO ACO ACO ACO Care Teams Bus And Rail Operator Relationship Specialty Start Date End Date Terrance Link MD PCP - General 02/07/21 Additional Source Comments The information contained in this document represents components of the legal health record. It is not the complete legal health record.[facility]
== END 2025-05-10 17:41 | disposition home or self-care (01) ==
LOC: HO.LNP 17:40
PROVIDERS: Visit Provider Internal Medicine
DX: R30.0 Dysuria (principal)
CPT/HCPCS: 87086

== ENCOUNTER 2025-05-13 10:28 | Outpatient (AMB) | payer OTHER, SELFPAY ==
--- NOTE | 2025-05-13 10:34 | MHC.OFFVIS ---
Vital Signs 05/13/25 10:38 Height 5 ft Weight 115 lb BMI 22.5 BP 142/75 H Blood Pressure Location Rt brachial Position Sitting Respiration 16 Pulse 73 Pulse Source Pulse Oximeter Pulse Oximetry (%) 100 Oxygen Delivery Method Room Air Intake Visit Reasons: Pill Count Intake Note: Patient here for a pill count of Morphine. Per directions patient should have 34 pills patient presented 36 pills. Last took 7:30am Technologist Infectious Disease Required: No Accompanied by: Self / Same As Patient Allergies doxycycline (DOXYCYCLINE) Allergy (Intermediate, Verified 05/13/25 10:41) RASH HPI Comments Details: Zenaida presents back to the office today for follow up chronic pain and chronic opioid therapy management. Patient is prescribed Morphine 15mg IR take 1 tab twice daily as needed. She arrived today with the expectation of having 34 pills, she presented 36 pills. Patient is low risk on the opioid assessment. Pain is reported today as 5/10. Last dose of medication was taken at 7:30am. Denies side effects including somnolence, constipation, itching, dyspnea, rash, dizziness or weakness. Continues with axial lower back pain, had improved after RFA 1 year ago. Also suffering with bilateral SIJ pain, has not been using a SIJ belt. Reports improvement in the right SIJ pain since injection 10 days ago. 05/07/24: Bilateral medial branch L3-L4-L5 RFA 75% relief 11/29/22: Right medial branch L3-L4-L5 RFA -60-70% ongoing pain relief 04/19/22: Left L3-L4-L5 MB RFA-100% first 2 weeks, then 75-80% ongoing pain relief 02/28/22: Right L3-L4-L5 MB RFA-100% ongoing pain relief 01/08/22: Diagnostic Bilateral L3-L4-DR L5 MBBs- 80% pain relief x36 hours [facility] Medical History (Updated 05/10/25 @ 13:49 by Fallon Cox CMA) Painful urination Anxiety Migraines Degenerative disc disease, lumbar Elevated cholesterol ADHD Depression Sacroiliitis Hip osteoarthritis Spondylosis of lumbar region without myelopathy or radiculopathy Dysuria Surgical History H/O section Hx of tonsillectomy History of dilation and curettage Family History Mother No problems noted. Father No problems noted. 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 Answers questions appropriately. Fully engaged in examination. Skin: warm, dry, intact HEENT: Normocephalic. Hearing intact. Cardiac: External chest normal in appearance. Respiratory: No cough, audible wheezing or stridor. Abdomen: without gross distension. MS: No obvious swelling or deformities. Able to transition from sit to stand unassisted. Ambulates with bilaterally normal heel strike and toe off Neurological: Oriented to person, place, time and situation. Thought process intact. No gait abnormalities appreciated. Psychiatric: Appropriate mood and affect. Good judgment and insight. Vital Signs: Last Vital Signs Pulse 73 05/13/25 10:38 Resp 16 05/13/25 10:38 BP 142/75 H 05/13/25 10:38 Pulse Ox 100 05/13/25 10:38 Oxygen Delivery Method Room Air 05/13/25 10:38 BMI result Body Mass Index 22.5 Results Reviewed Results Reviewed: 07/14/2024 MR/MR lumbar spine wo con FINDINGS: There is normal lumbar lordosis. There is minimal grade 1 retrolisthesis L4 on L5. Rest of the vertebral alignment and normal vertebral heights are normal. There is mild diffuse bulge mildly flattening the ventral thecal sac but without spinal canal stenosis. The neural foramina are patent bilaterally. There is mild loss of L2-3, L3-4 and L4-5 disc heights with mild disc desiccation change. The T12-L1 and L1-2 disc level appears unremarkable. At L2-3 disc level there is mild diffuse bulge with posterior annular tear without spinal stenosis. The neural foramina patent bilaterally. At L3-4 disc level there is mild diffuse bulge without spinal canal stenosis. The neural foramina patent bilaterally. At L4-5 disc level there is broad-based diffuse bulge flattening the ventral thecal sac with bilateral facet degenerative and ligament flavum hypertrophy resulting in bilateral lateral recess and mild neural foraminal narrowing. The finding is slightly more prominent than the previous exam 08/13/2021 At L5-S1 disc level there is a broad-based diffuse bulge without spinal canal stenosis. The neural foramina are patent bilaterally. The bone marrow signal is preserved normal. Conus medullaris terminates at L1 and appears normal in morphology. The paravertebral soft tissues are normal. IMPRESSION: Mild diffuse bulge L2-3, L3-4 and L4-5 disc level slightly worse at the L4-5 disc were compared previous MRI 2021. There is bilateral lateral recess and neural foraminal narrowing at the L4-5 disc level. MRI of the lumbar spine was obtained using routine sequences without contrast. FINDINGS: Alignment is normal. Vertebral body heights are preserved. No acute bone marrow signal changes. There is disc desiccation at multiple levels without substantial loss of intervertebral disc height. The tip of the conus medullaris is located at L1-L2. No mass effect on the conus. Visualized distal cord signal intensity is normal. At L1-L2 the annular contour is normal. No canal or neuroforaminal compromise. At L2-L3 there is an asymmetrically bulging disc to the right. Bilateral facet degenerative change. No canal stenosis. No mass effect on the traversing or foraminal nerve roots. At L3-L4 there is a left foraminal annular fissure associated with a bulging disc. Bilateral facet degenerative change. No canal stenosis. No mass effect on the traversing or foraminal nerve roots. At L4-L5 there is a slightly bulging disc. Bilateral facet degenerative change. No canal stenosis. No mass effect on the traversing or foraminal nerve roots. At L5-S1 there is a slightly bulging disc. No canal stenosis. No mass effect on the traversing or foraminal nerve roots. Limited visualization of the retroperitoneal anatomy reveals no abnormal finding. Psoas and paraspinal muscle groups are symmetric. IMPRESSION: There is disc degeneration at multiple levels within the lumbar spine as described above. No canal stenosis. No mass effect on the traversing or foraminal nerve roots. 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.891 - long-term (current) use of opiate analgesic Category: Medical (2) Chronic pain syndrome: Code(s): G89.4 - Chronic pain syndrome Category: Medical (3) Spondylosis of lumbar region without myelopathy or radiculopathy: Code(s): M47.816 - Spondylosis without myelopathy or radiculopathy, lumbar region Category: Medical (4) Sacroiliac joint dysfunction: Code(s): M53.3 - Sacrococcygeal disorders, not elsewhere classified Category: Medical (5) Hypertension: Code(s): I10 - Essential (primary) hypertension Category: Medical Qualifiers: Hypertension type: primary hypertension Qualified Code(s): I10 - Essential (primary) hypertension (6) Sacroiliitis: Code(s): M46.1 - Sacroiliitis, not elsewhere classified Category: Medical (7) Headache, chronic migraine without aura: Code(s): G43.709 - Chronic migraine without aura, not intractable, without status migrainosus Category: Medical (8) Dorsalgia: Code(s): M54.9 - Dorsalgia, unspecified Category: Medical (9) Biceps tendonitis: Code(s): M75.20 - Bicipital tendinitis, unspecified shoulder Category: Medical Plan Masspat was reviewed and without concerns. No obvious signs of diversion, abuse or misuse of the opioid medications. New prescription for Morphine 15mg IR take one tab twice daily as needed, dispense #60. Patient is suffering with axial lower back pain, pain returning after RFA 1 year ago. Discussed option for treatment with Sprint PNS, she would like to proceed. Schedule for fluoroscopy guided bilateral L4 Sprint PNS with local anesthetic. SIJ dysfunction: Some improvement since right therapeutic injection. Not ready to proceed with SI fusion d/t post op restrictions during recovery. SI belt given with instructions for use. All questions and concerns have been answered and patient agrees with the plan. Follow-up in the office in 1 month, sooner if needed. Medications: Refilled morphine Partial Fill upon patient request. 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
[2025-05-13 10:38] VITALS: BP 142/75; PULSE 73; RESP 16; O2SAT 100; BMI 22.5
== END 2025-05-13 10:57 | disposition home or self-care (01) ==
LOC: HO.PMC 10:29
PROVIDERS: PCP Internal Medicine; Visit Provider Registered Nurse Emergency
DX: Z79.891 Long term (current) use of opiate analgesic (principal); G89.4 Chronic pain syndrome; M47.816 Spondylosis without myelopathy or radiculopathy, lumbar region; M53.3 Sacrococcygeal disorders, not elsewhere classified; I10 Essential (primary) hypertension; M46.1 Sacroiliitis, not elsewhere classified; G43.709 Chronic migraine without aura, not intractable, without status migrainosus; M54.9 Dorsalgia, unspecified; M75.20 Bicipital tendinitis, unspecified shoulder
CPT/HCPCS: 99213

== ENCOUNTER 2025-06-10 10:52 | Outpatient (AMB) | payer OTHER, SELFPAY ==
--- NOTE | 2025-06-10 10:58 | MHC.OFFVIS ---
Vital Signs 06/10/25 10:59 Height 5 ft Weight 115 lb BMI 22.5 BP 140/35 H Blood Pressure Location Lt brachial Position Sitting Respiration 16 Pulse 78 Pulse Source Pulse Oximeter Pulse Oximetry (%) 100 Oxygen Delivery Method Room Air Intake Visit Reasons: Pill Count Intake Note: Patient here for a pill count of Morphine per directions patient should have 38 pills patient presented 38 pills. 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 Patient is prescribed Morphine 15mg IR take 1 tab twice daily as needed. She arrived today with the expectation of having 38 pills, she presented 38 pills. Pain is reported today as 10. Last dose of medication was taken at 7:00am. Denies side effects including somnolence, constipation, itching, dyspnea, rash, dizziness or weakness. Would like to start non opioid medication with hopes of tapering off opioids once pain is better controlled. Plan to start Ketamine study for refractory depression, concerned this would impact her opioid medication contract. Will supply paperwork from the study if she is going to participate. [facility] Medical History (Updated 05/10/25 @ 13:49 by Fallon Cox CMA) Painful urination Anxiety Migraines Degenerative disc disease, lumbar Elevated cholesterol ADHD Depression Sacroiliitis Hip osteoarthritis Spondylosis of lumbar region without myelopathy or radiculopathy Dysuria Surgical History H/O section Hx of tonsillectomy History of dilation and curettage Family History Mother No problems noted. Father No problems noted. 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 Answers questions appropriately. Fully engaged in examination. Skin: warm, dry, intact HEENT: Normocephalic. Hearing intact. Cardiac: External chest normal in appearance. Respiratory: No cough, audible wheezing or stridor. Abdomen: without gross distension. MS: No obvious swelling or deformities. Able to transition from sit to stand unassisted. Ambulates with bilaterally normal heel strike and toe off Neurological: Oriented to person, place, time and situation. Thought process intact. No gait abnormalities appreciated. Psychiatric: Appropriate mood and affect. Good judgment and insight. Vital Signs: Last Vital Signs Pulse 78 06/10/25 10:59 Resp 16 06/10/25 10:59 BP 140/35 H 06/10/25 10:59 Pulse Ox 100 06/10/25 10:59 Oxygen Delivery Method Room Air 06/10/25 10:59 BMI result Body Mass Index 22.5 Results Reviewed Results Reviewed: 07/14/2024 MR/MR lumbar spine wo con FINDINGS: There is normal lumbar lordosis. There is minimal grade 1 retrolisthesis L4 on L5. Rest of the vertebral alignment and normal vertebral heights are normal. There is mild diffuse bulge mildly flattening the ventral thecal sac but without spinal canal stenosis. The neural foramina are patent bilaterally. There is mild loss of L2-3, L3-4 and L4-5 disc heights with mild disc desiccation change. The T12-L1 and L1-2 disc level appears unremarkable. At L2-3 disc level there is mild diffuse bulge with posterior annular tear without spinal stenosis. The neural foramina patent bilaterally. At L3-4 disc level there is mild diffuse bulge without spinal canal stenosis. The neural foramina patent bilaterally. At L4-5 disc level there is broad-based diffuse bulge flattening the ventral thecal sac with bilateral facet degenerative and ligament flavum hypertrophy resulting in bilateral lateral recess and mild neural foraminal narrowing. The finding is slightly more prominent than the previous exam 08/13/2021 At L5-S1 disc level there is a broad-based diffuse bulge without spinal canal stenosis. The neural foramina are patent bilaterally. The bone marrow signal is preserved normal. Conus medullaris terminates at L1 and appears normal in morphology. The paravertebral soft tissues are normal. IMPRESSION: Mild diffuse bulge L2-3, L3-4 and L4-5 disc level slightly worse at the L4-5 disc were compared previous MRI 2021. There is bilateral lateral recess and neural foraminal narrowing at the L4-5 disc level. MRI of the lumbar spine was obtained using routine sequences without contrast. FINDINGS: Alignment is normal. Vertebral body heights are preserved. No acute bone marrow signal changes. There is disc desiccation at multiple levels without substantial loss of intervertebral disc height. The tip of the conus medullaris is located at L1-L2. No mass effect on the conus. Visualized distal cord signal intensity is normal. At L1-L2 the annular contour is normal. No canal or neuroforaminal compromise. At L2-L3 there is an asymmetrically bulging disc to the right. Bilateral facet degenerative change. No canal stenosis. No mass effect on the traversing or foraminal nerve roots. At L3-L4 there is a left foraminal annular fissure associated with a bulging disc. Bilateral facet degenerative change. No canal stenosis. No mass effect on the traversing or foraminal nerve roots. At L4-L5 there is a slightly bulging disc. Bilateral facet degenerative change. No canal stenosis. No mass effect on the traversing or foraminal nerve roots. At L5-S1 there is a slightly bulging disc. No canal stenosis. No mass effect on the traversing or foraminal nerve roots. Limited visualization of the retroperitoneal anatomy reveals no abnormal finding. Psoas and paraspinal muscle groups are symmetric. IMPRESSION: There is disc degeneration at multiple levels within the lumbar spine as described above. No canal stenosis. No mass effect on the traversing or foraminal nerve roots. 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.891 - penitentiary (current) use of opiate analgesic Category: Medical (2) Chronic pain syndrome: Code(s): G89.4 - Chronic pain syndrome Category: Medical (3) Spondylosis of lumbar region without myelopathy or radiculopathy: Code(s): M47.816 - Spondylosis without myelopathy or radiculopathy, lumbar region Category: Medical (4) Sacroiliac joint dysfunction: Code(s): M53.3 - Sacrococcygeal disorders, not elsewhere classified Category: Medical (5) Hypertension: Code(s): I10 - Essential (primary) hypertension Category: Medical Qualifiers: Hypertension type: primary hypertension Qualified Code(s): I10 - Essential (primary) hypertension (6) Sacroiliitis: Code(s): M46.1 - Sacroiliitis, not elsewhere classified Category: Medical (7) Headache, chronic migraine without aura: Code(s): G43.709 - Chronic migraine without aura, not intractable, without status migrainosus Category: Medical (8) Dorsalgia: Code(s): M54.9 - Dorsalgia, unspecified Category: Medical (9) Biceps tendonitis: Code(s): M75.20 - Bicipital tendinitis, unspecified shoulder Category: Medical Plan [place] was reviewed and without concerns. No obvious signs of diversion, abuse or misuse of the opioid medications. New prescription for Morphine 15mg IR take one tab twice daily as needed, dispense #60. Patient to provide paperwork prior to starting Ketamine trial for our records. She was advised that the medical trial would not impact her opioid contract providing the ketamine was administered safely in a controlled environment and she would be monitored. All questions and concerns have been answered and patient agrees with the plan. Follow-up in the office in 1 month, sooner if needed. Medications: New pregabalin (Lyrica) 25 mg PO BID 60 caps 0RF Refilled morphine Partial Fill upon patient request. 15 mg PO Q12H 60 tabs 0RF pain 30 days G89.4 - Chronic pain syndrome, M46.1 - Sacroiliitis, not elsewhere classified, M47.816 - Spondylosis without myelopathy or radiculopathy, lumbar region, Z79.891 - director long term care (current) use of opiate analgesic Coding Level of Care Code Est Pt Level 3 (44269) Add On Problem Visit Only Diagnoses Opioid contract exists Z79.891 Chronic pain syndrome G89.4 Spondylosis of lumbar region without myelopathy or radiculopathy M47.816 Sacroiliac joint dysfunction M53.3 Primary hypertension I10 Hypertension type: primary hypertension Sacroiliitis M46.1 Headache, chronic migraine without aura G43.709 Dorsalgia M54.9 Biceps tendonitis M75.20
[2025-06-10 10:59] VITALS: BP 140/35; PULSE 78; RESP 16; O2SAT 100; BMI 22.5
== END 2025-06-10 11:14 | disposition home or self-care (01) ==
LOC: HO.PMC 10:53
PROVIDERS: PCP Internal Medicine; Visit Provider Registered Nurse Emergency
DX: Z79.891 Long term (current) use of opiate analgesic (principal); G89.4 Chronic pain syndrome; M47.816 Spondylosis without myelopathy or radiculopathy, lumbar region; M53.3 Sacrococcygeal disorders, not elsewhere classified; I10 Essential (primary) hypertension; M46.1 Sacroiliitis, not elsewhere classified; G43.709 Chronic migraine without aura, not intractable, without status migrainosus; M54.9 Dorsalgia, unspecified; M75.20 Bicipital tendinitis, unspecified shoulder
CPT/HCPCS: 99213